=== PATIENT | male | born 1965 | race African-American/Black ===

== ENCOUNTER 2018-12-04 18:28 | Inpatient (IN) | payer OTHER ==
[~2018-12-04] VITALS: Ht 188 cm; Wt 85.7 kg
[2018-12-04 18:40] VITALS: BP 110/57
--- NOTE | 2018-12-04 18:40 | NUR ---
ED Nurse Note: Patient wheeled into Ed c/o left leg edema that he noticed progressing for the past 2 days, unable to bear weight, patient presents with a slowed speech with jaundice in appearance. patient is alert and oriented x4 however. complains of 8/10 pain at this time. IV placed on patients left forearm 18 gauge, labs sent down except urine. placed in a pressing machine tender, will wait for further orders
[2018-12-04 19:06] LABS: BASOPHILS % (AUTO) 0.7 % (0.0-2.0); EOSINOPHILS % (AUTO) 0.4 % (0.0-3.0); HEMATOCRIT 28.8 % (42.0-52.0); HEMOGLOBIN 9.1 G/DL (14.2-18.0); LYMPHOCYTES % (AUTO) 16.5 % (20.0-45.0); MEAN CORPUSCULAR VOLUME 109 FL (80-99); NEUTROPHILS % (AUTO) 75.5 % (45.0-75.0); PLATELET COUNT 424 K/UL (150-450); RED BLOOD COUNT 2.64 M/UL (4.70-6.10); RED CELL DISTRIBUTION WIDTH 16.6 % (11.6-14.8); WHITE BLOOD COUNT 10.1 K/UL (4.8-10.8)
--- NOTE | 2018-12-04 19:11 | NUR ---
HAND-OFF: Report given to PADDY Quezada.
[2018-12-04 19:15] LABS: AMMONIA 31 umol/L (11-32); ANION GAP 10 mmol/L (5-15); BLOOD UREA NITROGEN 9 mg/dL (7-18); CALCIUM 8.8 MG/DL (8.5-10.1); CARBON DIOXIDE 26 MMOL/L (21-32); CHLORIDE 109 MMOL/L (98-107); CREATININE 0.7 MG/DL (0.55-1.30); POTASSIUM 2.9 MMOL/L (3.5-5.1); SODIUM 145 MMOL/L (136-145)
[2018-12-04 19:27] LABS: ALANINE AMINOTRANSFERASE 91 U/L (12-78); ALBUMIN 2.1 G/DL (3.4-5.0); ALBUMIN/GLOBULIN RATIO 0.3 (1.0-2.7); ALKALINE PHOSPHATASE 1136 U/L (46-116); ASPARTATE AMINO TRANSFERASE 157 U/L (15-37); BILIRUBIN,TOTAL 8.6 MG/DL (0.2-1.0)
[2018-12-04] MEDS ORDERED: Morphine Sulfate 4mg/ml Inj (IV USE ONLY) IVP ONE (19:30)
[2018-12-04 19:31] LABS: BILIRUBIN,DIRECT 7.8 MG/DL (0.0-0.3)
[2018-12-04 19:48] LABS: APPEARANCE,URINE SLIGHTLY CLOUDY; BILIRUBIN, URINE 3+ (NEGATIVE); COLOR,URINE BROWN; GLUCOSE, URINE (UA) NEGATIVE (NEGATIVE); KETONES,URINE NEGATIVE (NEGATIVE); LEUKOCYTE ESTERASE ,URINE 1+ (NEGATIVE); NITRITE,URINE NEGATIVE (NEGATIVE); PH,URINE 6 (4.5-8.0); PROTEIN,URINE 2+ (NEGATIVE); UROBILINOGEN,URINE 12 MG/DL (0.0-1.0)
--- NOTE | 2018-12-04 20:20 | Diagnostic Imaging Report ---
EXAM: XR Chest, 1 View CLINICAL HISTORY: AMS TECHNIQUE: Frontal view of the chest. COMPARISON: None FINDINGS: Hardware: None. Lungs pleura: Low lung volumes with probable bibasilar atelectasis. No pleural effusion or pneumothorax. Heart mediastinum: Mild enlargement of the cardiac silhouette. Soft tissues: Unremarkable. Bones: No acute fracture. Degenerative changes of the acromioclavicular joints. Upper abdomen: Normal. IMPRESSION: Low lung volumes with probable bibasilar atelectasis. Pneumonia is not excluded.
--- NOTE | 2018-12-04 21:10 | NUR ---
ED Nurse Note: report given to PADDY Mcgee from [place], pt transferred to [place] floor with all belongings, family at bedside, pt vss, resp even and unlabored on RA, iv intact and patent, receiving rn notified med recon done except one med, unable to obtain exact name of the medication but pt repots he takes it for liver enzyme. endorsed to receiving rn.
[2018-12-04] MEDS ORDERED: PERCOCET 10-321 EAC1 ORAL (21:11)
[2018-12-04] MEDS ORDERED: HYDROCHLOROTH12.5 M2 ORAL (21:11)
[2018-12-04] MEDS ORDERED: TRIUMEQ 600-501 EACH PO (21:11)
--- NOTE | 2018-12-04 21:47 | NUR ---
NURSE NOTES: 9:30pm pt on the floor with best friend at bedside, pt has a personal walker at the bedside, sending his earrings home with the best friend, pt bilateral lower extremities edematous, the left extremity more, able to make needs known, call light within reach, no c/o pain at the moment and no signs of distress, med recon done, pt states that the morphine medication does not work and has taken dilaudid before and it helps with his pain, will contact Dr. Juan about admitting orders.
--- NOTE | 2018-12-04 21:50 | Emergency Room Report ---
History of Present Illness General Chief Complaint: Edema Source: Patient, Family Member Present Illness HPI 52-year-old male presents ED for evaluation. Brought in by brother for swelling to both legs. States symptoms started about 3 days ago. History of cirrhosis. States that he has not had access to his medications for a few days. Pain is throbbing, 7 out of 10, nonradiating. Is jaundice on exam. Denies any abdominal pain. Denies any nausea or vomiting. Denies fevers or chills. No other aggravating relieving factors. Denies any other associated symptoms Allergies: Coded Allergies: No Known Allergies (Unverified , 12/04/18) Patient History Past Medical History: other - cirrhosis Past Surgical History: none Pertinent Family History: none Social History: Denies: smoking, alcohol use, drug use Immunizations: UTD Reviewed Nursing Documentation: PMH: Agreed; PSxH: Agreed Nursing Documentation-PMH Past Medical History: No History, Except For Review of Systems All Other Systems: negative except mentioned in HPI Physical Exam Vital Signs Date Time Temp Pulse Resp B/P (MAP) Pulse Ox O2 Delivery O2 Flow Rate FiO2 12/04/18 18:30 98.2 78 13 100 Room Air 12/04/18 18:40 110/57 Sp02 EP Interpretation: reviewed, normal General Appearance: no apparent distress, alert, GCS 15, non-toxic Head: normocephalic, atraumatic Eyes: bilateral eye PERRL, bilateral eye EOMI, bilateral eye other - icteric sclera ENT: hearing grossly normal, normal pharynx, no angioedema, normal voice Neck: full range of motion, supple/symm/no masses Respiratory: chest non-tender, lungs clear, normal breath sounds, speaking full sentences Cardiovascular #1: regular rate, rhythm, no edema Cardiovascular #2: 2+ carotid (R), 2+ carotid (L), 2+ radial (R), 2+ radial (L) , 2+ dorsalis pedis (R), 2+ dorsalis pedis (L) Gastrointestinal: normal bowel sounds, non tender, soft, non-distended, no guarding, no rebound Rectal: deferred Genitourinary: normal inspection, no CVA tenderness Musculoskeletal: back normal, gait/station normal, normal range of motion, swelling - 1+ pitting edema b/l LEs Neurologic: alert, oriented x3, responsive, motor strength/tone normal, sensory intact, speech normal Psychiatric: judgement/insight normal, memory normal, mood/affect normal, no suicidal/homicidal ideation Reflexes: 3+ bicep (R), 3+ bicep (L), 3+ tricep (R), 3+ tricep (L), 3+ knee (R) , 3+ knee (L) Skin: other - see nursig notes Lymphatic: no adenopathy Medical Decision Making Diagnostic Impression: Primary Impression: Peripheral edema Additional Impressions: Liver failure Qualified Codes: K72.00 - Acute and subacute hepatic failure without coma Hypokalemia ER Course 52-year-old male presents ED for evaluation of leg swelling, jaundice. History of cirrhosis Differentialhepatic encephalopathy, CHF, renal failure patient placed on stretcher. After initial history and physical I ordered labs , pain meds, chest x-ray Labsno leukocytosis, hb/hct stable, K 2.9, LFTs markedly elevated, UA negative, BNP ok CXR - atelectasis patient admitted to Dr Juan's service for further care and support diagnosis Peripheral edema, liver failure, hypokalemia admitted to floor in serious condition Labs Test 12/04/18 18:45 White Blood Count 10.1 K/UL (4.8-10.8) Red Blood Count 2.64 M/UL (4.70-6.10) Hemoglobin 9.1 G/DL (14.2-18.0) Hematocrit 28.8 % (42.0-52.0) Mean Corpuscular Volume 109 FL (80-99) Mean Corpuscular Hemoglobin 34.5 PG (27.0-31.0) Mean Corpuscular Hemoglobin Concent 31.7 G/DL (32.0-36.0) Red Cell Distribution Width 16.6 % (11.6-14.8) Platelet Count 424 K/UL (150-450) Mean Platelet Volume 5.4 FL (6.5-10.1) Neutrophils (%) (Auto) 75.5 % (45.0-75.0) Lymphocytes (%) (Auto) 16.5 % (20.0-45.0) Monocytes (%) (Auto) 7.0 % (1.0-10.0) Eosinophils (%) (Auto) 0.4 % (0.0-3.0) Basophils (%) (Auto) 0.7 % (0.0-2.0) Urine Color Brown Urine Appearance Slightly cloudy Urine pH 6 (4.5-8.0) Urine Specific [place] 1.020 (1.005-1.035) Urine Protein 2+ (NEGATIVE) Urine Glucose (UA) Negative (NEGATIVE) Urine Ketones Negative (NEGATIVE) Urine Blood 1+ (NEGATIVE) Urine Nitrite Negative (NEGATIVE) Urine Bilirubin 3+ (NEGATIVE) Urine Ictotest Positive (NEGATIVE) Urine Urobilinogen 12 MG/DL (0.0-1.0) Urine Leukocyte Esterase 1+ (NEGATIVE) Urine RBC 2-4 /HPF (0 - 0) Urine WBC 0-2 /HPF (0 - 0) Urine Squamous Epithelial Cells Few /LPF (NONE/OCC) Urine Bacteria Occasional /HPF (NONE) Sodium Level 145 MMOL/L (136-145) Potassium Level 2.9 MMOL/L (3.5-5.1) Chloride Level 109 MMOL/L (98-107) Carbon Dioxide Level 26 MMOL/L (21-32) Anion Gap 10 mmol/L (5-15) Blood Urea Nitrogen 9 mg/dL (7-18) Creatinine 0.7 MG/DL (0.55-1.30) Estimat Glomerular Filtration Rate > 60 mL/min (>60) Glucose Level 95 MG/DL (74-106) Calcium Level 8.8 MG/DL (8.5-10.1) Total Bilirubin 8.6 MG/DL (0.2-1.0) Direct Bilirubin 7.8 MG/DL (0.0-0.3) Aspartate Amino Transf (AST/SGOT) 157 U/L (15-37) Alanine Aminotransferase (ALT/SGPT) 91 U/L (12-78) Alkaline Phosphatase 1136 U/L (46-116) Ammonia 31 umol/L (11-32) Troponin I 0.000 ng/mL (0.000-0.056) Pro-B-Type Natriuretic Peptide 86 pg/mL (0-125) Total Protein 8.1 G/DL (6.4-8.2) Albumin 2.1 G/DL (3.4-5.0) Globulin 6.0 g/dL Albumin/Globulin Ratio 0.3 (1.0-2.7) Lipase 68 U/L (73-393) Chest X-Ray Diagnostic Results Chest X-Ray Diagnostic Results : Chest X-Ray Ordered: Yes # of Views/Limited/Complete: 1 View Indication: Other - weakness EP Interpretation: Yes Interpretation: no pneumothorax, no acute cardiopulmonary disease, other - atelectasis Impression: Other - atelectasis Electronically Signed by: Electronically signed by Nikita Villavicencio MD Last Vital Signs Date Time Temp Pulse Resp B/P (MAP) Pulse Ox O2 Delivery O2 Flow Rate FiO2 12/04/18 21:10 98.8 72 14 107/75 100 Room Air Status: improved Disposition: ADMITTED INPATIENT Condition: Serious Referrals: NON PHYSICIAN (PCP) Nikita Villavicencio MD Dec 04, 2018 21:50
[2018-12-04] MEDS: Zolpidem 5mg tab ORAL PRN (23:43)
[2018-12-05] VITALS: BP 113/76
[2018-12-05] MEDS: HYDROmorphone 1mg/ml Carpuject SUBQ PRN ×2 (02:14→09:05)
[2018-12-05 04:00] VITALS: BP 121/79
[2018-12-05 07:03] LABS: BASOPHILS % (AUTO) 0.6 % (0.0-2.0); EOSINOPHILS % (AUTO) 0.1 % (0.0-3.0); HEMATOCRIT 27.7 % (42.0-52.0); HEMOGLOBIN 9.3 G/DL (14.2-18.0); LYMPHOCYTES % (AUTO) 18.7 % (20.0-45.0); MEAN CORPUSCULAR VOLUME 105 FL (80-99); MONOCYTES % (AUTO) 7.8 % (1.0-10.0); NEUTROPHILS % (AUTO) 72.8 % (45.0-75.0); PLATELET COUNT 397 K/UL (150-450); RED BLOOD COUNT 2.63 M/UL (4.70-6.10); RED CELL DISTRIBUTION WIDTH 15.6 % (11.6-14.8); WHITE BLOOD COUNT 8.2 K/UL (4.8-10.8)
--- NOTE | 2018-12-05 07:15 | NUR ---
NURSE NOTES: HANDOFF RECEIVED FROM PADDY HERNANDEZ. PATIENT OBSERVED SLEEPING IN BED, NO OBVIOUS SIGNS OF DISTRESS. IV SITE IS CLEAN, DRY AND INTACT, NO FLUIDS RUNNING, PM SHIFT STATED PATIENT WANTED THE IV FLUIDS OFF, WILL ATTEMPT TO RECONNECT WHEN PATIENT WAKES UP OR WILL NOTIFY DR. LONGO IN THE LOW AND LOCKED POSITION WITH CALL LIGHT AT BEDSIDE. WILL CONTINUE TO MONITOR PATIENT.
[2018-12-05 07:18] LABS: ALANINE AMINOTRANSFERASE 90 U/L (12-78); ALBUMIN 1.9 G/DL (3.4-5.0); ALBUMIN/GLOBULIN RATIO 0.3 (1.0-2.7); ALKALINE PHOSPHATASE 1108 U/L (46-116); ANION GAP 8 mmol/L (5-15); ASPARTATE AMINO TRANSFERASE 162 U/L (15-37); BILIRUBIN,TOTAL 8.6 MG/DL (0.2-1.0); BLOOD UREA NITROGEN 8 mg/dL (7-18); CALCIUM 8.6 MG/DL (8.5-10.1); CARBON DIOXIDE 28 MMOL/L (21-32); CHLORIDE 111 MMOL/L (98-107); CHOLESTEROL 101 MG/DL (< 200); CREATININE 0.8 MG/DL (0.55-1.30); HDL CHOLESTEROL 8 MG/DL (40-60); POTASSIUM 3.3 MMOL/L (3.5-5.1); SODIUM 147 MMOL/L (136-145); TRIGLYCERIDES 111 MG/DL (30-150)
[2018-12-05 07:33] LABS: BILIRUBIN,DIRECT 7.7 MG/DL (0.0-0.3)
--- NOTE | 2018-12-05 07:45 | NUR ---
HAND-OFF: Report given to PADDY Paez.
--- NOTE | 2018-12-05 07:59 | NUR ---
NURSE NOTES: PATIENT RECEIVED FROM PADDY HERNANDEZ. PATIENT ALERT AND ORIENTED AND ABLE TO MAKE NEEDS KNOWN. PATIENT OBSERVED SHOUTING THAT HE WANTS TO GO HOME, EXPLAINED THAT THERE IS NO ORDER FROM THE DOCTOR FOR DISCHARGE. PATIENT STATED HE CAN LEAVE AMA, ADVISED PATIENT TO WAIT UNTIL CLEARED BY DOCTOR, PATIENT THEN STATES THAT HE CANNOT GET HOME SO CAN'T SIGN AMA ANYWAY. IV SITE IS CLEAN DRY AND INTACT, SALINE LOCKED. BED IN LOW AND LOCKED POSITION WITH CALL LIGHT WITHIN REACH, PATIENT IS LEGALLY BLINSS Addendum: 12/05/18 at 08 by Philippe Melton RN BLIND, INSTRUCTED TO USE THE CALL LIGHT IF HE NEEDS TO GET UP FOR ANY REASON. WILL CONTINUE TO MONITOR PATIENT. Addendum: 12/05/18 at 08 by Philippe Melton RN CHARTED ON WRONG PATIENT PLEASE DISREGARD THIS NOTE. Addendum: 12/05/18 at 0830 by Philippe Melton RN PLEASE IGNORE THIS NOTE, ENTERED INTO THE WRONG CHART
[2018-12-05 08:00] VITALS: BP 125/86
--- NOTE | 2018-12-05 08:23 | NUR ---
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 DOCTORED GAVE ORDER FOR FLOMAX AND FOR PT EVALUATION AND ASSESSMENT.
[2018-12-05] MEDS: Heparin 5000 units/ml inj SUBQ SCH ×2 (09:06→20:24)
--- NOTE | 2018-12-05 10:18 | NUR ---
CHARGE NURSE NOTE: K-3.3. notified.
[2018-12-05 12:00] VITALS: BP 108/62
--- NOTE | 2018-12-05 12:15 | History & Physical ---
History and Physical History & Physicial seen and examined. Full Dictation completed on 1207 PM Nupur Juan MD Dec 05, 2018 12:15
--- NOTE | 2018-12-05 12:16 | General Progress Note ---
Assessment/Plan Assessment/Plan: Full Dictation in progress A/P: 1- Anasarca 2- Cirrhosis 3- Low grade fever Plan; Start Abx GI, Nephro, ID and Hemonch are consulted Subjective Allergies: Coded Allergies: No Known Allergies (Unverified , 12/04/18) Objective Last 24 Hour Vital Signs Date Time Temp Pulse Resp B/P (MAP) Pulse Ox O2 Delivery O2 Flow Rate FiO2 12/05/18 09:00 Room Air Room Air 12/05/18 08:00 97.9 100 16 125/86 (99) 94 12/05/18 04:00 98.7 77 18 121/79 (93) 99 12/05/18 00:00 98.8 79 22 113/76 (88) 98 12/04/18 22:47 Room Air 12/04/18 21:10 98.8 72 14 107/75 100 Room Air 12/04/18 20:14 98.2 12/04/18 18:40 78 13 Room Air 12/04/18 18:40 98.2 76 13 110/57 100 Room Air 12/04/18 18:30 98.2 78 13 100 Room Air Intake and Output 12/04/18 12/05/18 19:00 07:00 Output Total 300 ml Balance -300 ml Output Urine Total 300 ml # Voids 1 Laboratory Tests 12/04/18 18:45: White Blood Count 10.1, Red Blood Count 2.64L, Hemoglobin 9.1L, Hematocrit 28.8L , Mean Corpuscular Volume 109H, Mean Corpuscular Hemoglobin 34.5H, Mean Corpuscular Hemoglobin Concent 31.7L, Red Cell Distribution Width 16.6H, Platelet Count 424, Mean Platelet Volume 5.4L, Neutrophils (%) (Auto) 75.5H, Lymphocytes (%) (Auto) 16.5L, Monocytes (%) (Auto) 7.0, Eosinophils (%) (Auto) 0.4, Basophils (%) (Auto) 0.7, Urine Color Brown, Urine Appearance Slightly cloudy, Urine pH 6, Urine Specific [place] 1.020, Urine Protein 2+H, Urine Glucose (UA) Negative, Urine Ketones Negative, Urine Blood 1+H, Urine Nitrite Negative, Urine Bilirubin 3+H, Urine Ictotest Positive, Urine Urobilinogen 12H, Urine Leukocyte Esterase 1+H, Urine RBC 2-4H, Urine WBC 0-2, Urine Squamous Epithelial Cells Few, Urine Bacteria Occasional, Sodium Level 145, Potassium Level 2.9L, Chloride Level 109H, Carbon Dioxide Level 26, Anion Gap 10, Blood Urea Nitrogen 9, Creatinine 0.7, Estimat Glomerular Filtration Rate > 60, Glucose Level 95, Calcium Level 8.8, Total Bilirubin 8.6H, Direct Bilirubin 7.8H , Aspartate Amino Transf (AST/SGOT) 157H, Alanine Aminotransferase (ALT/SGPT) 91H, Alkaline Phosphatase 1136H, Ammonia 31, Troponin I 0.000, Pro-B-Type Natriuretic Peptide 86, Total Protein 8.1, Albumin 2.1L, Globulin 6.0, Albumin/ Globulin Ratio 0.3L, Lipase 68L 12/05/18 06:15: White Blood Count 8.2, Red Blood Count 2.63L, Hemoglobin 9.3L, Hematocrit 27.7L , Mean Corpuscular Volume 105H, Mean Corpuscular Hemoglobin 35.3H, Mean Corpuscular Hemoglobin Concent 33.5, Red Cell Distribution Width 15.6H, Platelet Count 397, Mean Platelet Volume 5.7L, Neutrophils (%) (Auto) 72.8, Lymphocytes (%) (Auto) 18.7L, Monocytes (%) (Auto) 7.8, Eosinophils (%) (Auto) 0.1, Basophils (%) (Auto) 0.6, Sodium Level 147H, Potassium Level 3.3L, Chloride Level 111H, Carbon Dioxide Level 28, Anion Gap 8, Blood Urea Nitrogen 8 , Creatinine 0.8, Estimat Glomerular Filtration Rate > 60, Glucose Level 76, Calcium Level 8.6, Total Bilirubin 8.6H, Direct Bilirubin 7.7H, Aspartate Amino Transf (AST/SGOT) 162H, Alanine Aminotransferase (ALT/SGPT) 90H, Alkaline Phosphatase 1108H, Total Protein 7.5, Albumin 1.9L, Globulin 5.6, Albumin/ Globulin Ratio 0.3L, Hemoglobin A1c 3.9L, Triglycerides Level 111, Cholesterol Level 101, LDL Cholesterol 62, HDL Cholesterol 8L, Cholesterol/HDL Ratio 12.6H, Thyroid Stimulating Hormone (TSH) 0.626 Height (Feet): 6 Height (Inches): 2.00 Weight (Pounds): 189 Nupur Juan MD Dec 05, 2018 12:16
--- NOTE | 2018-12-05 12:30 | NUR ---
NURSE NOTES: PATIENT STATED DILAUDID SUBQ IS NOT EFFECTIVE FOR MANAGING PAIN. CONTACTED DR TO LET HIM KNOW. NO NEW ORDERS AT THIS TIME.
[2018-12-05 12:48] LABS: % IRON SATURATION 37 % (15-50); IRON 80 ug/dL (50-175); TOTAL IRON BINDING CAPACITY 214 ug/dL (250-450)
[2018-12-05] MEDS ORDERED: Piperacillin/Tazobactam 3.375 GM in NS 110 ML IVPB SCH (14:00)
--- NOTE | 2018-12-05 15:11 | Infectious Diseases Prog Note ---
Assessment/Plan Problems: (1) UTI (urinary tract infection) Assessment & Plan: will send urine culture and start keflex empirically (2) Cellulitis of leg Assessment & Plan: will start keflex empirically , recommend venous doppler of the legs to rule out DVT , keep legs elevated all the time (3) Liver failure Assessment & Plan: etiology ? will screen for hepatitis , follow up with hepatology (4) Peripheral edema Assessment & Plan: suspect due to liver cirrhosis and third spacing, renal is following (5) HIV (human immunodeficiency virus infection) Assessment & Plan: continue triumeq , follow up with hiv provider at [place] Subjective Allergies: Coded Allergies: No Known Allergies (Unverified , 12/04/18) Objective Vital Signs Last 24 Hour Vital Signs Date Time Temp Pulse Resp B/P (MAP) Pulse Ox O2 Delivery O2 Flow Rate FiO2 12/05/18 12:00 97.9 100 24 108/62 (77) 99 12/05/18 09:00 Room Air Room Air 12/05/18 08:00 97.9 100 16 125/86 (99) 94 12/05/18 04:00 98.7 77 18 121/79 (93) 99 12/05/18 00:00 98.8 79 22 113/76 (88) 98 12/04/18 22:47 Room Air 12/04/18 21:10 98.8 72 14 107/75 100 Room Air 12/04/18 20:14 98.2 12/04/18 18:40 78 13 Room Air 12/04/18 18:40 98.2 76 13 110/57 100 Room Air 12/04/18 18:30 98.2 78 13 100 Room Air Height (Feet): 6 Height (Inches): 2.00 Weight (Pounds): 189 Laboratory Tests Test 12/04/18 18:45 12/05/18 06:15 White Blood Count 10.1 K/UL (4.8-10.8) 8.2 K/UL (4.8-10.8) Red Blood Count 2.64 M/UL (4.70-6.10) L 2.63 M/UL (4.70-6.10) L Hemoglobin 9.1 G/DL (14.2-18.0) L 9.3 G/DL (14.2-18.0) L Hematocrit 28.8 % (42.0-52.0) L 27.7 % (42.0-52.0) L Mean Corpuscular Volume 109 FL (80-99) H 105 FL (80-99) H Mean Corpuscular Hemoglobin 34.5 PG (27.0-31.0) H 35.3 PG (27.0-31.0) H Mean Corpuscular Hemoglobin Concent 31.7 G/DL (32.0-36.0) L 33.5 G/DL (32.0-36.0) Red Cell Distribution Width 16.6 % (11.6-14.8) H 15.6 % (11.6-14.8) H Platelet Count 424 K/UL (150-450) 397 K/UL (150-450) Mean Platelet Volume 5.4 FL (6.5-10.1) L 5.7 FL (6.5-10.1) L Neutrophils (%) (Auto) 75.5 % (45.0-75.0) H 72.8 % (45.0-75.0) Lymphocytes (%) (Auto) 16.5 % (20.0-45.0) L 18.7 % (20.0-45.0) L Monocytes (%) (Auto) 7.0 % (1.0-10.0) 7.8 % (1.0-10.0) Eosinophils (%) (Auto) 0.4 % (0.0-3.0) 0.1 % (0.0-3.0) Basophils (%) (Auto) 0.7 % (0.0-2.0) 0.6 % (0.0-2.0) Urine Color Brown Urine Appearance Slightly cloudy Urine pH 6 (4.5-8.0) Urine Specific [place] 1.020 (1.005-1.035) Urine Protein 2+ (NEGATIVE) H Urine Glucose (UA) Negative (NEGATIVE) Urine Ketones Negative (NEGATIVE) Urine Blood 1+ (NEGATIVE) H Urine Nitrite Negative (NEGATIVE) Urine Bilirubin 3+ (NEGATIVE) H Urine Ictotest Positive (NEGATIVE) Urine Urobilinogen 12 MG/DL (0.0-1.0) H Urine Leukocyte Esterase 1+ (NEGATIVE) H Urine RBC 2-4 /HPF (0 - 0) H Urine WBC 0-2 /HPF (0 - 0) Urine Squamous Epithelial Cells Few /LPF (NONE/OCC) Urine Bacteria Occasional /HPF (NONE) Sodium Level 145 MMOL/L (136-145) 147 MMOL/L (136-145) H Potassium Level 2.9 MMOL/L (3.5-5.1) L 3.3 MMOL/L (3.5-5.1) L Chloride Level 109 MMOL/L (98-107) H 111 MMOL/L (98-107) H Carbon Dioxide Level 26 MMOL/L (21-32) 28 MMOL/L (21-32) Anion Gap 10 mmol/L (5-15) 8 mmol/L (5-15) Blood Urea Nitrogen 9 mg/dL (7-18) 8 mg/dL (7-18) Creatinine 0.7 MG/DL (0.55-1.30) 0.8 MG/DL (0.55-1.30) Estimat Glomerular Filtration Rate > 60 mL/min (>60) > 60 mL/min (>60) Glucose Level 95 MG/DL (74-106) 76 MG/DL (74-106) Calcium Level 8.8 MG/DL (8.5-10.1) 8.6 MG/DL (8.5-10.1) Total Bilirubin 8.6 MG/DL (0.2-1.0) H 8.6 MG/DL (0.2-1.0) H Direct Bilirubin 7.8 MG/DL (0.0-0.3) H 7.7 MG/DL (0.0-0.3) H Aspartate Amino Transf (AST/SGOT) 157 U/L (15-37) H 162 U/L (15-37) H Alanine Aminotransferase (ALT/SGPT) 91 U/L (12-78) H 90 U/L (12-78) H Alkaline Phosphatase 1136 U/L (46-116) H 1108 U/L (46-116) H Ammonia 31 umol/L (11-32) Troponin I 0.000 ng/mL (0.000-0.056) Pro-B-Type Natriuretic Peptide 86 pg/mL (0-125) Total Protein 8.1 G/DL (6.4-8.2) 7.5 G/DL (6.4-8.2) Albumin 2.1 G/DL (3.4-5.0) L 1.9 G/DL (3.4-5.0) L Globulin 6.0 g/dL 5.6 g/dL Albumin/Globulin Ratio 0.3 (1.0-2.7) L 0.3 (1.0-2.7) L Lipase 68 U/L (73-393) L Hemoglobin A1c 3.9 % (4.3-6.0) L Iron Level 80 ug/dL (50-175) Total Iron Binding Capacity 214 ug/dL (250-450) L Percent Iron Saturation 37 % (15-50) Unsaturated Iron Binding 134 ug/dL (112-346) Triglycerides Level 111 MG/DL (30-150) Cholesterol Level 101 MG/DL (< 200) LDL Cholesterol 62 mg/dL (<100) HDL Cholesterol 8 MG/DL (40-60) L Cholesterol/HDL Ratio 12.6 (3.3-4.4) H Thyroid Stimulating Hormone (TSH) 0.626 uiU/mL (0.358-3.740) Current Medications Medications (Trade) Dose Ordered Sig/Lala Route PRN Reason Start Time Stop Time Status Last Admin Dose Admin Heparin Sodium (Porcine) (Heparin 5000 units/ml) 5,000 units EVERY 12 HOURS SUBQ 12/05/18 09:00 01/04/19 08:59 12/05/18 09:06 Hydrochlorothiazide (Hydrodiuril) 12.5 mg DAILY ORAL 12/05/18 09:00 01/04/19 08:59 12/05/18 09:04 Hydromorphone HCl (Dilaudid) 1 mg Q6HR PRN SUBQ severe pain 12/04/18 22:15 12/11/18 22:14 12/05/18 09:05 Non-Formulary Medication (Non-Formulary Med) 1 ea DAILY ORAL 12/05/18 09:00 01/04/19 08:59 UNV Oxycodone/ Acetaminophen (Percocet 10) 1 tab Q4HR PRN ORAL For Pain 12/04/18 22:15 12/11/18 22:14 12/05/18 12:23 Pantoprazole (Protonix) 40 mg DAILY@0630 ORAL 12/05/18 06:30 01/04/19 06:29 12/05/18 06:21 Piperacillin Sod/ Tazobactam Sod 3.375 gm/Sodium Chloride 110 ml @ 27.5 mls/hr EVERY 8 HOURS IVPB 12/05/18 14:00 12/10/18 13:59 12/05/18 14:48 Potassium Chloride (K-Dur) 40 meq ONCE ORAL 12/05/18 12:00 01/04/19 11:59 12/05/18 12:22 Tamsulosin HCl (Flomax) 0.4 mg BEDTIME ORAL 12/05/18 21:00 01/04/19 20:59 Zolpidem Tartrate (Ambien) 5 mg HSPRN PRN ORAL Insomnia 12/04/18 22:15 12/11/18 22:14 12/04/18 23:43 Cedrick Vu M.D. Dec 05, 2018 15:11
[2018-12-05] MEDS ORDERED: HYDROmorphone 1mg/ml Carpuject SUBQ PRN (15:15)
[2018-12-05 16:00] VITALS: BP 125/86
--- NOTE | 2018-12-05 16:08 | General Progress Note ---
Assessment/Plan Assessment/Plan: Assessment - PSC - s/p MELISSA gastric bypass - HIV (+) - Leg edema Recommendations - Uroso - Xifaxan - Lasix - Aldactone - f/u at [facility] Thank you Bailey Cano MD Subjective Allergies: Coded Allergies: No Known Allergies (Unverified , 12/04/18) Objective Last 24 Hour Vital Signs Date Time Temp Pulse Resp B/P (MAP) Pulse Ox O2 Delivery O2 Flow Rate FiO2 12/05/18 12:00 97.9 100 24 108/62 (77) 99 12/05/18 09:00 Room Air Room Air 12/05/18 08:00 97.9 100 16 125/86 (99) 94 12/05/18 04:00 98.7 77 18 121/79 (93) 99 12/05/18 00:00 98.8 79 22 113/76 (88) 98 12/04/18 22:47 Room Air 12/04/18 21:10 98.8 72 14 107/75 100 Room Air 12/04/18 20:14 98.2 12/04/18 18:40 78 13 Room Air 12/04/18 18:40 98.2 76 13 110/57 100 Room Air 12/04/18 18:30 98.2 78 13 100 Room Air Intake and Output 12/04/18 12/05/18 18:59 06:59 Output Total 300 ml Balance -300 ml Output Urine Total 300 ml # Voids 1 Laboratory Tests 12/04/18 18:45: White Blood Count 10.1, Red Blood Count 2.64L, Hemoglobin 9.1L, Hematocrit 28.8L , Mean Corpuscular Volume 109H, Mean Corpuscular Hemoglobin 34.5H, Mean Corpuscular Hemoglobin Concent 31.7L, Red Cell Distribution Width 16.6H, Platelet Count 424, Mean Platelet Volume 5.4L, Neutrophils (%) (Auto) 75.5H, Lymphocytes (%) (Auto) 16.5L, Monocytes (%) (Auto) 7.0, Eosinophils (%) (Auto) 0.4, Basophils (%) (Auto) 0.7, Urine Color Brown, Urine Appearance Slightly cloudy, Urine pH 6, Urine Specific [place] 1.020, Urine Protein 2+H, Urine Glucose (UA) Negative, Urine Ketones Negative, Urine Blood 1+H, Urine Nitrite Negative, Urine Bilirubin 3+H, Urine Ictotest Positive, Urine Urobilinogen 12H, Urine Leukocyte Esterase 1+H, Urine RBC 2-4H, Urine WBC 0-2, Urine Squamous Epithelial Cells Few, Urine Bacteria Occasional, Sodium Level 145, Potassium Level 2.9L, Chloride Level 109H, Carbon Dioxide Level 26, Anion Gap 10, Blood Urea Nitrogen 9, Creatinine 0.7, Estimat Glomerular Filtration Rate > 60, Glucose Level 95, Calcium Level 8.8, Total Bilirubin 8.6H, Direct Bilirubin 7.8H , Aspartate Amino Transf (AST/SGOT) 157H, Alanine Aminotransferase (ALT/SGPT) 91H, Alkaline Phosphatase 1136H, Ammonia 31, Troponin I 0.000, Pro-B-Type Natriuretic Peptide 86, Total Protein 8.1, Albumin 2.1L, Globulin 6.0, Albumin/ Globulin Ratio 0.3L, Lipase 68L 12/05/18 06:15: White Blood Count 8.2, Red Blood Count 2.63L, Hemoglobin 9.3L, Hematocrit 27.7L , Mean Corpuscular Volume 105H, Mean Corpuscular Hemoglobin 35.3H, Mean Corpuscular Hemoglobin Concent 33.5, Red Cell Distribution Width 15.6H, Platelet Count 397, Mean Platelet Volume 5.7L, Neutrophils (%) (Auto) 72.8, Lymphocytes (%) (Auto) 18.7L, Monocytes (%) (Auto) 7.8, Eosinophils (%) (Auto) 0.1, Basophils (%) (Auto) 0.6, Sodium Level 147H, Potassium Level 3.3L, Chloride Level 111H, Carbon Dioxide Level 28, Anion Gap 8, Blood Urea Nitrogen 8 , Creatinine 0.8, Estimat Glomerular Filtration Rate > 60, Glucose Level 76, Calcium Level 8.6, Total Bilirubin 8.6H, Direct Bilirubin 7.7H, Aspartate Amino Transf (AST/SGOT) 162H, Alanine Aminotransferase (ALT/SGPT) 90H, Alkaline Phosphatase 1108H, Total Protein 7.5, Albumin 1.9L, Globulin 5.6, Albumin/ Globulin Ratio 0.3L, Hemoglobin A1c 3.9L, Iron Level 80, Total Iron Binding Capacity 214L, Percent Iron Saturation 37, Unsaturated Iron Binding 134, Triglycerides Level 111, Cholesterol Level 101, LDL Cholesterol 62, HDL Cholesterol 8L, Cholesterol/HDL Ratio 12.6H, Thyroid Stimulating Hormone (TSH) 0.626 Height (Feet): 6 Height (Inches): 2.00 Weight (Pounds): 189 Bailey Cano MD Dec 05, 2018 16:08
[2018-12-05] MEDS ORDERED: Ursodiol 300mg cap ORAL SCH ×2 (16:15→18:00)
--- NOTE | 2018-12-05 16:17 | NUR ---
NURSE NOTES: PHARMACY CALLED FOR NON-FORMULARY HIV MEDICATION. SPOKE TO PATIENT WHO CONFIRMED FRIEND WOULD BE BRINGING THIS MEDICATION TO THE PATIENT.
--- NOTE | 2018-12-05 16:40 | NUR ---
NURSE NOTES: FAMILY BROUGHT IN HIV MEDICATION THAT WAS NON-FORMULARY FOR OUR PHARMACY. ATTEMPTED TO GIVE PHARMACY THE MEDICATION BUT THE MEDICATION IS NOT IN THE ORIGINAL PRESCRIPTION BOTTLE. PHARMACY SAID THEY CANNOT TAKE THE MEDICINE WITHOUT THE MEDICATION INFORMATION E.G DRUG, DOSE, EXPIRATION ETC. GAVE THE FAMILY THE MEDICATION BACK AND ASKED THEM TO BRING THE ORIGINAL CONTAINER INTO THE HOSPITAL SO THAT WE CAN GIVE THE MEDICATIONS TO THE PHARMACY.
--- NOTE | 2018-12-05 17:30 | Consultation ---
DATE OF CONSULTATION: 12/05/2018 INFECTIOUS DISEASE CONSULTATION CONSULTING PHYSICIAN: Cedrick Vu M.D. REQUESTING PHYSICIAN: Nupur Juan M.D. REASON FOR CONSULTATION: HIV care , UTI, AND possible cellulitis of the lower extremity. Recommendation for antibiotics treatment. HISTORY OF PRESENT ILLNESS: The patient is a 52-year-old male with past medical history of HIV , chronic liver cirrhosis, unclear etiology, was brought in to [facility] emergency room by his brother for worsening swelling of both legs started about three days ago. The patient has history of liver cirrhosis and anasarca and he has not had access to his medications for a few days. His leg pain was getting worse, 7/10, nonradiating and he seems to be jaundiced. No abdominal pain, nausea, or vomiting. No fever or chills. No skin injury. No numbness, but generalized weakness. The patient had temperature of 98.2 with O2 saturation of 100% on room air. Urinalysis showed possible infection. The patient was started on Zosyn by the admitting physician and an Infectious Disease consultation was requested for antibiotics treatment and further care. As of note, the patient is a poor historian. History was partially obtained from the brother and the family at the bedside. REVIEW OF SYSTEMS: A 14-point of systems reviewed were all negative apart from the one I mentioned above in my H and P. PAST MEDICAL HISTORY: Significant for hiv, chronic liver cirrhosis, anasarca, and ascites. PAST SURGICAL HISTORY: Negative. FAMILY HISTORY: Noncontributory. SOCIAL HISTORY: The patient is single, lives with brother. Denied using any drugs, tobacco, or alcohol. ALLERGIES: No known drug allergies. MEDICATIONS: The patient currently on Zosyn. HE IS ALSO ON TRIUMEQ , For the rest of his medications, please refer to [facility]. LABORATORY AND DIAGNOSTIC DATA: Laboratories showed white count of 8.2, hemoglobin of 9.3, platelet count of 397. BUN of 8, creatinine of 0.8. AST of 162, ALT of 90. Albumin of 1.9. Urinalysis showed +1 leukocyte esterase, red blood cells 2 to 4 and wbc 0 to 2. Imaging, chest x-ray showed low lung volumes with probable bibasilar atelectasis. PHYSICAL EXAMINATION: VITAL SIGNS: Temperature 97.9, pulse 100, respirations 24, blood pressure 108/62, and saturation 99% on room air. GENERAL: A middle-aged male, jaundiced, lying in bed, lethargic, but responsive, not in any acute distress. Family at the bedside. HEENT: Normocephalic and atraumatic. Pupils are reactive to light equally. Jaundiced sclera. Oral mucosa, no thrush or exudate. NECK: Supple. No lymphadenopathy. CARDIOVASCULAR: Regular rate and rhythm. No murmur or gallop. LUNGS: Clear bilaterally. Diminished breathing sounds at the bases with crackles. Normal breathing efforts. ABDOMEN: Soft. Distended with ascites. I could not appreciate hepatomegaly. No rebound. No skin lesion. GENITOURINARY: He had a condom catheter in place. No edema or scrotum swelling. EXTREMITIES: He had +3 edema in both lower extremity, worse on the left leg, could not feel distal pulse in both feet. SKIN: Warm to touch. Mildly tender to palpation, mainly on the left leg. ASSESSMENT AND RECOMMENDATION: 1. UTI. We will send urine culture and start Keflex empiric coverage for now. Stop Zosyn to avoid volume overload. 2. Cellulitis of the legs. We will start Keflex empirically. Recommend venous Doppler of the legs to rule out DVT. Keep leg elevated all the time while in bed. 3. Liver failure, etiology unclear. We will screen him for hepatitis. 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 4. Peripheral edema suspect due to liver cirrhosis and third spacing. Renal is following. May benefits from diuresis. 5. HIV . continue triumeq, check viral load Thank you for the consult. ID will continue to follow. Please feel free to call with any question. Cedrick Vu M.D. DR: ELLIE JOB#: [id number] CC: LEORA
--- NOTE | 2018-12-05 17:34 | NUR ---
CHARGE NURSE NOTE: Stat Venous Duplex BLE negative. notified.
[2018-12-05] MEDS: Ursodiol 300mg cap ORAL SCH (17:36)
[2018-12-05] MEDS: Cephalexin 500mg cap ORAL SCH ×2 (17:37→20:21)
[2018-12-05] MEDS: Spironolactone 50mg tab ORAL SCH (17:38)
--- NOTE | 2018-12-05 18:48 | Cardiology Progress Note ---
Assessment/Plan Assessment/Plan The patient is seen and examined, full consult note will be dictated shortly. Objective Last 24 Hour Vital Signs Date Time Temp Pulse Resp B/P (MAP) Pulse Ox O2 Delivery O2 Flow Rate FiO2 12/05/18 16:00 97.9 100 16 125/86 (99) 94 12/05/18 12:00 97.9 100 24 108/62 (77) 99 12/05/18 09:00 Room Air Room Air 12/05/18 08:00 97.9 100 16 125/86 (99) 94 12/05/18 04:00 98.7 77 18 121/79 (93) 99 12/05/18 00:00 98.8 79 22 113/76 (88) 98 12/04/18 22:47 Room Air 12/04/18 21:10 98.8 72 14 107/75 100 Room Air 12/04/18 20:14 98.2 Intake and Output 12/04/18 12/05/18 18:59 06:59 Output Total 300 ml Balance -300 ml Output Urine Total 300 ml # Voids 1 Laboratory Tests Test 12/05/18 06:15 White Blood Count 8.2 K/UL (4.8-10.8) Red Blood Count 2.63 M/UL (4.70-6.10) L Hemoglobin 9.3 G/DL (14.2-18.0) L Hematocrit 27.7 % (42.0-52.0) L Mean Corpuscular Volume 105 FL (80-99) H Mean Corpuscular Hemoglobin 35.3 PG (27.0-31.0) H Mean Corpuscular Hemoglobin Concent 33.5 G/DL (32.0-36.0) Red Cell Distribution Width 15.6 % (11.6-14.8) H Platelet Count 397 K/UL (150-450) Mean Platelet Volume 5.7 FL (6.5-10.1) L Neutrophils (%) (Auto) 72.8 % (45.0-75.0) Lymphocytes (%) (Auto) 18.7 % (20.0-45.0) L Monocytes (%) (Auto) 7.8 % (1.0-10.0) Eosinophils (%) (Auto) 0.1 % (0.0-3.0) Basophils (%) (Auto) 0.6 % (0.0-2.0) Sodium Level 147 MMOL/L (136-145) H Potassium Level 3.3 MMOL/L (3.5-5.1) L Chloride Level 111 MMOL/L (98-107) H Carbon Dioxide Level 28 MMOL/L (21-32) Anion Gap 8 mmol/L (5-15) Blood Urea Nitrogen 8 mg/dL (7-18) Creatinine 0.8 MG/DL (0.55-1.30) Estimat Glomerular Filtration Rate > 60 mL/min (>60) Glucose Level 76 MG/DL (74-106) Hemoglobin A1c 3.9 % (4.3-6.0) L Calcium Level 8.6 MG/DL (8.5-10.1) Iron Level 80 ug/dL (50-175) Total Iron Binding Capacity 214 ug/dL (250-450) L Percent Iron Saturation 37 % (15-50) Unsaturated Iron Binding 134 ug/dL (112-346) Total Bilirubin 8.6 MG/DL (0.2-1.0) H Direct Bilirubin 7.7 MG/DL (0.0-0.3) H Aspartate Amino Transf (AST/SGOT) 162 U/L (15-37) H Alanine Aminotransferase (ALT/SGPT) 90 U/L (12-78) H Alkaline Phosphatase 1108 U/L (46-116) H Total Protein 7.5 G/DL (6.4-8.2) Albumin 1.9 G/DL (3.4-5.0) L Globulin 5.6 g/dL Albumin/Globulin Ratio 0.3 (1.0-2.7) L Triglycerides Level 111 MG/DL (30-150) Cholesterol Level 101 MG/DL (< 200) LDL Cholesterol 62 mg/dL (<100) HDL Cholesterol 8 MG/DL (40-60) L Cholesterol/HDL Ratio 12.6 (3.3-4.4) H Thyroid Stimulating Hormone (TSH) 0.626 uiU/mL (0.358-3.740) Lowell Arreguin MD Dec 05, 2018 18:48
--- NOTE | 2018-12-05 18:51 | Diagnostic Imaging Report ---
EXAM: US Duplex Bilateral Lower Extremities Veins CLINICAL HISTORY: SWELL TECHNIQUE: Real-time duplex ultrasound scan of the bilateral lower extremity veins integrating B-mode two-dimensional vascular structure, Doppler spectral analysis, color flow Doppler imaging and compression. COMPARISON: None FINDINGS: Right deep veins: Unremarkable. No DVT in the right common femoral, femoral, proximal deep femoral or popliteal veins. The veins demonstrate normal color flow, are normally compressible, with normal phasic flow and or augmentation response. Right superficial veins: Unremarkable. No thrombus in the visualized right great saphenous vein. Left deep veins: Unremarkable. No DVT in the left common femoral, femoral, proximal deep femoral or popliteal veins. The veins demonstrate normal color flow, are normally compressible, with normal phasic flow and or augmentation response. Left superficial veins: Unremarkable. No thrombus in the visualized left great saphenous vein. Soft tissues: Soft tissue edema bilaterally. No popliteal cyst. IMPRESSION: No deep venous thrombosis identified in either lower extremity.
--- NOTE | 2018-12-05 19:08 | Diagnostic Imaging Report ---
EXAM: US Abdomen Complete CLINICAL HISTORY: ABN LABS TECHNIQUE: Real-time ultrasound of the abdomen with image documentation. COMPARISON: None FINDINGS: Liver: Measures 19.4 cm, enlarged. Normal echotexture and contour. No focal lesion. Portal vein: Patent with normal direction of flow. Gallbladder: Prior cholecystectomy. Biliary tree: Borderline enlarged which may be due to postcholecystectomy ductal ectasia. Common bile duct measures 6.0 mm. Pancreas: Visualized portions are unremarkable. Spleen: Borderline in size, measuring 12.7 cm. No focal lesion. Right kidney: Measures 15.2 cm in length. No hydronephrosis or stone. No mass. Left kidney: Measures 12.1 cm in length. No hydronephrosis or stone. No mass. Peritoneal space: Normal. No free fluid. Aorta: Visualized portions are unremarkable. IVC: Visualized portions are unremarkable. IMPRESSION: 1. Enlarged liver and right kidney. Borderline size of the spleen. 2. Prior cholecystectomy. 3. No acute abnormality.
--- NOTE | 2018-12-05 19:31 | NUR ---
HAND-OFF: Report given to PADDY HERNANDEZ.
--- NOTE | 2018-12-05 19:46 | NUR ---
NURSE NOTES: Pt received in bed awake, requesting to have Diluadid given IV but I explained that the order is SubQ, pt stating he received Percocet IV but I explained that the medication is PO, able to make needs known, call light within reach, will continue to monitor.
[2018-12-05 20:00] VITALS: BP 105/69
[2018-12-05] MEDS: Tamsulosin 0.4mg cap ORAL SCH (20:20)
[2018-12-05] MEDS: Zolpidem 5mg tab ORAL PRN (21:13)
[2018-12-06] VITALS: BP 98/65
--- NOTE | 2018-12-06 01:45 | Consultation ---
DATE OF CONSULTATION: 12/05/2018 GASTROENTEROLOGY CONSULTATION CONSULTING PHYSICIAN: Bailey Cano M.D. REFERRING PHYSICIAN: Nupur Juan M.D. CHIEF COMPLAINT: I was asked to see this patient by Dr. Nupur Juan for evaluation of liver disease. HISTORY OF PRESENT ILLNESS: The patient is a 52-year-old man, who comes in here because of leg pain. He has chronic liver disease and review of his records of [facility] revealed that he has longstanding history of primary sclerosing cholangitis and he has been placed on ursodiol and Xifaxan as well as atorvastatin for this condition. The patient has had a suspicion of a component of possible autoimmune liver disease, but this has not been proven. He has not been on water pills as an outpatient, but he does note that his legs have been recently swollen. The patient had been given steroid in the past, but unfortunately he developed an ulcer, so steroid was discontinued. It should be noted that he had a Semaj-en-Y gastric bypass surgery in 2004. PAST MEDICAL HISTORY: History of primary sclerosing cholangitis, status post Semaj-en-Y gastric bypass surgery in 2004, history of anastomotic ulcers after oral steroid use, history of anemia, chronic low back pain and neck pain, cholelithiasis, history of first-degree AV block, HIV positive, hyperlipidemia, peptic ulcer disease, pyelonephritis, and depression. FAMILY HISTORY: Negative for liver disease. SOCIAL HISTORY: The patient does not smoke or drink alcohol. MEDICATIONS: As an outpatient include atorvastatin 10 mg p.o. daily; Megace 400 mg p.o. b.i.d.; vitamin D 50,000 units p.o. twice a week; tamsulosin 0.4 mg p.o. daily; ursodiol 500 mg two in the morning and one at night; Triumeq, which is for his HIV disease; Percocet as needed for pain; diazepam as needed for anxiety; and Xifaxan 550 mg p.o. twice a day. REVIEW OF SYSTEMS: Otherwise negative. PHYSICAL EXAMINATION: GENERAL: A well-developed, ill-appearing 52-year-old man, seen in his room with family at bedside. HEENT: Normocephalic and atraumatic. His sclerae were icteric. Oropharynx was clear. Dentition was fair. NECK: Supple. CHEST: Clear to auscultation. CARDIOVASCULAR: Revealed regular rate. ABDOMEN: Soft and without masses. EXTREMITIES: Revealed 1+ to 2+ bilateral lower extremity edema. LABORATORY DATA: Noted. ASSESSMENT: This patient presents with history of primary sclerosing cholangitis, which explains the degree of jaundice and does explain normal platelet count. I will order an INR level on him if it drops back. I suspect that he actually has only obstructive process and no true liver failure. He is going to be treated with his usual medications including ursodiol, which will help in reducing and Xifaxan, which should help with true liver failure as well as a degree of hepatic encephalopathy. I will start him on a dose of Lasix and Aldactone to manage his fluid balance as he would likely develop signs of edema as the disease progresses. The patient understands that, also he will have to be followed back at [facility] where he will be monitored closely for possible future liver transplant candidacy. In addition, he can undergo periodically ERCP examinations to clear his ducts. The above was all discussed with the patient's family and the patient himself and all questions were answered. RECOMMENDATIONS: Per above discussion and per orders written in the chart. Thank you for asking me to participate in the care of this patient. Bailey Cano M.D. DR: Nina JOB#: [id number] CC:
[2018-12-06 04:00] VITALS: BP 101/66
--- NOTE | 2018-12-06 04:47 | NUR ---
NURSE NOTES: Pt has a backpack at the bedside that was brought yesterday on the day shift, with medication, I will give the medication to pharmacy and I added the other items to the belongings list.
--- NOTE | 2018-12-06 07:25 | NUR ---
HAND-OFF: Report given to PADDY Ornelas. Endorsed pt medication receipt is in the chart
[2018-12-06 07:50] LABS: BASOPHILS % (AUTO) 0.7 % (0.0-2.0); EOSINOPHILS % (AUTO) 0.3 % (0.0-3.0); HEMATOCRIT 24.3 % (42.0-52.0); HEMOGLOBIN 8.2 G/DL (14.2-18.0); LYMPHOCYTES % (AUTO) 25.5 % (20.0-45.0); MEAN CORPUSCULAR VOLUME 105 FL (80-99); MONOCYTES % (AUTO) 7.4 % (1.0-10.0); NEUTROPHILS % (AUTO) 66.2 % (45.0-75.0); PLATELET COUNT 332 K/UL (150-450); RED BLOOD COUNT 2.31 M/UL (4.70-6.10); RED CELL DISTRIBUTION WIDTH 15.3 % (11.6-14.8); WHITE BLOOD COUNT 7.8 K/UL (4.8-10.8)
[2018-12-06 07:53] LABS: INR 1.1 (0.9-1.1)
--- NOTE | 2018-12-06 08:08 | NUR ---
NURSE NOTES: pt resting in bed. Compained of bLE pain. mild Edema BLE. condom cath in place, draining dark yellow urine. tolerating diet. call light within reach. bed alarm on . fall precaution maintained. will continue to monitor. .
[2018-12-06 08:24] LABS: ALANINE AMINOTRANSFERASE 91 U/L (12-78); ALBUMIN 1.7 G/DL (3.4-5.0); ALBUMIN/GLOBULIN RATIO 0.3 (1.0-2.7); ALKALINE PHOSPHATASE 1040 U/L (46-116); ANION GAP 6 mmol/L (5-15); ASPARTATE AMINO TRANSFERASE 167 U/L (15-37); BILIRUBIN,DIRECT 8.3 MG/DL (0.0-0.3); BILIRUBIN,TOTAL 9.3 MG/DL (0.2-1.0); BLOOD UREA NITROGEN 8 mg/dL (7-18); CALCIUM 8.5 MG/DL (8.5-10.1); CARBON DIOXIDE 30 MMOL/L (21-32); CHLORIDE 107 MMOL/L (98-107); CREATININE 0.6 MG/DL (0.55-1.30); FERRITIN 334 NG/ML (8-388); POTASSIUM 3.7 MMOL/L (3.5-5.1); SODIUM 143 MMOL/L (136-145)
[2018-12-06 08:31] LABS: PHOSPHORUS 2.7 MG/DL (2.5-4.9)
[2018-12-06 09:00] VITALS: BP 114/76
[2018-12-06] MEDS: Spironolactone 50mg tab ORAL SCH (09:16)
[2018-12-06] MEDS: Heparin 5000 units/ml inj SUBQ SCH ×2 (09:16→20:47)
[2018-12-06] MEDS: Cephalexin 500mg cap ORAL SCH ×4 (09:17→20:46)
[2018-12-06] MEDS: Ursodiol 300mg cap ORAL SCH ×2 (09:24→17:37)
--- NOTE | 2018-12-06 10:01 | General Progress Note ---
Assessment/Plan Assessment/Plan: Full Dictation in progress A/P: 1- Anasarca 2- P B. Cirrhosis 3- Low grade fever, on empiricall abx Plan; Notes from GI reviewed Subjective Allergies: Coded Allergies: No Known Allergies (Unverified , 12/04/18) Objective Last 24 Hour Vital Signs Date Time Temp Pulse Resp B/P (MAP) Pulse Ox O2 Delivery O2 Flow Rate FiO2 12/06/18 09:00 98.1 72 18 114/76 (89) 100 12/06/18 04:00 99.1 75 18 101/66 (78) 100 12/06/18 00:00 98.4 71 18 98/65 (76) 100 12/05/18 21:00 Room Air Room Air 12/05/18 20:00 98.2 88 20 105/69 (81) 100 12/05/18 16:00 97.9 100 16 125/86 (99) 94 12/05/18 12:00 97.9 100 24 108/62 (77) 99 Intake and Output 12/05/18 12/06/18 19:00 07:00 Intake Total 800 ml Output Total 800 ml 1200 ml Balance 0 ml -1200 ml Intake Oral 800 ml Output Urine Total 800 ml 1200 ml # Bowel Movements 1 Laboratory Tests 12/06/18 06:49: White Blood Count 7.8, Red Blood Count 2.31L, Hemoglobin 8.2L, Hematocrit 24.3L , Mean Corpuscular Volume 105H, Mean Corpuscular Hemoglobin 35.4H, Mean Corpuscular Hemoglobin Concent 33.7, Red Cell Distribution Width 15.3H, Platelet Count 332, Mean Platelet Volume 5.9L, Neutrophils (%) (Auto) 66.2, Lymphocytes (%) (Auto) 25.5, Monocytes (%) (Auto) 7.4, Eosinophils (%) (Auto) 0.3, Basophils (%) (Auto) 0.7, Prothrombin Time 12.0H, Prothromb Time International Ratio 1.1, Sodium Level 143, Potassium Level 3.7, Chloride Level 107, Carbon Dioxide Level 30, Anion Gap 6, Blood Urea Nitrogen 8, Creatinine 0.6 , Estimat Glomerular Filtration Rate > 60, Glucose Level 77, Uric Acid 2.2L, Calcium Level 8.5, Phosphorus Level 2.7, Magnesium Level 1.8, Ferritin 334, Total Bilirubin 9.3H, Direct Bilirubin 8.3H, Gamma Glutamyl Transpeptidase 710H , Aspartate Amino Transf (AST/SGOT) 167H, Alanine Aminotransferase (ALT/SGPT) 91H, Alkaline Phosphatase 1040H, Ammonia 27, C-Reactive Protein, Quantitative 13.7H, Pro-B-Type Natriuretic Peptide 139H, Total Protein 7.3, Albumin 1.7L, Globulin 5.6, Albumin/Globulin Ratio 0.3L, Vitamin B12 Level 971, Folate 9.5 Height (Feet): 6 Height (Inches): 2.00 Weight (Pounds): 189 Nupur Juan MD Dec 06, 2018 10:01
[2018-12-06 11:48] VITALS: BP 118/90
--- NOTE | 2018-12-06 12:07 | NUR ---
PT note Attempted to see patient for eval/tx but patient refused. States that he wants to "walk out of here." RN and Nursing Nurse Tech were made aware of patient's comments.
--- NOTE | 2018-12-06 13:03 | Consultation ---
History of Present Illness General Date patient seen: Dec 06, 2018 Chief Complaint: Present Illness Allergies: Coded Allergies: No Known Allergies (Unverified , 12/04/18) Medication History Scheduled Abacavir/Dolutegravir/Lamivudi (Triumeq 600-50-300 mg Tablet), 1 EACH PO DAILY, (Reported) Hydrochlorothiazide* (Hydrochlorothiazide*), Unknown Dose ORAL DAILY, (Reported) Scheduled PRN Oxycodone HCl/Acetaminophen (Percocet 10-325 mg Tablet), 1 TAB ORAL Q6H PRN for For Pain, (Reported) Patient History Healthcare decision maker Resuscitation status Full Code Advanced Directive on File Physical Exam Last 24 Hour Vital Signs Date Time Temp Pulse Resp B/P (MAP) Pulse Ox O2 Delivery O2 Flow Rate FiO2 12/06/18 11:48 98.1 72 18 118/90 (99) 98 12/06/18 09:49 98.1 12/06/18 09:00 Room Air Room Air 12/06/18 09:00 98.1 72 18 114/76 (89) 100 12/06/18 04:00 99.1 75 18 101/66 (78) 100 12/06/18 00:00 98.4 71 18 98/65 (76) 100 12/05/18 21:00 Room Air Room Air 12/05/18 20:00 98.2 88 20 105/69 (81) 100 12/05/18 16:00 97.9 100 16 125/86 (99) 94 Intake and Output 12/05/18 12/06/18 19:00 07:00 Intake Total 800 ml Output Total 800 ml 1200 ml Balance 0 ml -1200 ml Intake Oral 800 ml Output Urine Total 800 ml 1200 ml # Bowel Movements 1 Laboratory Tests Test 12/06/18 06:49 White Blood Count 7.8 K/UL (4.8-10.8) Red Blood Count 2.31 M/UL (4.70-6.10) L Hemoglobin 8.2 G/DL (14.2-18.0) L Hematocrit 24.3 % (42.0-52.0) L Mean Corpuscular Volume 105 FL (80-99) H Mean Corpuscular Hemoglobin 35.4 PG (27.0-31.0) H Mean Corpuscular Hemoglobin Concent 33.7 G/DL (32.0-36.0) Red Cell Distribution Width 15.3 % (11.6-14.8) H Platelet Count 332 K/UL (150-450) Mean Platelet Volume 5.9 FL (6.5-10.1) L Neutrophils (%) (Auto) 66.2 % (45.0-75.0) Lymphocytes (%) (Auto) 25.5 % (20.0-45.0) Monocytes (%) (Auto) 7.4 % (1.0-10.0) Eosinophils (%) (Auto) 0.3 % (0.0-3.0) Basophils (%) (Auto) 0.7 % (0.0-2.0) Prothrombin Time 12.0 SEC (9.30-11.50) H Prothromb Time International Ratio 1.1 (0.9-1.1) Sodium Level 143 MMOL/L (136-145) Potassium Level 3.7 MMOL/L (3.5-5.1) Chloride Level 107 MMOL/L (98-107) Carbon Dioxide Level 30 MMOL/L (21-32) Anion Gap 6 mmol/L (5-15) Blood Urea Nitrogen 8 mg/dL (7-18) Creatinine 0.6 MG/DL (0.55-1.30) Estimat Glomerular Filtration Rate > 60 mL/min (>60) Glucose Level 77 MG/DL (74-106) Uric Acid 2.2 MG/DL (2.6-7.2) L Calcium Level 8.5 MG/DL (8.5-10.1) Phosphorus Level 2.7 MG/DL (2.5-4.9) Magnesium Level 1.8 MG/DL (1.8-2.4) Ferritin 334 NG/ML (8-388) Total Bilirubin 9.3 MG/DL (0.2-1.0) H Direct Bilirubin 8.3 MG/DL (0.0-0.3) H Gamma Glutamyl Transpeptidase 710 U/L (5-85) H Aspartate Amino Transf (AST/SGOT) 167 U/L (15-37) H Alanine Aminotransferase (ALT/SGPT) 91 U/L (12-78) H Alkaline Phosphatase 1040 U/L (46-116) H Ammonia 27 umol/L (11-32) C-Reactive Protein, Quantitative 13.7 mg/dL (0.00-0.90) H Pro-B-Type Natriuretic Peptide 139 pg/mL (0-125) H Total Protein 7.3 G/DL (6.4-8.2) Albumin 1.7 G/DL (3.4-5.0) L Globulin 5.6 g/dL Albumin/Globulin Ratio 0.3 (1.0-2.7) L Vitamin B12 Level 971 PG/ML (193-986) Folate 9.5 NG/ML (8.6-58.9) Microbiology Date/Time Source Procedure Growth Status 12/05/18 15:30 External Cath Urine Culture - Preliminary NO GROWTH Resulted Height (Feet): 6 Height (Inches): 2.00 Weight (Pounds): 189 Medications Current Medications Medications (Trade) Dose Ordered Sig/Lala Route PRN Reason Start Time Stop Time Status Last Admin Dose Admin Cephalexin (Keflex) 500 mg FOUR TIMES A DAY ORAL 12/05/18 18:00 12/12/18 17:59 12/06/18 09:17 Furosemide (Lasix) 20 mg DAILY ORAL 12/05/18 16:15 01/04/19 16:14 12/06/18 09:18 Heparin Sodium (Porcine) (Heparin 5000 units/ml) 5,000 units EVERY 12 HOURS SUBQ 12/05/18 09:00 01/04/19 08:59 12/06/18 09:16 Hydrochlorothiazide (Hydrodiuril) 12.5 mg DAILY ORAL 12/05/18 09:00 01/04/19 08:59 12/06/18 09:17 Hydromorphone HCl (Dilaudid) 1 mg Q4H PRN SUBQ severe pain 12/05/18 15:15 12/12/18 15:14 12/05/18 18:33 Non-Formulary Medication (Non-Formulary Med) 1 ea DAILY ORAL 12/05/18 09:00 01/04/19 08:59 UNV Oxycodone/ Acetaminophen (Percocet 10) 2 tab Q4H PRN ORAL For moderate Pain 12/06/18 10:15 12/13/18 09:44 Pantoprazole (Protonix) 40 mg DAILY@0630 ORAL 12/05/18 06:30 01/04/19 06:29 12/06/18 05:43 Potassium Chloride (K-Dur) 40 meq ONCE ORAL 12/05/18 12:00 01/04/19 11:59 12/05/18 12:22 Rifaximin (Xifaxan) 550 mg EVERY 12 HOURS ORAL 12/05/18 16:08 12/12/18 16:07 12/06/18 09:17 Spironolactone (Aldactone) 50 mg DAILY ORAL 12/05/18 16:15 01/04/19 16:14 12/06/18 09:16 Tamsulosin HCl (Flomax) 0.4 mg BEDTIME ORAL 12/05/18 21:00 01/04/19 20:59 12/05/18 20:20 Ursodiol (Actigall) 600 mg DAILY@1800 ORAL 12/05/18 18:00 01/04/19 17:59 12/05/18 17:36 Ursodiol (Actigall) 900 mg DAILY ORAL 12/06/18 09:00 01/05/19 08:59 12/06/18 09:24 Zolpidem Tartrate (Ambien) 5 mg HSPRN PRN ORAL Insomnia 12/04/18 22:15 12/11/18 22:14 12/05/18 21:13 Assessment/Plan Assessment/Plan: (1) Liver Cirrhosis (2) Abdominal pain (3) HIV (4) Peripheral Neuropathy Seen dictated Ben Hernandez Dec 06, 2018 13:03
[2018-12-06 16:00] VITALS: BP 105/63
--- NOTE | 2018-12-06 16:20 | Consultation ---
History of Present Illness General Chief Complaint: Edema Present Illness Allergies: Coded Allergies: No Known Allergies (Unverified , 12/04/18) Medication History Scheduled Abacavir/Dolutegravir/Lamivudi (Triumeq 600-50-300 mg Tablet), 1 EACH PO DAILY, (Reported) Hydrochlorothiazide* (Hydrochlorothiazide*), Unknown Dose ORAL DAILY, (Reported) Scheduled PRN Oxycodone HCl/Acetaminophen (Percocet 10-325 mg Tablet), 1 TAB ORAL Q6H PRN for For Pain, (Reported) Patient History Healthcare decision maker Resuscitation status Full Code Advanced Directive on File Physical Exam Last 24 Hour Vital Signs Date Time Temp Pulse Resp B/P (MAP) Pulse Ox O2 Delivery O2 Flow Rate FiO2 12/06/18 14:13 98.1 12/06/18 11:48 98.1 72 18 118/90 (99) 98 12/06/18 09:49 98.1 12/06/18 09:00 Room Air Room Air 12/06/18 09:00 98.1 72 18 114/76 (89) 100 12/06/18 04:00 99.1 75 18 101/66 (78) 100 12/06/18 00:00 98.4 71 18 98/65 (76) 100 12/05/18 21:00 Room Air Room Air 12/05/18 20:00 98.2 88 20 105/69 (81) 100 Intake and Output 12/05/18 12/06/18 19:00 07:00 Intake Total 800 ml Output Total 800 ml 1200 ml Balance 0 ml -1200 ml Intake Oral 800 ml Output Urine Total 800 ml 1200 ml # Bowel Movements 1 Laboratory Tests Test 12/06/18 06:49 White Blood Count 7.8 K/UL (4.8-10.8) Red Blood Count 2.31 M/UL (4.70-6.10) L Hemoglobin 8.2 G/DL (14.2-18.0) L Hematocrit 24.3 % (42.0-52.0) L Mean Corpuscular Volume 105 FL (80-99) H Mean Corpuscular Hemoglobin 35.4 PG (27.0-31.0) H Mean Corpuscular Hemoglobin Concent 33.7 G/DL (32.0-36.0) Red Cell Distribution Width 15.3 % (11.6-14.8) H Platelet Count 332 K/UL (150-450) Mean Platelet Volume 5.9 FL (6.5-10.1) L Neutrophils (%) (Auto) 66.2 % (45.0-75.0) Lymphocytes (%) (Auto) 25.5 % (20.0-45.0) Monocytes (%) (Auto) 7.4 % (1.0-10.0) Eosinophils (%) (Auto) 0.3 % (0.0-3.0) Basophils (%) (Auto) 0.7 % (0.0-2.0) Prothrombin Time 12.0 SEC (9.30-11.50) H Prothromb Time International Ratio 1.1 (0.9-1.1) Sodium Level 143 MMOL/L (136-145) Potassium Level 3.7 MMOL/L (3.5-5.1) Chloride Level 107 MMOL/L (98-107) Carbon Dioxide Level 30 MMOL/L (21-32) Anion Gap 6 mmol/L (5-15) Blood Urea Nitrogen 8 mg/dL (7-18) Creatinine 0.6 MG/DL (0.55-1.30) Estimat Glomerular Filtration Rate > 60 mL/min (>60) Glucose Level 77 MG/DL (74-106) Uric Acid 2.2 MG/DL (2.6-7.2) L Calcium Level 8.5 MG/DL (8.5-10.1) Phosphorus Level 2.7 MG/DL (2.5-4.9) Magnesium Level 1.8 MG/DL (1.8-2.4) Ferritin 334 NG/ML (8-388) Total Bilirubin 9.3 MG/DL (0.2-1.0) H Direct Bilirubin 8.3 MG/DL (0.0-0.3) H Gamma Glutamyl Transpeptidase 710 U/L (5-85) H Aspartate Amino Transf (AST/SGOT) 167 U/L (15-37) H Alanine Aminotransferase (ALT/SGPT) 91 U/L (12-78) H Alkaline Phosphatase 1040 U/L (46-116) H Ammonia 27 umol/L (11-32) C-Reactive Protein, Quantitative 13.7 mg/dL (0.00-0.90) H Pro-B-Type Natriuretic Peptide 139 pg/mL (0-125) H Total Protein 7.3 G/DL (6.4-8.2) Albumin 1.7 G/DL (3.4-5.0) L Globulin 5.6 g/dL Albumin/Globulin Ratio 0.3 (1.0-2.7) L Vitamin B12 Level 971 PG/ML (193-986) Folate 9.5 NG/ML (8.6-58.9) Height (Feet): 6 Height (Inches): 2.00 Weight (Pounds): 189 Medications Current Medications Medications (Trade) Dose Ordered Sig/Lala Route PRN Reason Start Time Stop Time Status Last Admin Dose Admin Cephalexin (Keflex) 500 mg FOUR TIMES A DAY ORAL 12/05/18 18:00 12/12/18 17:59 12/06/18 13:16 Furosemide (Lasix) 20 mg DAILY ORAL 12/05/18 16:15 01/04/19 16:14 12/06/18 09:18 Heparin Sodium (Porcine) (Heparin 5000 units/ml) 5,000 units EVERY 12 HOURS SUBQ 12/05/18 09:00 01/04/19 08:59 12/06/18 09:16 Hydrochlorothiazide (Hydrodiuril) 12.5 mg DAILY ORAL 12/05/18 09:00 01/04/19 08:59 12/06/18 09:17 Hydromorphone HCl (Dilaudid) 1 mg Q4H PRN SUBQ severe pain 12/05/18 15:15 12/12/18 15:14 12/05/18 18:33 Non-Formulary Medication (Non-Formulary Med) 1 ea DAILY ORAL 12/05/18 09:00 01/04/19 08:59 UNV Oxycodone/ Acetaminophen (Percocet 10) 2 tab Q4H PRN ORAL For moderate Pain 12/06/18 10:15 12/13/18 09:44 12/06/18 13:15 Pantoprazole (Protonix) 40 mg DAILY@0630 ORAL 12/05/18 06:30 01/04/19 06:29 12/06/18 05:43 Rifaximin (Xifaxan) 550 mg EVERY 12 HOURS ORAL 12/05/18 16:08 12/12/18 16:07 12/06/18 09:17 Spironolactone (Aldactone) 50 mg DAILY ORAL 12/05/18 16:15 01/04/19 16:14 12/06/18 09:16 Tamsulosin HCl (Flomax) 0.4 mg BEDTIME ORAL 12/05/18 21:00 01/04/19 20:59 12/05/18 20:20 Ursodiol (Actigall) 600 mg DAILY@1800 ORAL 12/05/18 18:00 01/04/19 17:59 12/05/18 17:36 Ursodiol (Actigall) 900 mg DAILY ORAL 12/06/18 09:00 01/05/19 08:59 12/06/18 09:24 Zolpidem Tartrate (Ambien) 5 mg HSPRN PRN ORAL Insomnia 12/04/18 22:15 12/11/18 22:14 12/05/18 21:13 Assessment/Plan Assessment/Plan: Hematology Consultation Note REVelasquez MD: Deni Juan DOS: 12/06/18 RFC: Anemia evaluation ID 52-year-old male presents ED for evaluation. Brought in by brother for swelling to both legs. States symptoms started about 3 days ago. Has a hstory of cirrhosis. States that he has not had access to his medications for a few days. Pain is throbbing, 7 out of 10, nonradiating. Is jaundice on exam. Denies any abdominal pain. Denies any nausea or vomiting. Denies fevers or chills. No other aggravating relieving factors. Denies any other associated symptoms. Allergies: No Known Allergies (Unverified , 12/04/18) Patient History Past Medical History: other - cirrhosis Past Surgical History: none Pertinent Family History: none Social History: Denies: smoking, alcohol use, drug use Immunizations: UTD Reviewed Nursing Documentation: PMH: Agreed; PSxH: Agreed Nursing Documentation-PMH Past Medical History: No History, Except For Review of Systems All Other Systems: negative except mentioned in HPI Physical Exam General Appearance: A+O x3, NAD HEENT: normocephalic, atraumatic Neck: non-tender, normal alignment Respiratory/Chest: chest wall non-tender, lungs clear Cardiovascular/Chest: rrr, no mgr Abd: normal bowel sounds, non tender Ext: 1-2+ edema Labs: reviewed Imaging: noted Assessment and Recs: # Anemia of chronic disease (or of iron deficiency) due to underlying chronic medical issues, multifactorial --> Anemia workup has been ordered, rule out gi bleed --> No evidence of hemolysis is noted, peripheral smear has been reviewed. --> Hgb goal >7. Transfuse prn. --> Epogen or iron at this time is not particularly indicated --> Medications have been reviewed --> low threshold for gi evaluation in case has occult + # Coagulation defect, multifactorial usually related to poor PO intake, in addition to primary biliary cirrhosis --> administer Vitamin K if patient is bleeding or FFP if the INR is >10 --> hold off on ffp unless active procedure/bleeding, first begin with vit K 10 --> mixing study as needed # Peripheral edema with Liver failure --> with a history of pb cirrhosis --> diuresis as needed # Hypokalemia --> replete with K as needed # Primary bilary cirrhosis --> as per gi # Atelectasis The time of service does not reflect the actual time that the patient was actually seen Greatly appreciate consultation. Gustavo Ghosh MD Dec 06, 2018 16:20
--- NOTE | 2018-12-06 16:30 | Consultation ---
DATE OF CONSULTATION: 12/06/2018 PAIN MANAGEMENT CONSULTATION CONSULTING PHYSICIAN: Svetlana Burroughs M.D. REFERRING PHYSICIAN: Nupur Juan M.D. PHYSICIAN IMAGING NURSE: James Mai CHIEF COMPLAINT: Abdominal pain. HISTORY OF PRESENT ILLNESS: This is a 52-year-old male, who is being seen on the Med/Surg floor of [facility] for initial pain management consultation. The patient was admitted under the care of Dr. Juan due to liver failure, anasarca, hypokalemia, history of HIV, liver cirrhosis. He reports that he has been having neck issues, right foot issues, cervical surgery in the past, gastric bypass in the past as well and is being seeing retail account executive Dr. Nahun Araujo who is prescribing the patient as an outpatient Percocet 10/325 240 tablets monthly. At this time, was on Dilaudid 1 mg subcutaneous every 6 hours and then was changed to every 4 hours by me and Dr. Burroughs yesterday which he received one dose of with minimal pain relief and was started on Percocet 10/325 one tablet every 4 hours as needed per Dr. Juan and then was recently increased to Percocet 10/325 two tablets. At this time, the patient is in the bed and complaining of severe pain however he seems comfortable and showing no signs of pain or distress at this time. I discussed with the patient in detail about his condition of liver disease and cirrhosis and high doses of acetaminophen causing increased damage to the liver continued and the patient does not seem to understand and does not want to except this at this time. Discussed with him about different modalities of opioid medication such as Dilaudid tablets or oxycodone without acetaminophen however patient is requesting the Percocet to be continued with acetaminophen at 2 tablets every 4 hours. Due to this, I discussed with Dr. Burroughs and due to patient not excepting all recommendations at this time, we will sign off of the patient's care and this was informed to the nurse and will be informed to the magnetometer operator as well, Dr. Juan. PAST MEDICAL HISTORY: Liver cirrhosis, HIV, anasarca, ascites. PAST SURGICAL HISTORY: Gastric bypass, cervical surgery. SOCIAL HISTORY: Denies smoking tobacco, drinking alcohol, or IV drug abuse. ALLERGIES: No known drug allergies. MEDICATIONS: Percocet, hydrochlorothiazide, Triumeq. REVIEW OF SYSTEMS: Denies rash, fever, chills, sweating, dizziness, drowsiness, blurred vision, change in his weight. No shortness of breath, chest pain, palpitations, or cough. No nausea, vomiting, diarrhea, or blood in the stool or urine. He is complaining of abdominal pain with swelling in the lower extremities. PHYSICAL EXAMINATION: GENERAL: Alert, awake, and oriented. VITAL SIGNS: Blood pressure 118/90, heart rate 72, oxygen saturation 98%, respiratory rate 18, temperature 98.1 degrees Fahrenheit. HEENT: Sclerae icteric. PERRLA. NECK: Range of motion is reduced to the patient's condition with tenderness to paracervical muscles. LUNGS: Decreased breath sounds bilaterally. HEART: S1 and S2 regular. ABDOMEN: Tenderness to palpation. BACK: Range of motion is decreased in flexion and extension. EXTREMITIES: Upper and lower extremity range of motion is decreased due to the patient's condition. No cyanosis. No clubbing. Sensory is reduced. Reflexes are not obtainable. No adenopathy ASSESSMENT AND PLAN: This is a 52-year-old male with liver cirrhosis, abdominal pain, peripheral neuropathy, HIV. At this time due to the patient not accepting all recommendations and discussed with the patient in detail about the acetaminophen at high dosages and the fact that it causes on liver, we are not accepting to change medications. We will sign off the patient's care at this time. This was informed to the nurse and will be informed to the magnetometer operator. The patient was discussed with Dr. Burroughs and Dr. Burroughs concurred. Thank you very much for the courtesy of this consultation. Svetlana Burroughs M.D. ELIZABETH Mai DR: [place] JOB#: [id number] CC: LEORA
--- NOTE | 2018-12-06 16:38 | NUR ---
NURSE NOTES: notify MD regarding Pt home med (Triumeg) , MD will call [facility].
--- NOTE | 2018-12-06 18:41 | General Progress Note ---
Assessment/Plan Assessment/Plan: Assessment - PSC - s/p MELISSA gastric bypass - HIV (+) - Leg edema Recommendations - Uroso - Xifaxan - Lasix - Aldactone - f/u at [facility] liver clinic Subjective Allergies: Coded Allergies: No Known Allergies (Unverified , 12/04/18) Subjective No new symptoms no abd pain Objective Last 24 Hour Vital Signs Date Time Temp Pulse Resp B/P (MAP) Pulse Ox O2 Delivery O2 Flow Rate FiO2 12/06/18 16:00 98.3 78 19 105/63 (77) 98 12/06/18 14:13 98.1 12/06/18 11:48 98.1 72 18 118/90 (99) 98 12/06/18 09:49 98.1 12/06/18 09:00 Room Air Room Air 12/06/18 09:00 98.1 72 18 114/76 (89) 100 12/06/18 04:00 99.1 75 18 101/66 (78) 100 12/06/18 00:00 98.4 71 18 98/65 (76) 100 12/05/18 21:00 Room Air Room Air 12/05/18 20:00 98.2 88 20 105/69 (81) 100 Intake and Output 12/05/18 12/06/18 19:00 07:00 Intake Total 800 ml Output Total 800 ml 1200 ml Balance 0 ml -1200 ml Intake Oral 800 ml Output Urine Total 800 ml 1200 ml # Bowel Movements 1 Laboratory Tests 12/06/18 06:49: White Blood Count 7.8, Red Blood Count 2.31L, Hemoglobin 8.2L, Hematocrit 24.3L , Mean Corpuscular Volume 105H, Mean Corpuscular Hemoglobin 35.4H, Mean Corpuscular Hemoglobin Concent 33.7, Red Cell Distribution Width 15.3H, Platelet Count 332, Mean Platelet Volume 5.9L, Neutrophils (%) (Auto) 66.2, Lymphocytes (%) (Auto) 25.5, Monocytes (%) (Auto) 7.4, Eosinophils (%) (Auto) 0.3, Basophils (%) (Auto) 0.7, Prothrombin Time 12.0H, Prothromb Time International Ratio 1.1, Sodium Level 143, Potassium Level 3.7, Chloride Level 107, Carbon Dioxide Level 30, Anion Gap 6, Blood Urea Nitrogen 8, Creatinine 0.6 , Estimat Glomerular Filtration Rate > 60, Glucose Level 77, Uric Acid 2.2L, Calcium Level 8.5, Phosphorus Level 2.7, Magnesium Level 1.8, Ferritin 334, Total Bilirubin 9.3H, Direct Bilirubin 8.3H, Gamma Glutamyl Transpeptidase 710H , Aspartate Amino Transf (AST/SGOT) 167H, Alanine Aminotransferase (ALT/SGPT) 91H, Alkaline Phosphatase 1040H, Ammonia 27, C-Reactive Protein, Quantitative 13.7H, Pro-B-Type Natriuretic Peptide 139H, Total Protein 7.3, Albumin 1.7L, Globulin 5.6, Albumin/Globulin Ratio 0.3L, Vitamin B12 Level 971, Folate 9.5 Height (Feet): 6 Height (Inches): 2.00 Weight (Pounds): 189 Objective WD AA man NCAT supple CTA RRR abd soft NT (+) edema Bailey Cano MD Dec 06, 2018 18:41
--- NOTE | 2018-12-06 19:26 | NUR ---
HAND-OFF: Report given to Jaja THOMASON.
--- NOTE | 2018-12-06 19:30 | Consultation ---
DATE OF CONSULTATION: 12/06/2018 CARDIOLOGY CONSULTATION CONSULTING PHYSICIAN: Lowell Arreguin M.D. REFERRING PHYSICIAN: Nupur Juan M.D. REASON FOR CONSULTATION: Management of hypotension. HISTORY OF PRESENT ILLNESS: The patient is a very unfortunate 52-year-old gentleman, who presents to the emergency department, brought in by for his brother for evaluation of swelling of both lower extremities. Lower extremity edema I think going on for the past 3 days. The patient has history of liver cirrhosis. At the time of arrival to the hospital, he did not have any chest pain or shortness of breath. His vital signs revealed blood pressure 110/57 mmHg and heart rate of 78. Initial chest x-ray in the emergency department was significant for increased interstitial markings suggestive of mild pulmonary edema and there was associated cardiomegaly. Laboratory finding revealed electrolyte abnormalities including hypokalemia with potassium level of 2.9 and normal troponin I level of 0 and normal pro brain natriuretic peptide is 86. In the ED, the liver enzymes are elevated at AST at 157 and ALT of 91 with elevated alkaline phosphatase of 1136. The patient was admitted to medical surgical unit for further evaluation and management of bilateral lower extremity edema. Cardiology consultation was made to assess and rule out cardiac causes of lower extremity edema as well as management of hypotension. PAST MEDICAL HISTORY: Liver cirrhosis, history of portal hypertension PAST SURGICAL HISTORY: None. FAMILY HISTORY: No premature coronary artery disease in first-degree relatives. SOCIAL HISTORY: Denies tobacco, alcohol, or illicit drug use. REVIEW OF SYSTEMS: A 12-system review done essentially negative except what was mentioned in the history of present illness. MEDICATIONS: List of medication includes Triumeq 600/50/300 mg one tablet daily, hydrochlorothiazide 12.5 mg p.o. daily, Percocet 10/325 one tablet every 6 hours p.r.n. pain. SOCIAL HISTORY: Denies any tobacco, alcohol, or illicit drug use. PHYSICAL EXAMINATION: VITAL SIGNS: Blood pressure was 110/57, respirations of 13, pulse of 78, O2 saturation 100%. Upon arrival to the floor, the patient's blood pressure was 98/65, heart rate of 71. GENERAL: The patient is a very pleasant, 52-year-old gentleman, in no apparent respiratory distress. Alert and oriented x4. HEENT: Atraumatic and normocephalic. Icteric sclerae is apparent. Pupils are equal, round, and reactive to light and accommodation. Extraocular muscles intact. JVP less than 5 cm. No carotid bruit. Carotid upstrokes 2+ bilaterally. CARDIOVASCULAR: Normal S1, S2. Regular rate and rhythm. No murmurs, gallops, or rubs. PMI is at fourth intercostal space in the midclavicular line. LUNGS: Diminished breath sounds in both bases. ABDOMEN: Soft, . No hepatosplenomegaly. Positive bowel sounds. EXTREMITIES: There is 1+ pitting edema both lower extremities. LABORATORY FINDINGS: WBC 10.1, hemoglobin 9.1, hematocrit of 28.8, and platelet count is 424. Sodium was 145, potassium is 2.9, chloride 109, bicarbonate 26, BUN 9, creatinine 0.7, glucose 95, and calcium is 88, total bilirubin is 8.6, direct bilirubin is 7.8. Troponin I was 0.00. AST 157, ALT 91, and alkaline phosphatase at 1136. Albumin is 2.1. INR is 1.1. ASSESSMENT AND PLAN: 1. Bilateral lower extremity edema given history of liver cirrhosis and serum albumin of 2.1 this is most likely due to low oncotic pressure. I doubt that the patient has cardiomyopathy however we would like to obtain 2D echocardiography to address hemodynamics. The patient will benefit from albumin administration although this is a transient solution and a GI consultation for long-term therapy for liver cirrhosis. 2. Jaundice. 3. Hepatitis, GI consultation. 4. Anemia. 5. History of portal hypertension. 6. Hypotension. At this time given the fact the patient is on combination of Lasix and Aldactone, I will discontinue hydrochlorothiazide. We will continue monitoring the patient's hemodynamics throughout this stay. I would like to thank, Dr. Juan, for the courtesy of this consultation. Lowell Arreguin M.D. DR: George JOB#: [id number] CC:
[2018-12-06 20:00] VITALS: BP 116/75
[2018-12-06] MEDS: Tamsulosin 0.4mg cap ORAL SCH (20:46)
--- NOTE | 2018-12-06 22:09 | Infectious Diseases Prog Note ---
Assessment/Plan Problems: (1) UTI (urinary tract infection) Assessment & Plan: with negative urine culture , on keflex empirically (2) Cellulitis of leg Assessment & Plan: on keflex empirically , recommend venous doppler of the legs to rule out DVT , keep legs elevated all the time (3) Liver failure Assessment & Plan: etiology ? await screening for hepatitis , follow up with hepatology clinic at [facility] (4) Peripheral edema Assessment & Plan: suspect due to liver cirrhosis and third spacing, renal is following (5) HIV (human immunodeficiency virus infection) Assessment & Plan: continue triumeq , follow up with hiv provider at [facility] Subjective Constitutional: Reports: fatigue, anorexia HEENT: Reports: no symptoms Respiratory: Reports: dry cough Breasts: Reports: no symptoms Cardiovascular: Reports: no symptoms Gastrointestinal/Abdominal: Reports: constipation, bloating Genitourinary: Reports: no symptoms Neurologic: Reports: weakness, confusion Psychiatric: Reports: depression Skin: Reports: other - JAUNDICE Musculoskeletal: Reports: pain, swelling Allergies: Coded Allergies: No Known Allergies (Unverified , 12/04/18) Objective Vital Signs Last 24 Hour Vital Signs Date Time Temp Pulse Resp B/P (MAP) Pulse Ox O2 Delivery O2 Flow Rate FiO2 12/06/18 21:00 Room Air Room Air 12/06/18 20:00 99.1 68 20 116/75 (89) 99 12/06/18 16:00 98.3 78 19 105/63 (77) 98 12/06/18 14:13 98.1 12/06/18 11:48 98.1 72 18 118/90 (99) 98 12/06/18 09:49 98.1 12/06/18 09:00 Room Air Room Air 12/06/18 09:00 98.1 72 18 114/76 (89) 100 12/06/18 04:00 99.1 75 18 101/66 (78) 100 12/06/18 00:00 98.4 71 18 98/65 (76) 100 Height (Feet): 6 Height (Inches): 2.00 Weight (Pounds): 189 General Appearance: WD/WN, no acute distress HEENT: normocephalic, atraumatic, anicteric, mucous membranes moist Respiratory/Chest: chest wall non-tender, no respiratory distress, no accessory muscle use, decreased breath sounds Cardiovascular: normal peripheral pulses, normal rate, regular rhythm, no gallop/murmur, no JVD Abdomen: normal bowel sounds, soft, non tender, no organomegaly, non distended , no mass, no scars Extremities: no cyanosis, no clubbing, other - EDEMA L.R Skin: no rash, no lesions, other - JAUNDICED Neurologic/Psychiatric: roasterman II-XII grossly normal, alert, responsive Lymphatic: no neck adenopathy, no groin adenopathy Musculoskeletal: normal muscle bulk Microbiology Date/Time Source Procedure Growth Status 12/05/18 15:30 External Cath Urine Culture - Preliminary NO GROWTH Resulted Laboratory Tests Test 12/06/18 06:49 White Blood Count 7.8 K/UL (4.8-10.8) Red Blood Count 2.31 M/UL (4.70-6.10) L Hemoglobin 8.2 G/DL (14.2-18.0) L Hematocrit 24.3 % (42.0-52.0) L Mean Corpuscular Volume 105 FL (80-99) H Mean Corpuscular Hemoglobin 35.4 PG (27.0-31.0) H Mean Corpuscular Hemoglobin Concent 33.7 G/DL (32.0-36.0) Red Cell Distribution Width 15.3 % (11.6-14.8) H Platelet Count 332 K/UL (150-450) Mean Platelet Volume 5.9 FL (6.5-10.1) L Neutrophils (%) (Auto) 66.2 % (45.0-75.0) Lymphocytes (%) (Auto) 25.5 % (20.0-45.0) Monocytes (%) (Auto) 7.4 % (1.0-10.0) Eosinophils (%) (Auto) 0.3 % (0.0-3.0) Basophils (%) (Auto) 0.7 % (0.0-2.0) Prothrombin Time 12.0 SEC (9.30-11.50) H Prothromb Time International Ratio 1.1 (0.9-1.1) Sodium Level 143 MMOL/L (136-145) Potassium Level 3.7 MMOL/L (3.5-5.1) Chloride Level 107 MMOL/L (98-107) Carbon Dioxide Level 30 MMOL/L (21-32) Anion Gap 6 mmol/L (5-15) Blood Urea Nitrogen 8 mg/dL (7-18) Creatinine 0.6 MG/DL (0.55-1.30) Estimat Glomerular Filtration Rate > 60 mL/min (>60) Glucose Level 77 MG/DL (74-106) Uric Acid 2.2 MG/DL (2.6-7.2) L Calcium Level 8.5 MG/DL (8.5-10.1) Phosphorus Level 2.7 MG/DL (2.5-4.9) Magnesium Level 1.8 MG/DL (1.8-2.4) Ferritin 334 NG/ML (8-388) Total Bilirubin 9.3 MG/DL (0.2-1.0) H Direct Bilirubin 8.3 MG/DL (0.0-0.3) H Gamma Glutamyl Transpeptidase 710 U/L (5-85) H Aspartate Amino Transf (AST/SGOT) 167 U/L (15-37) H Alanine Aminotransferase (ALT/SGPT) 91 U/L (12-78) H Alkaline Phosphatase 1040 U/L (46-116) H Ammonia 27 umol/L (11-32) C-Reactive Protein, Quantitative 13.7 mg/dL (0.00-0.90) H Pro-B-Type Natriuretic Peptide 139 pg/mL (0-125) H Total Protein 7.3 G/DL (6.4-8.2) Albumin 1.7 G/DL (3.4-5.0) L Globulin 5.6 g/dL Albumin/Globulin Ratio 0.3 (1.0-2.7) L Vitamin B12 Level 971 PG/ML (193-986) Folate 9.5 NG/ML (8.6-58.9) Current Medications Medications (Trade) Dose Ordered Sig/Lala Route PRN Reason Start Time Stop Time Status Last Admin Dose Admin Cephalexin (Keflex) 500 mg FOUR TIMES A DAY ORAL 12/05/18 18:00 12/12/18 17:59 12/06/18 20:46 Furosemide (Lasix) 20 mg DAILY ORAL 12/05/18 16:15 01/04/19 16:14 12/06/18 09:18 Heparin Sodium (Porcine) (Heparin 5000 units/ml) 5,000 units EVERY 12 HOURS SUBQ 12/05/18 09:00 01/04/19 08:59 12/06/18 20:47 Hydrochlorothiazide (Hydrodiuril) 12.5 mg DAILY ORAL 12/05/18 09:00 01/04/19 08:59 12/06/18 09:17 Hydromorphone HCl (Dilaudid) 1 mg Q4H PRN SUBQ severe pain 12/05/18 15:15 12/12/18 15:14 12/05/18 18:33 Non-Formulary Medication (Non-Formulary Med) 1 ea DAILY ORAL 12/05/18 09:00 01/04/19 08:59 UNV Oxycodone/ Acetaminophen (Percocet ) 1 tab Q4H PRN ORAL For moderate Pain 12/06/18 16:42 12/13/18 16:41 12/06/18 21:00 Pantoprazole (Protonix) 40 mg DAILY@0630 ORAL 12/05/18 06:30 01/04/19 06:29 12/06/18 05:43 Rifaximin (Xifaxan) 550 mg EVERY 12 HOURS ORAL 12/05/18 16:08 12/12/18 16:07 12/06/18 20:45 Spironolactone (Aldactone) 50 mg DAILY ORAL 12/05/18 16:15 01/04/19 16:14 12/06/18 09:16 Tamsulosin HCl (Flomax) 0.4 mg BEDTIME ORAL 12/05/18 21:00 01/04/19 20:59 12/06/18 20:46 Ursodiol (Actigall) 600 mg DAILY@1800 ORAL 12/05/18 18:00 01/04/19 17:59 12/06/18 17:37 Ursodiol (Actigall) 900 mg DAILY ORAL 12/06/18 09:00 01/05/19 08:59 12/06/18 09:24 Zolpidem Tartrate (Ambien) 5 mg HSPRN PRN ORAL Insomnia 12/04/18 22:15 12/11/18 22:14 12/05/18 21:13 Cedrick Vu M.D. Dec 06, 2018 22:09
[2018-12-07] VITALS: BP 104/63
[2018-12-07] MEDS: Zolpidem 5mg tab ORAL PRN (03:38)
[2018-12-07 04:00] VITALS: BP 103/68
[2018-12-07 07:13] LABS: BASOPHILS % (AUTO) 0.8 % (0.0-2.0); EOSINOPHILS % (AUTO) 0.8 % (0.0-3.0); HEMOGLOBIN 8.4 G/DL (14.2-18.0); LYMPHOCYTES % (AUTO) 23.4 % (20.0-45.0); MEAN CORPUSCULAR VOLUME 107 FL (80-99); MONOCYTES % (AUTO) 6.6 % (1.0-10.0); NEUTROPHILS % (AUTO) 68.5 % (45.0-75.0); PLATELET COUNT 329 K/UL (150-450); RED BLOOD COUNT 2.44 M/UL (4.70-6.10); RED CELL DISTRIBUTION WIDTH 15.2 % (11.6-14.8)
--- NOTE | 2018-12-07 07:41 | NUR ---
HAND-OFF: Report given to PADDY López.
--- NOTE | 2018-12-07 07:45 | NUR ---
NURSE NOTES: Received report from PADDY Mcgee. The patient is resting on the bed without acute distress or shortness of breath. The patient's bed in the lowest position, call light in reach, and fall and aspiration precaution reinforced. IV site intact and patent. The patient is in room air without acute distress or shortness of breath. Will continue plan of care.
[2018-12-07 07:51] LABS: ALANINE AMINOTRANSFERASE 86 U/L (12-78); ALBUMIN 1.7 G/DL (3.4-5.0); ALBUMIN/GLOBULIN RATIO 0.3 (1.0-2.7); ALKALINE PHOSPHATASE 970 U/L (46-116); ANION GAP 3 mmol/L (5-15); ASPARTATE AMINO TRANSFERASE 144 U/L (15-37); BILIRUBIN,TOTAL 8.2 MG/DL (0.2-1.0); BLOOD UREA NITROGEN 11 mg/dL (7-18); CALCIUM 8.6 MG/DL (8.5-10.1); CARBON DIOXIDE 31 MMOL/L (21-32); CHLORIDE 107 MMOL/L (98-107); CREATININE 0.7 MG/DL (0.55-1.30); POTASSIUM 3.5 MMOL/L (3.5-5.1); SODIUM 141 MMOL/L (136-145)
[2018-12-07 07:56] LABS: BILIRUBIN,DIRECT 7.6 MG/DL (0.0-0.3)
[2018-12-07 08:00] VITALS: BP 108/78
[2018-12-07] MEDS: Ursodiol 300mg cap ORAL SCH ×2 (08:36→17:35)
[2018-12-07] MEDS: Spironolactone 50mg tab ORAL SCH (08:36)
[2018-12-07] MEDS: Cephalexin 500mg cap ORAL SCH ×4 (08:37→21:00)
[2018-12-07] MEDS: Heparin 5000 units/ml inj SUBQ SCH ×2 (08:38→21:01)
--- NOTE | 2018-12-07 09:30 | NUR ---
NURSE NOTES: As Dr. Arreguin ordered, the patient is doing 2D ECHO. Will continue plan of care and will follow up the result.
--- NOTE | 2018-12-07 09:40 | NUR ---
NURSE NOTES: Notified Dr. Cano regarding abnormal blood test results including Hemoglobin, Total Bilirubin, Direct Bilirubin, AST, and ALT. No new order yet. Will continue plan of care.
--- NOTE | 2018-12-07 10:00 | NUR ---
NURSE NOTES: The pharmacy called in regarding meningococcal vaccine due to active medical history of HIV. Per patient, he would like to take a break from being poked and would like to make final decision later whether he would like to be vaccinated with Meningococcal or not. Will endorsed to the home health manager nurse. Will continue plan of care.
--- NOTE | 2018-12-07 10:15 | NUR ---
NURSE NOTES: As the patient still has abdominal pain, Percoset administered as ordered. Will continue to monitor the patient.
--- NOTE | 2018-12-07 10:30 | NUR ---
NURSE NOTES: Notified Dr. Juan regarding continuation of HIV medication that was on hold since he brought the medication without name in the bottle. Will wait for the response. Will continue plan of care.
--- NOTE | 2018-12-07 11:09 | NUR ---
P.T Note: P.T evaluation completed. Based on P.T assessment, patient is currently baseline modified independent in all areas of ADL/functional mobility and gait/locomotion. Pt's present functional status does not require skilled P.T services at this time. Nursing to notify P.T for any change of functional status warranting skilled P.T services.
[2018-12-07 12:00] VITALS: BP 112/73
--- NOTE | 2018-12-07 12:30 | NUR ---
NURSE NOTES: Dr. Juan at the bedside assessed the patient. Per Dr. Juan, the patient is okay to be discharged if GI clears the patient. Per ALBER Walker, the patient cannot be cleared by GI standpoint. Will continue plan of care until GI clears. Will continue plan of care.
--- NOTE | 2018-12-07 12:30 | History and Physical Report ---
DATE OF ADMISSION: 12/04/2018 SOURCE OF INFORMATION: The patient and EMR. HISTORY OF PRESENT ILLNESS: The patient is a 52-year-old male with liver failure, who presented with worsening of the swelling on the legs for the last couple of weeks. At the time of evaluation, the patient denies any shortness of breath or any chest pain. The patient reported that he is living with his friends, but denies any nausea, vomitus, or diarrhea. REVIEW OF SYSTEMS: All 12 elements of review of systems reviewed. Pertinent positive and negative as above. ALLERGIES: NKDA. SOCIAL HISTORY: The patient denies history of illicit drug abuse, smoking, or alcohol abuse. CURRENT HOSPITAL MEDICATIONS: Including, but not limited to, , Percocet, Dilaudid, and hydrochlorothiazide. PAST MEDICAL HISTORY: Including chronic pain, HIV, and hypertension. PHYSICAL EXAMINATION: VITAL SIGNS: Blood pressure 110/80, temperature 98.2, pulse oximetry 98% 01:46. HEAD AND NECK: Atraumatic and normocephalic. CHEST: Clear to auscultation. HEART: S1, S2. Regular rate and rhythm. ABDOMEN: Positive for fullness ( 01:57____ cannot be excluded. MUSCULOSKELETAL: Positive for 2+ pitting edema in the lower extremities. NEUROLOGIC: The patient is awake, alert, and oriented x3. LABORATORY DATA: Dated December 04 shows hemoglobin 9.1, MCV 100, platelet of 400. Potassium 3.9. AST 157. Troponin x1 negative. Lipase of 68. UA is positive for 2+ protein. ASSESSMENT AND PLAN: 1. Anasarca. 2. Cirrhosis. 3. Chronic pain. 4. HIV. 5. Hypertension. 6. Anemia. 7. Proteinuria. 8. GI and DVT prophylaxis. PLAN OF CARE: I will continue with conservative management. Check the anemia panel. Nephrology, GI consulted as well as the it technical support specialist. We will do abdominal ultrasound. We will supplement the potassium. Nupur Juan M.D. DR: GARRETT JOB#: [id number] CC:
--- NOTE | 2018-12-07 13:31 | GI Progress Note ---
Assessment/Plan Problems: (1) Liver failure ICD Codes: K72.90 - Hepatic failure, unspecified without coma SNOMED: 88795005 Qualifiers: Qualified Codes: K72.00 - Acute and subacute hepatic failure without coma (2) Hepatomegaly ICD Codes: R16.0 - Hepatomegaly, not elsewhere classified SNOMED: 11311164 Status: unchanged Status Narrative Discussed with Dr. Lopez. Assessment/Plan Assessment - PSC - s/p MELISSA gastric bypass - HIV (+) - Leg edema Recommendations - Uroso - Xifaxan - Lasix - Aldactone - f/u at [facility] liver clinic - pain mgmt - fu hep panel The patient was seen and examined at bedside and all new and available data was reviewed in the patients chart. I agree with the above findings, impression and plan. (Patient seen earlier today. Signature stamp does not reflect patient encounter time.). - Amauri Lopez MD Subjective Subjective Patient still has complaint of abdominal pain Objective Last 24 Hour Vital Signs Date Time Temp Pulse Resp B/P (MAP) Pulse Ox O2 Delivery O2 Flow Rate FiO2 12/07/18 08:00 98.9 70 18 108/78 (88) 96 12/07/18 04:00 97.8 59 18 103/68 (80) 98 12/07/18 00:00 97.9 67 20 104/63 (77) 99 12/06/18 21:00 Room Air Room Air 12/06/18 20:00 99.1 68 20 116/75 (89) 99 12/06/18 16:00 98.3 78 19 105/63 (77) 98 12/06/18 14:13 98.1 Intake and Output 12/06/18 12/07/18 19:00 07:00 Intake Total 480 ml 1200 ml Output Total 2800 ml 550 ml Balance -2320 ml 650 ml Intake Oral 480 ml 1200 ml Output Urine Total 2800 ml 550 ml Laboratory Tests Test 12/07/18 06:00 White Blood Count 7.0 K/UL (4.8-10.8) Red Blood Count 2.44 M/UL (4.70-6.10) L Hemoglobin 8.4 G/DL (14.2-18.0) L Hematocrit 26.0 % (42.0-52.0) L Mean Corpuscular Volume 107 FL (80-99) H Mean Corpuscular Hemoglobin 34.4 PG (27.0-31.0) H Mean Corpuscular Hemoglobin Concent 32.2 G/DL (32.0-36.0) Red Cell Distribution Width 15.2 % (11.6-14.8) H Platelet Count 329 K/UL (150-450) Mean Platelet Volume 5.8 FL (6.5-10.1) L Neutrophils (%) (Auto) 68.5 % (45.0-75.0) Lymphocytes (%) (Auto) 23.4 % (20.0-45.0) Monocytes (%) (Auto) 6.6 % (1.0-10.0) Eosinophils (%) (Auto) 0.8 % (0.0-3.0) Basophils (%) (Auto) 0.8 % (0.0-2.0) Sodium Level 141 MMOL/L (136-145) Potassium Level 3.5 MMOL/L (3.5-5.1) Chloride Level 107 MMOL/L (98-107) Carbon Dioxide Level 31 MMOL/L (21-32) Anion Gap 3 mmol/L (5-15) L Blood Urea Nitrogen 11 mg/dL (7-18) Creatinine 0.7 MG/DL (0.55-1.30) Estimat Glomerular Filtration Rate > 60 mL/min (>60) Glucose Level 89 MG/DL (74-106) Calcium Level 8.6 MG/DL (8.5-10.1) Total Bilirubin 8.2 MG/DL (0.2-1.0) H Direct Bilirubin 7.6 MG/DL (0.0-0.3) H Aspartate Amino Transf (AST/SGOT) 144 U/L (15-37) H Alanine Aminotransferase (ALT/SGPT) 86 U/L (12-78) H Alkaline Phosphatase 970 U/L (46-116) H Total Protein 7.4 G/DL (6.4-8.2) Albumin 1.7 G/DL (3.4-5.0) L Globulin 5.7 g/dL Albumin/Globulin Ratio 0.3 (1.0-2.7) L Height (Feet): 6 Height (Inches): 2.00 Weight (Pounds): 189 General Appearance: WD/WN, no apparent distress, alert Cardiovascular: normal rate Respiratory/Chest: normal breath sounds, no respiratory distress Abdominal Exam: normal bowel sounds, non tender, soft Extremities: normal range of motion, non-tender Lisha Olmstead NP Dec 07, 2018 13:31
--- NOTE | 2018-12-07 14:36 | Hematology/Onc Progress Note ---
Assessment/Plan Assessment/Plan Assessment and Recs: # Anemia of chronic disease due to underlying chronic medical issues, multifactorial --> Anemia workup has been reviewed, ferritin >300 percent sat 37% --> No evidence of hemolysis is noted, peripheral smear has been reviewed. --> Hgb goal >7. Transfuse prn. --> Epogen or iron at this time is not particularly indicated --> Medications have been reviewed --> low threshold for gi evaluation in case has occult + --> hgb 9-->8.2-->8.4 # Coagulation defect, multifactorial usually related to poor PO intake, in addition to primary biliary cirrhosis --> administer Vitamin K if patient is bleeding or FFP if the INR is >10 --> hold off on ffp unless active procedure/bleeding, first begin with vit K 10 --> pt 12 # Peripheral edema with Liver failure --> with a history of pb cirrhosis --> diuresis as needed # Hypokalemia --> replete with K as needed # Primary bilary cirrhosis --> as per gi, on ursodiol # Atelectasis The time of service does not reflect the actual time that the patient was actually seen Greatly appreciate consultation. Subjective HEENT: Denies: no symptoms, eye pain, blurred vision, tearing, double vision, ear pain, ear discharge, nose pain, nose congestion, throat pain, throat swelling, mouth pain, mouth swelling, other Cardiovascular: Denies: no symptoms, chest pain, edema, irregular heart rate, lightheadedness, palpitations, syncope, other Respiratory: Denies: no symptoms, cough, shortness of breath, SOB with excertion, SOB at rest, sputum, wheezing, other Gastrointestinal/Abdominal: Denies: no symptoms, abdomen distended, abdominal pain, black stools, tarry stools, blood in stool, constipated, diarrhea, difficulty swallowing, nausea, poor appetite, poor fluid intake, rectal bleeding , vomiting, other Genitourinary: Denies: no symptoms, burning, discharge, frequency, flank pain, hematuria, incontinence, pain, urgency, other Neurologic/Psychiatric: Denies: no symptoms, anxiety, depressed, emotional problems, headache, numbness, paresthesia, pre-existing deficit, seizure, tingling, tremors, weakness, other Endocrine: Denies: no symptoms, excessive sweating, flushing, intolerance to cold, intolerance to heat, increased hunger, increased thirst, increased urine, unexplained weight gain, unexplained weight loss, other Allergies: Coded Allergies: No Known Allergies (Unverified , 12/04/18) Subjective 12/07: labs reviewed, no bleeding, pending clearance by gi, no bleeding Objective Objective Current Medications Medications (Trade) Dose Ordered Sig/Lala Route PRN Reason Start Time Stop Time Status Last Admin Dose Admin Cephalexin (Keflex) 500 mg FOUR TIMES A DAY ORAL 12/05/18 18:00 12/12/18 17:59 12/07/18 12:42 Furosemide (Lasix) 20 mg DAILY ORAL 12/05/18 16:15 01/04/19 16:14 12/07/18 08:37 Heparin Sodium (Porcine) (Heparin 5000 units/ml) 5,000 units EVERY 12 HOURS SUBQ 12/05/18 09:00 01/04/19 08:59 12/07/18 08:38 Hydrochlorothiazide (Hydrodiuril) 12.5 mg DAILY ORAL 12/05/18 09:00 01/04/19 08:59 12/06/18 09:17 Hydromorphone HCl (Dilaudid) 1 mg Q4H PRN SUBQ severe pain 12/05/18 15:15 12/12/18 15:14 12/05/18 18:33 Non-Formulary Medication (Non-Formulary Med) 1 ea DAILY ORAL 12/05/18 09:00 01/04/19 08:59 UNV Oxycodone/ Acetaminophen (Percocet 10/325) 1 tab Q4H PRN ORAL For moderate Pain 12/06/18 16:42 12/13/18 16:41 12/07/18 10:14 Pantoprazole (Protonix) 40 mg DAILY@0630 ORAL 12/05/18 06:30 01/04/19 06:29 12/07/18 06:00 Rifaximin (Xifaxan) 550 mg EVERY 12 HOURS ORAL 12/05/18 16:08 12/12/18 16:07 12/07/18 08:37 Spironolactone (Aldactone) 50 mg DAILY ORAL 12/05/18 16:15 01/04/19 16:14 12/07/18 08:36 Tamsulosin HCl (Flomax) 0.4 mg BEDTIME ORAL 12/05/18 21:00 01/04/19 20:59 12/06/18 20:46 Ursodiol (Actigall) 600 mg DAILY@1800 ORAL 12/05/18 18:00 01/04/19 17:59 12/06/18 17:37 Ursodiol (Actigall) 900 mg DAILY ORAL 12/06/18 09:00 01/05/19 08:59 12/07/18 08:36 Zolpidem Tartrate (Ambien) 5 mg HSPRN PRN ORAL Insomnia 12/04/18 22:15 12/11/18 22:14 12/07/18 03:38 Last 24 Hour Vital Signs Date Time Temp Pulse Resp B/P (MAP) Pulse Ox O2 Delivery O2 Flow Rate FiO2 12/07/18 08:00 98.9 70 18 108/78 (88) 96 12/07/18 04:00 97.8 59 18 103/68 (80) 98 12/07/18 00:00 97.9 67 20 104/63 (77) 99 12/06/18 21:00 Room Air Room Air 12/06/18 20:00 99.1 68 20 116/75 (89) 99 12/06/18 16:00 98.3 78 19 105/63 (77) 98 12/06/18 14:13 98.1 12/06/18 11:48 98.1 72 18 118/90 (99) 98 12/06/18 09:49 98.1 12/06/18 09:00 Room Air Room Air 12/06/18 09:00 98.1 72 18 114/76 (89) 100 12/06/18 04:00 99.1 75 18 101/66 (78) 100 12/06/18 00:00 98.4 71 18 98/65 (76) 100 12/05/18 21:00 Room Air Room Air 12/05/18 20:00 98.2 88 20 105/69 (81) 100 12/05/18 16:00 97.9 100 16 125/86 (99) 94 Intake and Output 12/06/18 12/07/18 19:00 07:00 Intake Total 480 ml 1200 ml Output Total 2800 ml 550 ml Balance -2320 ml 650 ml Intake Oral 480 ml 1200 ml Output Urine Total 2800 ml 550 ml Labs Test 12/04/18 18:45 12/05/18 06:15 12/06/18 06:49 12/07/18 06:00 White Blood Count 10.1 K/UL (4.8-10.8) 8.2 K/UL (4.8-10.8) 7.8 K/UL (4.8-10.8) 7.0 K/UL (4.8-10.8) Red Blood Count 2.64 M/UL (4.70-6.10) 2.63 M/UL (4.70-6.10) 2.31 M/UL (4.70-6.10) 2.44 M/UL (4.70-6.10) Hemoglobin 9.1 G/DL (14.2-18.0) 9.3 G/DL (14.2-18.0) 8.2 G/DL (14.2-18.0) 8.4 G/DL (14.2-18.0) Hematocrit 28.8 % (42.0-52.0) 27.7 % (42.0-52.0) 24.3 % (42.0-52.0) 26.0 % (42.0-52.0) Mean Corpuscular Volume 109 FL (80-99) 105 FL (80-99) 105 FL (80-99) 107 FL ( 80-99) Mean Corpuscular Hemoglobin 34.5 PG (27.0-31.0) 35.3 PG (27.0-31.0) 35.4 PG (27.0-31.0) 34.4 PG (27.0-31.0) Mean Corpuscular Hemoglobin Concent 31.7 G/DL (32.0-36.0) 33.5 G/DL (32.0-36.0) 33.7 G/DL (32.0-36.0) 32.2 G/DL (32.0-36.0) Red Cell Distribution Width 16.6 % (11.6-14.8) 15.6 % (11.6-14.8) 15.3 % (11.6-14.8) 15.2 % (11.6-14.8) Platelet Count 424 K/UL (150-450) 397 K/UL (150-450) 332 K/UL (150-450) 329 K/UL (150-450) Mean Platelet Volume 5.4 FL (6.5-10.1) 5.7 FL (6.5-10.1) 5.9 FL (6.5-10.1) 5.8 FL (6.5-10.1) Neutrophils (%) (Auto) 75.5 % (45.0-75.0) 72.8 % (45.0-75.0) 66.2 % (45.0-75.0) 68.5 % (45.0-75.0) Lymphocytes (%) (Auto) 16.5 % (20.0-45.0) 18.7 % (20.0-45.0) 25.5 % (20.0-45.0) 23.4 % (20.0-45.0) Monocytes (%) (Auto) 7.0 % (1.0-10.0) 7.8 % (1.0-10.0) 7.4 % (1.0-10.0) 6.6 % (1.0-10.0) Eosinophils (%) (Auto) 0.4 % (0.0-3.0) 0.1 % (0.0-3.0) 0.3 % (0.0-3.0) 0.8 % (0.0-3.0) Basophils (%) (Auto) 0.7 % (0.0-2.0) 0.6 % (0.0-2.0) 0.7 % (0.0-2.0) 0.8 % (0.0-2.0) Urine Color Brown Urine Appearance Slightly cloudy Urine pH 6 (4.5-8.0) Urine Specific [place] 1.020 (1.005-1.035) Urine Protein 2+ (NEGATIVE) Urine Glucose (UA) Negative (NEGATIVE) Urine Ketones Negative (NEGATIVE) Urine Blood 1+ (NEGATIVE) Urine Nitrite Negative (NEGATIVE) Urine Bilirubin 3+ (NEGATIVE) Urine Ictotest Positive (NEGATIVE) Urine Urobilinogen 12 MG/DL (0.0-1.0) Urine Leukocyte Esterase 1+ (NEGATIVE) Urine RBC 2-4 /HPF (0 - 0) Urine WBC 0-2 /HPF (0 - 0) Urine Squamous Epithelial Cells Few /LPF (NONE/OCC) Urine Bacteria Occasional /HPF (NONE) Sodium Level 145 MMOL/L (136-145) 147 MMOL/L (136-145) 143 MMOL/L (136-145) 141 MMOL/L (136-145) Potassium Level 2.9 MMOL/L (3.5-5.1) 3.3 MMOL/L (3.5-5.1) 3.7 MMOL/L (3.5-5.1) 3.5 MMOL/L (3.5-5.1) Chloride Level 109 MMOL/L (98-107) 111 MMOL/L (98-107) 107 MMOL/L (98-107) 107 MMOL/L (98-107) Carbon Dioxide Level 26 MMOL/L (21-32) 28 MMOL/L (21-32) 30 MMOL/L (21-32) 31 MMOL/L (21-32) Anion Gap 10 mmol/L (5-15) 8 mmol/L (5-15) 6 mmol/L (5-15) 3 mmol/L (5-15) Blood Urea Nitrogen 9 mg/dL (7-18) 8 mg/dL (7-18) 8 mg/dL (7-18) 11 mg/dL (7-18) Creatinine 0.7 MG/DL (0.55-1.30) 0.8 MG/DL (0.55-1.30) 0.6 MG/DL (0.55-1.30) 0.7 MG/DL (0.55-1.30) Estimat Glomerular Filtration Rate > 60 mL/min (>60) > 60 mL/min (>60) > 60 mL/min (>60) > 60 mL/min (>60) Glucose Level 95 MG/DL (74-106) 76 MG/DL (74-106) 77 MG/DL (74-106) 89 MG/DL (74-106) Calcium Level 8.8 MG/DL (8.5-10.1) 8.6 MG/DL (8.5-10.1) 8.5 MG/DL (8.5-10.1) 8.6 MG/DL (8.5-10.1) Total Bilirubin 8.6 MG/DL (0.2-1.0) 8.6 MG/DL (0.2-1.0) 9.3 MG/DL (0.2-1.0) 8.2 MG/DL (0.2-1.0) Direct Bilirubin 7.8 MG/DL (0.0-0.3) 7.7 MG/DL (0.0-0.3) 8.3 MG/DL (0.0-0.3) 7.6 MG/DL (0.0-0.3) Aspartate Amino Transf (AST/SGOT) 157 U/L (15-37) 162 U/L (15-37) 167 U/L (15-37) 144 U/L (15-37) Alanine Aminotransferase (ALT/SGPT) 91 U/L (12-78) 90 U/L (12-78) 91 U/L (12-78) 86 U/L (12-78) Alkaline Phosphatase 1136 U/L (46-116) 1108 U/L (46-116) 1040 U/L (46-116) 970 U/L (46-116) Ammonia 31 umol/L (11-32) 27 umol/L (11-32) Troponin I 0.000 ng/mL (0.000-0.056) Pro-B-Type Natriuretic Peptide 86 pg/mL (0-125) 139 pg/mL (0-125) Total Protein 8.1 G/DL (6.4-8.2) 7.5 G/DL (6.4-8.2) 7.3 G/DL (6.4-8.2) 7.4 G/DL (6.4-8.2) Albumin 2.1 G/DL (3.4-5.0) 1.9 G/DL (3.4-5.0) 1.7 G/DL (3.4-5.0) 1.7 G/DL (3.4-5.0) Globulin 6.0 g/dL 5.6 g/dL 5.6 g/dL 5.7 g/dL Albumin/Globulin Ratio 0.3 (1.0-2.7) 0.3 (1.0-2.7) 0.3 (1.0-2.7) 0.3 (1.0-2.7 ) Lipase 68 U/L (73-393) Hemoglobin A1c 3.9 % (4.3-6.0) Iron Level 80 ug/dL (50-175) Total Iron Binding Capacity 214 ug/dL (250-450) Percent Iron Saturation 37 % (15-50) Unsaturated Iron Binding 134 ug/dL (112-346) Triglycerides Level 111 MG/DL (30-150) Cholesterol Level 101 MG/DL (< 200) LDL Cholesterol 62 mg/dL (<100) HDL Cholesterol 8 MG/DL (40-60) Cholesterol/HDL Ratio 12.6 (3.3-4.4) Thyroid Stimulating Hormone (TSH) 0.626 uiU/mL (0.358-3.740) Prothrombin Time 12.0 SEC (9.30-11.50) Prothromb Time International Ratio 1.1 (0.9-1.1) Uric Acid 2.2 MG/DL (2.6-7.2) Phosphorus Level 2.7 MG/DL (2.5-4.9) Magnesium Level 1.8 MG/DL (1.8-2.4) Ferritin 334 NG/ML (8-388) Gamma Glutamyl Transpeptidase 710 U/L (5-85) C-Reactive Protein, Quantitative 13.7 mg/dL (0.00-0.90) Vitamin B12 Level 971 PG/ML (193-986) Folate 9.5 NG/ML (8.6-58.9) Height (Feet): 6 Height (Inches): 2.00 Weight (Pounds): 189 Objective PE General Appearance: A+O x3, NAD HEENT: normocephalic, atraumatic Neck: non-tender, normal alignment Respiratory/Chest: chest wall non-tender, lungs clear Cardiovascular/Chest: rrr, no mgr Abd: normal bowel sounds, non tender Ext: 1-2+ edema Gustavo Ghosh MD Dec 07, 2018 14:36
--- NOTE | 2018-12-07 14:55 | NUR ---
*-* INSURANCE *-* ALL AVAILABLE CLINICALS HAVE BEEN FAXED TO: [facility] [employer]# KESHIA #[phone] FAX#[phone] REVIEWS/CLINICALS
--- NOTE | 2018-12-07 15:27 | NUR ---
NURSE NOTES: Contacted ALBER Walker again regarding clearing the patient as the outpatient case manager, Natalya, called in. No answer from ALBER Walker yet. Will continue plan of care until getting clearance from ALBER Walker. Per Dr. Juan, the patient can be discharge to home with self care if the patient is cleared by GI.
--- NOTE | 2018-12-07 15:31 | General Progress Note ---
Assessment/Plan Status: unchanged Assessment/Plan: S: I am in pain O: Brother at the bed side. Deneis any severe pain PHYSICAL EXAMINATION:HEAD AND NECK: Atraumatic and normocephalic. CHEST: Clear to auscultation.HEART: S1, S2. Regular rate and rhythm. ABDOMEN: Positive for fullness, ascitis cannot be excluded.MUSCULOSKELETAL: Positive for 1+ pitting edema in the lower extremities. NEUROLOGIC: The patient is awake, alert, and oriented x3. LABORATORY DATA: reviewed in the chart ASSESSMENT AND PLAN: 1. Anasarca. 2. Primary Billiary Cirrhosis. 3. Chronic pain. 4. HIV. 5. Hypertension. 6. Anemia. 7. Proteinuria. 8. GI and DVT prophylaxis. Plan; Notes from GI reviewed Currently following with [facility], Medically stable for out patient followup reported that is short of medication, I provided temporary med supply prescription Subjective Allergies: Coded Allergies: No Known Allergies (Unverified , 12/04/18) Objective Last 24 Hour Vital Signs Date Time Temp Pulse Resp B/P (MAP) Pulse Ox O2 Delivery O2 Flow Rate FiO2 12/07/18 12:00 98.9 81 18 112/73 (86) 99 12/07/18 09:00 Room Air Room Air 12/07/18 08:00 98.9 70 18 108/78 (88) 96 12/07/18 04:00 97.8 59 18 103/68 (80) 98 12/07/18 00:00 97.9 67 20 104/63 (77) 99 12/06/18 21:00 Room Air Room Air 12/06/18 20:00 99.1 68 20 116/75 (89) 99 12/06/18 16:00 98.3 78 19 105/63 (77) 98 Intake and Output 12/06/18 12/07/18 19:00 07:00 Intake Total 480 ml 1200 ml Output Total 2800 ml 550 ml Balance -2320 ml 650 ml Intake Oral 480 ml 1200 ml Output Urine Total 2800 ml 550 ml Laboratory Tests 12/07/18 06:00: White Blood Count 7.0, Red Blood Count 2.44L, Hemoglobin 8.4L, Hematocrit 26.0L , Mean Corpuscular Volume 107H, Mean Corpuscular Hemoglobin 34.4H, Mean Corpuscular Hemoglobin Concent 32.2, Red Cell Distribution Width 15.2H, Platelet Count 329, Mean Platelet Volume 5.8L, Neutrophils (%) (Auto) 68.5, Lymphocytes (%) (Auto) 23.4, Monocytes (%) (Auto) 6.6, Eosinophils (%) (Auto) 0.8, Basophils (%) (Auto) 0.8, Sodium Level 141, Potassium Level 3.5, Chloride Level 107, Carbon Dioxide Level 31, Anion Gap 3L, Blood Urea Nitrogen 11, Creatinine 0.7, Estimat Glomerular Filtration Rate > 60, Glucose Level 89, Calcium Level 8.6, Total Bilirubin 8.2H, Direct Bilirubin 7.6H, Aspartate Amino Transf (AST/SGOT) 144H, Alanine Aminotransferase (ALT/SGPT) 86H, Alkaline Phosphatase 970H, Total Protein 7.4, Albumin 1.7L, Globulin 5.7, Albumin/ Globulin Ratio 0.3L Height (Feet): 6 Height (Inches): 2.00 Weight (Pounds): 189 Nupur Juan MD Dec 07, 2018 15:31
[2018-12-07] MEDS ORDERED: FUROSEMIDE20 M1 ORAL (15:32)
[2018-12-07] MEDS ORDERED: CEPHALEXIN500 MG ORAL (15:32)
[2018-12-07] MEDS ORDERED: XIFAXAN550 MG ORAL (15:33)
[2018-12-07] MEDS ORDERED: SPIRONOLACTONE100 MG ORAL (15:33)
[2018-12-07] MEDS ORDERED: HYDROCHLOROTH12.5 M2 ORAL (15:33)
[2018-12-07] MEDS ORDERED: FLOMAX0.4 MG ORAL (15:36)
[2018-12-07] MEDS ORDERED: URSODIOL300 MG ORAL (15:36)
[2018-12-07] MEDS ORDERED: PERCOCET 10-321 EACH ORAL ×2 (15:37→15:38)
[2018-12-07 16:00] VITALS: BP 120/70
--- NOTE | 2018-12-07 16:00 | NUR ---
NURSE NOTES: ALBER Walker cleared the patient from GI stand point and okay to be discharged. Dr. Juan ordered the patient to be discharged back to home with self care. Dr. Juan provided prescription to the primary nurse so that the discharge medication can be provided. Informed the patient and the next of kin regarding discharge order. However, the patient verbalized that he cannot go home since he needs at least one family member to be at home for caring but no one is available. Notified to charge nurse. Natalya, the watch case polisher, and the charge nurse came in and explained the situation to the patient. Per patient, he will arrange the family member to pick him up and care the patient back to home that will be arranged later today around 2200. Will continue plan of care until the arrangement makes.
--- NOTE | 2018-12-07 19:20 | NUR ---
HAND-OFF: Report given to PADDY Painter. The patient is resting on the bed without acute distress or shortness of breath. The patient is stable in terms of physical symptoms and vital signs. The patient's bed in the lowest position, call light in reach, and fall and aspiration precaution reinforced. The patient is working on arranging the transportation and family member at home. Dr. Juan, the medical case manager, and the charge nurse was notified regarding the case. The patient signed for the patient's belongings inventory, copy of the prescription saying that the patient received prescription, and the discharge instruction. Endorsed plan of care to PADDY Painter.
[2018-12-07 20:00] VITALS: BP 115/76
--- NOTE | 2018-12-07 20:05 | NUR ---
NURSE NOTES: Received patient awake,alert,resting in bed,awaiting brother for discharge home.
[2018-12-07] MEDS: Tamsulosin 0.4mg cap ORAL SCH (21:00)
--- NOTE | 2018-12-07 22:13 | NUR ---
NURSE NOTES: Patient discharged home,fetched by his brother with essentially normal vital signs.
--- NOTE | 2018-12-07 22:32 | Cardiology Progress Note ---
Assessment/Plan Assessment/Plan 1. Bilateral lower extremity edema likely due to hypoalbuminemia due to liver cirrhosis, consider intravascular volume expansion with albumin administration, 2D echo shows normal LV systolic function with LVEF at 60-65%. 2. Hepatitis with jaundice. 3. Anemia. 4. History of portal hypertension. 5. Hypotension, asymptomatic, will monitor BP closely, ? cardiopulmonry shunting , ? effect of combination lasix and Aldactone. Subjective Subjective Denies chest pain or SOB. No cardiac events are reported. Objective Last 24 Hour Vital Signs Date Time Temp Pulse Resp B/P (MAP) Pulse Ox O2 Delivery O2 Flow Rate FiO2 12/07/18 21:30 100.0 12/07/18 20:13 Room Air Room Air 12/07/18 20:00 100.0 76 20 115/76 (89) 100 12/07/18 16:00 98.8 72 18 120/70 (87) 99 12/07/18 12:00 98.9 81 18 112/73 (86) 99 12/07/18 09:00 Room Air Room Air 12/07/18 08:00 98.9 70 18 108/78 (88) 96 12/07/18 04:00 97.8 59 18 103/68 (80) 98 12/07/18 00:00 97.9 67 20 104/63 (77) 99 Intake and Output 12/06/18 12/07/18 18:59 06:59 Intake Total 480 ml 1200 ml Output Total 2800 ml 550 ml Balance -2320 ml 650 ml Intake Oral 480 ml 1200 ml Output Urine Total 2800 ml 550 ml 2D Echo: LVEF 60-656%, Normal LV diastolic function, RVSP 19 mmHg Laboratory Tests Test 12/07/18 06:00 White Blood Count 7.0 K/UL (4.8-10.8) Red Blood Count 2.44 M/UL (4.70-6.10) L Hemoglobin 8.4 G/DL (14.2-18.0) L Hematocrit 26.0 % (42.0-52.0) L Mean Corpuscular Volume 107 FL (80-99) H Mean Corpuscular Hemoglobin 34.4 PG (27.0-31.0) H Mean Corpuscular Hemoglobin Concent 32.2 G/DL (32.0-36.0) Red Cell Distribution Width 15.2 % (11.6-14.8) H Platelet Count 329 K/UL (150-450) Mean Platelet Volume 5.8 FL (6.5-10.1) L Neutrophils (%) (Auto) 68.5 % (45.0-75.0) Lymphocytes (%) (Auto) 23.4 % (20.0-45.0) Monocytes (%) (Auto) 6.6 % (1.0-10.0) Eosinophils (%) (Auto) 0.8 % (0.0-3.0) Basophils (%) (Auto) 0.8 % (0.0-2.0) Sodium Level 141 MMOL/L (136-145) Potassium Level 3.5 MMOL/L (3.5-5.1) Chloride Level 107 MMOL/L (98-107) Carbon Dioxide Level 31 MMOL/L (21-32) Anion Gap 3 mmol/L (5-15) L Blood Urea Nitrogen 11 mg/dL (7-18) Creatinine 0.7 MG/DL (0.55-1.30) Estimat Glomerular Filtration Rate > 60 mL/min (>60) Glucose Level 89 MG/DL (74-106) Calcium Level 8.6 MG/DL (8.5-10.1) Total Bilirubin 8.2 MG/DL (0.2-1.0) H Direct Bilirubin 7.6 MG/DL (0.0-0.3) H Aspartate Amino Transf (AST/SGOT) 144 U/L (15-37) H Alanine Aminotransferase (ALT/SGPT) 86 U/L (12-78) H Alkaline Phosphatase 970 U/L (46-116) H Total Protein 7.4 G/DL (6.4-8.2) Albumin 1.7 G/DL (3.4-5.0) L Globulin 5.7 g/dL Albumin/Globulin Ratio 0.3 (1.0-2.7) L Microbiology Date/Time Source Procedure Growth Status 12/05/18 15:30 External Cath Urine Culture - Preliminary Mixed Gram Positive Organism Resulted Objective HEENT: Atraumatic and normocephalic. Icteric sclerae is apparent. Pupils are equal, round, and reactive to light and accommodation. Extraocular muscles intact. JVP less than 5 cm. No carotid bruit. Carotid upstrokes 2+ bilaterally. CARDIOVASCULAR: Normal S1, S2. Regular rate and rhythm. No murmurs, gallops, or rubs. PMI is at fourth intercostal space in the midclavicular line. LUNGS: Diminished breath sounds in both bases. ABDOMEN: Soft, non-distended. No hepatosplenomegaly. Positive bowel sounds. EXTREMITIES: There is 1+ pitting edema both lower extremities. Lowell Arreguin MD Dec 07, 2018 22:32
--- NOTE | 2018-12-08 11:02 | Discharge Summary ---
Discharge Summary Discharge Summary _ DATE OF ADMISSION: 12/04/2018 DATE OF DISCHARGE: 12/07/2018 DISCHARGED BY: Dr. Juan REASON FOR ADMISSION: 52 years old male with past medical history of primary sclerosing cholangitis, HIV status, was brought to emergency room for evaluation by his brother due to bilateral legs edema. Symptoms started 3 days ago. According to patient , he did not had access to his medication for few days. Patient reported throbbing nonradiating pain in his legs 7 out of 10 on a scale 1-10. Patient was jaundiced on examination. No nausea, no vomiting. No abdominal pain. No fever or chills. Upon evaluation vital signs were stable. Laboratory work-up revealed no leukocytosis, hemoglobin 9.1, hematocrit 28.8, platelet count 424. Urinalysis revealed +2 protein , +3 bilirubin, +1 leukocyte esterase, occasional bacteria, no pyuria. Chemistry demonstrated hypokalemia with potassium 2.9. BUN 9, creatinine 0.7 . Glucose 95. Total bilirubin 8.6, direct bilirubin 7.8. AST 157, ALT 91. Ammonia level 31. Troponin negative., pro BNP 86. Albumin 2.1. Chest x-ray demonstrated probable bibasilar atelectasis. Patient was admitted for further management. CONSULTANTS: health insurance sales agent Dr. Arreguin ID specialist Dr. Vu GI specialist Dr Cano anesthesia director/oncologist Dr. Ghosh pain Specialist Dr. Burroughs HOSPITAL COURSE: Patient admitted. Potassium was replaced. Patient started on diuretic Lasix and Aldactone with close monitoring of volumes and renal parameters. Electrolytes further corrected as needed. DVT and GI prophylaxis provided. GI specialist closely followed. Abdominal ultrasound revealed enlarged liver and right kidney , borderline size of the spleen. Evidence of prior cholecystectomy. No acute abnormality. LFT were closely monitored. AST , ALT and bilirubin remained elevated . Ammonia level was stable. Lipid panel was stable. TSH and folate within normal limits. Patient has a history of RAY gastric bypass and primary sclerosing cholangitis. Per GI specialist , primary sclerosing cholangitis explained the degree of jaundice and normal platelet count. GI specialist recommended continue ursodiol and Xifaxan . Patient to follow up at [facility] liver clinic for close monitoring and possible future liver transplant candidacy. In addition , GI specialist recommended periodic ERCP examination to clear his ducts. Linter Tender followed. Per cardiology , bilateral lower extremity edema was likely due to hypoalbuminemia due to liver cirrhosis. Patient received albumin , however per health insurance sales agent it is only a transient measure ; and patient will need to be under the care of GI specialist for long- term treatment. Echocardiogram revealed preserved ejection fraction 60 to 65%. Patient initially was hypotensive, but remained asymptomatic. Blood pressure was closely monitored. Blood pressure stabilized, and prior to discharge 115/76. Clerk Guide followed. Hemoglobin and hematocrit were closely monitored. Anemia work-up was consistent with anemia of chronic disease. No evidence of hemolysis. Epogen or iron were not particularly indicated. Prior to discharge hemoglobin 8.4, hematocrit 26. Infectious disease specialist followed. Patient initially started on antibiotic for possible UTI. Urine culture was negative. Patient also exhibited cellulitis of the leg. Legs were elevated at all time. Venous duplex bilateral lower extremity revealed no evidence of acute DVT. Triumeg continued . Patient follows up with HIV provider at [facility] . Pain specialist consult was attempted . Patient was not accepted pain specialist recommendation. Discussion was held with the patient about effect of high dose of acetaminophen on his liver . Patient will be followed-up with a primary care provider for further pain management. Patient clinically stabilized and was ready for discharge home . Bilateral lower extremity edema decreased. Patient to follow-up with primary care provider and [facility] liver clinic for further management. FINAL DIAGNOSIS Primarily sclerosing cholangitis Liver failure Bilateral lower extremity edema, likely due to hypoalbuminemia due to liver cirrhosis Anasarca Status post MELISSA gastric bypass Cellulitis bilateral lower extremity Hypotension, asymptomatic - improved Chronic pain Anemia of chronic disease DISCHARGE MEDICATIONS: See Medication Reconciliation list. DISCHARGE INSTRUCTIONS: Patient was discharged home . Follow up with primary care provider in one week. Follow-up with liver clinic at [facility]. I have been assigned to dictate discharge summary for this account. I was not involved in the patient's management. Karishma López NP Dec 08, 2018 11:02
--- NOTE | 2018-12-08 11:37 | NUR ---
*-* INSURANCE *-* DISCHARGE SUMMARY HAS BEEN FAXED TO: JULIANNE SULLIVAN CM OR TRACKING# KESHIA #[phone] FAX#[phone] REVIEWS/CLINICALS
--- NOTE | 2018-12-09 13:45 | CDS Physician Query ---
Clarification is required for compliance, coding accuracy, and to reflect severity of illness for this patient Dear Dr. Nupur Juan M.D. Date: 12/09/2018 Vice President Consulting Services/CDS Name: Serge Kendall The patient is a 52-year-old male with liver failure, who presented with worsening of the swelling on the legs for the last couple of weeks. At the time of evaluation, the patient denies any shortness of breath or any chest pain. The patient reported that he is living with his friends, but denies any nausea, vomitus, or diarrhea. ASSESSMENT AND PLAN: 1. Anasarca. 2. Cirrhosis. 3. Chronic pain. 4. HIV. 5. Hypertension. 6. Anemia. 7. Proteinuria. 8. GI and DVT prophylaxis. Labs: Alb: 2.1--->1.7 Please select the most appropriate option: [] Protein/Calorie Malnutrition [] Mild [] Moderate [] Severe [] Hypoalbuminemia [] Cachexia [] Underweight [] Intestinal malabsorption [] Other [] Unable to determine [] Not Applicable Present on Admission: [] Yes [] No [] Clinically Undetermined Physician signature Date Please also document in your Progress Notes and/or Discharge Summary and indicate if the condition was present on admission. MTDD
== END 2018-12-07 22:10 | disposition home or self-care (01) | DRG 445 ==
LOC: EMR 18:50 → 4E 20:30 → EDBEDREQ 20:48
DX: K83.01 Primary sclerosing cholangitis (principal); N39.0 Urinary tract infection, site not specified; L03.116 Cellulitis of left lower limb; L03.115 Cellulitis of right lower limb; B20 Human immunodeficiency virus [HIV] disease; D68.4 Acquired coagulation factor deficiency; K74.60 Unspecified cirrhosis of liver; K74.3 Primary biliary cirrhosis; E87.6 Hypokalemia; K75.9 Inflammatory liver disease, unspecified; D63.8 Anemia in other chronic diseases classified elsewhere; R60.1 Generalized edema; I95.9 Hypotension, unspecified; G89.29 Other chronic pain; E88.09 Other disorders of plasma-protein metabolism, not elsewhere classified; Z98.84 Bariatric surgery status; G62.9 Polyneuropathy, unspecified
CPT/HCPCS: 36415; 71045; 76700; 80053; 80061; 81003; 82140; 82248; 82607; 82728; 82746; 82977; 83036; 83540; 83550; 83690; 83735; 83880; 84100; 84443; 84484; 84550; 85025; 85610; 86140; 87086; 93306; 93970; 96374; 99285; J8499

== ENCOUNTER 2019-03-21 22:51 | Inpatient (IN) | payer OTHER ==
[~2019-03-21] VITALS: Ht 175.3 cm; Wt 59.0 kg
[~2019-03-21 22:51] MED LIST: CEPHALEXIN500 MG ORAL; FLOMAX0.4 MG ORAL; FUROSEMIDE20 M1 ORAL; HYDROCHLOROTH12.5 M2 ORAL; PERCOCET 10-321 EAC1 ORAL; PERCOCET 10-321 EACH ORAL; SPIRONOLACTONE100 MG ORAL; TRIUMEQ 600-501 EACH PO; URSODIOL300 MG ORAL; XIFAXAN550 MG ORAL
--- NOTE | 2019-03-21 23:04 | NUR ---
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
[2019-03-21 23:27] LABS: HEMATOCRIT 29.6 % (42.0-52.0); HEMOGLOBIN 10.3 G/DL (14.2-18.0); MEAN CORPUSCULAR VOLUME 104 FL (80-99); PLATELET COUNT 232 K/UL (150-450); RED BLOOD COUNT 2.84 M/UL (4.70-6.10); RED CELL DISTRIBUTION WIDTH 14.7 % (11.6-14.8)
[2019-03-21 23:28] VITALS: BP 100/60
--- NOTE | 2019-03-21 23:29 | NUR ---
ED Nurse Note: pt presents to ED via EMS arrival LAFD 68. per ems, pt's friend called because he was concerned about a pressure ulcer. pt is on hospice care and his nurse arrived after ambulance did. pt has a h/o liver cirrhosis. When asked where his ulcer is, pt states it is inside his stomach. two skin tears noted on bilat lower extremities. pt is AO x3 Addendum: 03/22/19 at 0327 by AYDIN Jaundice of skin and sclera noted. sacral ulcer has mild yellow discharge, ERMD at bedside evaluating
[2019-03-21 23:35] LABS: INR 2.1 (0.9-1.1)
--- NOTE | 2019-03-21 23:35 | NUR ---
ED Nurse Note: pt has bilat lower extremity edema noted
[2019-03-21 23:43] LABS: ANION GAP 10 mmol/L (5-15); BLOOD UREA NITROGEN 95 mg/dL (7-18); CALCIUM 8.4 MG/DL (8.5-10.1); CARBON DIOXIDE 25 MMOL/L (21-32); CHLORIDE 103 MMOL/L (98-107); CREATININE 3.5 MG/DL (0.55-1.30); POTASSIUM 5.4 MMOL/L (3.5-5.1); SODIUM 138 MMOL/L (136-145)
[2019-03-21 23:56] LABS: ALANINE AMINOTRANSFERASE 84 U/L (12-78); ALBUMIN 1.5 G/DL (3.4-5.0); ALBUMIN/GLOBULIN RATIO 0.2 (1.0-2.7); ALKALINE PHOSPHATASE 738 U/L (46-116); ASPARTATE AMINO TRANSFERASE 159 U/L (15-37); BILIRUBIN,TOTAL 13.3 MG/DL (0.2-1.0); CKMB 2.7 NG/ML (0.0-3.6); CREATINE KINASE 182 U/L (26-308); PHOSPHORUS 6.7 MG/DL (2.5-4.9)
[2019-03-22] VITALS (7 sets, daily range): BP systolic 86–130; BP diastolic 50–93
[2019-03-22] MEDS ORDERED: Piperacillin/Tazobactam 3.375 GM in NS 110 ML IVPB ONE ×2
[2019-03-22] MEDS ORDERED: Vancomycin 1.5 GM in NS 275 ML IVPB ONE (00:15)
[2019-03-22 00:30] LABS: BILIRUBIN,DIRECT 11.7 MG/DL (0.0-0.3)
--- NOTE | 2019-03-22 01:00 | NUR ---
ED Nurse Note: pt unable to provide urine sample at this time and denies straight cath. ERMD aware
--- NOTE | 2019-03-22 01:10 | Emergency Room Report ---
History of Present Illness General Chief Complaint: Skin Rash/Abscess Source: Patient Present Illness HPI 53-year-old male on hospice presents to the hospital with decubitus ulcer with pus drainage, fever/chills x1 day, no aggravating relieving factors severity is severe, constant, patient's roommate called 911, despite the fact that he is on hospice care, patient stated wanted come here but he does not have DPOA his brother Deya Galarza has DURABLE POWER OF MANAGEMENT INSTRUCTOR. Patient over the past 2448 hrs. has become progressively altered per brother Allergies: Coded Allergies: No Known Allergies (Unverified , 12/04/18) Patient History Past Medical History: see triage record Reviewed Nursing Documentation: PMH: Agreed; PSxH: Agreed Nursing Documentation-PMH Hx Cardiac Problems: Yes Hx Gastrointestinal Problems: Yes Hx Neurological Problems: No Review of Systems All Other Systems: negative except mentioned in HPI Physical Exam Vital Signs Date Time Temp Pulse Resp B/P (MAP) Pulse Ox O2 Delivery O2 Flow Rate FiO2 03/21/19 22:44 62 18 100/60 (73) 100 Room Air Sp02 EP Interpretation: reviewed, normal General Appearance: alert, mild distress, cachetic, Chronically Ill Head: normocephalic, atraumatic Eyes: bilateral eye PERRL, bilateral eye EOMI ENT: uvula midline, dry mucus membranes Neck: supple, thyroid normal, supple/symm/no masses Respiratory: lungs clear, no respiratory distress, no retraction, no accessory muscle use Cardiovascular #1: normal peripheral pulses, regular rate, rhythm, no edema, no gallop, no murmur Gastrointestinal: non tender, soft, no guarding, no rebound Musculoskeletal: normal inspection Neurologic: alert, oriented x3 Psychiatric: mood/affect normal Skin: warm/dry, other - Large decubitus ulcer with pus drainage on the sacrum Procedures Critical Care Time Critical Care Time Given the critical condition in which the patient arrived, the patient was immediately assessed by myself and the nurse, and cardiac monitoring initiated due to the potential for rapid decompensation of the patient's clinical condition. During the course of the patient's stay, I spent a considerable amount of time at the bedside performing serial re-evaluations of the patient's hemodynamic and clinical status because of the recognized potential threat to life or limb in this condition. I then had a chance to review not only all of the available current laboratory and radiographic studies obtained today, but I also reviewed old records available to me at the time. Additionally, any ancillary information available including desk manager records were reviewed. Sequential vital signs were obtained. Critical Care time of 34 minutes was performed exclusive of billable procedures. Medical Decision Making Diagnostic Impression: Primary Impression: Sepsis Qualified Codes: A41.9 - Sepsis, unspecified organism Additional Impressions: Infected decubitus ulcer Qualified Codes: L89.90 - Pressure ulcer of unspecified site, unspecified stage; L08.9 - Local infection of the skin and subcutaneous tissue, unspecified STEVE (acute kidney injury) ER Course Spoke with Brother jane Huerta patient admitted for treatment of infection wants patient DNR DNI 53-year-old male presents with differential diagnosis of sepsis versus altered mental status, versus encephalopathy Will treat patient with Zosyn and Vanco, will start fluid resuscitation, patient found to have an infected decubitus ulcer Patient admitted to Dr. Juan Laboratory Tests Test 03/21/19 23:00 White Blood Count 9.0 K/UL (4.8-10.8) Red Blood Count 2.84 M/UL (4.70-6.10) L Hemoglobin 10.3 G/DL (14.2-18.0) L Hematocrit 29.6 % (42.0-52.0) L Mean Corpuscular Volume 104 FL (80-99) H Mean Corpuscular Hemoglobin 36.4 PG (27.0-31.0) H Mean Corpuscular Hemoglobin Concent 35.0 G/DL (32.0-36.0) Red Cell Distribution Width 14.7 % (11.6-14.8) Platelet Count 232 K/UL (150-450) Mean Platelet Volume 6.5 FL (6.5-10.1) Neutrophils (%) (Auto) % (45.0-75.0) Lymphocytes (%) (Auto) % (20.0-45.0) Monocytes (%) (Auto) % (1.0-10.0) Eosinophils (%) (Auto) % (0.0-3.0) Basophils (%) (Auto) % (0.0-2.0) Prothrombin Time 21.2 SEC (9.30-11.50) H Prothrombin Time INR 2.1 (0.9-1.1) H Activated Partial Thromboplast Time 50 SEC (23-33) H Sodium Level 138 MMOL/L (136-145) Potassium Level 5.4 MMOL/L (3.5-5.1) H Chloride Level 103 MMOL/L (98-107) Carbon Dioxide Level 25 MMOL/L (21-32) Anion Gap 10 mmol/L (5-15) Blood Urea Nitrogen 95 mg/dL (7-18) H Creatinine 3.5 MG/DL (0.55-1.30) H Estimate Glomerular Filtration Rate 22.2 mL/min (>60) Glucose Level 97 MG/DL (74-106) Lactic Acid Level 1.80 mmol/L (0.4-2.0) Calcium Level 8.4 MG/DL (8.5-10.1) L Phosphorus Level 6.7 MG/DL (2.5-4.9) H Magnesium Level 2.6 MG/DL (1.8-2.4) H Total Bilirubin 13.3 MG/DL (0.2-1.0) H Direct Bilirubin 11.7 MG/DL (0.0-0.3) H Aspartate Amino Transferase (AST) 159 U/L (15-37) H Alanine Aminotransferase (ALT) 84 U/L (12-78) H Alkaline Phosphatase 738 U/L (46-116) H Total Creatine Kinase 182 U/L (26-308) Creatine Kinase MB 2.7 NG/ML (0.0-3.6) Creatine Kinase MB Relative Index 1.4 Pro-B-Type Natriuretic Peptide 868 pg/mL (0-125) H Total Protein 9.4 G/DL (6.4-8.2) H Albumin 1.5 G/DL (3.4-5.0) L Globulin 7.9 g/dL Albumin/Globulin Ratio 0.2 (1.0-2.7) L Lipase 88 U/L (73-393) EKG Diagnostic Results EKG Time: 23:11 EP Interpretation: NSR, rate 78, QTc 460, no acute ST elevations, normal axis Rhythm Strip Diag. Results Rhythm Strip Time: 01:09 EP Interpretation: yes Rate: 71 Rhythm: NSR, no PVC's, no ectopy Chest X-Ray Diagnostic Results Chest X-Ray Diagnostic Results : Chest X-Ray Ordered: Yes # of Views/Limited/Complete: 1 View Indication: Chest Pain EP Interpretation: Yes Interpretation: no consolidation, no effusion, no pneumothorax, no acute cardiopulmonary disease Impression: No acute disease Electronically Signed by: Ryan King MD Last Vital Signs Date Time Temp Pulse Resp B/P (MAP) Pulse Ox O2 Delivery O2 Flow Rate FiO2 03/21/19 23:28 82 18 100/60 100 Room Air Disposition: ADMITTED INPATIENT Condition: Serious Referrals: NON PHYSICIAN (PCP) Ryan King MD Mar 22, 2019 01:10
[2019-03-22] MEDS ORDERED: LORazepam Inj 2mg/ml 1ml IV ONE (03:15)
--- NOTE | 2019-03-22 03:19 | NUR ---
ED Nurse Note: pt is removing his leads and SpO2 monitor, stating that "we are out to get him" ERMD notified
--- NOTE | 2019-03-22 03:25 | NUR ---
ED Nurse Note: report given to Tu
--- NOTE | 2019-03-22 04:00 | NUR ---
NURSE NOTES: PATIENT WAS SAFELY TRANSFER TO UNIT BY MIRELLA. REPORT GIVEN BY PADDY BARNETT. PATIENT IS AWAKE, AAOX1, AROUSED BY SHAKING HIS ARM AND REPEATEDLY CALLING HIS NAME, UNABLE TO FOLLOW SIMPLE COMMANDS, DISORIENTED TO TIME AND PLACE. PATIENT IS GUARDING HIS ABDOMEN AND FACIAL GRIMACING NOTED. ABDOMEN IS DISTENDED AND RIGID. CATHETER NOTED ON RIGHT ABDOMEN. EDEMA NOTED ON BILATERAL LOWER EXTREMITIES PITTING +2. MULTIPLE WOUNDS AND SKIN TEARS NOTED. SACRAL FULL THICKNESS, LEFT HEEL UNSTAGEABLE, RIGHT HEEL DTI, SKIN TEAR IN BILATERAL CALFS, LEFT HIP, LEFT CHEST AND DISCOLORATION OF PENIAL SHAFT. PICTURES TAKEN AND UPLOADED. PERFORMED WOUND CARE AND DRESSING CHANGES. IV ON LEFT FA INTACT AND PATENT. CONTACTED DR. MYERS. AWAITING FOR ADMISSION ORDERS. BED IS LOCKED AND LOW, BED ALARMS ACTIVE, SIDE RAILS UPX2 AND CALL LIGHT IS WITHIN REACH. WILL CONTINUE TO MONITOR.
[2019-03-22] MEDS ORDERED: D5NS 1,000 ML IV SCH (07:15)
[2019-03-22] MEDS ORDERED: Piperacillin/Tazobactam 3.375 GM in NS 110 ML IVPB SCH (08:00)
--- NOTE | 2019-03-22 08:06 | NUR ---
HAND-OFF: Report given to PADDY SANCHEZ.
--- NOTE | 2019-03-22 08:15 | NUR ---
NURSE NOTES: Patient opens eye when name called,respirations unlabored.IV fluids infusing as ordered.Bed alarm is on,call light within reach.Patient is NPO.
[2019-03-22 08:50] LABS: ANION GAP 12 mmol/L (5-15); BLOOD UREA NITROGEN 94 mg/dL (7-18); CALCIUM 8.2 MG/DL (8.5-10.1); CARBON DIOXIDE 21 MMOL/L (21-32); CHLORIDE 106 MMOL/L (98-107); CREATININE 3.1 MG/DL (0.55-1.30); POTASSIUM 4.9 MMOL/L (3.5-5.1); SODIUM 139 MMOL/L (136-145)
[2019-03-22 08:56] LABS: HEMATOCRIT 33.2 % (42.0-52.0); HEMOGLOBIN 11.4 G/DL (14.2-18.0); MEAN CORPUSCULAR VOLUME 103 FL (80-99); PLATELET COUNT 213 K/UL (150-450); RED BLOOD COUNT 3.21 M/UL (4.70-6.10); RED CELL DISTRIBUTION WIDTH 15.3 % (11.6-14.8); WHITE BLOOD COUNT 7.1 K/UL (4.8-10.8)
[2019-03-22] MEDS: Tamsulosin 0.4mg cap ORAL SCH (09:00)
[2019-03-22] MEDS ORDERED: Spironolactone 50mg tab ORAL SCH (09:00)
[2019-03-22] MEDS: Ursodiol 300mg cap ORAL SCH (09:00)
[2019-03-22] MEDS ORDERED: hydroCHLOROthiazide 12.5mg TAB ORAL SCH (09:00)
[2019-03-22] MEDS ORDERED: Cephalexin 500mg cap ORAL SCH (09:00)
--- NOTE | 2019-03-22 09:51 | Pulmonology Progress Note ---
Assessment/Plan Assessment/Plan Pulmonary Consultation HPI Patient is a 53-year old man on hospice prior to admission, past medical history of Cirrhosis, Decubitus Ulcers, admitted with infected decubitus ulcer, purulent drainage, fever/chills noted, altered mental status Allergies: No Known Allergies Past Medical History: Cirrhosis, Cardiac Disease All Other Systems: negative except mentioned in HPI Physical Exam Vital Signs Noted Date Time Temp Pulse Resp B/P (MAP) Pulse Ox O2 Delivery O2 Flow Rate FiO2 03/21/19 23:28 82 18 100/60 100 Room Air General Appearance: alert, mild distress, cachetic, Chronically Ill appearing Head: normocephalic, atraumatic Eyes: bilateral eye PERRL, bilateral eye EOMI ENT: uvula midline, dry mucus membranes Neck: supple, thyroid normal, supple/symm/no masses Respiratory: lungs clear, no respiratory distress, no retraction, no accessory muscle use Cardiovascular: normal peripheral pulses, regular rate, rhythm, HS1, HS2 noted , no edema, no gallop, no murmur Gastrointestinal: non tender, soft, no guarding, no rebound Musculoskeletal: normal inspection Neurologic: alert, oriented, no focal signs Skin: warm/dry, other - Large decubitus ulcer with pus drainage on the sacrum Impression: Infected Decubitus Ulcer Sepsis Cirrhosis Coagulopathy Acute on chronic kidney injury Plan Oxygen PRN Antibiotics IVF PRN Wound care Monitor labs Transfuse PRN PPX 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 Medications DNR DNI Laboratory Tests Test 03/21/19 23:00 White Blood Count 9.0 K/UL (4.8-10.8) Red Blood Count 2.84 M/UL (4.70-6.10) L Hemoglobin 10.3 G/DL (14.2-18.0) L Hematocrit 29.6 % (42.0-52.0) L Mean Corpuscular Volume 104 FL (80-99) H Mean Corpuscular Hemoglobin 36.4 PG (27.0-31.0) H Mean Corpuscular Hemoglobin Concent 35.0 G/DL (32.0-36.0) Red Cell Distribution Width 14.7 % (11.6-14.8) Platelet Count 232 K/UL (150-450) Mean Platelet Volume 6.5 FL (6.5-10.1) Neutrophils (%) (Auto) % (45.0-75.0) Lymphocytes (%) (Auto) % (20.0-45.0) Monocytes (%) (Auto) % (1.0-10.0) Eosinophils (%) (Auto) % (0.0-3.0) Basophils (%) (Auto) % (0.0-2.0) Prothrombin Time 21.2 SEC (9.30-11.50) H Prothrombin Time INR 2.1 (0.9-1.1) H Activated Partial Thromboplast Time 50 SEC (23-33) H Sodium Level 138 MMOL/L (136-145) Potassium Level 5.4 MMOL/L (3.5-5.1) H Chloride Level 103 MMOL/L (98-107) Carbon Dioxide Level 25 MMOL/L (21-32) Anion Gap 10 mmol/L (5-15) Blood Urea Nitrogen 95 mg/dL (7-18) H Creatinine 3.5 MG/DL (0.55-1.30) H Estimate Glomerular Filtration Rate 22.2 mL/min (>60) Glucose Level 97 MG/DL (74-106) Lactic Acid Level 1.80 mmol/L (0.4-2.0) Calcium Level 8.4 MG/DL (8.5-10.1) L Phosphorus Level 6.7 MG/DL (2.5-4.9) H Magnesium Level 2.6 MG/DL (1.8-2.4) H Total Bilirubin 13.3 MG/DL (0.2-1.0) H Direct Bilirubin 11.7 MG/DL (0.0-0.3) H Aspartate Amino Transferase (AST) 159 U/L (15-37) H Alanine Aminotransferase (ALT) 84 U/L (12-78) H Alkaline Phosphatase 738 U/L (46-116) H Total Creatine Kinase 182 U/L (26-308) Creatine Kinase MB 2.7 NG/ML (0.0-3.6) Creatine Kinase MB Relative Index 1.4 Pro-B-Type Natriuretic Peptide 868 pg/mL (0-125) H Total Protein 9.4 G/DL (6.4-8.2) H Albumin 1.5 G/DL (3.4-5.0) L Globulin 7.9 g/dL Albumin/Globulin Ratio 0.2 (1.0-2.7) L Lipase 88 U/L (73-393) EKG: NSR, rate 78, QTc 460, no acute ST elevations, normal axis Chest X-Ray: no consolidation, no effusion, no pneumothorax, no acute cardiopulmonary disease Subjective ROS Limited/Unobtainable: No Allergies: Coded Allergies: No Known Allergies (Unverified , 12/04/18) Objective Last 24 Hour Vital Signs Date Time Temp Pulse Resp B/P (MAP) Pulse Ox O2 Delivery O2 Flow Rate FiO2 03/22/19 04:38 Room Air 03/22/19 04:00 96.4 100 24 130/93 (105) 98 03/22/19 03:30 77 18 118/50 100 Room Air 03/22/19 03:00 77 18 118/50 100 Room Air 03/21/19 23:28 82 18 100/60 100 Room Air 03/21/19 22:44 62 18 100/60 (73) 100 Room Air Intake and Output 03/21/19 03/22/19 19:00 07:00 Intake Total 0 ml Balance 0 ml Intake Oral 0 ml Laboratory Tests 03/21/19 23:00: White Blood Count 9.0, Red Blood Count 2.84L, Hemoglobin 10.3L, Hematocrit 29.6L , Mean Corpuscular Volume 104H, Mean Corpuscular Hemoglobin 36.4H, Mean Corpuscular Hemoglobin Concent 35.0, Red Cell Distribution Width 14.7, Platelet Count 232, Mean Platelet Volume 6.5, Neutrophils (%) (Auto) , Lymphocytes (%) ( Auto) , Monocytes (%) (Auto) , Eosinophils (%) (Auto) , Basophils (%) (Auto) , Prothrombin Time 21.2H, Prothromb Time International Ratio 2.1H, Activated Partial Thromboplast Time 50H, Sodium Level 138, Potassium Level 5.4H, Chloride Level 103, Carbon Dioxide Level 25, Anion Gap 10, Blood Urea Nitrogen 95H, Creatinine 3.5H, Estimat Glomerular Filtration Rate 22.2, Glucose Level 97, Lactic Acid Level 1.80, Calcium Level 8.4L, Phosphorus Level 6.7H, Magnesium Level 2.6H, Total Bilirubin 13.3H, Direct Bilirubin 11.7H, Aspartate Amino Transf (AST/SGOT) 159H, Alanine Aminotransferase (ALT/SGPT) 84H, Alkaline Phosphatase 738H, Total Creatine Kinase 182, Creatine Kinase MB 2.7, Creatine Kinase MB Relative Index 1.4, Pro-B-Type Natriuretic Peptide 868H, Total Protein 9.4H, Albumin 1.5L, Globulin 7.9, Albumin/Globulin Ratio 0.2L, Lipase 88 03/22/19 08:15: White Blood Count 7.1, Red Blood Count 3.21L, Hemoglobin 11.4L, Hematocrit 33.2L , Mean Corpuscular Volume 103H, Mean Corpuscular Hemoglobin 35.4H, Mean Corpuscular Hemoglobin Concent 34.2, Red Cell Distribution Width 15.3H, Platelet Count 213, Mean Platelet Volume 6.6, Neutrophils (%) (Auto) , Lymphocytes (%) (Auto) , Monocytes (%) (Auto) , Eosinophils (%) (Auto) , Basophils (%) (Auto) , Sodium Level 139, Potassium Level 4.9, Chloride Level 106 , Carbon Dioxide Level 21, Anion Gap 12, Blood Urea Nitrogen 94H, Creatinine 3.1H, Estimat Glomerular Filtration Rate 25.5, Glucose Level 57L, Calcium Level 8.2L, Neutrophils % (Manual) [Pending], Lymphocytes % (Manual) [Pending], Platelet Estimate [Pending], Platelet Morphology [Pending] Current Medications Medications (Trade) Dose Ordered Sig/Lala Route PRN Reason Start Time Stop Time Status Last Admin Dose Admin Cephalexin (Keflex) 500 mg QID ORAL 03/22/19 09:00 03/29/19 08:59 UNV Dextrose/Sodium Chloride 1,000 ml @ 75 mls/hr [id number] IV 03/22/19 07:15 04/21/19 07:14 Furosemide (Lasix) 20 mg DAILY ORAL 03/22/19 09:00 04/21/19 08:59 Hydrochlorothiazide (Hydrodiuril) 12.5 mg DAILY ORAL 03/22/19 09:00 04/21/19 08:59 Oxycodone/ Acetaminophen (Percocet 10/325) 1 tab QID PRN ORAL For Pain 03/22/19 07:15 03/29/19 07:14 Piperacillin Sod/ Tazobactam Sod 3.375 gm/Sodium Chloride 110 ml @ 27.5 mls/hr Q8H IVPB 03/22/19 08:00 03/29/19 07:59 Rifaximin (Xifaxan) 550 mg Q12H ORAL 03/22/19 09:00 03/29/19 08:59 Spironolactone (Aldactone) 50 mg DAILY ORAL 03/22/19 09:00 04/21/19 08:59 Tamsulosin HCl (Flomax) 0.4 mg DAILY ORAL 03/22/19 09:00 04/21/19 08:59 Ursodiol (Actigall) 300 mg DAILY ORAL 03/22/19 09:00 04/21/19 08:59 Vancomycin HCl (Vanco rx to dose) 1 ea DAILY PRN MISC Per rx protocol 03/22/19 07:15 04/21/19 07:14 Jose Alfredo Childress MD Mar 22, 2019 09:51
--- NOTE | 2019-03-22 11:11 | Consultation ---
Consult Note Consult Note Asked to eval for renal failure 53-year-old male on hospice presents to the hospital with decubitus ulcer with pus drainage, fever/chills x1 day, no aggravating relieving factors severity is severe, constant, patient's roommate called 911, despite the fact that he is on hospice care, patient stated wanted come here but he does not have DPOA his brother Deya Galarza has DURABLE POWER OF ALTERNATIVE MEDICINE PRACTITIONER. Patient over the past 2448 hrs. has become progressively altered per brother No Known Allergies (Unverified , 12/04/18) Hx Cardiac Problems: Yes Hx Gastrointestinal Problems: Yes Hx Neurological Problems: No examined Poor mentation DNR meds renewed . Assessment/Plan Renal failure- Acute mainly Prerenal Sepsis Jaundice Infected decubitus ulcer DC Lasix DC HCTZ DC Aldactone slow hydrate Vit K SQ DNR José Miguel Nava MD Mar 22, 2019 11:11
[2019-03-22 11:42] LABS: ALANINE AMINOTRANSFERASE 77 U/L (12-78); ALKALINE PHOSPHATASE 757 U/L (46-116); ASPARTATE AMINO TRANSFERASE 156 U/L (15-37); BILIRUBIN,DIRECT 9.7 MG/DL (0.0-0.3); BILIRUBIN,TOTAL 11.7 MG/DL (0.2-1.0); CREATINE KINASE 129 U/L (26-308); GAMMA GLUTAMYL TRANSPEPTIDASE 7 U/L (5-85); PHOSPHORUS 6.3 MG/DL (2.5-4.9)
[2019-03-22] MEDS ORDERED: Phytonadione 10 mg/mL 1ml amp SUBQ SCH (11:45)
[2019-03-22 12:02] LABS: ALBUMIN 1.3 G/DL (3.4-5.0)
--- NOTE | 2019-03-22 12:30 | Consultation ---
History of Present Illness General Date patient seen: Mar 22, 2019 Chief Complaint: Skin Rash/Abscess Present Illness HPI This is a very unfortunate 53-year-old male with multiple medical comorbidities on hospice who presented to [facility] with decubitus ulcer with pus drainage, fever/chills x1 day, no aggravating relieving factors severity is severe, constant, patient's roommate called 911, despite the fact that he is on hospice care. Patient admitted further care and management. Surgery called to evaluate and assist with care. Patient seen, patient evaluated, chart reviewed. Patient is currently unresponsive and only barely spontaneously opens his eyes. Noted to be very jaundiced. Ill-appearing. Patient with known history of liver cirrhosis. Allergies: Coded Allergies: No Known Allergies (Unverified , 12/04/18) Medication History Scheduled Abacavir/Dolutegravir/Lamivudi (Triumeq 600-50-300 mg Tablet), 1 EACH PO DAILY, (Reported) Cephalexin* (Keflex*), 500 MG ORAL QID, (Reported) Furosemide* (Lasix*), 20 MG ORAL DAILY, (Reported) Hydrochlorothiazide* (Hydrochlorothiazide*), 12.5 MG ORAL DAILY, (Reported) Rifaximin* (Xifaxan*), 550 MG ORAL TWICE A DAY, (Reported) Spironolactone* (Spironolactone*), 50 MG ORAL DAILY, (Reported) Tamsulosin HCl (Flomax), 0.4 MG ORAL DAILY, (Reported) Ursodiol (Ursodiol*), 300 MG ORAL DAILY, (Reported) Scheduled PRN Oxycodone Hcl/Acetaminophen 10-325 Mg Tablet (Percocet 10-325 Mg Tablet*), 1 TAB ORAL QID PRN for For Pain, (Reported) Patient History Limited by: medical condition History Provided By: Medical Record, PMD Healthcare decision maker ANA LUISA ARMENTA Resuscitation status Do Not Resuscitate Advanced Directive on File No Past Medical/Surgical History Past Medical/Surgical History: (1) UTI (urinary tract infection) (2) Cellulitis of leg (3) HIV (human immunodeficiency virus infection) (4) Anasarca (5) Hepatomegaly (6) Infected decubitus ulcer (7) Sepsis (8) STEVE (acute kidney injury) Review of Systems ROS Narrative Cannot obtain given patient's current medical condition Physical Exam General Appearance: mild distress Lines, tubes and drains: peripheral HEENT: other - Icterus Neck: non-tender Respiratory/Chest: no respiratory distress, no accessory muscle use, decreased breath sounds Cardiovascular/Chest: normal rate Abdomen: normal bowel sounds, non tender, soft Extremities: normal inspection, normal capillary refill Skin Exam: warm/dry Neurologic: unresponsiveness Last 24 Hour Vital Signs Date Time Temp Pulse Resp B/P (MAP) Pulse Ox O2 Delivery O2 Flow Rate FiO2 03/22/19 04:38 Room Air 03/22/19 04:00 96.4 100 24 130/93 (105) 98 03/22/19 03:30 77 18 118/50 100 Room Air 03/22/19 03:00 77 18 118/50 100 Room Air 03/21/19 23:28 82 18 100/60 100 Room Air 03/21/19 22:44 62 18 100/60 (73) 100 Room Air Intake and Output 03/21/19 03/22/19 19:00 07:00 Intake Total 0 ml Balance 0 ml Intake Oral 0 ml Laboratory Tests Test 03/21/19 23:00 03/22/19 08:15 White Blood Count 9.0 K/UL (4.8-10.8) 7.1 K/UL (4.8-10.8) Red Blood Count 2.84 M/UL (4.70-6.10) L 3.21 M/UL (4.70-6.10) L Hemoglobin 10.3 G/DL (14.2-18.0) L 11.4 G/DL (14.2-18.0) L Hematocrit 29.6 % (42.0-52.0) L 33.2 % (42.0-52.0) L Mean Corpuscular Volume 104 FL (80-99) H 103 FL (80-99) H Mean Corpuscular Hemoglobin 36.4 PG (27.0-31.0) H 35.4 PG (27.0-31.0) H Mean Corpuscular Hemoglobin Concent 35.0 G/DL (32.0-36.0) 34.2 G/DL (32.0-36.0) Red Cell Distribution Width 14.7 % (11.6-14.8) 15.3 % (11.6-14.8) H Platelet Count 232 K/UL (150-450) 213 K/UL (150-450) Mean Platelet Volume 6.5 FL (6.5-10.1) 6.6 FL (6.5-10.1) Neutrophils (%) (Auto) % (45.0-75.0) % (45.0-75.0) Lymphocytes (%) (Auto) % (20.0-45.0) % (20.0-45.0) Monocytes (%) (Auto) % (1.0-10.0) % (1.0-10.0) Eosinophils (%) (Auto) % (0.0-3.0) % (0.0-3.0) Basophils (%) (Auto) % (0.0-2.0) % (0.0-2.0) Prothrombin Time 21.2 SEC (9.30-11.50) H Prothromb Time International Ratio 2.1 (0.9-1.1) H Activated Partial Thromboplast Time 50 SEC (23-33) H Sodium Level 138 MMOL/L (136-145) 139 MMOL/L (136-145) Potassium Level 5.4 MMOL/L (3.5-5.1) H 4.9 MMOL/L (3.5-5.1) Chloride Level 103 MMOL/L (98-107) 106 MMOL/L (98-107) Carbon Dioxide Level 25 MMOL/L (21-32) 21 MMOL/L (21-32) Anion Gap 10 mmol/L (5-15) 12 mmol/L (5-15) Blood Urea Nitrogen 95 mg/dL (7-18) H 94 mg/dL (7-18) H Creatinine 3.5 MG/DL (0.55-1.30) H 3.1 MG/DL (0.55-1.30) H Estimat Glomerular Filtration Rate 22.2 mL/min (>60) 25.5 mL/min (>60) Glucose Level 97 MG/DL (74-106) 57 MG/DL (74-106) L Lactic Acid Level 1.80 mmol/L (0.4-2.0) Calcium Level 8.4 MG/DL (8.5-10.1) L 8.2 MG/DL (8.5-10.1) L Phosphorus Level 6.7 MG/DL (2.5-4.9) H 6.3 MG/DL (2.5-4.9) H Magnesium Level 2.6 MG/DL (1.8-2.4) H 2.4 MG/DL (1.8-2.4) Total Bilirubin 13.3 MG/DL (0.2-1.0) H 11.7 MG/DL (0.2-1.0) H Direct Bilirubin 11.7 MG/DL (0.0-0.3) H 9.7 MG/DL (0.0-0.3) H Aspartate Amino Transf (AST/SGOT) 159 U/L (15-37) H 156 U/L (15-37) H Alanine Aminotransferase (ALT/SGPT) 84 U/L (12-78) H 77 U/L (12-78) Alkaline Phosphatase 738 U/L (46-116) H 757 U/L (46-116) H Total Creatine Kinase 182 U/L (26-308) 129 U/L (26-308) Creatine Kinase MB 2.7 NG/ML (0.0-3.6) Creatine Kinase MB Relative Index 1.4 Pro-B-Type Natriuretic Peptide 868 pg/mL (0-125) H Total Protein 9.4 G/DL (6.4-8.2) H 8.8 G/DL (6.4-8.2) H Albumin 1.5 G/DL (3.4-5.0) L 1.3 G/DL (3.4-5.0) L Globulin 7.9 g/dL Albumin/Globulin Ratio 0.2 (1.0-2.7) L Lipase 88 U/L (73-393) Differential Total Cells Counted 100 Neutrophils % (Manual) 80 % (45-75) H Lymphocytes % (Manual) 4 % (20-45) L Monocytes % (Manual) 3 % (1-10) Eosinophils % (Manual) 0 % (0-3) Basophils % (Manual) 0 % (0-2) Band Neutrophils 13 % (0-8) H Platelet Estimate Adequate Platelet Morphology Normal Anisocytosis 1+ Macrocytosis 1+ Uric Acid Pending Gamma Glutamyl Transpeptidase 7 U/L (5-85) Vitamin B12 Level Pending Thyroid Stimulating Hormone (TSH) 0.242 uiU/mL (0.358-3.740) Height (Feet): 5 Height (Inches): 9.00 Weight (Pounds): 130 Medications Current Medications Medications (Trade) Dose Ordered Sig/Lala Route PRN Reason Start Time Stop Time Status Last Admin Dose Admin Cephalexin (Keflex) 500 mg QID ORAL 03/22/19 09:00 03/29/19 08:59 UNV Dextrose/Sodium Chloride 1,000 ml @ 50 mls/hr Q20H IV 03/23/19 07:15 04/21/19 07:14 Oxycodone/ Acetaminophen (Percocet 10) 1 tab QID PRN ORAL For Pain 03/22/19 07:15 03/29/19 07:14 Phytonadione (Vitamin K) 10 mg ONCE SUBQ 03/22/19 11:45 03/22/19 13:00 Piperacillin Sod/ Tazobactam Sod 3.375 gm/Sodium Chloride 110 ml @ 27.5 mls/hr Q8H IVPB 03/22/19 08:00 03/29/19 07:59 03/22/19 10:52 Rifaximin (Xifaxan) 550 mg Q12H ORAL 03/22/19 09:00 03/29/19 08:59 Tamsulosin HCl (Flomax) 0.4 mg DAILY ORAL 03/22/19 09:00 04/21/19 08:59 Ursodiol (Actigall) 300 mg DAILY ORAL 03/22/19 09:00 04/21/19 08:59 Vancomycin HCl (Vanco rx to dose) 1 ea DAILY PRN MISC Per rx protocol 03/22/19 07:15 04/21/19 07:14 Assessment/Plan Problem List: (1) Infected decubitus ulcer Assessment & Plan: Pt presented on admission with multiple pressure injuries. Full thickness stage 4 Sacral pressure injury. Base of wound beefy red with scattered slough. (L)5cm x (W)4.5cm.Bone is palpable at base of wound . Borders are black and fluctuant.Periwound is erythematous. Small amt haemopurulent exudate noted. In addition pt noted to have a second small wound L buttocks , but within close proximity to sacrum. Base of wound has 100% slough (L)0.5cm x ( W)0.6cm. Reabsorbing DTPI L trochanter (L)9cmx (W)2cm.Wound is elongated. Base of wound is purple with black striations and is indurated.Periwound is erythematous without elevation in skin temp. Second DTPI noted to L hip . Base of wound is maroon with red borders.(L)1.6cm x (W)2cm. Partially opened DTPI medial L tibia. Proximally,base of wound is pink with small amt slough with small amt brown exudate. Distally base of of wound is necrotic but soft. (L)12.6cm x (W)3cm. Partially opened DTPI medial R tibia. Base of wound with small amt slough, surrounding base of wound beefy red with loose black skin flap. Small amt serous exudate noted. No odor noted.(L)7cm x (W)2cm. DTPI noted top lateral R malleolus. Base of wound is maroon and indurated with marginal erythema(L)1.5cm x (W)2.5cm. L heel is necrotic but dry.Periwound is firm without further evidence of skin breakdown(L)6cm x (W)7.5cm. Unstageable pressure injury R heel. Base of wound necrotic and fluctuant in center with surrounding dry necrotic borders(L)5cm x (W)8.5cm. Tx.Plan: Apply Betadine to both heels and R lateral malleolus. Cover with Optifoam drsg. Change every 3 days and prn. Cleanse Sacral and L buttocks wounds with Saline. Apply TheraHoney to each wound. Apply Moisture Barrier Paste periwound. Cover with Optifoam drsg. Change every 3 days and prn. Apply Cavilon Skin Barrier to L trochanter/L hip. Cover with Optifoam drsgs. Changee very 7 days and prn. Reposition at least every 2hours or as tolerated. Off-load heels with pillow. APM/BO Mattress overlay. Patient presented with an infected sacral decubitus ulcer purulent drainage noted. Significant tissue loss. Will continue with local wound care at this time. Will need to discuss goals of care and care plan prior to any invasive surgical treatment Thank you for let me participate in patient's care ICD Codes: L89.90 - Pressure ulcer of unspecified site, unspecified stage; L08.9 - Local infection of the skin and subcutaneous tissue, unspecified SNOMED: [id number], [id number] Qualifiers: Qualified Codes: L89.90 - Pressure ulcer of unspecified site, unspecified stage; L08.9 - Local infection of the skin and subcutaneous tissue, unspecified (2) Abnormal LFTs Assessment & Plan: Patient with known history of liver cirrhosis. Currently on hospice care. LFT significantly elevated Coagulopathy Abnormal labs We will need to address goals of care with patient's DURABLE POWER OF INSTRUMENT/CONTROL TECHNICIAN and medical teams Repeat labs IV fluids Need to consider alternative nutritional intake if part of care plan We will follow with recommendations No acute surgical intervention planned Thank you for let me participate in patient's care ICD Codes: R94.5 - Abnormal results of liver function studies SNOMED: [id number] Jamey Mazariegos Mar 22, 2019 12:30
--- NOTE | 2019-03-22 13:13 | History & Physical ---
History and Physical History & Physicial HISTORY OF PRESENT ILLNESS: The patient is a 53-year-old male with end stge liver failure, who presented with worsening of the swelling on the legs and abdominal pain for the last couple of weeks. At the time of evaluation, the patient is lethargic. . Patient had been on hospice care at home. had been transferred by family secondary to pain REVIEW OF SYSTEMS: limited eval, All 12 elements of review of systems reviewed. Pertinent positive and negative as above. ALLERGIES: NKDA. SOCIAL HISTORY: The patient denies history of illicit drug abuse, smoking, or alcohol abuse. CURRENT HOSPITAL MEDICATIONS: Including, but not limited to, hydrochlorothiazide. PAST MEDICAL HISTORY: Including chronic pain, HIV, and hypertension. PBS, PHYSICAL EXAMINATION:HEAD AND NECK: BP: 110/75 RR: 12-15 T: 98.7, Atraumatic and normocephalic. CHEST: Clear to auscultation.HEART: S1, S2. Regular rate and rhythm. ABDOMEN: Positive for fullness, ascitis cannot be excluded.MUSCULOSKELETAL: Positive for 1+ pitting edema in the lower extremities. NEUROLOGIC: The patient is LEthargic LABORATORY DATA: reviewed in the chart ASSESSMENT AND PLAN: 1. Acute Metabolic encephalopathy 2. Sepsis: likely peritonisits 3. Anasarca. 2. Primary Billiary Cirrhosis. 3. Chronic pain. 4. HIV. 5. Hypertension. 6. Anemia. 7. Proteinuria. 8. GI and DVT prophylaxis. 9. DNR Plan; Continue with empiricall abx treatment Wound mgt ID, Nephro, Critical care and Surgery services are consulted Nupur Juan MD Mar 22, 2019 13:13
--- NOTE | 2019-03-22 13:34 | Infectious Diseases Prog Note ---
Assessment/Plan Problems: (1) Pressure ulcer of sacrum Assessment & Plan: with minimal sloughing and draining of bloody fluids, dosen' t look infected, continue off loading and local wound care as per hospital protocol (2) STEVE (acute kidney injury) Assessment & Plan: suspect dehydration, continue hydration, renal is following (3) Cellulitis of leg Assessment & Plan: will start cefazolin iv empirically (4) HIV (human immunodeficiency virus infection) Assessment & Plan: unclear whether he is taking any meds now since he is on hospice care (5) UTI (urinary tract infection) Assessment & Plan: on ZOSYN to cover for sepsis too (6) Encephalopathy acute Assessment & Plan: suspect metabolic due to uremia and hepatic related , renal is following Subjective Allergies: Coded Allergies: No Known Allergies (Unverified , 12/04/18) Objective Vital Signs Last 24 Hour Vital Signs Date Time Temp Pulse Resp B/P (MAP) Pulse Ox O2 Delivery O2 Flow Rate FiO2 03/22/19 12:00 97.9 95 20 98/52 (67) 98 03/22/19 09:00 Room Air 03/22/19 08:00 97.6 107 20 90/59 (69) 95 03/22/19 04:38 Room Air 03/22/19 04:00 96.4 100 24 130/93 (105) 98 03/22/19 03:30 77 18 118/50 100 Room Air 03/22/19 03:00 77 18 118/50 100 Room Air 03/21/19 23:28 82 18 100/60 100 Room Air 03/21/19 22:44 62 18 100/60 (73) 100 Room Air Height (Feet): 5 Height (Inches): 9.00 Weight (Pounds): 130 Laboratory Tests Test 03/21/19 23:00 03/22/19 08:15 White Blood Count 9.0 K/UL (4.8-10.8) 7.1 K/UL (4.8-10.8) Red Blood Count 2.84 M/UL (4.70-6.10) L 3.21 M/UL (4.70-6.10) L Hemoglobin 10.3 G/DL (14.2-18.0) L 11.4 G/DL (14.2-18.0) L Hematocrit 29.6 % (42.0-52.0) L 33.2 % (42.0-52.0) L Mean Corpuscular Volume 104 FL (80-99) H 103 FL (80-99) H Mean Corpuscular Hemoglobin 36.4 PG (27.0-31.0) H 35.4 PG (27.0-31.0) H Mean Corpuscular Hemoglobin Concent 35.0 G/DL (32.0-36.0) 34.2 G/DL (32.0-36.0) Red Cell Distribution Width 14.7 % (11.6-14.8) 15.3 % (11.6-14.8) H Platelet Count 232 K/UL (150-450) 213 K/UL (150-450) Mean Platelet Volume 6.5 FL (6.5-10.1) 6.6 FL (6.5-10.1) Neutrophils (%) (Auto) % (45.0-75.0) % (45.0-75.0) Lymphocytes (%) (Auto) % (20.0-45.0) % (20.0-45.0) Monocytes (%) (Auto) % (1.0-10.0) % (1.0-10.0) Eosinophils (%) (Auto) % (0.0-3.0) % (0.0-3.0) Basophils (%) (Auto) % (0.0-2.0) % (0.0-2.0) Prothrombin Time 21.2 SEC (9.30-11.50) H Prothromb Time International Ratio 2.1 (0.9-1.1) H Activated Partial Thromboplast Time 50 SEC (23-33) H Sodium Level 138 MMOL/L (136-145) 139 MMOL/L (136-145) Potassium Level 5.4 MMOL/L (3.5-5.1) H 4.9 MMOL/L (3.5-5.1) Chloride Level 103 MMOL/L (98-107) 106 MMOL/L (98-107) Carbon Dioxide Level 25 MMOL/L (21-32) 21 MMOL/L (21-32) Anion Gap 10 mmol/L (5-15) 12 mmol/L (5-15) Blood Urea Nitrogen 95 mg/dL (7-18) H 94 mg/dL (7-18) H Creatinine 3.5 MG/DL (0.55-1.30) H 3.1 MG/DL (0.55-1.30) H Estimat Glomerular Filtration Rate 22.2 mL/min (>60) 25.5 mL/min (>60) Glucose Level 97 MG/DL (74-106) 57 MG/DL (74-106) L Lactic Acid Level 1.80 mmol/L (0.4-2.0) Calcium Level 8.4 MG/DL (8.5-10.1) L 8.2 MG/DL (8.5-10.1) L Phosphorus Level 6.7 MG/DL (2.5-4.9) H 6.3 MG/DL (2.5-4.9) H Magnesium Level 2.6 MG/DL (1.8-2.4) H 2.4 MG/DL (1.8-2.4) Total Bilirubin 13.3 MG/DL (0.2-1.0) H 11.7 MG/DL (0.2-1.0) H Direct Bilirubin 11.7 MG/DL (0.0-0.3) H 9.7 MG/DL (0.0-0.3) H Aspartate Amino Transf (AST/SGOT) 159 U/L (15-37) H 156 U/L (15-37) H Alanine Aminotransferase (ALT/SGPT) 84 U/L (12-78) H 77 U/L (12-78) Alkaline Phosphatase 738 U/L (46-116) H 757 U/L (46-116) H Total Creatine Kinase 182 U/L (26-308) 129 U/L (26-308) Creatine Kinase MB 2.7 NG/ML (0.0-3.6) Creatine Kinase MB Relative Index 1.4 Pro-B-Type Natriuretic Peptide 868 pg/mL (0-125) H Total Protein 9.4 G/DL (6.4-8.2) H 8.8 G/DL (6.4-8.2) H Albumin 1.5 G/DL (3.4-5.0) L 1.3 G/DL (3.4-5.0) L Globulin 7.9 g/dL Albumin/Globulin Ratio 0.2 (1.0-2.7) L Lipase 88 U/L (73-393) Differential Total Cells Counted 100 Neutrophils % (Manual) 80 % (45-75) H Lymphocytes % (Manual) 4 % (20-45) L Monocytes % (Manual) 3 % (1-10) Eosinophils % (Manual) 0 % (0-3) Basophils % (Manual) 0 % (0-2) Band Neutrophils 13 % (0-8) H Platelet Estimate Adequate Platelet Morphology Normal Anisocytosis 1+ Macrocytosis 1+ Uric Acid 10.0 MG/DL (2.6-7.2) H Gamma Glutamyl Transpeptidase 7 U/L (5-85) Vitamin B12 Level > 2000 PG/ML (193-986) H Thyroid Stimulating Hormone (TSH) 0.242 uiU/mL (0.358-3.740) Current Medications Medications (Trade) Dose Ordered Sig/Lala Route PRN Reason Start Time Stop Time Status Last Admin Dose Admin Cephalexin (Keflex) 500 mg QID ORAL 03/22/19 09:00 03/29/19 08:59 UNV Dextrose/Sodium Chloride 1,000 ml @ 50 mls/hr Q20H IV 03/23/19 07:15 04/21/19 07:14 Oxycodone/ Acetaminophen (Percocet 10/325) 1 tab QID PRN ORAL For Pain 03/22/19 07:15 03/29/19 07:14 Piperacillin Sod/ Tazobactam Sod 3.375 gm/Sodium Chloride 110 ml @ 27.5 mls/hr Q8H IVPB 03/22/19 08:00 03/29/19 07:59 03/22/19 10:52 Rifaximin (Xifaxan) 550 mg Q12H ORAL 03/22/19 09:00 03/29/19 08:59 Tamsulosin HCl (Flomax) 0.4 mg DAILY ORAL 03/22/19 09:00 04/21/19 08:59 Ursodiol (Actigall) 300 mg DAILY ORAL 03/22/19 09:00 04/21/19 08:59 Vancomycin HCl (Vanco rx to dose) 1 ea DAILY PRN MISC Per rx protocol 03/22/19 07:15 04/21/19 07:14 Cedrick Vu M.D. Mar 22, 2019 13:34
--- NOTE | 2019-03-22 13:57 | Diagnostic Imaging Report ---
Indication: Dyspnea Comparison: 12/04/2018 A single view chest radiograph was obtained. Findings: There is a platelike atelectasis at the left lung base. Cardiomegaly is stable. Mild pulmonary vascular congestion may be present. Bones are osteopenic. IMPRESSION: Mild pulmonary vascular congestion suspected. Mild left basal atelectasis
[2019-03-22 15:01] LABS: APPEARANCE,URINE SLIGHTLY CLOUDY; BILIRUBIN, URINE 2+ (NEGATIVE); COLOR,URINE BROWN; GLUCOSE, URINE (UA) NEGATIVE (NEGATIVE); KETONES,URINE 1+ (NEGATIVE); LEUKOCYTE ESTERASE ,URINE 3+ (NEGATIVE); NITRITE,URINE POSITIVE (NEGATIVE); PH,URINE 5 (4.5-8.0); PROTEIN,URINE 3+ (NEGATIVE); UROBILINOGEN,URINE 4 MG/DL (0.0-1.0)
--- NOTE | 2019-03-22 16:19 | NUR ---
CASE MANAGEMENT:INITIAL REVIEW 53 YR OLD MALE BIBA FROM HOME CC;SKIN RASH, ABSCESS SI;SEPSIS, INFECTED DECUBITUS ULCER, STEVE. 96.4 107 24 90/59 95% ON RA K+ 5.4 BUN 95 CREAT 3.5 CA 8.4 PHOS 6.7 MAG 2.6 T-BILI 13.3 AST 159 ALT 84 ALK KATELYNN 738 BNP 868 CXR - Mild pulmonary vascular congestion suspected. Mild left basal atelectasis IS;IVF NACL BOLUS X1 ZOSYN IV X1 VANOCMYCIN IV X1 ADMITTED TO MED SURG MED SURG STATUS DCP;FROM HOME
--- NOTE | 2019-03-22 16:33 | NUR ---
NURSE NOTES:WOUND CARE NOTES:Pt presented on admission with multiple pressure injuries. Full thickness Sacral pressure injury. Base of wound beefy red with scattered slough. (L)5cm x (W)4.5cm.Bone is palpable at base of wound . Borders are black and fluctuant.Periwound is erythematous. Small amt haemopurulent exudate noted. In addition pt noted to have a second small wound L buttocks ,but within close proximity to sacrum. Base of wound has 100% slough (L)0.5cm x (W)0.6cm. Reabsorbing DTPI L trochanter (L)9cmx (W)2cm.Wound is elongated. Base of wound is purple with black striations and is indurated.Periwound is erythematous without elevation in skin temp. Second DTPI noted to L hip . Base of wound is maroon with red borders.(L)1.6cm x (W)2cm. Partially opened DTPI medial L tibia. Proximally,base of wound is pink with small amt slough with small amt brown exudate. Distally base of of wound is necrotic but soft. (L)12.6cm x (W)3cm. Partially opened DTPI medial R tibia. Base of wound with small amt slough,surrounding base of wound beefy red with loose black skin flap. Small amt serous exudate noted. No odor noted.(L)7cm x (W)2cm. DTPI noted top lateral R malleolus. Base of wound is maroon and indurated with marginal erythema(L)1.5cm x (W)2.5cm. L heel is necrotic but dry.Periwound is firm without further evidence of skin breakdown(L)6cm x (W)7.5cm. Unstageable pressure injury R heel. Base of wound necrotic and fluctuant in center with surrounding dry necrotic borders(L)5cm x (W)8.5cm. Tx.Plan: Apply Betadine to both heels and R lateral malleolus. Cover with Optifoam drsg. Change every 3 days and prn. Cleanse Sacral and L buttocks wounds with Saline. Apply TheraHoney to each wound. Apply Moisture Barrier Paste periwound. Cover with Optifoam drsg. Change every 3 days and prn. Apply Cavilon Skin Barrier to L trochanter/L hip. Cover with Optifoam drsgs. Changee very 7 days and prn. Reposition at least every 2hours or as tolerated. Off-load heels with pillow. APM/BO Mattress overlay.
[2019-03-22] MEDS: ceFAZolin 500mg in D5W 55ml IV SCH (17:26)
--- NOTE | 2019-03-22 17:45 | Consultation ---
DATE OF CONSULTATION: 03/22/2019 INFECTIOUS DISEASES CONSULTATION CONSULTING PHYSICIAN: Cedrick Vu M.D. REQUESTING PHYSICIAN: Nupur Juan M.D. REASON FOR CONSULTATION: Sacral pressure wound with cellulitis and possible infection in HIV patient Recommendation for antimicrobial treatment and HIV care. HISTORY OF PRESENT ILLNESS: The patient is a 53-year-old male with past medical history of HIV, GERD, congestive heart failure, chronic renal failure who was on hospice care was sent to [facility] emergency room for draining coming out of his decubitus ulcer wound with questionable fever. The patient's roommate called paramedics even though the patient was on hospice care. The patient became altered over the last 24 to 48 hours what prompted his roommate to call paramedics. In the ED, his pulse was 62, blood pressure of 100/60, and pulse oximetry 100% on room air. He looked chronically ill and cachectic and altered. Chest x-ray showed pulmonary congestion only. Labs showed renal failure with normal white count. The patient was started on vancomycin and Zosyn empirically and Infectious Diseases consultation was requested for antibiotics treatment and further management. As of note, the patient had sacral pressure wound with mild sloughing, no sign of infection, mild bloody draining coming out of it. The patient himself altered, cannot provide me with any history. Most details were obtained from nursing staff and medical record. REVIEW OF SYSTEMS: Unable to obtain. The patient is a poor historian, cannot provide any history. PAST MEDICAL HISTORY: Significant for congestive heart failure, chronic renal failure, HIV, GERD. PAST SURGICAL HISTORY: Not on record. FAMILY HISTORY: Noncontributory. SOCIAL HISTORY: The patient was in hospice care recently with no recent drugs, tobacco, or alcohol abuse. He is unemployed. ALLERGIES: No known drug allergies. MEDICATIONS: He is on vancomycin and Zosyn. For the rest of his medications, please refer to MAR. LABORATORY DATA: Labs showed white count of 9000, hemoglobin of 10.3, platelet count of 232. BUN of 95, creatinine of 3.5. AST of 159, ALT of 84. Imaging, chest x-ray showed mild pulmonary vascular congestion suspected, mild left basal atelectases. PHYSICAL EXAMINATION: VITAL SIGNS: Temperature 97.9, pulse 95, respirations 20, blood pressure 98/52. GENERAL: A middle-aged male, cachectic, altered, lying in bed, barely responsive, not in acute distress. HEENT: Normocephalic and atraumatic. Pupils are reactive to light equally. Dry oral mucosa. No exudate or thrush. NECK: Supple. No lymphadenopathy. CARDIOVASCULAR: Regular rate and rhythm. No murmur or gallop. LUNGS: Diminished breathing sounds at the bases with crackles. ABDOMEN: Soft, nontender, nondistended. Normal bowel sounds. No hepatosplenomegaly or ascites. EXTREMITIES: Trace edema. Deep tissue injuries on both heels. No clubbing. SKIN: Sacral pressure wound at least stage III with with mild sloughing, draining bloody fluid. No foul smell. ASSESSMENT AND RECOMMENDATION: 1. Pressure ulcer of the sacrum, with surrounding cellulitis and mild sloughing with bloody draining. Continue local wound care and offloading. further care as per wound care team . 2. Cellulitis of the sacrum start cefazolin, empiric treatment. Keep wound clean and dry . Offloading of the heels. 3. Acute kidney failure on top of chronic. Avoid nephrotoxic. Monitor renal function. Gentle hydration. 4. HIV. I doubt the patient on any medicine since he is on hospice care. can't take oral due to altered mental status . 5. Chronic liver cirrhosis, advanced. The patient on hospice care. Followup with GI. Thank you for the consult. ID will continue to follow. Cedrick Vu M.D. DR: Sami JOB#: [id number] CC: LEORA
--- NOTE | 2019-03-22 18:06 | NUR ---
NURSE NOTES: Patient sleeping through the day,more awake at this time ,but confused,reorient patient.Bed alarm is on,call light within reach.
[2019-03-22] MEDS ORDERED: Albuterol/Ipratropium 3ml neb HHN PRN (18:30)
--- NOTE | 2019-03-22 19:20 | NUR ---
HAND-OFF: Report given to Eda THOMASON.
--- NOTE | 2019-03-22 19:50 | NUR ---
NURSE NOTES: Received patient in bed, asleep, no acute distress noted, IV site is clean dry and intact, patient is NPO, has a condom cath on, draining well. Call light is within reach, bed is lowered, locked, alarm is on. Will continue to monitor for comfort and safety.
[2019-03-22] MEDS ORDERED: ceFAZolin 1gm/50ml Premix 50 ML IV SCH (22:00)
[2019-03-22] MEDS ORDERED: Albumin Human 5% 250ml IV ONE (22:30)
[2019-03-23] VITALS (7 sets, daily range): BP systolic 100–113; BP diastolic 62–81
[2019-03-23] MEDS: ceFAZolin 500mg in D5W 55ml IV SCH (05:01)
[2019-03-23] MEDS: D5NS 1,000 ML IV SCH (05:05)
--- NOTE | 2019-03-23 07:24 | NUR ---
HAND-OFF: Report given to Tracy THOMASON.
--- NOTE | 2019-03-23 08:14 | NUR ---
NURSE NOTES: Patient alert to name,patient aware that he is in the hospital, aware of the year ,reorient to date ,day and time.IV fluids infusing as ordered.patient has own soft wrist restraints,will provide ROM,skin care.Bed alarm is on,call light within reach.
[2019-03-23 09:14] LABS: HEMATOCRIT 31.1 % (42.0-52.0); HEMOGLOBIN 10.8 G/DL (14.2-18.0); MEAN CORPUSCULAR VOLUME 104 FL (80-99); PLATELET COUNT 211 K/UL (150-450); RED BLOOD COUNT 2.99 M/UL (4.70-6.10); RED CELL DISTRIBUTION WIDTH 14.4 % (11.6-14.8); WHITE BLOOD COUNT 15.7 K/UL (4.8-10.8)
[2019-03-23 09:23] LABS: AMMONIA 19 umol/L (11-32)
[2019-03-23 09:49] LABS: ALANINE AMINOTRANSFERASE 78 U/L (12-78); ALBUMIN 1.2 G/DL (3.4-5.0); ALBUMIN/GLOBULIN RATIO 0.2 (1.0-2.7); ALKALINE PHOSPHATASE 846 U/L (46-116); ANION GAP 10 mmol/L (5-15); ASPARTATE AMINO TRANSFERASE 167 U/L (15-37); BILIRUBIN,TOTAL 12.7 MG/DL (0.2-1.0); BLOOD UREA NITROGEN 90 mg/dL (7-18); CALCIUM 8.4 MG/DL (8.5-10.1); CARBON DIOXIDE 24 MMOL/L (21-32); CHLORIDE 111 MMOL/L (98-107); CREATININE 2.7 MG/DL (0.55-1.30); FERRITIN 825 NG/ML (8-388); PHOSPHORUS 5.8 MG/DL (2.5-4.9); POTASSIUM 4.9 MMOL/L (3.5-5.1); SODIUM 145 MMOL/L (136-145)
[2019-03-23 09:54] LABS: BILIRUBIN,DIRECT 8.7 MG/DL (0.0-0.3)
[2019-03-23] MEDS: Ursodiol 300mg cap ORAL SCH (10:31)
[2019-03-23] MEDS: Tamsulosin 0.4mg cap ORAL SCH (10:32)
[2019-03-23 10:35] LABS: % IRON SATURATION 21 % (15-50); IRON 56 ug/dL (50-175); TOTAL IRON BINDING CAPACITY 263 ug/dL (250-450)
--- NOTE | 2019-03-23 11:04 | General Progress Note ---
Assessment/Plan Assessment/Plan: S: deliriuos O: limited eval. seems comfortable HYSICAL EXAMINATION:HEAD AND NECK: HEART: S1, S2. Regular rate and rhythm. ABDOMEN: Positive for fullness, ascitis cannot be excluded.MUSCULOSKELETAL: Positive for 1+ pitting edema in the lower extremities. NEUROLOGIC: The patient is LEthargic LABORATORY and Medication DATA: reviewed in the chart ASSESSMENT AND PLAN: 1. Acute Metabolic encephalopathy 2. Sepsis: ddx peritonisits, UTI 3. Anasarca. 2. Primary Billiary Cirrhosis. 3. Chronic pain. 4. HIV. 5. Hypertension. 6. Anemia. 7. Proteinuria. 8. GI and DVT prophylaxis. 9. DNR Plan; Continue with empiricall abx treatment Abx per ID positive U/C Notes from ID, Nephro, Critical care and Surgery services are reviewed Subjective Allergies: Coded Allergies: No Known Allergies (Unverified , 12/04/18) Objective Last 24 Hour Vital Signs Date Time Temp Pulse Resp B/P (MAP) Pulse Ox O2 Delivery O2 Flow Rate FiO2 03/23/19 08:28 61 16 98 Room Air 21 03/23/19 05:32 97.0 73 16 106/76 (86) 96 03/23/19 04:00 97.0 73 16 109/76 (87) 96 03/23/19 00:00 98.2 89 18 100/62 (75) 98 03/22/19 21:29 Room Air 03/22/19 20:00 97.4 87 18 96/67 (77) 03/22/19 18:02 91 112/65 (81) 03/22/19 16:00 97.7 97 20 86/62 (70) 97 03/22/19 12:00 97.9 95 20 98/52 (67) 98 Intake and Output 03/22/19 03/23/19 19:00 07:00 Intake Total 75 ml Output Total 900 ml Balance -825 ml IV Total 75 ml Output Urine Total 900 ml Laboratory Tests 03/22/19 14:10: Urine Color Brown, Urine Appearance Slightly cloudy, Urine pH 5, Urine Specific [place] 1.010, Urine Protein 3+H, Urine Glucose (UA) Negative, Urine Ketones 1+H , Urine Blood 5+H, Urine Nitrite PositiveH, Urine Bilirubin 2+H, Urine Ictotest Positive, Urine Urobilinogen 4H, Urine Leukocyte Esterase 3+H, Urine RBC 40-60H , Urine WBC 10-15H, Urine Squamous Epithelial Cells Occasional, Urine Bacteria ModerateH 03/23/19 08:20: White Blood Count 15.7#H, Red Blood Count 2.99L, Hemoglobin 10.8L, Hematocrit 31.1L, Mean Corpuscular Volume 104H, Mean Corpuscular Hemoglobin 36.1H, Mean Corpuscular Hemoglobin Concent 34.6, Red Cell Distribution Width 14.4, Platelet Count 211, Mean Platelet Volume 6.3L, Neutrophils (%) (Auto) , Lymphocytes (%) ( Auto) , Monocytes (%) (Auto) , Eosinophils (%) (Auto) , Basophils (%) (Auto) , Neutrophils % (Manual) [Pending], Lymphocytes % (Manual) [Pending], Platelet Estimate [Pending], Platelet Morphology [Pending], Sodium Level 145, Potassium Level 4.9, Chloride Level 111H, Carbon Dioxide Level 24, Anion Gap 10, Blood Urea Nitrogen 90H, Creatinine 2.7H, Estimat Glomerular Filtration Rate 29.9, Glucose Level 122H, Uric Acid 8.7H, Calcium Level 8.4L, Phosphorus Level 5.8H, Magnesium Level 2.5H, Iron Level 56, Total Iron Binding Capacity 263, Percent Iron Saturation 21, Unsaturated Iron Binding 207, Ferritin 825H, Total Bilirubin 12.7H, Direct Bilirubin 8.7H, Aspartate Amino Transf (AST/SGOT) 167H, Alanine Aminotransferase (ALT/SGPT) 78, Alkaline Phosphatase 846H, Ammonia 19, C -Reactive Protein, Quantitative 38.2H, Pro-B-Type Natriuretic Peptide 1682H, Total Protein 8.3H, Albumin 1.2L, Globulin 7.1, Albumin/Globulin Ratio 0.2L, Folate 8.3L, Cortisol AM Sample [Pending] Height (Feet): 5 Height (Inches): 9.00 Weight (Pounds): 130 Nupur Juan MD Mar 23, 2019 11:04
--- NOTE | 2019-03-23 13:20 | NUR ---
RD ASSESSMENT & RECOMMENDATIONS SEE CARE ACTIVITY FOR COMPLETE ASSESSMENT DAILY ESTIMATED NEEDS: Needs based on Liver, wasting, wound, 69kg 30-40 kcals/kg 8998-1273 total kcals 1.25-2 g protein/kg 86-138 g total protein 25-35 mL/kg 2479-8545 total fluid mLs NUTRITION DIAGNOSIS: Increased kcal and pro needs r/t wound healing as evidenced by infected sacral wound, moderate to severe wasting,h/o liver cirrhosis. CURRENT DIET: NPO PO DIET RECOMMENDATIONS: Liberalized regular diet. Texture per MULTIGRAPH OPERATOR ENTERAL NUTRITION RECOMMENDATIONS: * CONSULT RD IF NON ORAL FEEDS ARE PART OF POC * ADDITIONAL RECOMMENDATIONS: 1) MULTIGRAPH OPERATOR eval for oral diet 2) Add NEPRO TID w/ meals 3) Wound care: w/ diet order add ANI BID + MVI x1 qd + Vit C 500mg BID 4) RE-calibrate bed scale w/ added P200 mattress. 5) Rec non oral feeds if part of POC as needed
--- NOTE | 2019-03-23 13:59 | Infectious Diseases Prog Note ---
Assessment/Plan Problems: (1) UTI (urinary tract infection) Assessment & Plan: now on meropenem to cover for sepsis too due to gram negative rods (2) Sepsis Assessment & Plan: with gram negative rods, source? UTI VS sacral pressure wound , will upgrade his antibiotics to meropenem pending identification and sensitivity (3) Pressure ulcer of sacrum Assessment & Plan: with minimal sloughing and draining of bloody fluids, dosen' t look infected, continue off loading and local wound care as per hospital protocol (4) STEVE (acute kidney injury) Assessment & Plan: suspect dehydration, continue hydration, renal is following (5) HIV (human immunodeficiency virus infection) Assessment & Plan: unclear whether he is taking any meds now since he is on hospice care (6) Cellulitis of sacral region Assessment & Plan: on meropenem , continue local wound care and off loading as per hospital protocol, wound care team is following Subjective Constitutional: Reports: fatigue, anorexia HEENT: Reports: no symptoms Respiratory: Reports: no symptoms Breasts: Reports: no symptoms Cardiovascular: Reports: no symptoms Gastrointestinal/Abdominal: Reports: no symptoms Genitourinary: Reports: dysuria Neurologic: Reports: weakness, confusion Psychiatric: Reports: anxiety Skin: Reports: ulcer Endocrine: Reports: no symptoms Hematologic: Reports: no symptoms Musculoskeletal: Reports: no symptoms Allergies: Coded Allergies: No Known Allergies (Unverified , 12/04/18) Subjective He was more awake and alert, asking for soda to drink , denied any fever or chills, no cough or SOB, no diarrhea Objective Vital Signs Last 24 Hour Vital Signs Date Time Temp Pulse Resp B/P (MAP) Pulse Ox O2 Delivery O2 Flow Rate FiO2 03/23/19 12:00 98.0 71 20 108/77 (87) 95 03/23/19 09:00 Room Air 03/23/19 08:28 61 16 98 Room Air 21 03/23/19 08:00 97.0 70 20 110/77 (88) 97 03/23/19 05:32 97.0 73 16 106/76 (86) 96 03/23/19 04:00 97.0 73 16 109/76 (87) 96 03/23/19 00:00 98.2 89 18 100/62 (75) 98 03/22/19 21:29 Room Air 03/22/19 20:00 97.4 87 18 96/67 (77) 03/22/19 18:02 91 112/65 (81) 03/22/19 16:00 97.7 97 20 86/62 (70) 97 Height (Feet): 5 Height (Inches): 9.00 Weight (Pounds): 130 General Appearance: no acute distress, cachetic HEENT: normocephalic, atraumatic, anicteric, supple, no JVD, other - dry oral membranes Respiratory/Chest: chest wall non-tender, lungs clear, normal breath sounds, no respiratory distress, no accessory muscle use Cardiovascular: normal peripheral pulses, normal rate, regular rhythm, no gallop/murmur, no JVD Abdomen: normal bowel sounds, soft, non tender, no organomegaly, non distended , no mass, no scars Genitourinary: normal external genitalia Extremities: no cyanosis, no clubbing Skin: no rash, no lesions, ulcers Neurologic/Psychiatric: alert, responsive Lymphatic: no neck adenopathy, no groin adenopathy Microbiology Date/Time Source Procedure Growth Status 03/21/19 23:00 Blood Blood Culture - Preliminary Resulted 03/21/19 23:00 Blood Blood Culture - Preliminary Resulted 03/22/19 14:10 Urine,Clean Catch Urine Culture - Preliminary Gram Negative Bacillus 1 Resulted Laboratory Tests Test 03/22/19 14:10 03/23/19 08:20 Urine Color Brown Urine Appearance Slightly cloudy Urine pH 5 (4.5-8.0) Urine Specific [place] 1.010 (1.005-1.035) Urine Protein 3+ (NEGATIVE) H Urine Glucose (UA) Negative (NEGATIVE) Urine Ketones 1+ (NEGATIVE) H Urine Blood 5+ (NEGATIVE) H Urine Nitrite Positive (NEGATIVE) H Urine Bilirubin 2+ (NEGATIVE) H Urine Ictotest Positive (NEGATIVE) Urine Urobilinogen 4 MG/DL (0.0-1.0) H Urine Leukocyte Esterase 3+ (NEGATIVE) H Urine RBC 40-60 /HPF (0 - 0) H Urine WBC 10-15 /HPF (0 - 0) H Urine Squamous Epithelial Cells Occasional /LPF Urine Bacteria Moderate /HPF (NONE) H White Blood Count 15.7 K/UL (4.8-10.8) #H Red Blood Count 2.99 M/UL (4.70-6.10) L Hemoglobin 10.8 G/DL (14.2-18.0) L Hematocrit 31.1 % (42.0-52.0) L Mean Corpuscular Volume 104 FL (80-99) H Mean Corpuscular Hemoglobin 36.1 PG (27.0-31.0) H Mean Corpuscular Hemoglobin Concent 34.6 G/DL (32.0-36.0) Red Cell Distribution Width 14.4 % (11.6-14.8) Platelet Count 211 K/UL (150-450) Mean Platelet Volume 6.3 FL (6.5-10.1) L Neutrophils (%) (Auto) % (45.0-75.0) Lymphocytes (%) (Auto) % (20.0-45.0) Monocytes (%) (Auto) % (1.0-10.0) Eosinophils (%) (Auto) % (0.0-3.0) Basophils (%) (Auto) % (0.0-2.0) Neutrophils % (Manual) Pending Lymphocytes % (Manual) Pending Platelet Estimate Pending Platelet Morphology Pending Sodium Level 145 MMOL/L (136-145) Potassium Level 4.9 MMOL/L (3.5-5.1) Chloride Level 111 MMOL/L (98-107) H Carbon Dioxide Level 24 MMOL/L (21-32) Anion Gap 10 mmol/L (5-15) Blood Urea Nitrogen 90 mg/dL (7-18) H Creatinine 2.7 MG/DL (0.55-1.30) H Estimat Glomerular Filtration Rate 29.9 mL/min (>60) Glucose Level 122 MG/DL (74-106) H Uric Acid 8.7 MG/DL (2.6-7.2) H Calcium Level 8.4 MG/DL (8.5-10.1) L Phosphorus Level 5.8 MG/DL (2.5-4.9) H Magnesium Level 2.5 MG/DL (1.8-2.4) H Iron Level 56 ug/dL (50-175) Total Iron Binding Capacity 263 ug/dL (250-450) Percent Iron Saturation 21 % (15-50) Unsaturated Iron Binding 207 ug/dL (112-346) Ferritin 825 NG/ML (8-388) H Total Bilirubin 12.7 MG/DL (0.2-1.0) H Direct Bilirubin 8.7 MG/DL (0.0-0.3) H Aspartate Amino Transf (AST/SGOT) 167 U/L (15-37) H Alanine Aminotransferase (ALT/SGPT) 78 U/L (12-78) Alkaline Phosphatase 846 U/L (46-116) H Ammonia 19 umol/L (11-32) C-Reactive Protein, Quantitative 38.2 mg/dL (0.00-0.90) H Pro-B-Type Natriuretic Peptide 1682 pg/mL (0-125) H Total Protein 8.3 G/DL (6.4-8.2) H Albumin 1.2 G/DL (3.4-5.0) L Globulin 7.1 g/dL Albumin/Globulin Ratio 0.2 (1.0-2.7) L Folate 8.3 NG/ML (8.6-58.9) L Cortisol AM Sample Pending Current Medications Medications (Trade) Dose Ordered Sig/Lala Route PRN Reason Start Time Stop Time Status Last Admin Dose Admin Albuterol/ Ipratropium (Albuterol/ Ipratropium) 3 ml Q6H PRN HHN Shortness of Breath 03/22/19 18:30 03/27/19 18:29 Dextrose/Sodium Chloride 1,000 ml @ 50 mls/hr Q20H IV 03/23/19 07:15 04/21/19 07:14 03/23/19 05:05 Meropenem 1 gm/ Sodium Chloride 55 ml @ 110 mls/hr Q12H IVPB 03/23/19 14:00 03/28/19 13:59 Oxycodone/ Acetaminophen (Percocet 10/325) 1 tab QID PRN ORAL For Pain 03/22/19 07:15 03/29/19 07:14 Rifaximin (Xifaxan) 550 mg Q12H ORAL 03/22/19 09:00 03/29/19 08:59 03/23/19 10:32 Tamsulosin HCl (Flomax) 0.4 mg DAILY ORAL 03/22/19 09:00 04/21/19 08:59 03/23/19 10:32 Ursodiol (Actigall) 300 mg DAILY ORAL 03/22/19 09:00 04/21/19 08:59 03/23/19 10:31 Cedrick Vu M.D. Mar 23, 2019 13:59
--- NOTE | 2019-03-23 14:11 | Diagnostic Imaging Report ---
Indication: Abdominal pain. History of cirrhosis Technique: Grayscale and duplex Doppler imaging of the abdomen performed. Comparison: None Findings: The liver is enlarged measuring about 19 cm. The spleen is enlarged measuring about 13 to 14 cm. Doppler interrogation of the main portal vein shows patency with hepatopedal, monophasic flow. There is no biliary ductal dilatation identified. Gallbladder is absent. CBD is 4 mm. There is a cystic lesion measuring 3.6 cm near the inferior pole of the spleen. Part of the pancreas is obscured by bowel gas. There is trace ascites. Both kidneys appear unremarkable. There is no hydronephrosis. IMPRESSION: Hepatosplenomegaly. Trace ascites. Splenic cyst. Status post cholecystectomy
[2019-03-23] MEDS: Meropenem 1 GM in NS 55 ML IVPB SCH (14:16)
--- NOTE | 2019-03-23 14:57 | Nephrology Progress Note ---
Assessment/Plan Problem List: (1) STEVE (acute kidney injury) (2) Anasarca (3) Pressure ulcer of sacrum (4) Jaundice Assessment Renal failure- Acute mainly Prerenal Sepsis Jaundice Infected decubitus ulcer Plan DC Lasix DC HCTZ DC Aldactone slow hydrate Vit K SQ DNR Subjective ROS Limited/Unobtainable: No Constitutional: Reports: malaise, weakness Objective Objective Last 24 Hour Vital Signs Date Time Temp Pulse Resp B/P (MAP) Pulse Ox O2 Delivery O2 Flow Rate FiO2 03/23/19 12:00 98.0 71 20 108/77 (87) 95 03/23/19 09:00 Room Air 03/23/19 08:28 61 16 98 Room Air 21 03/23/19 08:00 97.0 70 20 110/77 (88) 97 03/23/19 05:32 97.0 73 16 106/76 (86) 96 03/23/19 04:00 97.0 73 16 109/76 (87) 96 03/23/19 00:00 98.2 89 18 100/62 (75) 98 03/22/19 21:29 Room Air 03/22/19 20:00 97.4 87 18 96/67 (77) 03/22/19 18:02 91 112/65 (81) 03/22/19 16:00 97.7 97 20 86/62 (70) 97 Intake and Output 03/22/19 03/23/19 19:00 07:00 Intake Total 75 ml Output Total 900 ml Balance -825 ml IV Total 75 ml Output Urine Total 900 ml Laboratory Tests 03/23/19 08:20: White Blood Count 15.7#H, Red Blood Count 2.99L, Hemoglobin 10.8L, Hematocrit 31.1L, Mean Corpuscular Volume 104H, Mean Corpuscular Hemoglobin 36.1H, Mean Corpuscular Hemoglobin Concent 34.6, Red Cell Distribution Width 14.4, Platelet Count 211, Mean Platelet Volume 6.3L, Neutrophils (%) (Auto) , Lymphocytes (%) ( Auto) , Monocytes (%) (Auto) , Eosinophils (%) (Auto) , Basophils (%) (Auto) , Differential Total Cells Counted 100, Neutrophils % (Manual) 93H, Lymphocytes % (Manual) 5L, Monocytes % (Manual) 2, Eosinophils % (Manual) 0, Basophils % ( Manual) 0, Band Neutrophils 0, Platelet Estimate Adequate, Platelet Morphology Normal, Hypochromasia 1+, Anisocytosis 1+, Macrocytosis 1+, Sodium Level 145, Potassium Level 4.9, Chloride Level 111H, Carbon Dioxide Level 24, Anion Gap 10 , Blood Urea Nitrogen 90H, Creatinine 2.7H, Estimat Glomerular Filtration Rate 29.9, Glucose Level 122H, Uric Acid 8.7H, Calcium Level 8.4L, Phosphorus Level 5.8H, Magnesium Level 2.5H, Iron Level 56, Total Iron Binding Capacity 263, Percent Iron Saturation 21, Unsaturated Iron Binding 207, Ferritin 825H, Total Bilirubin 12.7H, Direct Bilirubin 8.7H, Aspartate Amino Transf (AST/SGOT) 167H, Alanine Aminotransferase (ALT/SGPT) 78, Alkaline Phosphatase 846H, Ammonia 19, C -Reactive Protein, Quantitative 38.2H, Pro-B-Type Natriuretic Peptide 1682H, Total Protein 8.3H, Albumin 1.2L, Globulin 7.1, Albumin/Globulin Ratio 0.2L, Folate 8.3L, Cortisol AM Sample [Pending] Height (Feet): 5 Height (Inches): 9.00 Weight (Pounds): 130 General Appearance: lethargic EENT: other - jaundiced Cardiovascular: normal rate Respiratory/Chest: decreased breath sounds Abdomen: distended José Miguel Nava MD Mar 23, 2019 14:57
--- NOTE | 2019-03-23 16:33 | NUR ---
CASE MANAGEMENT: REVIEW 03/23/2019 SI:SEPSIS . INFECTED DECUBITUS ULCER . STEVE . URINE CX (+) 98.0 71 20 108/77 95% ON RA WBC 15.7 H/H 10.8/31.1 CL-111 BUN 90 CREAT 2.7 BG 122 URIC ACID 8.7 CA+ 8.4 PHOS 5.8 MG 2.5 FERR 825 T.NITIN/D.NITIN 12.7/8.7 AST 167 ALK-PHOS 846 BNP 1682 IS:IV ALBUMIN HUMAN X1 IV MEROPENEM BID IV D5@50ML/HR FLOMAX PO QD ACTIGALL PO QD RIFAXIMIN PO BID FOLATE PO QD \: 4E MED SURG UNIT PLAN: US ABD FAMILY REQUEST SNF PLACEMENT WITH HOSPICE CARE NEURO CHECK ST EVAL BEDSIDE
[2019-03-23] MEDS: Docusate 100mg cap ORAL SCH (17:50)
--- NOTE | 2019-03-23 18:00 | NUR ---
NURSE NOTES: Patient eyes closed but arousable to name.patient was able to voice some of his needs today.. Patient a little more alert compared to yesterday.Bed alarm is on,fuad light within reach.
--- NOTE | 2019-03-23 19:23 | NUR ---
HAND-OFF: Report given to Lonnieu RN.
--- NOTE | 2019-03-23 19:25 | NUR ---
NURSE NOTES: Received report from PADDY Molina. Patient asleep. Breathing unlabored on room air without distress. No s/s of pain ntoed at this time. On bilateral soft wrist restraint for patient safety to prevent from pulling out medical devices. Bilateral pulses present on the wrist and skin intact. IV note don left forearm intact and patent. Bed placed at the lowest with alarm, brake, and siderails up for safety. Call light placed within reach. Will continue to monitor.
[2019-03-24] VITALS: BP 125/79
[2019-03-24] MEDS: Meropenem 1 GM in NS 55 ML IVPB SCH ×2 (01:50→13:49)
--- NOTE | 2019-03-24 02:29 | NUR ---
NURSE NOTES: Provided proper incontinence care. Placed new condom cath for incontinence to prevent further skin breakdown. Provide new dressing change as ordered due to sacral and trochanter dressings being soiled. Bilateral heel dressing placed as ordered. patient tolerated well. will continue to monitor.
[2019-03-24] MEDS: D5NS 1,000 ML IV SCH (02:49)
[2019-03-24 04:00] VITALS: BP 118/84
--- NOTE | 2019-03-24 07:40 | NUR ---
HAND-OFF: Report given to PADDY Abdullahi. Plan of care endorsed.
[2019-03-24 08:00] VITALS: BP 113/77
[2019-03-24] MEDS: Tamsulosin 0.4mg cap ORAL SCH (08:49)
[2019-03-24] MEDS: Docusate 100mg cap ORAL SCH ×3 (08:49→17:27)
[2019-03-24] MEDS: Ursodiol 300mg cap ORAL SCH (08:49)
[2019-03-24 09:06] LABS: HEMATOCRIT 26.3 % (42.0-52.0); HEMOGLOBIN 9.2 G/DL (14.2-18.0); MEAN CORPUSCULAR VOLUME 105 FL (80-99); PLATELET COUNT 186 K/UL (150-450); RED BLOOD COUNT 2.51 M/UL (4.70-6.10); RED CELL DISTRIBUTION WIDTH 14.7 % (11.6-14.8); WHITE BLOOD COUNT 14.4 K/UL (4.8-10.8)
[2019-03-24 09:09] LABS: INR 1.3 (0.9-1.1)
[2019-03-24 09:34] LABS: ALANINE AMINOTRANSFERASE 82 U/L (12-78); ALBUMIN 1.4 G/DL (3.4-5.0); ALBUMIN/GLOBULIN RATIO 0.2 (1.0-2.7); ALKALINE PHOSPHATASE 841 U/L (46-116); ANION GAP 9 mmol/L (5-15); ASPARTATE AMINO TRANSFERASE 210 U/L (15-37); BILIRUBIN,TOTAL 13.3 MG/DL (0.2-1.0); BLOOD UREA NITROGEN 84 mg/dL (7-18); CALCIUM 8.8 MG/DL (8.5-10.1); CARBON DIOXIDE 25 MMOL/L (21-32); CHLORIDE 119 MMOL/L (98-107); CHOLESTEROL < 50 MG/DL (< 200); CREATININE 2.1 MG/DL (0.55-1.30); GAMMA GLUTAMYL TRANSPEPTIDASE 247 U/L (5-85); HDL CHOLESTEROL 6 MG/DL (40-60); PHOSPHORUS 4.8 MG/DL (2.5-4.9); POTASSIUM 3.5 MMOL/L (3.5-5.1); SODIUM 152 MMOL/L (136-145); TRIGLYCERIDES 80 MG/DL (30-150)
--- NOTE | 2019-03-24 09:48 | NUR ---
NURSE NOTES: pt in bed with no sob nor in any form of distress noted. kept NPO. HOB elevated for aspiration precaution. iv intact and patent. (B)wrist soft restraint remains intact with good circulation. Bed in lowest position. will continue to monitor
[2019-03-24 10:21] LABS: BILIRUBIN,DIRECT 11.3 MG/DL (0.0-0.3)
--- NOTE | 2019-03-24 10:44 | NUR ---
NOTES: REFERRED FOR [facility] EVALUATION BY DR MYERS, SEE FULL REPORT. DYSPHAGIA RISK FACTORS FOR THIS 53 Y.O.M.: ACUTE ISSUES: SEPSIS (PERITONITIS), DECUBITIS ULCER, MET ENCEPHALOPATHY, FTT, POSSIBLE PNA (HAS LOW LUNG VOLUME WITH PROB BIBASILAR ATELECTASIS, MILD PULMONARY VASCULAR CONGESTION. H/O GI D/O, HIV, END STAGE LIVER DZ CIRRHOSIS, LUPUS, HTN. FROM HOME ON HOSPICE CARE, PER POLST NO TUBE METALLURGIST PROCESS TUBE FEEDINGS. NOW NPO EXCEPT ICE CHIPS AND MEDS. LAST ADMIT 11/2018 WAS ON LOW NA REG TEXTURE/THIN LIQUID DIET. PER RD OK TO LIBERALIZE DIET AND SEND NEPRO TID. ALERT WITH STIMULATION IF NOT STIMULATED WILL FALL ASLEEP. ABLE TO EXPRESS SOME NEEDS IN WEAK SOFT VOICE ON ROOM AIR. INITIAL IMPRESSIONS: S/S OF AT LEAST A MILD ORAL PREP AND OROPHARYNGEAL DYSPHAGIA WITH INCREASED TRANSIT TIMES COMPOUNDED BY FATIGUE AND WEAKNESS AND NEED FOR STIMULATION FOR CONSISTENT ALERTNESS LIPS GROSSLY FUNCTIONAL AND TONGUE MOVES SLOWLY, DIFFICULT TO TEST STRENGTH AND COUGH. VOICE IS SOFT REDUCED IN VOLUME (APPEARS WEAKN). GIVEN TSP/SIP OF CUP NECTAR THICK LIQUIDS, SWALLOWS WITH FAIR HYOLARYNGEAL EXCURSION AFTER 2-3 SECONDS, NO ORAL RESIDUE NOR OVERT ASPIRATION. GIVEN TSP PUREED, SWALLOWS WITH FAIR HYOLARYNGEAL EXCURSION AFTER 4-5 SECONDS, NO ORAL RESIDUE NOR OVERT ASPIRATION. WILL HOLD ON THIN LIQUIDS AND MASTICATED SOLIDS FOR NOW DUE TO REDUCED ALERTNESS IF NOT STIMULATED. MAY HAVE SILENT ASPIRATION RISK BUT NO CURRENT LUNG INFILTRATES LIKELY POOR AND VERY SLOW INTAKE DUE TO ALERTNESS, FATIGUE, AND WEAKNESS PROBLEMS. RECOMMENDATIONS: GIVEN THAT THE PATIENT WAS ON HOSPICE AND DOES NOT WANT ANY TUBE FEEDINGS AND DESIRES COMFORT CARE MEASURES, CONSIDER INITIATING PO INTAKE OF MOIST PUREED DIET AND NECTAR THICK LIQUIDS FOR NOW WITH POSTED ASPIRATION AND REFLUX PRECAUTIONS WITH ONE TO ONE FEEDING. DIETITIAN REPORT, OK TO LIBERALIZE DIET TYPE AND SEND NEPRO TID. CRUSH CRUSHABLE MEDS AND MAKE A NECTAR THICK LIQUID CONSISTENCY. CONSIDER MOD BARIUM SWALLOW STUDY IF NEEDED TO FURTHER ASSESS SWALLOW, DETERMINE SILENT ASPIRATION RISK/ETIOLOGY, AND ATTEMPT TRIAL TX TECHNIQUES. SKILLED SHORT TERM DYSPHAGIA MANAGEMENT AND TX AND COG-COM EVAL/TX FOR COMMUNICATION TIPS ONLY. EDUCATED/TRAINED STAFF (PADDY BURGESS) IN POSTED ASPIRATION AND REFLUX PRECAUTIONS Addendum: 03/24/19 at 1057 by MADELYN JETT PER RD LIBERALIZE DIET TO REGULAR TYPE AND SEND SYEDA RODRIGUEZ PER RNJENIFER, VARUN IN SWALLOWING CRUSHED MEDS AND APPLESAUCE BUT NO ORAL RESIDUE NOR OVERT ASPIRATION.
--- NOTE | 2019-03-24 11:11 | Nephrology Progress Note ---
Assessment/Plan Problem List: (1) STEVE (acute kidney injury) (2) Anasarca (3) Pressure ulcer of sacrum (4) Jaundice Assessment Renal failure- Acute mainly Prerenal Sepsis Jaundice Infected decubitus ulcer Plan slow IV 1/2 NS DC Lasix DC HCTZ DC Aldactone slow hydrate Vit K SQ DNR Subjective ROS Limited/Unobtainable: No Constitutional: Reports: malaise, weakness Objective Objective Last 24 Hour Vital Signs Date Time Temp Pulse Resp B/P (MAP) Pulse Ox O2 Delivery O2 Flow Rate FiO2 03/24/19 09:44 Room Air 03/24/19 08:00 98.4 92 18 113/77 (89) 99 03/24/19 04:00 97.0 53 20 118/84 (95) 99 03/24/19 00:00 97.4 70 20 125/79 (94) 99 03/23/19 21:00 Room Air 03/23/19 21:00 65 18 95 Room Air 21 03/23/19 20:00 97.7 67 18 113/81 (92) 100 03/23/19 16:00 98.2 70 18 108/75 (86) 98 03/23/19 12:00 98.0 71 20 108/77 (87) 95 Intake and Output 03/23/19 03/24/19 19:00 07:00 Intake Total 552 ml 355 ml Output Total 300 ml 100 ml Balance 252 ml 255 ml IV Total 552 ml 355 ml Output Urine Total 300 ml 100 ml Current Medications Medications (Trade) Dose Ordered Sig/Lala Route PRN Reason Start Time Stop Time Status Last Admin Dose Admin Albuterol/ Ipratropium (Albuterol/ Ipratropium) 3 ml Q6H PRN HHN Shortness of Breath 03/22/19 18:30 03/27/19 18:29 Dextrose/Sodium Chloride 1,000 ml @ 50 mls/hr Q20H IV 03/23/19 07:15 04/21/19 07:14 03/24/19 02:49 Docusate Sodium (Colace) 100 mg THREE TIMES A DAY ORAL 03/23/19 18:00 04/22/19 17:59 03/24/19 08:49 Folic Acid (Folate) 2 mg DAILY ORAL 03/23/19 15:00 04/22/19 14:59 03/24/19 08:49 Meropenem 1 gm/ Sodium Chloride 55 ml @ 110 mls/hr Q12H IVPB 03/23/19 14:00 03/28/19 13:59 03/24/19 01:50 Oxycodone/ Acetaminophen (Percocet 10/325) 1 tab QID PRN ORAL For Pain 03/22/19 07:15 03/29/19 07:14 Rifaximin (Xifaxan) 550 mg Q12H ORAL 03/22/19 09:00 03/29/19 08:59 03/24/19 08:54 Tamsulosin HCl (Flomax) 0.4 mg DAILY ORAL 03/22/19 09:00 04/21/19 08:59 03/24/19 08:49 Ursodiol (Actigall) 300 mg DAILY ORAL 03/22/19 09:00 04/21/19 08:59 03/24/19 08:49 Laboratory Tests 03/24/19 08:25: White Blood Count 14.4H, Red Blood Count 2.51L, Hemoglobin 9.2L, Hematocrit 26.3L, Mean Corpuscular Volume 105H, Mean Corpuscular Hemoglobin 36.6H, Mean Corpuscular Hemoglobin Concent 34.9, Red Cell Distribution Width 14.7, Platelet Count 186, Mean Platelet Volume 6.0L, Neutrophils (%) (Auto) , Lymphocytes (%) ( Auto) , Monocytes (%) (Auto) , Eosinophils (%) (Auto) , Basophils (%) (Auto) , Differential Total Cells Counted 100, Neutrophils % (Manual) 94H, Lymphocytes % (Manual) 5L, Monocytes % (Manual) 1, Eosinophils % (Manual) 0, Basophils % ( Manual) 0, Band Neutrophils 0, Platelet Estimate Adequate, Platelet Morphology Normal, Prothrombin Time 13.7H, Prothromb Time International Ratio 1.3H, Sodium Level 152H, Potassium Level 3.5, Chloride Level 119H, Carbon Dioxide Level 25, Anion Gap 9, Blood Urea Nitrogen 84H, Creatinine 2.1H, Estimat Glomerular Filtration Rate 40.0, Glucose Level 322#H, Uric Acid 7.7H, Calcium Level 8.8, Phosphorus Level 4.8, Magnesium Level 2.4, Total Bilirubin 13.3H, Direct Bilirubin 11.3H, Gamma Glutamyl Transpeptidase 247H, Aspartate Amino Transf (AST /SGOT) 210H, Alanine Aminotransferase (ALT/SGPT) 82H, Alkaline Phosphatase 841H , C-Reactive Protein, Quantitative 15.7H, Pro-B-Type Natriuretic Peptide 1613H, Total Protein 7.5, Albumin 1.4L, Globulin 6.1, Albumin/Globulin Ratio 0.2L, Triglycerides Level 80, Cholesterol Level < 50, LDL Cholesterol 19, HDL Cholesterol 6L, Cholesterol/HDL Ratio 8.3H Height (Feet): 5 Height (Inches): 9.00 Weight (Pounds): 129 General Appearance: no apparent distress EENT: other - jaundiced Cardiovascular: tachycardia Respiratory/Chest: decreased breath sounds Abdomen: distended José Miguel Nava MD Mar 24, 2019 11:11
[2019-03-24 12:00] VITALS: BP 111/71
--- NOTE | 2019-03-24 14:10 | Infectious Diseases Prog Note ---
Assessment/Plan Problems: (1) UTI (urinary tract infection) Assessment & Plan: with E coli , already on meropenem to cover for sepsis too due to gram negative rods pending identification (2) Sepsis Assessment & Plan: with gram negative rods, source? UTI VS sacral pressure wound , continue meropenem pending identification and sensitivity , will repeat blood culture to confirm clearance (3) Pressure ulcer of sacrum Assessment & Plan: with minimal sloughing and draining of bloody fluids, dosen' t look infected, continue off loading and local wound care as per hospital protocol (4) STEVE (acute kidney injury) Assessment & Plan: suspect dehydration, continue hydration, renal is following (5) HIV (human immunodeficiency virus infection) Assessment & Plan: unclear whether he is taking any meds now since he is on hospice care (6) Encephalopathy acute Assessment & Plan: suspect metabolic ,, hepatic related (7) Cellulitis of sacral region Assessment & Plan: on meropenem , continue local wound care and off loading as per hospital protocol, wound care team is following Subjective ROS Limited/Unobtainable: Yes Allergies: Coded Allergies: No Known Allergies (Unverified , 12/04/18) Subjective He was altered, unresponsive, lying in bed, no fever or chills, no cough or SOB , no diarrhea Objective Vital Signs Last 24 Hour Vital Signs Date Time Temp Pulse Resp B/P (MAP) Pulse Ox O2 Delivery O2 Flow Rate FiO2 03/24/19 09:44 Room Air 03/24/19 08:00 98.4 92 18 113/77 (89) 99 03/24/19 04:00 97.0 53 20 118/84 (95) 99 03/24/19 00:00 97.4 70 20 125/79 (94) 99 03/23/19 21:00 Room Air 03/23/19 21:00 65 18 95 Room Air 21 03/23/19 20:00 97.7 67 18 113/81 (92) 100 03/23/19 16:00 98.2 70 18 108/75 (86) 98 Height (Feet): 5 Height (Inches): 9.00 Weight (Pounds): 129 General Appearance: no acute distress, cachetic HEENT: normocephalic, atraumatic, anicteric, mucous membranes moist, PERRL Respiratory/Chest: chest wall non-tender, lungs clear, normal breath sounds, no respiratory distress, no accessory muscle use Cardiovascular: normal peripheral pulses, normal rate, regular rhythm, no gallop/murmur, no JVD Abdomen: normal bowel sounds, soft, non tender, no mass, no scars, distended, hepatomegaly Genitourinary: normal external genitalia Extremities: no cyanosis, no clubbing Skin: no rash, no lesions, no ulcers Neurologic/Psychiatric: unresponsiveness Lymphatic: no neck adenopathy, no groin adenopathy Musculoskeletal: normal muscle bulk Microbiology Date/Time Source Procedure Growth Status 03/21/19 23:00 Blood Blood Culture - Preliminary Gram Negative Bacillus 1 Resulted 03/21/19 23:00 Blood Blood Culture - Preliminary Gram Negative Bacillus 1 Resulted 03/22/19 14:10 Urine,Clean Catch Urine Culture - Final Escherichia Coli Complete Laboratory Tests Test 03/24/19 08:25 03/24/19 11:50 White Blood Count 14.4 K/UL (4.8-10.8) H Red Blood Count 2.51 M/UL (4.70-6.10) L Hemoglobin 9.2 G/DL (14.2-18.0) L Hematocrit 26.3 % (42.0-52.0) L Mean Corpuscular Volume 105 FL (80-99) H Mean Corpuscular Hemoglobin 36.6 PG (27.0-31.0) H Mean Corpuscular Hemoglobin Concent 34.9 G/DL (32.0-36.0) Red Cell Distribution Width 14.7 % (11.6-14.8) Platelet Count 186 K/UL (150-450) Mean Platelet Volume 6.0 FL (6.5-10.1) L Neutrophils (%) (Auto) % (45.0-75.0) Lymphocytes (%) (Auto) % (20.0-45.0) Monocytes (%) (Auto) % (1.0-10.0) Eosinophils (%) (Auto) % (0.0-3.0) Basophils (%) (Auto) % (0.0-2.0) Differential Total Cells Counted 100 Neutrophils % (Manual) 94 % (45-75) H Lymphocytes % (Manual) 5 % (20-45) L Monocytes % (Manual) 1 % (1-10) Eosinophils % (Manual) 0 % (0-3) Basophils % (Manual) 0 % (0-2) Band Neutrophils 0 % (0-8) Platelet Estimate Adequate Platelet Morphology Normal Prothrombin Time 13.7 SEC (9.30-11.50) H Prothromb Time International Ratio 1.3 (0.9-1.1) H Sodium Level 152 MMOL/L (136-145) H Potassium Level 3.5 MMOL/L (3.5-5.1) Chloride Level 119 MMOL/L (98-107) H Carbon Dioxide Level 25 MMOL/L (21-32) Anion Gap 9 mmol/L (5-15) Blood Urea Nitrogen 84 mg/dL (7-18) H Creatinine 2.1 MG/DL (0.55-1.30) H Estimat Glomerular Filtration Rate 40.0 mL/min (>60) Glucose Level 322 MG/DL (74-106) #H Uric Acid 7.7 MG/DL (2.6-7.2) H Calcium Level 8.8 MG/DL (8.5-10.1) Phosphorus Level 4.8 MG/DL (2.5-4.9) Magnesium Level 2.4 MG/DL (1.8-2.4) Total Bilirubin 13.3 MG/DL (0.2-1.0) H Direct Bilirubin 11.3 MG/DL (0.0-0.3) H Gamma Glutamyl Transpeptidase 247 U/L (5-85) H Aspartate Amino Transf (AST/SGOT) 210 U/L (15-37) H Alanine Aminotransferase (ALT/SGPT) 82 U/L (12-78) H Alkaline Phosphatase 841 U/L (46-116) H C-Reactive Protein, Quantitative 15.7 mg/dL (0.00-0.90) H Pro-B-Type Natriuretic Peptide 1613 pg/mL (0-125) H Total Protein 7.5 G/DL (6.4-8.2) Albumin 1.4 G/DL (3.4-5.0) L Globulin 6.1 g/dL Albumin/Globulin Ratio 0.2 (1.0-2.7) L Triglycerides Level 80 MG/DL (30-150) Cholesterol Level < 50 MG/DL (< 200) LDL Cholesterol 19 mg/dL (<100) HDL Cholesterol 6 MG/DL (40-60) L Cholesterol/HDL Ratio 8.3 (3.3-4.4) H Urine Opiates Screen Positive (NEGATIVE) H Urine Barbiturates Screen Negative (NEGATIVE) Phencyclidine (PCP) Screen Negative (NEGATIVE) Urine Amphetamines Screen Negative (NEGATIVE) Urine Benzodiazepines Screen Positive (NEGATIVE) H Urine Cocaine Screen Negative (NEGATIVE) Urine Marijuana (THC) Screen Negative (NEGATIVE) Current Medications Medications (Trade) Dose Ordered Sig/Lala Route PRN Reason Start Time Stop Time Status Last Admin Dose Admin Albuterol/ Ipratropium (Albuterol/ Ipratropium) 3 ml Q6H PRN HHN Shortness of Breath 03/22/19 18:30 03/27/19 18:29 Docusate Sodium (Colace) 100 mg THREE TIMES A DAY ORAL 03/23/19 18:00 04/22/19 17:59 03/24/19 13:49 Folic Acid (Folate) 2 mg DAILY ORAL 03/23/19 15:00 04/22/19 14:59 03/24/19 08:49 Meropenem 1 gm/ Sodium Chloride 55 ml @ 110 mls/hr Q12H IVPB 03/23/19 14:00 03/28/19 13:59 03/24/19 13:49 Oxycodone/ Acetaminophen (Percocet 10/325) 1 tab QID PRN ORAL For Pain 03/22/19 07:15 03/29/19 07:14 Rifaximin (Xifaxan) 550 mg Q12H ORAL 03/22/19 09:00 03/29/19 08:59 03/24/19 08:54 Sodium Chloride 1,000 ml @ 50 mls/hr Q20H IV 03/24/19 11:15 04/23/19 11:14 03/24/19 11:45 Tamsulosin HCl (Flomax) 0.4 mg DAILY ORAL 03/22/19 09:00 04/21/19 08:59 03/24/19 08:49 Ursodiol (Actigall) 300 mg DAILY ORAL 03/22/19 09:00 04/21/19 08:59 03/24/19 08:49 Cedrick Vu M.D. Mar 24, 2019 14:10
--- NOTE | 2019-03-24 15:17 | General Progress Note ---
Assessment/Plan Assessment/Plan: S: deliriuos O: limited eval. seems comfortable HYSICAL EXAMINATION:HEAD AND NECK: HEART: S1, S2. Regular rate and rhythm. ABDOMEN: Positive for fullness, ascitis cannot be excluded.MUSCULOSKELETAL: Positive for 1+ pitting edema in the lower extremities. NEUROLOGIC: The patient is LEthargic LABORATORY and Medication DATA: reviewed in the chart ASSESSMENT AND PLAN: 1. Acute Metabolic encephalopathy 2. Gram negative Sepsis: likely UTI 3. Anasarca. 2. Primary Billiary Cirrhosis. 3. Chronic pain. 4. HIV. 5. Hypertension. 6. Anemia. 7. Proteinuria. 8. GI and DVT prophylaxis. 9. DNR Plan; Continue with empiricall abx treatment Abx per ID Notes from ID, Nephro, Critical care and Surgery services are reviewed [facility] Facility placement per family Subjective Allergies: Coded Allergies: No Known Allergies (Unverified , 12/04/18) Objective Last 24 Hour Vital Signs Date Time Temp Pulse Resp B/P (MAP) Pulse Ox O2 Delivery O2 Flow Rate FiO2 03/24/19 09:44 Room Air 03/24/19 08:00 98.4 92 18 113/77 (89) 99 03/24/19 04:00 97.0 53 20 118/84 (95) 99 03/24/19 00:00 97.4 70 20 125/79 (94) 99 03/23/19 21:00 Room Air 03/23/19 21:00 65 18 95 Room Air 21 03/23/19 20:00 97.7 67 18 113/81 (92) 100 03/23/19 16:00 98.2 70 18 108/75 (86) 98 Intake and Output 03/23/19 03/24/19 19:00 07:00 Intake Total 552 ml 355 ml Output Total 300 ml 100 ml Balance 252 ml 255 ml IV Total 552 ml 355 ml Output Urine Total 300 ml 100 ml Laboratory Tests 03/24/19 08:25: White Blood Count 14.4H, Red Blood Count 2.51L, Hemoglobin 9.2L, Hematocrit 26.3L, Mean Corpuscular Volume 105H, Mean Corpuscular Hemoglobin 36.6H, Mean Corpuscular Hemoglobin Concent 34.9, Red Cell Distribution Width 14.7, Platelet Count 186, Mean Platelet Volume 6.0L, Neutrophils (%) (Auto) , Lymphocytes (%) ( Auto) , Monocytes (%) (Auto) , Eosinophils (%) (Auto) , Basophils (%) (Auto) , Differential Total Cells Counted 100, Neutrophils % (Manual) 94H, Lymphocytes % (Manual) 5L, Monocytes % (Manual) 1, Eosinophils % (Manual) 0, Basophils % ( Manual) 0, Band Neutrophils 0, Platelet Estimate Adequate, Platelet Morphology Normal, Prothrombin Time 13.7H, Prothromb Time International Ratio 1.3H, Sodium Level 152H, Potassium Level 3.5, Chloride Level 119H, Carbon Dioxide Level 25, Anion Gap 9, Blood Urea Nitrogen 84H, Creatinine 2.1H, Estimat Glomerular Filtration Rate 40.0, Glucose Level 322#H, Uric Acid 7.7H, Calcium Level 8.8, Phosphorus Level 4.8, Magnesium Level 2.4, Total Bilirubin 13.3H, Direct Bilirubin 11.3H, Gamma Glutamyl Transpeptidase 247H, Aspartate Amino Transf (AST /SGOT) 210H, Alanine Aminotransferase (ALT/SGPT) 82H, Alkaline Phosphatase 841H , C-Reactive Protein, Quantitative 15.7H, Pro-B-Type Natriuretic Peptide 1613H, Total Protein 7.5, Albumin 1.4L, Globulin 6.1, Albumin/Globulin Ratio 0.2L, Triglycerides Level 80, Cholesterol Level < 50, LDL Cholesterol 19, HDL Cholesterol 6L, Cholesterol/HDL Ratio 8.3H 03/24/19 11:50: Urine Opiates Screen PositiveH, Urine Barbiturates Screen Negative, Phencyclidine (PCP) Screen Negative, Urine Amphetamines Screen Negative, Urine Benzodiazepines Screen PositiveH, Urine Cocaine Screen Negative, Urine Marijuana (THC) Screen Negative Height (Feet): 5 Height (Inches): 9.00 Weight (Pounds): 129 Nupur Juan MD Mar 24, 2019 15:17
--- NOTE | 2019-03-24 15:17 | Surgery Progress Note ---
Surgery Progress Note Subjective Additional Comments wbc trending down lft's worsening exam stable family at bedside Objective Last 24 Hour Vital Signs Date Time Temp Pulse Resp B/P (MAP) Pulse Ox O2 Delivery O2 Flow Rate FiO2 03/24/19 09:44 Room Air 03/24/19 08:00 98.4 92 18 113/77 (89) 99 03/24/19 04:00 97.0 53 20 118/84 (95) 99 03/24/19 00:00 97.4 70 20 125/79 (94) 99 03/23/19 21:00 Room Air 03/23/19 21:00 65 18 95 Room Air 21 03/23/19 20:00 97.7 67 18 113/81 (92) 100 03/23/19 16:00 98.2 70 18 108/75 (86) 98 I&O Intake and Output 03/23/19 03/24/19 19:00 07:00 Intake Total 552 ml 355 ml Output Total 300 ml 100 ml Balance 252 ml 255 ml IV Total 552 ml 355 ml Output Urine Total 300 ml 100 ml Dressing: other Wound: other Drains: other Cardiovascular: RSR Respiratory: decreased breath sounds Abdomen: soft, present bowel sounds, other, non-distended Extremities: no cyanosis, other Laboratory Tests Test 03/24/19 08:25 03/24/19 11:50 White Blood Count 14.4 K/UL (4.8-10.8) H Red Blood Count 2.51 M/UL (4.70-6.10) L Hemoglobin 9.2 G/DL (14.2-18.0) L Hematocrit 26.3 % (42.0-52.0) L Mean Corpuscular Volume 105 FL (80-99) H Mean Corpuscular Hemoglobin 36.6 PG (27.0-31.0) H Mean Corpuscular Hemoglobin Concent 34.9 G/DL (32.0-36.0) Red Cell Distribution Width 14.7 % (11.6-14.8) Platelet Count 186 K/UL (150-450) Mean Platelet Volume 6.0 FL (6.5-10.1) L Neutrophils (%) (Auto) % (45.0-75.0) Lymphocytes (%) (Auto) % (20.0-45.0) Monocytes (%) (Auto) % (1.0-10.0) Eosinophils (%) (Auto) % (0.0-3.0) Basophils (%) (Auto) % (0.0-2.0) Differential Total Cells Counted 100 Neutrophils % (Manual) 94 % (45-75) H Lymphocytes % (Manual) 5 % (20-45) L Monocytes % (Manual) 1 % (1-10) Eosinophils % (Manual) 0 % (0-3) Basophils % (Manual) 0 % (0-2) Band Neutrophils 0 % (0-8) Platelet Estimate Adequate Platelet Morphology Normal Prothrombin Time 13.7 SEC (9.30-11.50) H Prothromb Time International Ratio 1.3 (0.9-1.1) H Sodium Level 152 MMOL/L (136-145) H Potassium Level 3.5 MMOL/L (3.5-5.1) Chloride Level 119 MMOL/L (98-107) H Carbon Dioxide Level 25 MMOL/L (21-32) Anion Gap 9 mmol/L (5-15) Blood Urea Nitrogen 84 mg/dL (7-18) H Creatinine 2.1 MG/DL (0.55-1.30) H Estimat Glomerular Filtration Rate 40.0 mL/min (>60) Glucose Level 322 MG/DL (74-106) #H Uric Acid 7.7 MG/DL (2.6-7.2) H Calcium Level 8.8 MG/DL (8.5-10.1) Phosphorus Level 4.8 MG/DL (2.5-4.9) Magnesium Level 2.4 MG/DL (1.8-2.4) Total Bilirubin 13.3 MG/DL (0.2-1.0) H Direct Bilirubin 11.3 MG/DL (0.0-0.3) H Gamma Glutamyl Transpeptidase 247 U/L (5-85) H Aspartate Amino Transf (AST/SGOT) 210 U/L (15-37) H Alanine Aminotransferase (ALT/SGPT) 82 U/L (12-78) H Alkaline Phosphatase 841 U/L (46-116) H C-Reactive Protein, Quantitative 15.7 mg/dL (0.00-0.90) H Pro-B-Type Natriuretic Peptide 1613 pg/mL (0-125) H Total Protein 7.5 G/DL (6.4-8.2) Albumin 1.4 G/DL (3.4-5.0) L Globulin 6.1 g/dL Albumin/Globulin Ratio 0.2 (1.0-2.7) L Triglycerides Level 80 MG/DL (30-150) Cholesterol Level < 50 MG/DL (< 200) LDL Cholesterol 19 mg/dL (<100) HDL Cholesterol 6 MG/DL (40-60) L Cholesterol/HDL Ratio 8.3 (3.3-4.4) H Urine Opiates Screen Positive (NEGATIVE) H Urine Barbiturates Screen Negative (NEGATIVE) Phencyclidine (PCP) Screen Negative (NEGATIVE) Urine Amphetamines Screen Negative (NEGATIVE) Urine Benzodiazepines Screen Positive (NEGATIVE) H Urine Cocaine Screen Negative (NEGATIVE) Urine Marijuana (THC) Screen Negative (NEGATIVE) Plan Problems: (1) Infected decubitus ulcer Assessment & Plan: Pt presented on admission with multiple pressure injuries. Full thickness stage 4 Sacral pressure injury. Base of wound beefy red with scattered slough. (L)5cm x (W)4.5cm.Bone is palpable at base of wound . Borders are black and fluctuant.Periwound is erythematous. Small amt haemopurulent exudate noted. In addition pt noted to have a second small wound L buttocks , but within close proximity to sacrum. Base of wound has 100% slough (L)0.5cm x ( W)0.6cm. Reabsorbing DTPI L trochanter (L)9cmx (W)2cm.Wound is elongated. Base of wound is purple with black striations and is indurated.Periwound is erythematous without elevation in skin temp. Second DTPI noted to L hip . Base of wound is maroon with red borders.(L)1.6cm x (W)2cm. Partially opened DTPI medial L tibia. Proximally,base of wound is pink with small amt slough with small amt brown exudate. Distally base of of wound is necrotic but soft. (L)12.6cm x (W)3cm. Partially opened DTPI medial R tibia. Base of wound with small amt slough, surrounding base of wound beefy red with loose black skin flap. Small amt serous exudate noted. No odor noted.(L)7cm x (W)2cm. DTPI noted top lateral R malleolus. Base of wound is maroon and indurated with marginal erythema(L)1.5cm x (W)2.5cm. L heel is necrotic but dry.Periwound is firm without further evidence of skin breakdown(L)6cm x (W)7.5cm. Unstageable pressure injury R heel. Base of wound necrotic and fluctuant in center with surrounding dry necrotic borders(L)5cm x (W)8.5cm. Tx.Plan: Apply Betadine to both heels and R lateral malleolus. Cover with Optifoam drsg. Change every 3 days and prn. Cleanse Sacral and L buttocks wounds with Saline. Apply TheraHoney to each wound. Apply Moisture Barrier Paste periwound. Cover with Optifoam drsg. Change every 3 days and prn. Apply Cavilon Skin Barrier to L trochanter/L hip. Cover with Optifoam drsgs. Changee very 7 days and prn. Reposition at least every 2hours or as tolerated. Off-load heels with pillow. APM/BO Mattress overlay. Patient presented with an infected sacral decubitus ulcer purulent drainage noted. Significant tissue loss. Will continue with local wound care at this time. Will need to discuss goals of care and care plan prior to any invasive surgical treatment Thank you for let me participate in patient's care (2) Abnormal LFTs Assessment & Plan: Patient with known history of liver cirrhosis. Currently on hospice care. 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 The spleen is enlarged measuring about 13 to 14 cm. Doppler interrogation of the main portal vein shows patency with hepatopedal, monophasic flow. There is no biliary ductal dilatation identified. Gallbladder is absent. CBD is 4 mm. There is a cystic lesion measuring 3.6 cm near the inferior pole of the spleen. Part of the pancreas is obscured by bowel gas. There is trace ascites. Both kidneys appear unremarkable. There is no hydronephrosis. IMPRESSION: Hepatosplenomegaly. Trace ascites. Splenic cyst. Status post cholecystectomy Thank you for let me participate in patient's care Jamey Mazariegos Mar 24, 2019 15:17
[2019-03-24 16:00] VITALS: BP 111/71
--- NOTE | 2019-03-24 16:03 | NUR ---
CASE MANAGEMENT: REVIEW 03/24/2019 SI: ACUTE METABOLIC ENCEPHALOPATHY . SEPSIS . INFECTED DECUBITUS ULCER . STEVE . UTI HX: HIV (+) 98.4 105 18 111/71 99% ON RA WBC 14.4 H/H 9.2/26.3 NA+ 152 CL- 119 BUN 84 CREAT 2.1 BG 322 URIC ACID 7.7 T.NITIN/D.NITIN 13.3/11.3 ALK-PHOS 841 AST/ALT 210/82 BNP 1613 PT/INR 13.7/1.3 OPIATES (+) BENZODIAZEPINES (+) IS:IV MEROPENEM BID IVF NS@50ML/HR FLOMAX PO QD ACTIGALL PO QD RIFAXIMIN PO BID FOLATE PO QD \: 4E MED SURG UNIT PLAN: REPEAT BLOOD CX-PENDING BLOOD CX (+) URINE CX(+) ECOLI US ABD -HEPATOSPLENOMEGALY; SPLENIC CYST; S/P CHOLECYSTECTOMY ACTIVELY SEEKING SNF PLACEMENT NEURO CHECK
--- NOTE | 2019-03-24 16:14 | NUR ---
DISCHARGE PLANNING PATIENT HAS BEEN REFERRED FOR SNF CLINICALS SENT TO THE FOLLOWIN# ROSALINA CHAVARRIA T: [phone] F:[phone] 2# PAUL BATRES T:[phone] F:[phone] 3#BAYLEE KELLER T:[phone] F:[phone] WILL F/U Addendum: 03/25/19 at 1015 by MARKO HERNANDEZ LVN BAYLEE KELLER MAY HAVE A BED WILL F/U IN AN HOUR Addendum: 03/25/19 at 1454 by MARKO HERNANDEZ LVN FAXED CLINICALS TO [facility]: F:[phone] Addendum: 03/25/19 at 1509 by SARAH PASTRANAN FOLLOW UP CALL MADE TO BAYLEE KELLER @ [phone] SPOKE WITH STATES CLINICALS ARE CURRENTLY UNDER REVIEW AND WILL CALL BACK WITH AN ANSWER.
--- NOTE | 2019-03-24 19:08 | NUR ---
HAND-OFF: Report given to PADDY Burks.
--- NOTE | 2019-03-24 19:30 | NUR ---
NURSE NOTES: RECEIVED PATIENT FROM PADDY BURGESS. PT IS AWAKE, AAOX2, ON ROOM AIR, NO ACUTE DISTRESS NOTED. WOUND CARE INTACT AND DRY. IV IS INTACT AND PATENT. CONDOM CATH NOTED INTACT AND DRAINING WELL. BILATERAL SOFT WRIST RESTRAINTS IN PLACE. PULSES PRESENT. NO REDNESS. BED IS LOCKED AND LOW, BED ALARMS ACTIVE, SIDE RAILS UP X2 AND CALL LIGHT IS WITHIN REACH . WILL CONTINUE TO MONITOR.
[2019-03-24 20:00] VITALS: BP 123/82
--- NOTE | 2019-03-24 20:54 | Pulmonology Progress Note ---
Assessment/Plan Problems: (1) Sepsis (2) UTI (urinary tract infection) (3) Cellulitis of leg (4) STEVE (acute kidney injury) (5) Abnormal LFTs (6) HIV (human immunodeficiency virus infection) (7) Jaundice (8) Pressure ulcer of sacrum (9) Encephalopathy acute Assessment/Plan Abx per ID, F/U Cx's Monitor volumes, mIVF PO for pleasure, TILE DESIGNER eval noted Supportive care Dispo planning back to facility ? on hospice Subjective Allergies: Coded Allergies: No Known Allergies (Unverified , 12/04/18) Subjective AFVSS O2 needs stable no cough no distress TILE DESIGNER eval noted confused Objective Last 24 Hour Vital Signs Date Time Temp Pulse Resp B/P (MAP) Pulse Ox O2 Delivery O2 Flow Rate FiO2 03/24/19 20:04 62 18 96 Room Air 21 03/24/19 16:00 98.1 110 18 111/71 (84) 99 03/24/19 12:00 98.4 105 18 111/71 (84) 99 03/24/19 09:44 Room Air 03/24/19 08:00 98.4 92 18 113/77 (89) 99 03/24/19 04:00 97.0 53 20 118/84 (95) 99 03/24/19 00:00 97.4 70 20 125/79 (94) 99 03/23/19 21:00 Room Air 03/23/19 21:00 65 18 95 Room Air 21 Intake and Output 03/23/19 03/24/19 19:00 07:00 Intake Total 552 ml 355 ml Output Total 300 ml 100 ml Balance 252 ml 255 ml IV Total 552 ml 355 ml Output Urine Total 300 ml 100 ml General Appearance: cachetic - confused HEENT: normocephalic, atraumatic, anicteric, mucous membranes moist Respiratory/Chest: chest wall non-tender, lungs clear, normal breath sounds, no respiratory distress, no accessory muscle use Cardiovascular: normal peripheral pulses, normal rate, regular rhythm Abdomen: normal bowel sounds, soft, non tender, no organomegaly, non distended , no mass Extremities: no cyanosis, no clubbing, no edema Microbiology Date/Time Source Procedure Growth Status 03/21/19 23:00 Blood Blood Culture - Preliminary Gram Negative Bacillus 1 Resulted 03/21/19 23:00 Blood Blood Culture - Preliminary Gram Negative Bacillus 1 Resulted 03/22/19 14:10 Urine,Clean Catch Urine Culture - Final Escherichia Coli Complete Laboratory Tests 03/24/19 08:25: White Blood Count 14.4H, Red Blood Count 2.51L, Hemoglobin 9.2L, Hematocrit 26.3L, Mean Corpuscular Volume 105H, Mean Corpuscular Hemoglobin 36.6H, Mean Corpuscular Hemoglobin Concent 34.9, Red Cell Distribution Width 14.7, Platelet Count 186, Mean Platelet Volume 6.0L, Neutrophils (%) (Auto) , Lymphocytes (%) ( Auto) , Monocytes (%) (Auto) , Eosinophils (%) (Auto) , Basophils (%) (Auto) , Differential Total Cells Counted 100, Neutrophils % (Manual) 94H, Lymphocytes % (Manual) 5L, Monocytes % (Manual) 1, Eosinophils % (Manual) 0, Basophils % ( Manual) 0, Band Neutrophils 0, Platelet Estimate Adequate, Platelet Morphology Normal, Prothrombin Time 13.7H, Prothromb Time International Ratio 1.3H, Sodium Level 152H, Potassium Level 3.5, Chloride Level 119H, Carbon Dioxide Level 25, Anion Gap 9, Blood Urea Nitrogen 84H, Creatinine 2.1H, Estimat Glomerular Filtration Rate 40.0, Glucose Level 322#H, Uric Acid 7.7H, Calcium Level 8.8, Phosphorus Level 4.8, Magnesium Level 2.4, Total Bilirubin 13.3H, Direct Bilirubin 11.3H, Gamma Glutamyl Transpeptidase 247H, Aspartate Amino Transf (AST /SGOT) 210H, Alanine Aminotransferase (ALT/SGPT) 82H, Alkaline Phosphatase 841H , C-Reactive Protein, Quantitative 15.7H, Pro-B-Type Natriuretic Peptide 1613H, Total Protein 7.5, Albumin 1.4L, Globulin 6.1, Albumin/Globulin Ratio 0.2L, Triglycerides Level 80, Cholesterol Level < 50, LDL Cholesterol 19, HDL Cholesterol 6L, Cholesterol/HDL Ratio 8.3H 03/24/19 11:50: Urine Opiates Screen PositiveH, Urine Barbiturates Screen Negative, Phencyclidine (PCP) Screen Negative, Urine Amphetamines Screen Negative, Urine Benzodiazepines Screen PositiveH, Urine Cocaine Screen Negative, Urine Marijuana (THC) Screen Negative Current Medications Medications (Trade) Dose Ordered Sig/Lala Route PRN Reason Start Time Stop Time Status Last Admin Dose Admin Albuterol/ Ipratropium (Albuterol/ Ipratropium) 3 ml Q6H PRN HHN Shortness of Breath 03/22/19 18:30 03/27/19 18:29 Docusate Sodium (Colace) 100 mg THREE TIMES A DAY ORAL 03/23/19 18:00 04/22/19 17:59 03/24/19 13:49 Folic Acid (Folate) 2 mg DAILY ORAL 03/23/19 15:00 04/22/19 14:59 03/24/19 08:49 Meropenem 1 gm/ Sodium Chloride 55 ml @ 110 mls/hr Q12H IVPB 03/23/19 14:00 03/28/19 13:59 03/24/19 13:49 Oxycodone/ Acetaminophen (Percocet 10/325) 1 tab QID PRN ORAL For Pain 03/22/19 07:15 03/29/19 07:14 Rifaximin (Xifaxan) 550 mg Q12H ORAL 03/22/19 09:00 03/29/19 08:59 03/24/19 08:54 Sodium Chloride 1,000 ml @ 50 mls/hr Q20H IV 03/24/19 11:15 04/23/19 11:14 03/24/19 11:45 Tamsulosin HCl (Flomax) 0.4 mg DAILY ORAL 03/22/19 09:00 04/21/19 08:59 03/24/19 08:49 Ursodiol (Actigall) 300 mg DAILY ORAL 03/22/19 09:00 04/21/19 08:59 03/24/19 08:49 Jarrell Lemos MD Mar 24, 2019 20:54
[2019-03-25] VITALS: BP 139/81
[2019-03-25] MEDS: Meropenem 1 GM in NS 55 ML IVPB SCH ×2 (02:54→13:29)
[2019-03-25 04:00] VITALS: BP 118/79
--- NOTE | 2019-03-25 07:15 | NUR ---
NURSE NOTES: pt in bed with no sob nor in any form of distress noted. breathing regular and unlabored. (B)wrist restraint in place with good circulation. IVF running with no adverse reaction noted. will continue to monitor
--- NOTE | 2019-03-25 07:41 | NUR ---
HAND-OFF: Report given to PADDY BURGESS. ENDORSED PLAN OF CARE
[2019-03-25 08:00] VITALS: BP 116/83
[2019-03-25 08:36] LABS: HEMATOCRIT 27.4 % (42.0-52.0); HEMOGLOBIN 9.5 G/DL (14.2-18.0); MEAN CORPUSCULAR VOLUME 104 FL (80-99); PLATELET COUNT 184 K/UL (150-450); RED BLOOD COUNT 2.63 M/UL (4.70-6.10); RED CELL DISTRIBUTION WIDTH 14.8 % (11.6-14.8)
[2019-03-25] MEDS: Ursodiol 300mg cap ORAL SCH (08:50)
[2019-03-25] MEDS: Tamsulosin 0.4mg cap ORAL SCH (08:50)
[2019-03-25] MEDS: Docusate 100mg cap ORAL SCH ×3 (08:50→17:06)
[2019-03-25 09:07] LABS: ALANINE AMINOTRANSFERASE 123 U/L (12-78); ALBUMIN 1.4 G/DL (3.4-5.0); ALBUMIN/GLOBULIN RATIO 0.2 (1.0-2.7); ALKALINE PHOSPHATASE 1370 U/L (46-116); ANION GAP 9 mmol/L (5-15); ASPARTATE AMINO TRANSFERASE 336 U/L (15-37); BLOOD UREA NITROGEN 85 mg/dL (7-18); CALCIUM 8.6 MG/DL (8.5-10.1); CARBON DIOXIDE 24 MMOL/L (21-32); CHLORIDE 124 MMOL/L (98-107); PHOSPHORUS 3.7 MG/DL (2.5-4.9); POTASSIUM 3.5 MMOL/L (3.5-5.1); SODIUM 157 MMOL/L (136-145)
[2019-03-25 09:08] LABS: BILIRUBIN,DIRECT 13.9 MG/DL (0.0-0.3)
--- NOTE | 2019-03-25 10:08 | Nephrology Progress Note ---
Assessment/Plan Problem List: (1) STEVE (acute kidney injury) (2) Anasarca (3) Pressure ulcer of sacrum (4) Jaundice Assessment Renal failure- Acute mainly Prerenal Sepsis Jaundice Infected decubitus ulcer Plan slow IV D5W Adjust meds DC Lasix DC HCTZ DC Aldactone Vit K SQ DNR Subjective ROS Limited/Unobtainable: No Constitutional: Reports: malaise, weakness, other - poor PO Objective Objective Last 24 Hour Vital Signs Date Time Temp Pulse Resp B/P (MAP) Pulse Ox O2 Delivery O2 Flow Rate FiO2 03/25/19 09:53 Room Air 03/25/19 08:00 97.6 74 16 116/83 (94) 97 03/25/19 04:00 98.2 84 16 118/79 (92) 96 03/25/19 00:00 98.7 119 20 139/81 (100) 96 03/24/19 21:00 Room Air 03/24/19 20:04 62 18 96 Room Air 21 03/24/19 20:00 99.3 128 20 123/82 (96) 96 03/24/19 16:00 98.1 110 18 111/71 (84) 99 03/24/19 12:00 98.4 105 18 111/71 (84) 99 Intake and Output 03/24/19 03/25/19 19:00 07:00 Intake Total 405 ml 575 ml Output Total 1400 ml 1600 ml Balance -995 ml -1025 ml Intake Oral 100 ml IV Total 305 ml 575 ml Output Urine Total 1400 ml 1600 ml Laboratory Tests 03/24/19 11:50: Urine Opiates Screen PositiveH, Urine Barbiturates Screen Negative, Phencyclidine (PCP) Screen Negative, Urine Amphetamines Screen Negative, Urine Benzodiazepines Screen PositiveH, Urine Cocaine Screen Negative, Urine Marijuana (THC) Screen Negative 03/25/19 07:25: White Blood Count 16.0H, Red Blood Count 2.63L, Hemoglobin 9.5L, Hematocrit 27.4L, Mean Corpuscular Volume 104H, Mean Corpuscular Hemoglobin 36.2H, Mean Corpuscular Hemoglobin Concent 34.7, Red Cell Distribution Width 14.8, Platelet Count 184, Mean Platelet Volume 6.2L, Neutrophils (%) (Auto) , Lymphocytes (%) ( Auto) , Monocytes (%) (Auto) , Eosinophils (%) (Auto) , Basophils (%) (Auto) , Neutrophils % (Manual) [Pending], Lymphocytes % (Manual) [Pending], Platelet Estimate [Pending], Platelet Morphology [Pending], Sodium Level 157H, Potassium Level 3.5, Chloride Level 124H, Carbon Dioxide Level 24, Anion Gap 9, Blood Urea Nitrogen 85H, Creatinine 2.0H, Estimat Glomerular Filtration Rate 42.3, Glucose Level 126#H, Uric Acid 8.9H, Calcium Level 8.6, Phosphorus Level 3.7, Magnesium Level 2.5H, Total Bilirubin 17.0H, Direct Bilirubin 13.9H, Aspartate Amino Transf (AST/SGOT) 336H, Alanine Aminotransferase (ALT/SGPT) 123H, Alkaline Phosphatase 1370H, C-Reactive Protein, Quantitative 13.7H, Pro-B-Type Natriuretic Peptide 2912H, Total Protein 8.1, Albumin 1.4L, Globulin 6.7, Albumin/Globulin Ratio 0.2L Height (Feet): 5 Height (Inches): 9.00 Weight (Pounds): 129 General Appearance: no apparent distress, lethargic Cardiovascular: normal rate Respiratory/Chest: decreased breath sounds Abdomen: distended José Miguel Nava MD Mar 25, 2019 10:08
[2019-03-25 12:00] VITALS: BP 112/80
--- NOTE | 2019-03-25 13:43 | Pulmonology Progress Note ---
Assessment/Plan Problems: (1) Sepsis (2) UTI (urinary tract infection) (3) Cellulitis of leg (4) STEVE (acute kidney injury) (5) Abnormal LFTs (6) HIV (human immunodeficiency virus infection) (7) Jaundice (8) Pressure ulcer of sacrum (9) Encephalopathy acute Assessment/Plan Abx per ID, F/U Cx's Monitor volumes, mIVF PO for pleasure Supportive care Dispo planning back to facility ? on hospice Subjective Allergies: Coded Allergies: No Known Allergies (Unverified , 12/04/18) Subjective AFVSS O2 needs stable no cough no distress confused Objective Last 24 Hour Vital Signs Date Time Temp Pulse Resp B/P (MAP) Pulse Ox O2 Delivery O2 Flow Rate FiO2 03/25/19 12:00 97.8 78 16 112/80 (91) 100 03/25/19 09:53 Room Air 03/25/19 08:00 97.6 74 16 116/83 (94) 97 03/25/19 04:00 98.2 84 16 118/79 (92) 96 03/25/19 00:00 98.7 119 20 139/81 (100) 96 03/24/19 21:00 Room Air 03/24/19 20:04 62 18 96 Room Air 21 03/24/19 20:00 99.3 128 20 123/82 (96) 96 03/24/19 16:00 98.1 110 18 111/71 (84) 99 Intake and Output 03/24/19 03/25/19 19:00 07:00 Intake Total 405 ml 575 ml Output Total 1400 ml 1600 ml Balance -995 ml -1025 ml Intake Oral 100 ml IV Total 305 ml 575 ml Output Urine Total 1400 ml 1600 ml General Appearance: cachetic HEENT: normocephalic, atraumatic Respiratory/Chest: chest wall non-tender, lungs clear, normal breath sounds Cardiovascular: normal peripheral pulses, normal rate, regular rhythm Abdomen: normal bowel sounds, soft, non tender, no organomegaly, non distended , no mass Extremities: no cyanosis, no clubbing, no edema Microbiology Date/Time Source Procedure Growth Status 03/22/19 14:10 Urine,Clean Catch Urine Culture - Final Escherichia Coli Complete Laboratory Tests 03/25/19 07:25: White Blood Count 16.0H, Red Blood Count 2.63L, Hemoglobin 9.5L, Hematocrit 27.4L, Mean Corpuscular Volume 104H, Mean Corpuscular Hemoglobin 36.2H, Mean Corpuscular Hemoglobin Concent 34.7, Red Cell Distribution Width 14.8, Platelet Count 184, Mean Platelet Volume 6.2L, Neutrophils (%) (Auto) , Lymphocytes (%) ( Auto) , Monocytes (%) (Auto) , Eosinophils (%) (Auto) , Basophils (%) (Auto) , Differential Total Cells Counted 100, Neutrophils % (Manual) 90H, Lymphocytes % (Manual) 7L, Monocytes % (Manual) 3, Eosinophils % (Manual) 0, Basophils % ( Manual) 0, Band Neutrophils 0, Platelet Estimate Adequate, Platelet Morphology Normal, Sodium Level 157H, Potassium Level 3.5, Chloride Level 124H, Carbon Dioxide Level 24, Anion Gap 9, Blood Urea Nitrogen 85H, Creatinine 2.0H, Estimat Glomerular Filtration Rate 42.3, Glucose Level 126#H, Uric Acid 8.9H, Calcium Level 8.6, Phosphorus Level 3.7, Magnesium Level 2.5H, Total Bilirubin 17.0H, Direct Bilirubin 13.9H, Aspartate Amino Transf (AST/SGOT) 336H, Alanine Aminotransferase (ALT/SGPT) 123H, Alkaline Phosphatase 1370H, C-Reactive Protein , Quantitative 13.7H, Pro-B-Type Natriuretic Peptide 2912H, Total Protein 8.1, Albumin 1.4L, Globulin 6.7, Albumin/Globulin Ratio 0.2L Current Medications Medications (Trade) Dose Ordered Sig/Lala Route PRN Reason Start Time Stop Time Status Last Admin Dose Admin Albuterol/ Ipratropium (Albuterol/ Ipratropium) 3 ml Q6H PRN HHN Shortness of Breath 03/22/19 18:30 03/27/19 18:29 Dextrose 1,000 ml @ 75 mls/hr [id number] IV 03/25/19 10:00 04/24/19 09:59 03/25/19 11:51 Docusate Sodium (Colace) 100 mg THREE TIMES A DAY ORAL 03/23/19 18:00 04/22/19 17:59 03/25/19 08:50 Folic Acid (Folate) 2 mg DAILY ORAL 03/23/19 15:00 04/22/19 14:59 03/25/19 08:50 Meropenem 1 gm/ Sodium Chloride 55 ml @ 110 mls/hr Q12H IVPB 03/23/19 14:00 03/28/19 13:59 03/25/19 13:29 Oxycodone/ Acetaminophen (Percocet 10/325) 1 tab QID PRN ORAL For Pain 03/22/19 07:15 03/29/19 07:14 03/25/19 06:46 Rifaximin (Xifaxan) 550 mg Q12H ORAL 03/22/19 09:00 03/29/19 08:59 03/25/19 08:52 Tamsulosin HCl (Flomax) 0.4 mg DAILY ORAL 03/22/19 09:00 04/21/19 08:59 03/25/19 08:50 Jarrell Lemos MD Mar 25, 2019 13:43
--- NOTE | 2019-03-25 14:23 | Infectious Diseases Prog Note ---
Assessment/Plan Problems: (1) UTI (urinary tract infection) Assessment & Plan: with E coli , already on meropenem will switch to ceftriaxone to cover for sepsis too due to E coli for two weeks total. pending repeated blood culture (2) Sepsis Assessment & Plan: with E coli , source most likely is his UTI , will switch meropenem to ceftriaxone for two weeks pending repeated blood culture to confirm clearance (3) Pressure ulcer of sacrum Assessment & Plan: with minimal sloughing and draining of bloody fluids, dosen' t look infected, continue off loading and local wound care as per hospital protocol (4) STEVE (acute kidney injury) Assessment & Plan: advanced with uremia , suspect dehydration, needs aggressive hydration, renal is following (5) HIV (human immunodeficiency virus infection) Assessment & Plan: unclear whether he is taking any meds now since he is on hospice care (6) Encephalopathy acute Assessment & Plan: suspect metabolic due to uremia and hepatic related , renal is following (7) Cellulitis of sacral region Assessment & Plan: on meropenem , continue local wound care and off loading as per hospital protocol, wound care team is following Subjective ROS Limited/Unobtainable: Yes Allergies: Coded Allergies: No Known Allergies (Unverified , 12/04/18) Subjective He was altered, unresponsive, lying in bed, doesn't follow commands , no oral intake, urine dark and dense , no fever or chills, no cough or SOB, no diarrhea Objective Vital Signs Last 24 Hour Vital Signs Date Time Temp Pulse Resp B/P (MAP) Pulse Ox O2 Delivery O2 Flow Rate FiO2 03/25/19 12:00 97.8 78 16 112/80 (91) 100 03/25/19 09:53 Room Air 03/25/19 08:00 97.6 74 16 116/83 (94) 97 03/25/19 04:00 98.2 84 16 118/79 (92) 96 03/25/19 00:00 98.7 119 20 139/81 (100) 96 03/24/19 21:00 Room Air 03/24/19 20:04 62 18 96 Room Air 21 03/24/19 20:00 99.3 128 20 123/82 (96) 96 03/24/19 16:00 98.1 110 18 111/71 (84) 99 Height (Feet): 5 Height (Inches): 9.00 Weight (Pounds): 129 General Appearance: no acute distress, cachetic, other - altered HEENT: normocephalic, atraumatic, anicteric, mucous membranes moist, PERRL Respiratory/Chest: chest wall non-tender, lungs clear, normal breath sounds, no respiratory distress, no accessory muscle use Cardiovascular: normal peripheral pulses, normal rate, regular rhythm, no gallop/murmur, no JVD Abdomen: normal bowel sounds, soft, non tender, no organomegaly, non distended , no mass, no scars Genitourinary: normal external genitalia Extremities: no cyanosis, no clubbing Skin: no rash, no lesions, no ulcers Neurologic/Psychiatric: unresponsiveness Lymphatic: no neck adenopathy, no groin adenopathy Musculoskeletal: normal muscle bulk, no effusion Laboratory Tests Test 03/25/19 07:25 White Blood Count 16.0 K/UL (4.8-10.8) H Red Blood Count 2.63 M/UL (4.70-6.10) L Hemoglobin 9.5 G/DL (14.2-18.0) L Hematocrit 27.4 % (42.0-52.0) L Mean Corpuscular Volume 104 FL (80-99) H Mean Corpuscular Hemoglobin 36.2 PG (27.0-31.0) H Mean Corpuscular Hemoglobin Concent 34.7 G/DL (32.0-36.0) Red Cell Distribution Width 14.8 % (11.6-14.8) Platelet Count 184 K/UL (150-450) Mean Platelet Volume 6.2 FL (6.5-10.1) L Neutrophils (%) (Auto) % (45.0-75.0) Lymphocytes (%) (Auto) % (20.0-45.0) Monocytes (%) (Auto) % (1.0-10.0) Eosinophils (%) (Auto) % (0.0-3.0) Basophils (%) (Auto) % (0.0-2.0) Differential Total Cells Counted 100 Neutrophils % (Manual) 90 % (45-75) H Lymphocytes % (Manual) 7 % (20-45) L Monocytes % (Manual) 3 % (1-10) Eosinophils % (Manual) 0 % (0-3) Basophils % (Manual) 0 % (0-2) Band Neutrophils 0 % (0-8) Platelet Estimate Adequate Platelet Morphology Normal Sodium Level 157 MMOL/L (136-145) H Potassium Level 3.5 MMOL/L (3.5-5.1) Chloride Level 124 MMOL/L (98-107) H Carbon Dioxide Level 24 MMOL/L (21-32) Anion Gap 9 mmol/L (5-15) Blood Urea Nitrogen 85 mg/dL (7-18) H Creatinine 2.0 MG/DL (0.55-1.30) H Estimat Glomerular Filtration Rate 42.3 mL/min (>60) Glucose Level 126 MG/DL (74-106) #H Uric Acid 8.9 MG/DL (2.6-7.2) H Calcium Level 8.6 MG/DL (8.5-10.1) Phosphorus Level 3.7 MG/DL (2.5-4.9) Magnesium Level 2.5 MG/DL (1.8-2.4) H Total Bilirubin 17.0 MG/DL (0.2-1.0) H Direct Bilirubin 13.9 MG/DL (0.0-0.3) H Aspartate Amino Transf (AST/SGOT) 336 U/L (15-37) H Alanine Aminotransferase (ALT/SGPT) 123 U/L (12-78) H Alkaline Phosphatase 1370 U/L (46-116) H C-Reactive Protein, Quantitative 13.7 mg/dL (0.00-0.90) H Pro-B-Type Natriuretic Peptide 2912 pg/mL (0-125) H Total Protein 8.1 G/DL (6.4-8.2) Albumin 1.4 G/DL (3.4-5.0) L Globulin 6.7 g/dL Albumin/Globulin Ratio 0.2 (1.0-2.7) L Current Medications Medications (Trade) Dose Ordered Sig/Lala Route PRN Reason Start Time Stop Time Status Last Admin Dose Admin Albuterol/ Ipratropium (Albuterol/ Ipratropium) 3 ml Q6H PRN HHN Shortness of Breath 03/22/19 18:30 03/27/19 18:29 Dextrose 1,000 ml @ 75 mls/hr [id number] IV 03/25/19 10:00 04/24/19 09:59 03/25/19 11:51 Docusate Sodium (Colace) 100 mg THREE TIMES A DAY ORAL 03/23/19 18:00 04/22/19 17:59 03/25/19 08:50 Folic Acid (Folate) 2 mg DAILY ORAL 03/23/19 15:00 04/22/19 14:59 03/25/19 08:50 Meropenem 1 gm/ Sodium Chloride 55 ml @ 110 mls/hr Q12H IVPB 03/23/19 14:00 03/28/19 13:59 03/25/19 13:29 Oxycodone/ Acetaminophen (Percocet 10/325) 1 tab QID PRN ORAL For Pain 03/22/19 07:15 03/29/19 07:14 03/25/19 06:46 Rifaximin (Xifaxan) 550 mg Q12H ORAL 03/22/19 09:00 03/29/19 08:59 03/25/19 08:52 Tamsulosin HCl (Flomax) 0.4 mg DAILY ORAL 03/22/19 09:00 04/21/19 08:59 03/25/19 08:50 Cedrick Vu M.D. Mar 25, 2019 14:23
--- NOTE | 2019-03-25 15:10 | NUR ---
CASE MANAGEMENT:REVIEW SI;AC METABOLIC ENCEPHALOPATHY. GRAM NEGATIVE SEPSIS. ANEMIA. 98.7 119 20 139/81 63% ON RA WBC 16.0 H/H 9.5/27.4 NA 157 BUN 85 CREAT 2.0 AST/ALT 336/123 IS;ROCEPHIN IV Q24 HRS MEROPENEM IV Q12 HRS DUO NEB HHN Q 6 HRS PERCOCET PO QID PRN MED SURG STATUS DCP;SNF PLACEMENT
--- NOTE | 2019-03-25 15:49 | Surgery Progress Note ---
Surgery Progress Note Subjective Additional Comments worsening lf'ts coags noted ill appearing condition guarded end of life care planning Objective Last 24 Hour Vital Signs Date Time Temp Pulse Resp B/P (MAP) Pulse Ox O2 Delivery O2 Flow Rate FiO2 03/25/19 12:00 97.8 78 16 112/80 (91) 100 03/25/19 09:53 Room Air 03/25/19 08:00 97.6 74 16 116/83 (94) 97 03/25/19 04:00 98.2 84 16 118/79 (92) 96 03/25/19 00:00 98.7 119 20 139/81 (100) 96 03/24/19 21:00 Room Air 03/24/19 20:04 62 18 96 Room Air 21 03/24/19 20:00 99.3 128 20 123/82 (96) 96 03/24/19 16:00 98.1 110 18 111/71 (84) 99 I&O Intake and Output 03/24/19 03/25/19 19:00 07:00 Intake Total 405 ml 575 ml Output Total 1400 ml 1600 ml Balance -995 ml -1025 ml Intake Oral 100 ml IV Total 305 ml 575 ml Output Urine Total 1400 ml 1600 ml Dressing: other Wound: other Drains: other Cardiovascular: RSR Respiratory: decreased breath sounds Abdomen: soft, other, decreased bowel sounds Extremities: no cyanosis Laboratory Tests Test 03/25/19 07:25 White Blood Count 16.0 K/UL (4.8-10.8) H Red Blood Count 2.63 M/UL (4.70-6.10) L Hemoglobin 9.5 G/DL (14.2-18.0) L Hematocrit 27.4 % (42.0-52.0) L Mean Corpuscular Volume 104 FL (80-99) H Mean Corpuscular Hemoglobin 36.2 PG (27.0-31.0) H Mean Corpuscular Hemoglobin Concent 34.7 G/DL (32.0-36.0) Red Cell Distribution Width 14.8 % (11.6-14.8) Platelet Count 184 K/UL (150-450) Mean Platelet Volume 6.2 FL (6.5-10.1) L Neutrophils (%) (Auto) % (45.0-75.0) Lymphocytes (%) (Auto) % (20.0-45.0) Monocytes (%) (Auto) % (1.0-10.0) Eosinophils (%) (Auto) % (0.0-3.0) Basophils (%) (Auto) % (0.0-2.0) Differential Total Cells Counted 100 Neutrophils % (Manual) 90 % (45-75) H Lymphocytes % (Manual) 7 % (20-45) L Monocytes % (Manual) 3 % (1-10) Eosinophils % (Manual) 0 % (0-3) Basophils % (Manual) 0 % (0-2) Band Neutrophils 0 % (0-8) Platelet Estimate Adequate Platelet Morphology Normal Sodium Level 157 MMOL/L (136-145) H Potassium Level 3.5 MMOL/L (3.5-5.1) Chloride Level 124 MMOL/L (98-107) H Carbon Dioxide Level 24 MMOL/L (21-32) Anion Gap 9 mmol/L (5-15) Blood Urea Nitrogen 85 mg/dL (7-18) H Creatinine 2.0 MG/DL (0.55-1.30) H Estimat Glomerular Filtration Rate 42.3 mL/min (>60) Glucose Level 126 MG/DL (74-106) #H Uric Acid 8.9 MG/DL (2.6-7.2) H Calcium Level 8.6 MG/DL (8.5-10.1) Phosphorus Level 3.7 MG/DL (2.5-4.9) Magnesium Level 2.5 MG/DL (1.8-2.4) H Total Bilirubin 17.0 MG/DL (0.2-1.0) H Direct Bilirubin 13.9 MG/DL (0.0-0.3) H Aspartate Amino Transf (AST/SGOT) 336 U/L (15-37) H Alanine Aminotransferase (ALT/SGPT) 123 U/L (12-78) H Alkaline Phosphatase 1370 U/L (46-116) H C-Reactive Protein, Quantitative 13.7 mg/dL (0.00-0.90) H Pro-B-Type Natriuretic Peptide 2912 pg/mL (0-125) H Total Protein 8.1 G/DL (6.4-8.2) Albumin 1.4 G/DL (3.4-5.0) L Globulin 6.7 g/dL Albumin/Globulin Ratio 0.2 (1.0-2.7) L Plan Problems: (1) Infected decubitus ulcer Assessment & Plan: Pt presented on admission with multiple pressure injuries. Full thickness stage 4 Sacral pressure injury. Base of wound beefy red with scattered slough. (L)5cm x (W)4.5cm.Bone is palpable at base of wound . Borders are black and fluctuant.Periwound is erythematous. Small amt haemopurulent exudate noted. In addition pt noted to have a second small wound L buttocks , but within close proximity to sacrum. Base of wound has 100% slough (L)0.5cm x ( W)0.6cm. Reabsorbing DTPI L trochanter (L)9cmx (W)2cm.Wound is elongated. Base of wound is purple with black striations and is indurated.Periwound is erythematous without elevation in skin temp. Second DTPI noted to L hip . Base of wound is maroon with red borders.(L)1.6cm x (W)2cm. Partially opened DTPI medial L tibia. Proximally,base of wound is pink with small amt slough with small amt brown exudate. Distally base of of wound is necrotic but soft. (L)12.6cm x (W)3cm. Partially opened DTPI medial R tibia. Base of wound with small amt slough, surrounding base of wound beefy red with loose black skin flap. Small amt serous exudate noted. No odor noted.(L)7cm x (W)2cm. DTPI noted top lateral R malleolus. Base of wound is maroon and indurated with marginal erythema(L)1.5cm x (W)2.5cm. L heel is necrotic but dry.Periwound is firm without further evidence of skin breakdown(L)6cm x (W)7.5cm. Unstageable pressure injury R heel. Base of wound necrotic and fluctuant in center with surrounding dry necrotic borders(L)5cm x (W)8.5cm. Tx.Plan: Apply Betadine to both heels and R lateral malleolus. Cover with Optifoam drsg. Change every 3 days and prn. Cleanse Sacral and L buttocks wounds with Saline. Apply TheraHoney to each wound. Apply Moisture Barrier Paste periwound. Cover with Optifoam drsg. Change every 3 days and prn. Apply Cavilon Skin Barrier to L trochanter/L hip. Cover with Optifoam drsgs. Changee very 7 days and prn. Reposition at least every 2hours or as tolerated. Off-load heels with pillow. APM/BO Mattress overlay. Patient presented with an infected sacral decubitus ulcer purulent drainage noted. Significant tissue loss. Will continue with local wound care at this time. Will need to discuss goals of care and care plan prior to any invasive surgical treatment Thank you for let me participate in patient's care (2) Abnormal LFTs Assessment & Plan: Patient with known history of liver cirrhosis. Currently on hospice care. LFT significantly elevated Coagulopathy Abnormal labs We will need to address goals of care with patient's [employer] and medical teams Repeat labs IV fluids Need to consider alternative nutritional intake if part of care plan We will follow with recommendations No acute surgical intervention planned The liver is enlarged measuring about 19 cm. The spleen is enlarged measuring about 13 to 14 cm. Doppler interrogation of the main portal vein shows patency with hepatopedal, monophasic flow. There is no biliary ductal dilatation identified. Gallbladder is absent. CBD is 4 mm. There is a cystic lesion measuring 3.6 cm near the inferior pole of the spleen. Part of the pancreas is obscured by bowel gas. There is trace ascites. Both kidneys appear unremarkable. There is no hydronephrosis. IMPRESSION: Hepatosplenomegaly. Trace ascites. Splenic cyst. Status post cholecystectomy Thank you for let me participate in patient's care Jamey Mazariegos Mar 25, 2019 15:49
[2019-03-25 16:00] VITALS: BP 133/93
--- NOTE | 2019-03-25 16:42 | NUR ---
*-* INSURANCE *-* ALL CLINICALS AND REVIEWS HAVE BEEN FAXED TO: [facility] ref# [id number] # [phone] fax# [phone]
[2019-03-25] MEDS: cefTRIAXone 2 GM in D5W 55 ML IVPB SCH (17:05)
--- NOTE | 2019-03-25 19:13 | General Progress Note ---
Assessment/Plan Status: deteriorating Assessment/Plan: S: deliriuos O: limited eval. seems comfortable, Foote with pigmentosus colored urine collection HYSICAL EXAMINATION:HEAD AND NECK: HEART: S1, S2. Regular rate and rhythm. ABDOMEN: Positive for fullness, ascitis cannot be excluded.MUSCULOSKELETAL: Positive for 2+ pitting edema in the lower extremities. NEUROLOGIC: The patient is Lethargic LABORATORY and Medication DATA: reviewed in the chart ASSESSMENT AND PLAN: 1. Acute Metabolic encephalopathy 2. Gram negative Sepsis: likely UTI 3. Anasarca. 2. Primary Billiary Cirrhosis. 3. Chronic pain. 4. HIV. 5. Hypertension. 6. Anemia. 7. Proteinuria. 8. GI and DVT prophylaxis. 9. DNR Plan; Notes from ID, Nephro, Critical care and Surgery services are reviewed [facility] [place] to Facility placement per family Worsening hepatitis. I will consult GI Subjective Allergies: Coded Allergies: No Known Allergies (Unverified , 12/04/18) Objective Last 24 Hour Vital Signs Date Time Temp Pulse Resp B/P (MAP) Pulse Ox O2 Delivery O2 Flow Rate FiO2 03/25/19 16:00 98.0 64 18 133/93 (106) 99 03/25/19 12:00 97.8 78 16 112/80 (91) 100 03/25/19 09:53 Room Air 03/25/19 08:00 97.6 74 16 116/83 (94) 97 03/25/19 04:00 98.2 84 16 118/79 (92) 96 03/25/19 00:00 98.7 119 20 139/81 (100) 96 03/24/19 21:00 Room Air 03/24/19 20:04 62 18 96 Room Air 21 03/24/19 20:00 99.3 128 20 123/82 (96) 96 Intake and Output 03/24/19 03/25/19 19:00 07:00 Intake Total 405 ml 575 ml Output Total 1400 ml 1600 ml Balance -995 ml -1025 ml Intake Oral 100 ml IV Total 305 ml 575 ml Output Urine Total 1400 ml 1600 ml Laboratory Tests 03/25/19 07:25: White Blood Count 16.0H, Red Blood Count 2.63L, Hemoglobin 9.5L, Hematocrit 27.4L, Mean Corpuscular Volume 104H, Mean Corpuscular Hemoglobin 36.2H, Mean Corpuscular Hemoglobin Concent 34.7, Red Cell Distribution Width 14.8, Platelet Count 184, Mean Platelet Volume 6.2L, Neutrophils (%) (Auto) , Lymphocytes (%) ( Auto) , Monocytes (%) (Auto) , Eosinophils (%) (Auto) , Basophils (%) (Auto) , Differential Total Cells Counted 100, Neutrophils % (Manual) 90H, Lymphocytes % (Manual) 7L, Monocytes % (Manual) 3, Eosinophils % (Manual) 0, Basophils % ( Manual) 0, Band Neutrophils 0, Platelet Estimate Adequate, Platelet Morphology Normal, Sodium Level 157H, Potassium Level 3.5, Chloride Level 124H, Carbon Dioxide Level 24, Anion Gap 9, Blood Urea Nitrogen 85H, Creatinine 2.0H, Estimat Glomerular Filtration Rate 42.3, Glucose Level 126#H, Uric Acid 8.9H, Calcium Level 8.6, Phosphorus Level 3.7, Magnesium Level 2.5H, Total Bilirubin 17.0H, Direct Bilirubin 13.9H, Aspartate Amino Transf (AST/SGOT) 336H, Alanine Aminotransferase (ALT/SGPT) 123H, Alkaline Phosphatase 1370H, C-Reactive Protein , Quantitative 13.7H, Pro-B-Type Natriuretic Peptide 2912H, Total Protein 8.1, Albumin 1.4L, Globulin 6.7, Albumin/Globulin Ratio 0.2L Height (Feet): 5 Height (Inches): 9.00 Weight (Pounds): 129 Nupur Juan MD Mar 25, 2019 19:13
--- NOTE | 2019-03-25 19:31 | NUR ---
HAND-OFF: Report given to PADDY Wilson.
[2019-03-25 20:00] VITALS: BP 118/81
--- NOTE | 2019-03-25 20:00 | NUR ---
NURSE NOTES: Received patient in bed, asleep, no acute distress noted, IV site is clean dry and intact, condom catheter is in place, secured, draining well. Call light is within reach, bed is lowered, locked, alarm is on. Will continue to monitor for comfort and safety.
[2019-03-26] VITALS: BP 131/91
[2019-03-26 04:00] VITALS: BP 130/92
[2019-03-26 06:49] LABS: HEMATOCRIT 26.7 % (42.0-52.0); HEMOGLOBIN 9.1 G/DL (14.2-18.0); MEAN CORPUSCULAR VOLUME 105 FL (80-99); PLATELET COUNT 167 K/UL (150-450); RED BLOOD COUNT 2.54 M/UL (4.70-6.10); RED CELL DISTRIBUTION WIDTH 14.5 % (11.6-14.8); WHITE BLOOD COUNT 20.5 K/UL (4.8-10.8)
--- NOTE | 2019-03-26 06:52 | NUR ---
HAND-OFF: Report given to Philippe THOMASON.
--- NOTE | 2019-03-26 07:00 | NUR ---
NURSE NOTES: Handoff received from PADDY Wilson. Patient received sleeping in bed, no acute signs of distress noted. Patient has condom cath patent and draining very dark brown urine-RN said MD is aware. Patient is on bilateral wrist restraints, bed in the low and locked position with call light on the bed in reach. Patient is DNR and DNI and has a left FA20g running D5w at 75ml/hour. will HOB elevated to 30 as patient is aspiration risk, will continue to monitor.
[2019-03-26 07:32] LABS: ALANINE AMINOTRANSFERASE 136 U/L (12-78); ALBUMIN 1.5 G/DL (3.4-5.0); ALBUMIN/GLOBULIN RATIO 0.2 (1.0-2.7); ALKALINE PHOSPHATASE 1394 U/L (46-116); AMMONIA 36 umol/L (11-32); ANION GAP 12 mmol/L (5-15); ASPARTATE AMINO TRANSFERASE 341 U/L (15-37); BILIRUBIN,TOTAL 18.4 MG/DL (0.2-1.0); BLOOD UREA NITROGEN 82 mg/dL (7-18); CALCIUM 9.2 MG/DL (8.5-10.1); CARBON DIOXIDE 23 MMOL/L (21-32); CHLORIDE 124 MMOL/L (98-107); CREATININE 1.8 MG/DL (0.55-1.30); PHOSPHORUS 3.5 MG/DL (2.5-4.9); POTASSIUM 3.3 MMOL/L (3.5-5.1); SODIUM 159 MMOL/L (136-145)
[2019-03-26 07:34] LABS: BILIRUBIN,DIRECT 15.2 MG/DL (0.0-0.3)
--- NOTE | 2019-03-26 08:25 | NUR ---
NURSE NOTES: Dr Nava ordered bolus of 500ml D5w and 40 MEQ's KCL.
[2019-03-26] MEDS: Tamsulosin 0.4mg cap ORAL SCH ×2 (08:34→09:00)
[2019-03-26] MEDS: Docusate 100mg cap ORAL SCH ×5 (08:34→18:00)
[2019-03-26 09:00] VITALS: BP 136/96
--- NOTE | 2019-03-26 09:04 | NUR ---
NURSE NOTES: Meds crushed and placed in apple sauce, attempted to administer to patient, Patient unable to swallow the applesauce, couched patient to swallow and patient stated "uh huh" but unable to follow command of swallowing. Used the spoon to remove the apple sauce from patients mouth to avoid aspirating medication. will notify MD.
--- NOTE | 2019-03-26 10:23 | NUR ---
NURSE NOTES: Contacted both Dr Nava and Dr Juan to notify them that patient cannot swallow the crushed meds in apple sauce, instead patient held meds in his mouth, expressed concern for aspiration. Dr Nava changed KCL order to IV. Dr Juan asked me to contact the DPOA the patient's brother to see if they maybe want a Gtube placed. Called patient family and asked if a g-tube for medication and nutrition would be something they were interested in considering. family stated that at this time they do not want to purse this option. Also notified Dr Juan that the patient is very weak and that I do not feel the restraints are required at this time. Dr Juan gave the okay to discontinue the restraints at this time.
--- NOTE | 2019-03-26 11:14 | Nephrology Progress Note ---
Assessment/Plan Problem List: (1) STEVE (acute kidney injury) (2) Anasarca (3) Pressure ulcer of sacrum (4) Jaundice Assessment Renal failure- Acute mainly Prerenal Sepsis Jaundice Infected decubitus ulcer Plan slow IV D5W Adjust meds add lactulose per order poor prognosis DC Lasix DC HCTZ DC Aldactone Vit K SQ DNR Subjective ROS Limited/Unobtainable: Yes Objective Objective Last 24 Hour Vital Signs Date Time Temp Pulse Resp B/P (MAP) Pulse Ox O2 Delivery O2 Flow Rate FiO2 03/26/19 09:00 97.3 92 32 136/96 (109) 100 03/26/19 08:35 Room Air 03/26/19 07:13 70 18 100 Room Air 21 03/26/19 04:00 97.5 73 20 130/92 (105) 98 03/26/19 00:00 97.3 77 20 131/91 (104) 98 03/25/19 21:18 Room Air 03/25/19 20:00 98.0 72 16 118/81 (93) 97 03/25/19 19:49 69 18 97 Room Air 21 03/25/19 16:00 98.0 64 18 133/93 (106) 99 03/25/19 12:00 97.8 78 16 112/80 (91) 100 Intake and Output 03/25/19 03/26/19 19:00 07:00 Intake Total 475 ml 450 ml Output Total 1200 ml Balance -725 ml 450 ml Intake Oral 100 ml IV Total 375 ml 450 ml Output Urine Total 1200 ml Current Medications Medications (Trade) Dose Ordered Sig/Lala Route PRN Reason Start Time Stop Time Status Last Admin Dose Admin Albuterol/ Ipratropium (Albuterol/ Ipratropium) 3 ml Q6H PRN HHN Shortness of Breath 03/22/19 18:30 03/27/19 18:29 Ceftriaxone Sodium 2 gm/ Dextrose 55 ml @ 110 mls/hr Q24H IVPB 03/25/19 16:00 04/01/19 15:59 03/25/19 17:05 Dextrose 1,000 ml @ 75 mls/hr [id number] IV 03/25/19 10:00 04/24/19 09:59 03/26/19 10:36 Docusate Sodium (Colace) 100 mg THREE TIMES A DAY ORAL 03/23/19 18:00 04/22/19 17:59 03/25/19 08:50 Folic Acid (Folate) 2 mg DAILY ORAL 03/23/19 15:00 04/22/19 14:59 03/25/19 08:50 Oxycodone/ Acetaminophen (Percocet 10/325) 1 tab QID PRN ORAL For Pain 03/22/19 07:15 03/29/19 07:14 03/25/19 06:46 Potassium Chloride 100 ml @ 100 mls/hr Q1H IVPB 03/26/19 10:15 03/26/19 14:14 03/26/19 10:37 Rifaximin (Xifaxan) 550 mg Q12H ORAL 03/22/19 09:00 03/29/19 08:59 03/25/19 20:57 Tamsulosin HCl (Flomax) 0.4 mg DAILY ORAL 03/22/19 09:00 04/21/19 08:59 03/25/19 08:50 Laboratory Tests 03/26/19 06:26: White Blood Count 20.5H, Red Blood Count 2.54L, Hemoglobin 9.1L, Hematocrit 26.7L, Mean Corpuscular Volume 105H, Mean Corpuscular Hemoglobin 35.7H, Mean Corpuscular Hemoglobin Concent 33.9, Red Cell Distribution Width 14.5, Platelet Count 167, Mean Platelet Volume 6.0L, Neutrophils (%) (Auto) , Lymphocytes (%) ( Auto) , Monocytes (%) (Auto) , Eosinophils (%) (Auto) , Basophils (%) (Auto) , Differential Total Cells Counted 100, Neutrophils % (Manual) 86H, Lymphocytes % (Manual) 10L, Monocytes % (Manual) 4, Eosinophils % (Manual) 0, Basophils % ( Manual) 0, Band Neutrophils 0, Platelet Estimate Adequate, Platelet Morphology Normal, Hypochromasia 1+, Anisocytosis 1+, Macrocytosis 1+, Sodium Level 159H, Potassium Level 3.3L, Chloride Level 124H, Carbon Dioxide Level 23, Anion Gap 12 , Blood Urea Nitrogen 82H, Creatinine 1.8H, Estimat Glomerular Filtration Rate 47.8, Glucose Level 125H, Uric Acid 8.0H, Calcium Level 9.2, Phosphorus Level 3.5, Magnesium Level 2.4, Total Bilirubin 18.4H, Direct Bilirubin 15.2H, Aspartate Amino Transf (AST/SGOT) 341H, Alanine Aminotransferase (ALT/SGPT) 136H , Alkaline Phosphatase 1394H, Ammonia 36H, C-Reactive Protein, Quantitative 11.4H, Pro-B-Type Natriuretic Peptide 1589H, Total Protein 8.3H, Albumin 1.5L, Globulin 6.8, Albumin/Globulin Ratio 0.2L Height (Feet): 5 Height (Inches): 9.00 Weight (Pounds): 129 General Appearance: no apparent distress, lethargic Cardiovascular: tachycardia Respiratory/Chest: decreased breath sounds Abdomen: distended Objective no other change José Miguel Nava MD Mar 26, 2019 11:14
[2019-03-26 12:00] VITALS: BP 122/91
--- NOTE | 2019-03-26 12:07 | NUR ---
RD ASSESSMENT & RECOMMENDATIONS SEE CARE ACTIVITY FOR COMPLETE ASSESSMENT DAILY ESTIMATED NEEDS: Needs based on Liver, wasting, wound, 69kg 30-40 kcals/kg 4483-8044 total kcals 1.25-2 g protein/kg 86-138 g total protein 25-35 mL/kg 3908-5811 total fluid mLs NUTRITION DIAGNOSIS: Increased kcal and pro needs r/t wound healing as evidenced by infected sacral wound, moderate to severe wasting, h/o liver cirrhosis. CURRENT DIET:Regular puree NTL + Nepro TID PO DIET RECOMMENDATIONS: Liberalized regular diet. Texture per [employer] ENTERAL NUTRITION RECOMMENDATIONS: * CONSULT RD IF NON ORAL FEEDS ARE PART OF POC * ADDITIONAL RECOMMENDATIONS: 1) [employer] eval for oral diet - now on puree w/ poor intake 2) Add NEPRO TID w/ meals 3) Wound care: w/ diet order add ANI BID + MVI x1 qd + Vit C 500mg BID 4) RE-calibrate bed scale w/ added P200 mattress. 5) Rec temporary non oral feeds (NGT feeds) if part of POC. Poor po intake
[2019-03-26] MEDS: Lactulose 20gm/30ml UDC ORAL SCH ×3 (12:14→18:00)
--- NOTE | 2019-03-26 12:14 | NUR ---
NURSE NOTES: Patient has visitor at bedside, visitor able to get patient to take small spoonfuls of Nepro. Administered Cephulac and colace whilst visitor was in the room as he was more apt and getting the patient to swallow.
--- NOTE | 2019-03-26 12:15 | Surgery Progress Note ---
Surgery Progress Note Subjective Additional Comments leukocytosis continues to decompensate lft's worse Objective Last 24 Hour Vital Signs Date Time Temp Pulse Resp B/P (MAP) Pulse Ox O2 Delivery O2 Flow Rate FiO2 03/26/19 09:00 97.3 92 32 136/96 (109) 100 03/26/19 08:35 Room Air 03/26/19 07:13 70 18 100 Room Air 21 03/26/19 04:00 97.5 73 20 130/92 (105) 98 03/26/19 00:00 97.3 77 20 131/91 (104) 98 03/25/19 21:18 Room Air 03/25/19 20:00 98.0 72 16 118/81 (93) 97 03/25/19 19:49 69 18 97 Room Air 21 03/25/19 16:00 98.0 64 18 133/93 (106) 99 I&O Intake and Output 03/25/19 03/26/19 19:00 07:00 Intake Total 475 ml 450 ml Output Total 1200 ml Balance -725 ml 450 ml Intake Oral 100 ml IV Total 375 ml 450 ml Output Urine Total 1200 ml Dressing: other Wound: other Drains: other Cardiovascular: RSR Respiratory: decreased breath sounds Abdomen: soft, present bowel sounds, other Extremities: no tenderness, no cyanosis, other Laboratory Tests Test 03/26/19 06:26 White Blood Count 20.5 K/UL (4.8-10.8) H Red Blood Count 2.54 M/UL (4.70-6.10) L Hemoglobin 9.1 G/DL (14.2-18.0) L Hematocrit 26.7 % (42.0-52.0) L Mean Corpuscular Volume 105 FL (80-99) H Mean Corpuscular Hemoglobin 35.7 PG (27.0-31.0) H Mean Corpuscular Hemoglobin Concent 33.9 G/DL (32.0-36.0) Red Cell Distribution Width 14.5 % (11.6-14.8) Platelet Count 167 K/UL (150-450) Mean Platelet Volume 6.0 FL (6.5-10.1) L Neutrophils (%) (Auto) % (45.0-75.0) Lymphocytes (%) (Auto) % (20.0-45.0) Monocytes (%) (Auto) % (1.0-10.0) Eosinophils (%) (Auto) % (0.0-3.0) Basophils (%) (Auto) % (0.0-2.0) Differential Total Cells Counted 100 Neutrophils % (Manual) 86 % (45-75) H Lymphocytes % (Manual) 10 % (20-45) L Monocytes % (Manual) 4 % (1-10) Eosinophils % (Manual) 0 % (0-3) Basophils % (Manual) 0 % (0-2) Band Neutrophils 0 % (0-8) Platelet Estimate Adequate Platelet Morphology Normal Hypochromasia 1+ Anisocytosis 1+ Macrocytosis 1+ Sodium Level 159 MMOL/L (136-145) H Potassium Level 3.3 MMOL/L (3.5-5.1) L Chloride Level 124 MMOL/L (98-107) H Carbon Dioxide Level 23 MMOL/L (21-32) Anion Gap 12 mmol/L (5-15) Blood Urea Nitrogen 82 mg/dL (7-18) H Creatinine 1.8 MG/DL (0.55-1.30) H Estimat Glomerular Filtration Rate 47.8 mL/min (>60) Glucose Level 125 MG/DL (74-106) H Uric Acid 8.0 MG/DL (2.6-7.2) H Calcium Level 9.2 MG/DL (8.5-10.1) Phosphorus Level 3.5 MG/DL (2.5-4.9) Magnesium Level 2.4 MG/DL (1.8-2.4) Total Bilirubin 18.4 MG/DL (0.2-1.0) H Direct Bilirubin 15.2 MG/DL (0.0-0.3) H Aspartate Amino Transf (AST/SGOT) 341 U/L (15-37) H Alanine Aminotransferase (ALT/SGPT) 136 U/L (12-78) H Alkaline Phosphatase 1394 U/L (46-116) H Ammonia 36 umol/L (11-32) H C-Reactive Protein, Quantitative 11.4 mg/dL (0.00-0.90) H Pro-B-Type Natriuretic Peptide 1589 pg/mL (0-125) H Total Protein 8.3 G/DL (6.4-8.2) H Albumin 1.5 G/DL (3.4-5.0) L Globulin 6.8 g/dL Albumin/Globulin Ratio 0.2 (1.0-2.7) L Plan Problems: (1) Infected decubitus ulcer Assessment & Plan: Pt presented on admission with multiple pressure injuries. Full thickness stage 4 Sacral pressure injury. Base of wound beefy red with scattered slough. (L)5cm x (W)4.5cm.Bone is palpable at base of wound . Borders are black and fluctuant.Periwound is erythematous. Small amt haemopurulent exudate noted. In addition pt noted to have a second small wound L buttocks , but within close proximity to sacrum. Base of wound has 100% slough (L)0.5cm x ( W)0.6cm. Reabsorbing DTPI L trochanter (L)9cmx (W)2cm.Wound is elongated. Base of wound is purple with black striations and is indurated.Periwound is erythematous without elevation in skin temp. Second DTPI noted to L hip . Base of wound is maroon with red borders.(L)1.6cm x (W)2cm. Partially opened DTPI medial L tibia. Proximally,base of wound is pink with small amt slough with small amt brown exudate. Distally base of of wound is necrotic but soft. (L)12.6cm x (W)3cm. Partially opened DTPI medial R tibia. Base of wound with small amt slough, surrounding base of wound beefy red with loose black skin flap. Small amt serous exudate noted. No odor noted.(L)7cm x (W)2cm. DTPI noted top lateral R malleolus. Base of wound is maroon and indurated with marginal erythema(L)1.5cm x (W)2.5cm. L heel is necrotic but dry.Periwound is firm without further evidence of skin breakdown(L)6cm x (W)7.5cm. Unstageable pressure injury R heel. Base of wound necrotic and fluctuant in center with surrounding dry necrotic borders(L)5cm x (W)8.5cm. Tx.Plan: Apply Betadine to both heels and R lateral malleolus. Cover with Optifoam drsg. Change every 3 days and prn. Cleanse Sacral and L buttocks wounds with Saline. Apply TheraHoney to each wound. Apply Moisture Barrier Paste periwound. Cover with Optifoam drsg. Change every 3 days and prn. Apply Cavilon Skin Barrier to L trochanter/L hip. Cover with Optifoam drsgs. Changee very 7 days and prn. Reposition at least every 2hours or as tolerated. Off-load heels with pillow. APM/BO Mattress overlay. Patient presented with an infected sacral decubitus ulcer purulent drainage noted. Significant tissue loss. Will continue with local wound care at this time. Will need to discuss goals of care and care plan prior to any invasive surgical treatment Thank you for let me participate in patient's care (2) Abnormal LFTs Assessment & Plan: Patient with known history of liver cirrhosis. Currently on hospice care. 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 The spleen is enlarged measuring about 13 to 14 cm. Doppler interrogation of the main portal vein shows patency with hepatopedal, monophasic flow. There is no biliary ductal dilatation identified. Gallbladder is absent. CBD is 4 mm. There is a cystic lesion measuring 3.6 cm near the inferior pole of the spleen. Part of the pancreas is obscured by bowel gas. There is trace ascites. Both kidneys appear unremarkable. There is no hydronephrosis. IMPRESSION: Hepatosplenomegaly. Trace ascites. Splenic cyst. Status post cholecystectomy Thank you for let me participate in patient's care Jamey Mazariegos Mar 26, 2019 12:15
--- NOTE | 2019-03-26 12:21 | NUR ---
CASE MANAGEMENT:REVIEW SI;AC METABOLIC ENCEPHALOPATHY. SEPSIS. 97.2 92 32 136/96 98% ON RA WBC 20.5 H/H 9.1/26.7 NA 159 K+ 3.3 BUN 82 CR 1.8 UR AC 8 T-BILI 18.4 AST 341 ALT 136 BNP 1589 IS;K-DUR PO ROCEPHIN IV Q24 HRS DUO NEB HHN Q6 HRS PRN IVF D5 @ 75 ML/HR MED SURG STATUS DCP;SNF PLACEMENT
[2019-03-26] MEDS: Hydromorphone 0.5mg/0.5ml inj IVP PRN ×2 (12:40→18:46)
--- NOTE | 2019-03-26 12:50 | General Progress Note ---
Assessment/Plan Problem List: (1) Jaundice ICD Codes: R17 - Unspecified jaundice SNOMED: 32559207 (2) Pressure ulcer of sacrum ICD Codes: L89.159 - Pressure ulcer of sacral region, unspecified stage SNOMED: 096022045 (3) Sepsis ICD Codes: A41.9 - Sepsis, unspecified organism SNOMED: 21976271, 9231561 Qualifiers: Qualified Codes: A41.9 - Sepsis, unspecified organism (4) Abnormal LFTs ICD Codes: R94.5 - Abnormal results of liver function studies SNOMED: 035954796 (5) HIV (human immunodeficiency virus infection) ICD Codes: B20 - Human immunodeficiency virus [HIV] disease SNOMED: 32717228 (6) Cellulitis of leg ICD Codes: L03.119 - Cellulitis of unspecified part of limb SNOMED: 519825356 (7) Hepatomegaly ICD Codes: R16.0 - Hepatomegaly, not elsewhere classified SNOMED: 15341770 Status: deteriorating Assessment/Plan: h/o gastric bypass anemia hypernatremia leukocytosis RI cirrhosis HIV replace folate actigal 300 BID LDH MRI of the liver Subjective ROS Limited/Unobtainable: No Allergies: Coded Allergies: No Known Allergies (Unverified , 12/04/18) Objective Last 24 Hour Vital Signs Date Time Temp Pulse Resp B/P (MAP) Pulse Ox O2 Delivery O2 Flow Rate FiO2 03/26/19 12:00 97.2 87 32 122/91 (101) 100 03/26/19 09:00 97.3 92 32 136/96 (109) 100 03/26/19 08:35 Room Air 03/26/19 07:13 70 18 100 Room Air 03/26/19 04:00 97.5 73 20 130/92 (105) 98 03/26/19 00:00 97.3 77 20 131/91 (104) 98 03/25/19 21:18 Room Air 03/25/19 20:00 98.0 72 16 118/81 (93) 97 03/25/19 19:49 69 18 97 Room Air 21 03/25/19 16:00 98.0 64 18 133/93 (106) 99 Intake and Output 03/25/19 03/26/19 19:00 07:00 Intake Total 475 ml 450 ml Output Total 1200 ml Balance -725 ml 450 ml Intake Oral 100 ml IV Total 375 ml 450 ml Output Urine Total 1200 ml Laboratory Tests 03/26/19 06:26: White Blood Count 20.5H, Red Blood Count 2.54L, Hemoglobin 9.1L, Hematocrit 26.7L, Mean Corpuscular Volume 105H, Mean Corpuscular Hemoglobin 35.7H, Mean Corpuscular Hemoglobin Concent 33.9, Red Cell Distribution Width 14.5, Platelet Count 167, Mean Platelet Volume 6.0L, Neutrophils (%) (Auto) , Lymphocytes (%) ( Auto) , Monocytes (%) (Auto) , Eosinophils (%) (Auto) , Basophils (%) (Auto) , Differential Total Cells Counted 100, Neutrophils % (Manual) 86H, Lymphocytes % (Manual) 10L, Monocytes % (Manual) 4, Eosinophils % (Manual) 0, Basophils % ( Manual) 0, Band Neutrophils 0, Platelet Estimate Adequate, Platelet Morphology Normal, Hypochromasia 1+, Anisocytosis 1+, Macrocytosis 1+, Sodium Level 159H, Potassium Level 3.3L, Chloride Level 124H, Carbon Dioxide Level 23, Anion Gap 12 , Blood Urea Nitrogen 82H, Creatinine 1.8H, Estimat Glomerular Filtration Rate 47.8, Glucose Level 125H, Uric Acid 8.0H, Calcium Level 9.2, Phosphorus Level 3.5, Magnesium Level 2.4, Total Bilirubin 18.4H, Direct Bilirubin 15.2H, Aspartate Amino Transf (AST/SGOT) 341H, Alanine Aminotransferase (ALT/SGPT) 136H , Alkaline Phosphatase 1394H, Ammonia 36H, C-Reactive Protein, Quantitative 11.4H, Pro-B-Type Natriuretic Peptide 1589H, Total Protein 8.3H, Albumin 1.5L, Globulin 6.8, Albumin/Globulin Ratio 0.2L Height (Feet): 5 Height (Inches): 9.00 Weight (Pounds): 129 General Appearance: lethargic EENT: normal ENT inspection Neck: supple Cardiovascular: normal rate Respiratory/Chest: decreased breath sounds Abdomen: normal bowel sounds, non tender, soft Extremities: non-tender Amauri Lopez MD Mar 26, 2019 12:50
--- NOTE | 2019-03-26 12:59 | NUR ---
NURSE NOTES: Patient verbalized to visitor that he was in pain. Assessed patient's pain but patient answering yes or no questions. Asked patient if his pain was above a 7 out of 10 patient stated yes. Patient unable to point to or verbalize where he is having pain. Administered pain medication per protocol.
--- NOTE | 2019-03-26 13:51 | Infectious Diseases Prog Note ---
Assessment/Plan Problems: (1) UTI (urinary tract infection) Assessment & Plan: with E coli pansensitive , on ceftriaxone to cover for sepsis too due to E coli for two weeks total. repeated blood culture on 03/24 is positive , source possible sacral osteomyelitis ? no aggressive measures , since he is on hospice care (2) Sepsis Assessment & Plan: due to E coli , with persistent leukocytosis , source most likely is his UTI and possibly sacral osteomyelitis since his repeated blood culture is still positive and he is immunocompromised with HIV . continue ceftriaxone for two weeks course of treatment . will repeat another set of blood culture today (3) Pressure ulcer of sacrum Assessment & Plan: with minimal sloughing and draining of bloody fluids, continue off loading and local wound care as per hospital protocol (4) STEVE (acute kidney injury) Assessment & Plan: advanced with uremia , suspect dehydration, needs aggressive hydration, renal is following (5) HIV (human immunodeficiency virus infection) Assessment & Plan: unclear whether he is taking any meds now since he is on hospice care (6) Encephalopathy acute Assessment & Plan: suspect metabolic due to uremia and hepatic related , renal is following (7) Cellulitis of sacral region Assessment & Plan: now on ceftriaxone , continue local wound care and off loading as per hospital protocol, wound care team is following Subjective ROS Limited/Unobtainable: Yes Allergies: Coded Allergies: No Known Allergies (Unverified , 12/04/18) Subjective He was altered, and lethargic, minimally responsive to verbal commands , lying in bed, doesn't follow commands well , no oral intake, urine dark and dense , no fever or chills, no cough or SOB, no diarrhea Objective Vital Signs Last 24 Hour Vital Signs Date Time Temp Pulse Resp B/P (MAP) Pulse Ox O2 Delivery O2 Flow Rate FiO2 03/26/19 12:00 97.2 87 32 122/91 (101) 100 03/26/19 09:00 97.3 92 32 136/96 (109) 100 03/26/19 08:35 Room Air 03/26/19 07:13 70 18 100 Room Air 21 03/26/19 04:00 97.5 73 20 130/92 (105) 98 03/26/19 00:00 97.3 77 20 131/91 (104) 98 03/25/19 21:18 Room Air 03/25/19 20:00 98.0 72 16 118/81 (93) 97 03/25/19 19:49 69 18 97 Room Air 21 03/25/19 16:00 98.0 64 18 133/93 (106) 99 Height (Feet): 5 Height (Inches): 9.00 Weight (Pounds): 129 General Appearance: no acute distress, cachetic, other - lethargic HEENT: normocephalic, atraumatic, anicteric, mucous membranes moist, PERRL Respiratory/Chest: chest wall non-tender, lungs clear, normal breath sounds, no respiratory distress, no accessory muscle use Cardiovascular: normal peripheral pulses, normal rate, regular rhythm, no gallop/murmur, no JVD Abdomen: soft, non tender, no organomegaly, non distended, no mass, no scars, hypoactive bowel sounds Extremities: no cyanosis, no clubbing Skin: no rash, no lesions, ulcers Neurologic/Psychiatric: unresponsiveness Lymphatic: no neck adenopathy, no groin adenopathy Microbiology Date/Time Source Procedure Growth Status 03/24/19 14:35 Blood Blood Culture - Preliminary NO GROWTH AFTER 24 HOURS Resulted 03/24/19 14:30 Blood Blood Culture - Preliminary Gram Negative Bacillus 1 Resulted Laboratory Tests Test 03/26/19 06:26 White Blood Count 20.5 K/UL (4.8-10.8) H Red Blood Count 2.54 M/UL (4.70-6.10) L Hemoglobin 9.1 G/DL (14.2-18.0) L Hematocrit 26.7 % (42.0-52.0) L Mean Corpuscular Volume 105 FL (80-99) H Mean Corpuscular Hemoglobin 35.7 PG (27.0-31.0) H Mean Corpuscular Hemoglobin Concent 33.9 G/DL (32.0-36.0) Red Cell Distribution Width 14.5 % (11.6-14.8) Platelet Count 167 K/UL (150-450) Mean Platelet Volume 6.0 FL (6.5-10.1) L Neutrophils (%) (Auto) % (45.0-75.0) Lymphocytes (%) (Auto) % (20.0-45.0) Monocytes (%) (Auto) % (1.0-10.0) Eosinophils (%) (Auto) % (0.0-3.0) Basophils (%) (Auto) % (0.0-2.0) Differential Total Cells Counted 100 Neutrophils % (Manual) 86 % (45-75) H Lymphocytes % (Manual) 10 % (20-45) L Monocytes % (Manual) 4 % (1-10) Eosinophils % (Manual) 0 % (0-3) Basophils % (Manual) 0 % (0-2) Band Neutrophils 0 % (0-8) Platelet Estimate Adequate Platelet Morphology Normal Hypochromasia 1+ Anisocytosis 1+ Macrocytosis 1+ Sodium Level 159 MMOL/L (136-145) H Potassium Level 3.3 MMOL/L (3.5-5.1) L Chloride Level 124 MMOL/L (98-107) H Carbon Dioxide Level 23 MMOL/L (21-32) Anion Gap 12 mmol/L (5-15) Blood Urea Nitrogen 82 mg/dL (7-18) H Creatinine 1.8 MG/DL (0.55-1.30) H Estimat Glomerular Filtration Rate 47.8 mL/min (>60) Glucose Level 125 MG/DL (74-106) H Uric Acid 8.0 MG/DL (2.6-7.2) H Calcium Level 9.2 MG/DL (8.5-10.1) Phosphorus Level 3.5 MG/DL (2.5-4.9) Magnesium Level 2.4 MG/DL (1.8-2.4) Total Bilirubin 18.4 MG/DL (0.2-1.0) H Direct Bilirubin 15.2 MG/DL (0.0-0.3) H Aspartate Amino Transf (AST/SGOT) 341 U/L (15-37) H Alanine Aminotransferase (ALT/SGPT) 136 U/L (12-78) H Alkaline Phosphatase 1394 U/L (46-116) H Ammonia 36 umol/L (11-32) H C-Reactive Protein, Quantitative 11.4 mg/dL (0.00-0.90) H Pro-B-Type Natriuretic Peptide 1589 pg/mL (0-125) H Total Protein 8.3 G/DL (6.4-8.2) H Albumin 1.5 G/DL (3.4-5.0) L Globulin 6.8 g/dL Albumin/Globulin Ratio 0.2 (1.0-2.7) L Current Medications Medications (Trade) Dose Ordered Sig/Lala Route PRN Reason Start Time Stop Time Status Last Admin Dose Admin Albuterol/ Ipratropium (Albuterol/ Ipratropium) 3 ml Q6H PRN HHN Shortness of Breath 03/22/19 18:30 03/27/19 18:29 Ceftriaxone Sodium 2 gm/ Dextrose 55 ml @ 110 mls/hr Q24H IVPB 03/25/19 16:00 04/01/19 15:59 03/25/19 17:05 Dextrose 1,000 ml @ 75 mls/hr [id number] IV 03/25/19 10:00 04/24/19 09:59 03/26/19 10:36 Docusate Sodium (Colace) 100 mg THREE TIMES A DAY ORAL 03/23/19 18:00 04/22/19 17:59 03/26/19 12:14 Folic Acid (Folate) 1 mg DAILY ORAL 03/27/19 09:00 04/26/19 08:59 Hydromorphone HCl (Dilaudid) 0.5 mg Q6H PRN IVP PAIN 4-10 03/26/19 11:15 04/02/19 11:14 03/26/19 12:40 Lactulose (Cephulac) 20 gm THREE TIMES A DAY ORAL 03/26/19 13:00 04/25/19 12:59 03/26/19 12:14 Pantoprazole (Protonix) 40 mg EVERY 12 HOURS IVP 03/26/19 21:00 04/25/19 20:59 Potassium Chloride 100 ml @ 100 mls/hr Q1H IVPB 03/26/19 10:15 03/26/19 14:14 03/26/19 12:11 Rifaximin (Xifaxan) 550 mg Q12H ORAL 03/22/19 09:00 03/29/19 08:59 03/25/19 20:57 Tamsulosin HCl (Flomax) 0.4 mg DAILY ORAL 03/22/19 09:00 04/21/19 08:59 03/25/19 08:50 Ursodiol (Actigall) 300 mg TWICE A DAY ORAL 03/26/19 18:00 04/25/19 17:59 Cedrick Vu M.D. Mar 26, 2019 13:51
--- NOTE | 2019-03-26 13:54 | NUR ---
*-* INSURANCE *-* ALL CLINICALS AND REVIEWS HAVE BEEN FAXED TO: [facility] ref# [id number] # [phone] fax# [phone]
[2019-03-26 16:00] VITALS: BP 97/59
[2019-03-26] MEDS ORDERED: Gadavist 7.5mMol/7.5ml vial IV PRN (16:04)
--- NOTE | 2019-03-26 17:32 | NUR ---
NURSE NOTES: Last dose of potassium 10MEQ fell of the chart. ordered one more bag of potassium chloride, as original order from [facility] was for a total of 40MEQ's.
[2019-03-26] MEDS: Ursodiol 300mg cap ORAL SCH ×2 (17:50→18:00)
[2019-03-26] MEDS: cefTRIAXone 2 GM in D5W 55 ML IVPB SCH (17:50)
--- NOTE | 2019-03-26 18:11 | NUR ---
NURSE NOTES: Non-administered PO medications as patient unable to swallow. patient is drowsy and is not swallowing apple sauce or Nepro, patient holding in his mouth, patient at risk for aspiration.
--- NOTE | 2019-03-26 18:29 | Pulmonology Progress Note ---
Assessment/Plan Problems: (1) Sepsis (2) UTI (urinary tract infection) (3) Cellulitis of leg (4) STEVE (acute kidney injury) (5) Abnormal LFTs (6) HIV (human immunodeficiency virus infection) (7) Jaundice (8) Pressure ulcer of sacrum (9) Encephalopathy acute Assessment/Plan Abx per ID, F/U Cx's Monitor volumes, mIVF, replete free water PO for pleasure when alert, TF"s not within GOC Supportive care Dispo planning back to facility ? on hospice, consider ethics eval Subjective Allergies: Coded Allergies: No Known Allergies (Unverified , 12/04/18) Subjective AFVSS on RA WCT inc LFT inc Cr better Na 159 obtunded No SOB no cough no distress Objective Last 24 Hour Vital Signs Date Time Temp Pulse Resp B/P (MAP) Pulse Ox O2 Delivery O2 Flow Rate FiO2 03/26/19 16:00 97.9 108 36 97/59 (72) 96 03/26/19 12:00 97.2 87 32 122/91 (101) 100 03/26/19 09:00 97.3 92 32 136/96 (109) 100 03/26/19 08:35 Room Air 03/26/19 07:13 70 18 100 Room Air 21 03/26/19 04:00 97.5 73 20 130/92 (105) 98 03/26/19 00:00 97.3 77 20 131/91 (104) 98 03/25/19 21:18 Room Air 03/25/19 20:00 98.0 72 16 118/81 (93) 97 03/25/19 19:49 69 18 97 Room Air 21 Intake and Output 03/25/19 03/26/19 19:00 07:00 Intake Total 475 ml 450 ml Output Total 1200 ml Balance -725 ml 450 ml Intake Oral 100 ml IV Total 375 ml 450 ml Output Urine Total 1200 ml General Appearance: other - obtunded HEENT: normocephalic, atraumatic Respiratory/Chest: lungs clear Cardiovascular: normal peripheral pulses, normal rate, regular rhythm Abdomen: normal bowel sounds, soft, non tender, no organomegaly, non distended , no mass Extremities: no cyanosis, no clubbing, no edema Microbiology Date/Time Source Procedure Growth Status 03/24/19 14:35 Blood Blood Culture - Preliminary NO GROWTH AFTER 24 HOURS Resulted 03/24/19 14:30 Blood Blood Culture - Preliminary Gram Negative Bacillus 1 Resulted Laboratory Tests 03/26/19 06:26: White Blood Count 20.5H, Red Blood Count 2.54L, Hemoglobin 9.1L, Hematocrit 26.7L, Mean Corpuscular Volume 105H, Mean Corpuscular Hemoglobin 35.7H, Mean Corpuscular Hemoglobin Concent 33.9, Red Cell Distribution Width 14.5, Platelet Count 167, Mean Platelet Volume 6.0L, Neutrophils (%) (Auto) , Lymphocytes (%) ( Auto) , Monocytes (%) (Auto) , Eosinophils (%) (Auto) , Basophils (%) (Auto) , Differential Total Cells Counted 100, Neutrophils % (Manual) 86H, Lymphocytes % (Manual) 10L, Monocytes % (Manual) 4, Eosinophils % (Manual) 0, Basophils % ( Manual) 0, Band Neutrophils 0, Platelet Estimate Adequate, Platelet Morphology Normal, Hypochromasia 1+, Anisocytosis 1+, Macrocytosis 1+, Sodium Level 159H, Potassium Level 3.3L, Chloride Level 124H, Carbon Dioxide Level 23, Anion Gap 12 , Blood Urea Nitrogen 82H, Creatinine 1.8H, Estimat Glomerular Filtration Rate 47.8, Glucose Level 125H, Uric Acid 8.0H, Calcium Level 9.2, Phosphorus Level 3.5, Magnesium Level 2.4, Total Bilirubin 18.4H, Direct Bilirubin 15.2H, Aspartate Amino Transf (AST/SGOT) 341H, Alanine Aminotransferase (ALT/SGPT) 136H , Alkaline Phosphatase 1394H, Ammonia 36H, C-Reactive Protein, Quantitative 11.4H, Pro-B-Type Natriuretic Peptide 1589H, Total Protein 8.3H, Albumin 1.5L, Globulin 6.8, Albumin/Globulin Ratio 0.2L Current Medications Medications (Trade) Dose Ordered Sig/Lala Route PRN Reason Start Time Stop Time Status Last Admin Dose Admin Albuterol/ Ipratropium (Albuterol/ Ipratropium) 3 ml Q6H PRN HHN Shortness of Breath 03/22/19 18:30 03/27/19 18:29 Ceftriaxone Sodium 2 gm/ Dextrose 55 ml @ 110 mls/hr Q24H IVPB 03/25/19 16:00 04/01/19 15:59 03/26/19 17:50 Dextrose 1,000 ml @ 75 mls/hr [id number] IV 03/25/19 10:00 04/24/19 09:59 03/26/19 10:36 Docusate Sodium (Colace) 100 mg THREE TIMES A DAY ORAL 03/23/19 18:00 04/22/19 17:59 03/26/19 12:14 Folic Acid (Folate) 1 mg DAILY ORAL 03/27/19 09:00 04/26/19 08:59 Gadobutrol (Gadavist) 7.5 mmol ONCE PRN IV radiology 03/26/19 16:04 03/27/19 23:59 Hydromorphone HCl (Dilaudid) 0.5 mg Q6H PRN IVP PAIN 4-10 03/26/19 11:15 04/02/19 11:14 03/26/19 12:40 Lactulose (Cephulac) 20 gm THREE TIMES A DAY ORAL 03/26/19 13:00 04/25/19 12:59 03/26/19 12:14 Pantoprazole (Protonix) 40 mg EVERY 12 HOURS IVP 03/26/19 21:00 04/25/19 20:59 Potassium Chloride 100 ml @ 100 mls/hr NOW ONCE IVPB 03/26/19 17:33 03/26/19 18:32 Rifaximin (Xifaxan) 550 mg Q12H ORAL 03/22/19 09:00 03/29/19 08:59 03/25/19 20:57 Tamsulosin HCl (Flomax) 0.4 mg DAILY ORAL 03/22/19 09:00 04/21/19 08:59 03/25/19 08:50 Ursodiol (Actigall) 300 mg TWICE A DAY ORAL 03/26/19 18:00 04/25/19 17:59 Jarrell Lemos MD Mar 26, 2019 18:29
--- NOTE | 2019-03-26 19:10 | NUR ---
NURSE NOTES: Pt received in bed asleep, head of bed elevated, carwtright catheter in place, IV fluids running, heater at bedside, pt on P200 mattress, will continue to monitor.
--- NOTE | 2019-03-26 19:18 | Diagnostic Imaging Report ---
EXAM: MR Abdomen Without and With Intravenous Contrast CLINICAL HISTORY: ABD PAIN TECHNIQUE: Multiplanar magnetic resonance images of the abdomen without and with intravenous contrast. COMPARISON: No relevant prior studies available. FINDINGS: Lung bases: Appears to be some atelectasis in the lung bases bilaterally. Liver: There is hepatomegaly. There appears to be some areas of fatty infiltration. There is no focal enhancing mass noted. Gallbladder and bile ducts: Gallbladder surgically absent. Surgical clips are noted in the gallbladder fossa small areas of magnetic susceptibility artifact. There is motion degradation of the MRCP is a portion of the study but no persistent filling defects demonstrated to suggest common duct stone Pancreas: Unremarkable. No ductal dilation. No mass. Spleen: Unremarkable. No splenomegaly. No evidence for a splenic cyst or mass Adrenals: Unremarkable. No mass. Kidneys and ureters: Unremarkable. No hydronephrosis. No solid mass. Stomach and bowel: Unremarkable as some colonic distention noted. Intraperitoneal space: Minimal ascites Soft tissues: Unremarkable. Vasculature: Unremarkable. No abdominal aortic aneurysm. Lymph nodes: Unremarkable. No enlarged lymph nodes. IMPRESSION: Minimal ascites. Surgical absence of the gallbladder. No significant intrahepatic or extrahepatic ductal dilatation. No focal hepatic mass pancreatic mass or splenic mass identified.
--- NOTE | 2019-03-26 19:28 | NUR ---
HAND-OFF: Report given to PADDY Mcgee.
--- NOTE | 2019-03-26 19:47 | NUR ---
NURSE NOTES: Pt brother called stating he does not want pt to have a gtube, will notify MD.
[2019-03-26 20:00] VITALS: BP 98/64
--- NOTE | 2019-03-26 20:15 | NUR ---
NURSE NOTES:] MD Juan made aware that pt brother does not want Gtube, no new orders.
[2019-03-26] MEDS: Pantoprazole Inj IVP SCH (20:42)
[2019-03-27] VITALS: BP 83/55
[2019-03-27 04:00] VITALS: BP 92/52
[2019-03-27 06:11] LABS: HEMATOCRIT 24.2 % (42.0-52.0); HEMOGLOBIN 8.3 G/DL (14.2-18.0); MEAN CORPUSCULAR VOLUME 107 FL (80-99); PLATELET COUNT 161 K/UL (150-450); RED BLOOD COUNT 2.27 M/UL (4.70-6.10); RED CELL DISTRIBUTION WIDTH 14.8 % (11.6-14.8)
--- NOTE | 2019-03-27 06:15 | NUR ---
NURSE NOTES: Pt wbcs 24.9
[2019-03-27 06:16] LABS: WHITE BLOOD COUNT 24.9 K/UL (4.8-10.8)
--- NOTE | 2019-03-27 06:26 | General Progress Note ---
Assessment/Plan Problem List: (1) Jaundice ICD Codes: R17 - Unspecified jaundice SNOMED: 15645278 (2) Pressure ulcer of sacrum ICD Codes: L89.159 - Pressure ulcer of sacral region, unspecified stage SNOMED: 819989151 (3) Sepsis ICD Codes: A41.9 - Sepsis, unspecified organism SNOMED: 10425887, 0884291 Qualifiers: Qualified Codes: A41.9 - Sepsis, unspecified organism (4) Abnormal LFTs ICD Codes: R94.5 - Abnormal results of liver function studies SNOMED: 621907127 (5) HIV (human immunodeficiency virus infection) ICD Codes: B20 - Human immunodeficiency virus [HIV] disease SNOMED: 25029958 (6) Cellulitis of leg ICD Codes: L03.119 - Cellulitis of unspecified part of limb SNOMED: 567554543 (7) Hepatomegaly ICD Codes: R16.0 - Hepatomegaly, not elsewhere classified SNOMED: 07393444 Status: deteriorating Assessment/Plan: h/o gastric bypass anemia hypernatremia leukocytosis RI cirrhosis HIV replace folate actigal 300 BID LDH MRI of the liver reviewed Subjective ROS Limited/Unobtainable: No Allergies: Coded Allergies: No Known Allergies (Unverified , 12/04/18) Objective Last 24 Hour Vital Signs Date Time Temp Pulse Resp B/P (MAP) Pulse Ox O2 Delivery O2 Flow Rate FiO2 03/27/19 04:00 98.7 98 36 92/52 (65) 98 03/27/19 00:00 98.0 113 39 83/55 (64) 99 03/26/19 21:00 Room Air 03/26/19 20:00 96.9 104 32 98/64 (75) 90 03/26/19 19:43 71 17 96 Room Air 21 03/26/19 16:00 97.9 108 36 97/59 (72) 96 03/26/19 12:00 97.2 87 32 122/91 (101) 100 03/26/19 09:00 97.3 92 32 136/96 (109) 100 03/26/19 08:35 Room Air 03/26/19 07:13 70 18 100 Room Air 21 Intake and Output 03/26/19 03/27/19 19:00 07:00 Intake Total 100 ml Output Total 1600 ml Balance -1500 ml Intake Oral 100 ml Output Urine Total 1600 ml # Bowel Movements 1 Laboratory Tests 03/26/19 06:26: White Blood Count 20.5H, Red Blood Count 2.54L, Hemoglobin 9.1L, Hematocrit 26.7L, Mean Corpuscular Volume 105H, Mean Corpuscular Hemoglobin 35.7H, Mean Corpuscular Hemoglobin Concent 33.9, Red Cell Distribution Width 14.5, Platelet Count 167, Mean Platelet Volume 6.0L, Neutrophils (%) (Auto) , Lymphocytes (%) ( Auto) , Monocytes (%) (Auto) , Eosinophils (%) (Auto) , Basophils (%) (Auto) , Differential Total Cells Counted 100, Neutrophils % (Manual) 86H, Lymphocytes % (Manual) 10L, Monocytes % (Manual) 4, Eosinophils % (Manual) 0, Basophils % ( Manual) 0, Band Neutrophils 0, Platelet Estimate Adequate, Platelet Morphology Normal, Hypochromasia 1+, Anisocytosis 1+, Macrocytosis 1+, Sodium Level 159H, Potassium Level 3.3L, Chloride Level 124H, Carbon Dioxide Level 23, Anion Gap 12 , Blood Urea Nitrogen 82H, Creatinine 1.8H, Estimat Glomerular Filtration Rate 47.8, Glucose Level 125H, Uric Acid 8.0H, Calcium Level 9.2, Phosphorus Level 3.5, Magnesium Level 2.4, Total Bilirubin 18.4H, Direct Bilirubin 15.2H, Aspartate Amino Transf (AST/SGOT) 341H, Alanine Aminotransferase (ALT/SGPT) 136H , Alkaline Phosphatase 1394H, Ammonia 36H, C-Reactive Protein, Quantitative 11.4H, Pro-B-Type Natriuretic Peptide 1589H, Total Protein 8.3H, Albumin 1.5L, Globulin 6.8, Albumin/Globulin Ratio 0.2L 03/27/19 05:50: White Blood Count 24.9*H, Red Blood Count 2.27L, Hemoglobin 8.3L, Hematocrit 24.2L, Mean Corpuscular Volume 107H, Mean Corpuscular Hemoglobin 36.5H, Mean Corpuscular Hemoglobin Concent 34.2, Red Cell Distribution Width 14.8, Platelet Count 161, Mean Platelet Volume 6.0L, Neutrophils (%) (Auto) , Lymphocytes (%) ( Auto) , Monocytes (%) (Auto) , Eosinophils (%) (Auto) , Basophils (%) (Auto) , Neutrophils % (Manual) [Pending], Lymphocytes % (Manual) [Pending], Platelet Estimate [Pending], Platelet Morphology [Pending], Sodium Level [Pending], Potassium Level [Pending], Chloride Level [Pending], Carbon Dioxide Level [ Pending], Blood Urea Nitrogen [Pending], Creatinine [Pending], Estimat Glomerular Filtration Rate [Pending], Glucose Level [Pending], Calcium Level [ Pending], Total Bilirubin [Pending], Aspartate Amino Transf (AST/SGOT) [Pending] , Alanine Aminotransferase (ALT/SGPT) [Pending], Alkaline Phosphatase [Pending] , Total Protein [Pending], Albumin [Pending], Globulin [Pending], Lactate Dehydrogenase [Pending] Height (Feet): 5 Height (Inches): 9.00 Weight (Pounds): 129 General Appearance: lethargic EENT: normal ENT inspection Neck: supple Cardiovascular: normal rate Respiratory/Chest: decreased breath sounds Abdomen: normal bowel sounds, non tender, soft Extremities: non-tender Amauri Lopez MD Mar 27, 2019 06:26
[2019-03-27 06:53] LABS: ALANINE AMINOTRANSFERASE 147 U/L (12-78); ALBUMIN 1.4 G/DL (3.4-5.0); ALBUMIN/GLOBULIN RATIO 0.2 (1.0-2.7); ALKALINE PHOSPHATASE 1729 U/L (46-116); ANION GAP 14 mmol/L (5-15); ASPARTATE AMINO TRANSFERASE 399 U/L (15-37); BILIRUBIN,TOTAL 18.9 MG/DL (0.2-1.0); BLOOD UREA NITROGEN 85 mg/dL (7-18); CALCIUM 8.8 MG/DL (8.5-10.1); CARBON DIOXIDE 20 MMOL/L (21-32); CHLORIDE 127 MMOL/L (98-107); CREATININE 2.1 MG/DL (0.55-1.30); POTASSIUM 3.4 MMOL/L (3.5-5.1)
[2019-03-27 06:56] LABS: SODIUM 161 MMOL/L (136-145)
--- NOTE | 2019-03-27 07:01 | NUR ---
NURSE NOTES: Pt Na 161 will notify
--- NOTE | 2019-03-27 07:10 | NUR ---
NURSE NOTES:Handoff received from PADDY Mcgee. Patient received awake and alert but drowsy, assessed patient for pain, patient stated yes but was not able to communicate where the pain was, I asked patient if it was above 7 and he stated yes but could not verbalize or point to where the pain is, will administer pain meds per protocol. patient is lying in bed on the p200 mattress with a blanket heater which is blowing warm air, patient has condom catheter draining dark urine, bed in the low and locked position with call light under patients hand. Iv site is running prescribed fluids, will continue to monitor patient.
--- NOTE | 2019-03-27 07:20 | NUR ---
HAND-OFF: Report given to PADDY Paez and PADDY Encarnacion. Left voicemail for Dr Nava regarding pt WBCs 24.9 and Na 161.
[2019-03-27 07:24] LABS: BILIRUBIN,DIRECT 15.5 MG/DL (0.0-0.3)
[2019-03-27 08:00] VITALS: BP 91/61
--- NOTE | 2019-03-27 08:38 | NUR ---
NURSE NOTES: Dr figueroa make rounds on patient and placed order for Foote catheter.
[2019-03-27] MEDS: Docusate 100mg cap ORAL SCH ×3 (09:00→17:06)
[2019-03-27] MEDS: Hydromorphone 0.5mg/0.5ml inj IVP PRN ×2 (09:17→16:14)
--- NOTE | 2019-03-27 09:44 | Surgery Progress Note ---
Surgery Progress Note Subjective Symptoms: worse Objective Last 24 Hour Vital Signs Date Time Temp Pulse Resp B/P (MAP) Pulse Ox O2 Delivery O2 Flow Rate FiO2 03/27/19 08:22 80 18 97 Room Air 21 03/27/19 08:00 99.0 96 18 91/61 (71) 98 03/27/19 04:00 98.7 98 36 92/52 (65) 98 03/27/19 00:00 98.0 113 39 83/55 (64) 99 03/26/19 21:00 Room Air 03/26/19 20:00 96.9 104 32 98/64 (75) 90 03/26/19 19:43 71 17 96 Room Air 21 03/26/19 16:00 97.9 108 36 97/59 (72) 96 03/26/19 12:00 97.2 87 32 122/91 (101) 100 I&O Intake and Output 03/26/19 03/27/19 19:00 07:00 Intake Total 100 ml Output Total 1600 ml 1800 ml Balance -1500 ml -1800 ml Intake Oral 100 ml Output Urine Total 1600 ml 1800 ml # Bowel Movements 1 Dressing: other Wound: other Drains: other Cardiovascular: RSR Respiratory: decreased breath sounds Abdomen: soft, present bowel sounds Extremities: no cyanosis Laboratory Tests Test 03/27/19 05:50 White Blood Count 24.9 K/UL (4.8-10.8) *H Red Blood Count 2.27 M/UL (4.70-6.10) L Hemoglobin 8.3 G/DL (14.2-18.0) L Hematocrit 24.2 % (42.0-52.0) L Mean Corpuscular Volume 107 FL (80-99) H Mean Corpuscular Hemoglobin 36.5 PG (27.0-31.0) H Mean Corpuscular Hemoglobin Concent 34.2 G/DL (32.0-36.0) Red Cell Distribution Width 14.8 % (11.6-14.8) Platelet Count 161 K/UL (150-450) Mean Platelet Volume 6.0 FL (6.5-10.1) L Neutrophils (%) (Auto) % (45.0-75.0) Lymphocytes (%) (Auto) % (20.0-45.0) Monocytes (%) (Auto) % (1.0-10.0) Eosinophils (%) (Auto) % (0.0-3.0) Basophils (%) (Auto) % (0.0-2.0) Differential Total Cells Counted 100 Neutrophils % (Manual) 85 % (45-75) H Lymphocytes % (Manual) 9 % (20-45) L Monocytes % (Manual) 6 % (1-10) Eosinophils % (Manual) 0 % (0-3) Basophils % (Manual) 0 % (0-2) Band Neutrophils 0 % (0-8) Platelet Estimate Adequate Platelet Morphology Normal Anisocytosis 1+ Macrocytosis 1+ Sodium Level 161 MMOL/L (136-145) *H Potassium Level 3.4 MMOL/L (3.5-5.1) L Chloride Level 127 MMOL/L (98-107) H Carbon Dioxide Level 20 MMOL/L (21-32) L Anion Gap 14 mmol/L (5-15) Blood Urea Nitrogen 85 mg/dL (7-18) H Creatinine 2.1 MG/DL (0.55-1.30) H Estimat Glomerular Filtration Rate 40.0 mL/min (>60) Glucose Level 96 MG/DL (74-106) Calcium Level 8.8 MG/DL (8.5-10.1) Total Bilirubin 18.9 MG/DL (0.2-1.0) H Direct Bilirubin 15.5 MG/DL (0.0-0.3) H Aspartate Amino Transf (AST/SGOT) 399 U/L (15-37) H Alanine Aminotransferase (ALT/SGPT) 147 U/L (12-78) H Alkaline Phosphatase 1729 U/L (46-116) H Lactate Dehydrogenase 325 U/L (81-234) H Total Protein 7.7 G/DL (6.4-8.2) Albumin 1.4 G/DL (3.4-5.0) L Globulin 6.3 g/dL Albumin/Globulin Ratio 0.2 (1.0-2.7) L Plan Problems: (1) Infected decubitus ulcer Assessment & Plan: Pt presented on admission with multiple pressure injuries. Full thickness stage 4 Sacral pressure injury. Base of wound beefy red with scattered slough. (L)5cm x (W)4.5cm.Bone is palpable at base of wound . Borders are black and fluctuant.Periwound is erythematous. Small amt haemopurulent exudate noted. In addition pt noted to have a second small wound L buttocks , but within close proximity to sacrum. Base of wound has 100% slough (L)0.5cm x ( W)0.6cm. Reabsorbing DTPI L trochanter (L)9cmx (W)2cm.Wound is elongated. Base of wound is purple with black striations and is indurated.Periwound is erythematous without elevation in skin temp. Second DTPI noted to L hip . Base of wound is maroon with red borders.(L)1.6cm x (W)2cm. Partially opened DTPI medial L tibia. Proximally,base of wound is pink with small amt slough with small amt brown exudate. Distally base of of wound is necrotic but soft. (L)12.6cm x (W)3cm. Partially opened DTPI medial R tibia. Base of wound with small amt slough, surrounding base of wound beefy red with loose black skin flap. Small amt serous exudate noted. No odor noted.(L)7cm x (W)2cm. DTPI noted top lateral R malleolus. Base of wound is maroon and indurated with marginal erythema(L)1.5cm x (W)2.5cm. L heel is necrotic but dry.Periwound is firm without further evidence of skin breakdown(L)6cm x (W)7.5cm. Unstageable pressure injury R heel. Base of wound necrotic and fluctuant in center with surrounding dry necrotic borders(L)5cm x (W)8.5cm. Tx.Plan: Apply Betadine to both heels and R lateral malleolus. Cover with Optifoam drsg. Change every 3 days and prn. Cleanse Sacral and L buttocks wounds with Saline. Apply TheraHoney to each wound. Apply Moisture Barrier Paste periwound. Cover with Optifoam drsg. Change every 3 days and prn. Apply Cavilon Skin Barrier to L trochanter/L hip. Cover with Optifoam drsgs. Changee very 7 days and prn. Reposition at least every 2hours or as tolerated. Off-load heels with pillow. APM/BO Mattress overlay. Patient presented with an infected sacral decubitus ulcer purulent drainage noted. Significant tissue loss. Will continue with local wound care at this time. Will need to discuss goals of care and care plan prior to any invasive surgical treatment Thank you for let me participate in patient's care (2) Abnormal LFTs Assessment & Plan: Patient with known history of liver cirrhosis. Currently on hospice care. LFT significantly elevated Coagulopathy Abnormal labs We will need to address goals of care with patient's [employer] and medical teams Repeat labs IV fluids Need to consider alternative nutritional intake if part of care plan We will follow with recommendations No acute surgical intervention planned The liver is enlarged measuring about 19 cm. The spleen is enlarged measuring about 13 to 14 cm. Doppler interrogation of the main portal vein shows patency with hepatopedal, monophasic flow. There is no biliary ductal dilatation identified. Gallbladder is absent. CBD is 4 mm. There is a cystic lesion measuring 3.6 cm near the inferior pole of the spleen. Part of the pancreas is obscured by bowel gas. There is trace ascites. Both kidneys appear unremarkable. There is no hydronephrosis. IMPRESSION: Hepatosplenomegaly. Trace ascites. Splenic cyst. Status post cholecystectomy Thank you for let me participate in patient's care Jamey Mazariegos Mar 27, 2019 09:44
[2019-03-27] MEDS: Ursodiol 300mg cap ORAL SCH ×3 (09:50→17:06)
[2019-03-27] MEDS: Lactulose 20gm/30ml UDC ORAL SCH ×4 (09:50→17:06)
[2019-03-27] MEDS: Tamsulosin 0.4mg cap ORAL SCH ×2 (09:50→09:51)
[2019-03-27] MEDS: Pantoprazole Inj IVP SCH ×2 (09:52→20:47)
--- NOTE | 2019-03-27 10:10 | NUR ---
NURSE NOTES: crushed Meds and placed in apple sauce. Patient could not swallow apple sauce, continued to hold meds/apple sauce in his mouth even after instructed to swallow, had to use a spoon to remove the medications. Un-administered meds and then non administered in the EMAR as change in patient condition. was notified of the same situation yesterday by me.
--- NOTE | 2019-03-27 10:52 | Nephrology Progress Note ---
Assessment/Plan Problem List: (1) STEVE (acute kidney injury) (2) Anasarca (3) Pressure ulcer of sacrum (4) Jaundice Assessment Renal failure- Acute mainly Prerenal Sepsis Jaundice Infected decubitus ulcer Plan slow IV D5W Adjust meds add lactulose per order poor prognosis DC Lasix DC HCTZ DC Aldactone Vit K SQ DNR Subjective ROS Limited/Unobtainable: Yes Constitutional: Reports: malaise, weakness Objective Objective Last 24 Hour Vital Signs Date Time Temp Pulse Resp B/P (MAP) Pulse Ox O2 Delivery O2 Flow Rate FiO2 03/27/19 09:00 Room Air 03/27/19 08:22 80 18 97 Room Air 21 03/27/19 08:00 99.0 96 18 91/61 (71) 98 03/27/19 04:00 98.7 98 36 92/52 (65) 98 03/27/19 00:00 98.0 113 39 83/55 (64) 99 03/26/19 21:00 Room Air 03/26/19 20:00 96.9 104 32 98/64 (75) 90 03/26/19 19:43 71 17 96 Room Air 21 03/26/19 16:00 97.9 108 36 97/59 (72) 96 03/26/19 12:00 97.2 87 32 122/91 (101) 100 Intake and Output 03/26/19 03/27/19 19:00 07:00 Intake Total 100 ml Output Total 1600 ml 1800 ml Balance -1500 ml -1800 ml Intake Oral 100 ml Output Urine Total 1600 ml 1800 ml # Bowel Movements 1 Laboratory Tests 03/27/19 05:50: White Blood Count 24.9*H, Red Blood Count 2.27L, Hemoglobin 8.3L, Hematocrit 24.2L, Mean Corpuscular Volume 107H, Mean Corpuscular Hemoglobin 36.5H, Mean Corpuscular Hemoglobin Concent 34.2, Red Cell Distribution Width 14.8, Platelet Count 161, Mean Platelet Volume 6.0L, Neutrophils (%) (Auto) , Lymphocytes (%) ( Auto) , Monocytes (%) (Auto) , Eosinophils (%) (Auto) , Basophils (%) (Auto) , Differential Total Cells Counted 100, Neutrophils % (Manual) 85H, Lymphocytes % (Manual) 9L, Monocytes % (Manual) 6, Eosinophils % (Manual) 0, Basophils % ( Manual) 0, Band Neutrophils 0, Platelet Estimate Adequate, Platelet Morphology Normal, Anisocytosis 1+, Macrocytosis 1+, Sodium Level 161*H, Potassium Level 3.4L, Chloride Level 127H, Carbon Dioxide Level 20L, Anion Gap 14, Blood Urea Nitrogen 85H, Creatinine 2.1H, Estimat Glomerular Filtration Rate 40.0, Glucose Level 96, Calcium Level 8.8, Total Bilirubin 18.9H, Direct Bilirubin 15.5H, Aspartate Amino Transf (AST/SGOT) 399H, Alanine Aminotransferase (ALT/SGPT) 147H , Alkaline Phosphatase 1729H, Lactate Dehydrogenase 325H, Total Protein 7.7, Albumin 1.4L, Globulin 6.3, Albumin/Globulin Ratio 0.2L Height (Feet): 5 Height (Inches): 9.00 Weight (Pounds): 129 General Appearance: no apparent distress, lethargic EENT: other - Jaundiced Cardiovascular: tachycardia Respiratory/Chest: decreased breath sounds Abdomen: distended Objective no other change José Miguel Nava MD Mar 27, 2019 10:52
--- NOTE | 2019-03-27 11:00 | NUR ---
NURSE NOTES: Dr Nava ordered Cartwright catheter for patient. Explained procedure to patient, who tolerated cartwright cath insertion well. Cath placed, secured to the leg via anchor and is draining well. Urine is very dark brown color, aware.
[2019-03-27 12:00] VITALS: BP 89/56
--- NOTE | 2019-03-27 15:31 | General Progress Note ---
Assessment/Plan Status: deteriorating Assessment/Plan: S: deliriuos O: limited eval. seems comfortable, Foote with pigmentosus colored urine collection HYSICAL EXAMINATION:HEAD AND NECK: HEART: S1, S2. Regular rate and rhythm. ABDOMEN: Positive for fullness, ascitis cannot be excluded.MUSCULOSKELETAL: Positive for 2+ pitting edema in the lower extremities. NEUROLOGIC: The patient is Lethargic LABORATORY and Medication DATA: reviewed in the chart ASSESSMENT AND PLAN: 1. Acute Metabolic encephalopathy 2. Gram negative Sepsis: likely UTI 3. Anasarca. 2. Primary Billiary Cirrhosis. 3. Chronic pain. 4. HIV. 5. Hypertension. 6. Acute Anemia. 7. Hematuria . 8. GI and DVT prophylaxis. 9. DNR Plan; Notes from ID, Nephro, Critical care and Surgery services are reviewed ST eval Ok to Facility placement per family Worsening hepatitis. Worsening Sodium, as anticipated. Family would like NO Alternative feeding routes I had a family meeting over phone with sister ( Nemesioa!) yesterday. Subjective Allergies: Coded Allergies: No Known Allergies (Unverified , 12/04/18) Objective Last 24 Hour Vital Signs Date Time Temp Pulse Resp B/P (MAP) Pulse Ox O2 Delivery O2 Flow Rate FiO2 03/27/19 12:00 99.0 54 20 89/56 (67) 98 03/27/19 09:00 Room Air 03/27/19 08:22 80 18 97 Room Air 21 03/27/19 08:00 99.0 96 18 91/61 (71) 98 03/27/19 04:00 98.7 98 36 92/52 (65) 98 03/27/19 00:00 98.0 113 39 83/55 (64) 99 03/26/19 21:00 Room Air 03/26/19 20:00 96.9 104 32 98/64 (75) 90 03/26/19 19:43 71 17 96 Room Air 21 03/26/19 16:00 97.9 108 36 97/59 (72) 96 Intake and Output 03/26/19 03/27/19 19:00 07:00 Intake Total 100 ml Output Total 1600 ml 1800 ml Balance -1500 ml -1800 ml Intake Oral 100 ml Output Urine Total 1600 ml 1800 ml # Bowel Movements 1 Laboratory Tests 03/27/19 05:50: White Blood Count 24.9*H, Red Blood Count 2.27L, Hemoglobin 8.3L, Hematocrit 24.2L, Mean Corpuscular Volume 107H, Mean Corpuscular Hemoglobin 36.5H, Mean Corpuscular Hemoglobin Concent 34.2, Red Cell Distribution Width 14.8, Platelet Count 161, Mean Platelet Volume 6.0L, Neutrophils (%) (Auto) , Lymphocytes (%) ( Auto) , Monocytes (%) (Auto) , Eosinophils (%) (Auto) , Basophils (%) (Auto) , Differential Total Cells Counted 100, Neutrophils % (Manual) 85H, Lymphocytes % (Manual) 9L, Monocytes % (Manual) 6, Eosinophils % (Manual) 0, Basophils % ( Manual) 0, Band Neutrophils 0, Platelet Estimate Adequate, Platelet Morphology Normal, Anisocytosis 1+, Macrocytosis 1+, Sodium Level 161*H, Potassium Level 3.4L, Chloride Level 127H, Carbon Dioxide Level 20L, Anion Gap 14, Blood Urea Nitrogen 85H, Creatinine 2.1H, Estimat Glomerular Filtration Rate 40.0, Glucose Level 96, Calcium Level 8.8, Total Bilirubin 18.9H, Direct Bilirubin 15.5H, Aspartate Amino Transf (AST/SGOT) 399H, Alanine Aminotransferase (ALT/SGPT) 147H , Alkaline Phosphatase 1729H, Lactate Dehydrogenase 325H, Total Protein 7.7, Albumin 1.4L, Globulin 6.3, Albumin/Globulin Ratio 0.2L Height (Feet): 5 Height (Inches): 9.00 Weight (Pounds): 129 Npuur Juan MD Mar 27, 2019 15:31
--- NOTE | 2019-03-27 15:51 | NUR ---
NURSE NOTES: Dr marte made rounds on patient. Informed again that patient still cannot tolerate PO crushed Meds and cannot tolerate liquid medications as high risk for aspiration. aware of situation.
[2019-03-27 16:00] VITALS: BP 95/59
[2019-03-27] MEDS: cefTRIAXone 2 GM in D5W 55 ML IVPB SCH (16:14)
--- NOTE | 2019-03-27 18:34 | Infectious Diseases Prog Note ---
Assessment/Plan Problems: (1) UTI (urinary tract infection) Assessment & Plan: with E coli pansensitive , on ceftriaxone to cover for sepsis too due to E coli for two weeks total. repeated blood culture on 03/24 is positive , source possible sacral osteomyelitis ? no aggressive measures , since he is on hospice care , D/W primary (2) Sepsis Assessment & Plan: due to E coli , with worsening leukocytosis , source most likely is his UTI and possibly sacral osteomyelitis since his repeated blood culture is still positive and he is immunocompromised with HIV NOT ON ANY MEDS SINCE ON HOSPICE CARE . continue ceftriaxone for two weeks course of treatment . repeatED another set of blood culture IS PENDING (3) Pressure ulcer of sacrum Assessment & Plan: with minimal sloughing and draining of bloody fluids, continue off loading and local wound care as per hospital protocol (4) STEVE (acute kidney injury) Assessment & Plan: advanced with uremia , suspect dehydration, needs aggressive hydration, renal is following (5) Cellulitis of leg Assessment & Plan: now on ceftriaxone empirically (6) HIV (human immunodeficiency virus infection) Assessment & Plan: unclear whether he is taking any meds now since he is on hospice care (7) Encephalopathy acute Assessment & Plan: suspect metabolic due to uremia and hepatic related , renal is following Subjective ROS Limited/Unobtainable: Yes Allergies: Coded Allergies: No Known Allergies (Unverified , 12/04/18) Subjective He was altered, and lethargic, not responsive to verbal commands , lying in bed , with no oral intake, urine dark and dense , no fever or chills, no cough or SOB, no diarrhea Objective Vital Signs Last 24 Hour Vital Signs Date Time Temp Pulse Resp B/P (MAP) Pulse Ox O2 Delivery O2 Flow Rate FiO2 03/27/19 16:00 98.3 59 22 95/59 (71) 99 03/27/19 12:00 99.0 54 20 89/56 (67) 98 03/27/19 09:00 Room Air 03/27/19 08:22 80 18 97 Room Air 21 03/27/19 08:00 99.0 96 18 91/61 (71) 98 03/27/19 04:00 98.7 98 36 92/52 (65) 98 03/27/19 00:00 98.0 113 39 83/55 (64) 99 03/26/19 21:00 Room Air 03/26/19 20:00 96.9 104 32 98/64 (75 90 03/26/19 19:43 71 17 96 Room Air 21 Height (Feet): 5 Height (Inches): 9.00 Weight (Pounds): 129 General Appearance: no acute distress, cachetic HEENT: normocephalic, atraumatic, anicteric, mucous membranes moist, PERRL Respiratory/Chest: chest wall non-tender, no respiratory distress, no accessory muscle use, decreased breath sounds Cardiovascular: normal peripheral pulses, normal rate, regular rhythm, no gallop/murmur, no JVD Abdomen: normal bowel sounds, soft, non tender, no organomegaly, no mass, no scars, hypoactive bowel sounds, distended, hepatomegaly Genitourinary: normal external genitalia Extremities: no cyanosis, no clubbing, other - edema Skin: no rash, no lesions, ulcers Neurologic/Psychiatric: unresponsiveness Lymphatic: no neck adenopathy, no groin adenopathy Musculoskeletal: normal muscle bulk Laboratory Tests Test 03/27/19 05:50 White Blood Count 24.9 K/UL (4.8-10.8) *H Red Blood Count 2.27 M/UL (4.70-6.10) L Hemoglobin 8.3 G/DL (14.2-18.0) L Hematocrit 24.2 % (42.0-52.0) L Mean Corpuscular Volume 107 FL (80-99) H Mean Corpuscular Hemoglobin 36.5 PG (27.0-31.0) H Mean Corpuscular Hemoglobin Concent 34.2 G/DL (32.0-36.0) Red Cell Distribution Width 14.8 % (11.6-14.8) Platelet Count 161 K/UL (150-450) Mean Platelet Volume 6.0 FL (6.5-10.1) L Neutrophils (%) (Auto) % (45.0-75.0) Lymphocytes (%) (Auto) % (20.0-45.0) Monocytes (%) (Auto) % (1.0-10.0) Eosinophils (%) (Auto) % (0.0-3.0) Basophils (%) (Auto) % (0.0-2.0) Differential Total Cells Counted 100 Neutrophils % (Manual) 85 % (45-75) H Lymphocytes % (Manual) 9 % (20-45) L Monocytes % (Manual) 6 % (1-10) Eosinophils % (Manual) 0 % (0-3) Basophils % (Manual) 0 % (0-2) Band Neutrophils 0 % (0-8) Platelet Estimate Adequate Platelet Morphology Normal Anisocytosis 1+ Macrocytosis 1+ Sodium Level 161 MMOL/L (136-145) *H Potassium Level 3.4 MMOL/L (3.5-5.1) L Chloride Level 127 MMOL/L (98-107) H Carbon Dioxide Level 20 MMOL/L (21-32) L Anion Gap 14 mmol/L (5-15) Blood Urea Nitrogen 85 mg/dL (7-18) H Creatinine 2.1 MG/DL (0.55-1.30) H Estimat Glomerular Filtration Rate 40.0 mL/min (>60) Glucose Level 96 MG/DL (74-106) Calcium Level 8.8 MG/DL (8.5-10.1) Total Bilirubin 18.9 MG/DL (0.2-1.0) H Direct Bilirubin 15.5 MG/DL (0.0-0.3) H Aspartate Amino Transf (AST/SGOT) 399 U/L (15-37) H Alanine Aminotransferase (ALT/SGPT) 147 U/L (12-78) H Alkaline Phosphatase 1729 U/L (46-116) H Lactate Dehydrogenase 325 U/L (81-234) H Total Protein 7.7 G/DL (6.4-8.2) Albumin 1.4 G/DL (3.4-5.0) L Globulin 6.3 g/dL Albumin/Globulin Ratio 0.2 (1.0-2.7) L Current Medications Medications (Trade) Dose Ordered Sig/Lala Route PRN Reason Start Time Stop Time Status Last Admin Dose Admin Ceftriaxone Sodium 2 gm/ Dextrose 55 ml @ 110 mls/hr Q24H IVPB 03/25/19 16:00 04/01/19 15:59 03/27/19 16:14 Dextrose 1,000 ml @ 75 mls/hr [id number] IV 03/25/19 10:00 04/24/19 09:59 03/27/19 16:13 Docusate Sodium (Colace) 100 mg THREE TIMES A DAY ORAL 03/23/19 18:00 04/22/19 17:59 03/26/19 12:14 Folic Acid (Folate) 1 mg DAILY ORAL 03/27/19 09:00 04/26/19 08:59 Gadobutrol (Gadavist) 7.5 mmol ONCE PRN IV radiology 03/26/19 16:04 03/27/19 23:59 Hydromorphone HCl (Dilaudid) 0.5 mg Q6H PRN IVP PAIN 4-10 03/26/19 11:15 04/02/19 11:14 03/27/19 16:14 Lactulose (Cephulac) 20 gm THREE TIMES A DAY ORAL 03/26/19 13:00 04/25/19 12:59 03/26/19 12:14 Pantoprazole (Protonix) 40 mg EVERY 12 HOURS IVP 03/26/19 21:00 04/25/19 20:59 03/27/19 09:52 Rifaximin (Xifaxan) 550 mg Q12H ORAL 03/22/19 09:00 03/29/19 08:59 03/25/19 20:57 Tamsulosin HCl (Flomax) 0.4 mg DAILY ORAL 03/22/19 09:00 04/21/19 08:59 03/25/19 08:50 Ursodiol (Actigall) 300 mg TWICE A DAY ORAL 03/26/19 18:00 04/25/19 17:59 Cedrick Vu M.D. Mar 27, 2019 18:34
--- NOTE | 2019-03-27 19:10 | NUR ---
NURSE NOTES: Received report from PADDY Paez. Pt awake but non-verbal responsive, on room air. Pt has Foote and secured to the leg. IV site intact and running IVF. Wound dressings intact. Aspiration and fall precaution maintained. Bed locked, lowest position, alarm on, side rails up, call light within reach. Will continue to monitor.
--- NOTE | 2019-03-27 19:43 | NUR ---
HAND-OFF: Report given to PADDY Nuñez.
[2019-03-27 20:00] VITALS: BP 103/66
--- NOTE | 2019-03-27 20:37 | Pulmonology Progress Note ---
Assessment/Plan Assessment/Plan Problems: (1) Sepsis (2) UTI (urinary tract infection) (3) Cellulitis of leg (4) STEVE (acute kidney injury) (5) Abnormal LFTs (6) HIV (human immunodeficiency virus infection) (7) Jaundice (8) Pressure ulcer of sacrum (9) Encephalopathy acute Assessment/Plan Abx per ID, F/U Cx's Monitor volumes, mIVF, replete free water PO for pleasure when alert, TF"s not within GOC Supportive care Dispo planning back to facility ? on hospice, consider ethics eval Subjective ROS Limited/Unobtainable: Yes Allergies: Coded Allergies: No Known Allergies (Unverified , 12/04/18) Subjective weak unableto communicate on ra no distres not toelrating po Objective Last 24 Hour Vital Signs Date Time Temp Pulse Resp B/P (MAP) Pulse Ox O2 Delivery O2 Flow Rate FiO2 03/27/19 20:24 61 18 97 Room Air 21 03/27/19 16:00 98.3 59 22 95/59 (71) 99 03/27/19 12:00 99.0 54 20 89/56 (67) 98 03/27/19 09:00 Room Air 03/27/19 08:22 80 18 97 Room Air 21 03/27/19 08:00 99.0 96 18 91/61 (71) 98 03/27/19 04:00 98.7 98 36 92/52 (65) 98 03/27/19 00:00 98.0 113 39 83/55 (64) 99 03/26/19 21:00 Room Air Intake and Output 03/26/19 03/27/19 19:00 07:00 Intake Total 100 ml Output Total 1600 ml 1800 ml Balance -1500 ml -1800 ml Intake Oral 100 ml Output Urine Total 1600 ml 1800 ml # Bowel Movements 1 General Appearance: cachetic Respiratory/Chest: rhonchi Cardiovascular: normal rate, regular rhythm Abdomen: no organomegaly, non distended Neurologic/Psychiatric: disoriented Laboratory Tests 03/27/19 05:50: White Blood Count 24.9*H, Red Blood Count 2.27L, Hemoglobin 8.3L, Hematocrit 24.2L, Mean Corpuscular Volume 107H, Mean Corpuscular Hemoglobin 36.5H, Mean Corpuscular Hemoglobin Concent 34.2, Red Cell Distribution Width 14.8, Platelet Count 161, Mean Platelet Volume 6.0L, Neutrophils (%) (Auto) , Lymphocytes (%) ( Auto) , Monocytes (%) (Auto) , Eosinophils (%) (Auto) , Basophils (%) (Auto) , Differential Total Cells Counted 100, Neutrophils % (Manual) 85H, Lymphocytes % (Manual) 9L, Monocytes % (Manual) 6, Eosinophils % (Manual) 0, Basophils % ( Manual) 0, Band Neutrophils 0, Platelet Estimate Adequate, Platelet Morphology Normal, Anisocytosis 1+, Macrocytosis 1+, Sodium Level 161*H, Potassium Level 3.4L, Chloride Level 127H, Carbon Dioxide Level 20L, Anion Gap 14, Blood Urea Nitrogen 85H, Creatinine 2.1H, Estimat Glomerular Filtration Rate 40.0, Glucose Level 96, Calcium Level 8.8, Total Bilirubin 18.9H, Direct Bilirubin 15.5H, Aspartate Amino Transf (AST/SGOT) 399H, Alanine Aminotransferase (ALT/SGPT) 147H , Alkaline Phosphatase 1729H, Lactate Dehydrogenase 325H, Total Protein 7.7, Albumin 1.4L, Globulin 6.3, Albumin/Globulin Ratio 0.2L Current Medications Medications (Trade) Dose Ordered Sig/Lala Route PRN Reason Start Time Stop Time Status Last Admin Dose Admin Ceftriaxone Sodium 2 gm/ Dextrose 55 ml @ 110 mls/hr Q24H IVPB 03/25/19 16:00 04/01/19 15:59 03/27/19 16:14 Dextrose 1,000 ml @ 75 mls/hr [id number] IV 03/25/19 10:00 04/24/19 09:59 03/27/19 16:13 Docusate Sodium (Colace) 100 mg THREE TIMES A DAY ORAL 03/23/19 18:00 04/22/19 17:59 03/26/19 12:14 Folic Acid (Folate) 1 mg DAILY ORAL 03/27/19 09:00 04/26/19 08:59 Gadobutrol (Gadavist) 7.5 mmol ONCE PRN IV radiology 03/26/19 16:04 03/27/19 23:59 Hydromorphone HCl (Dilaudid) 0.5 mg Q6H PRN IVP PAIN 4-10 03/26/19 11:15 04/02/19 11:14 03/27/19 16:14 Lactulose (Cephulac) 20 gm THREE TIMES A DAY ORAL 03/26/19 13:00 04/25/19 12:59 03/26/19 12:14 Pantoprazole (Protonix) 40 mg EVERY 12 HOURS IVP 03/26/19 21:00 04/25/19 20:59 03/27/19 09:52 Rifaximin (Xifaxan) 550 mg Q12H ORAL 03/22/19 09:00 03/29/19 08:59 03/25/19 20:57 Tamsulosin HCl (Flomax) 0.4 mg DAILY ORAL 03/22/19 09:00 04/21/19 08:59 03/25/19 08:50 Ursodiol (Actigall) 300 mg TWICE A DAY ORAL 03/26/19 18:00 04/25/19 17:59 Patsy Julian DO Mar 27, 2019 20:37
[2019-03-27] MEDS ORDERED: HYDROmorphone 1mg/ml Carpuject SUBQ PRN (20:56)
[2019-03-27] MEDS ORDERED: Hydromorphone 0.5mg/0.5ml inj IVP PRN (21:00)
--- NOTE | 2019-03-27 21:13 | NUR ---
NURSE NOTES: Made aware Dr. Juan that pt unable to swallow po meds and high aspiration risk. Received order Dilaudid 1mg subq q4hs for pain. OK to take off SCDs for leg wounds.
[2019-03-28] VITALS: BP 112/45
[2019-03-28 04:00] VITALS: BP 82/48
[2019-03-28] MEDS ORDERED: LORazepam Inj 2mg/ml 1ml IM ONE (06:15)
[2019-03-28] MEDS ORDERED: Morphine Sulfate 2mg/ml Inj(IV/IM USE ONLY) IVP PRN (06:15)
[2019-03-28] MEDS ORDERED: Haloperidol Decanoate (Long Acting) 50mg Inj IM ONE (06:15)
[2019-03-28] MEDS ORDERED: DiphenhydrAMINE 50mg/ml Inj IM ONE (06:15)
[2019-03-28 07:32] LABS: HEMATOCRIT 23.2 % (42.0-52.0); HEMOGLOBIN 7.8 G/DL (14.2-18.0); MEAN CORPUSCULAR VOLUME 108 FL (80-99); PLATELET COUNT 145 K/UL (150-450); RED BLOOD COUNT 2.16 M/UL (4.70-6.10); RED CELL DISTRIBUTION WIDTH 15.2 % (11.6-14.8); WHITE BLOOD COUNT 16.7 K/UL (4.8-10.8)
--- NOTE | 2019-03-28 07:34 | NUR ---
HAND-OFF: Report given to PADDY Ro.
[2019-03-28 07:39] LABS: PHOSPHORUS 3.9 MG/DL (2.5-4.9)
--- NOTE | 2019-03-28 07:40 | NUR ---
NURSE NOTES: received patient in bed, no sign of pain or dsicomfort, although patient has baseline tachypnea for few days. Receives IVF through LFA IV access, no sign of infiltration noted. Bed locked at the lowest position possible, call light within easy reach, siderails up x3. Will continue to monitor patient and follow up with the POC.
[2019-03-28 07:47] LABS: ALANINE AMINOTRANSFERASE 135 U/L (12-78); ALBUMIN 1.3 G/DL (3.4-5.0); ALBUMIN/GLOBULIN RATIO 0.2 (1.0-2.7); ALKALINE PHOSPHATASE 1568 U/L (46-116); ANION GAP 14 mmol/L (5-15); ASPARTATE AMINO TRANSFERASE 373 U/L (15-37); BILIRUBIN,TOTAL 19.9 MG/DL (0.2-1.0); BLOOD UREA NITROGEN 96 mg/dL (7-18); CALCIUM 8.6 MG/DL (8.5-10.1); CARBON DIOXIDE 20 MMOL/L (21-32); CHLORIDE 128 MMOL/L (98-107); CREATININE 2.5 MG/DL (0.55-1.30); POTASSIUM 3.7 MMOL/L (3.5-5.1)
[2019-03-28 07:49] LABS: SODIUM 162 MMOL/L (136-145)
[2019-03-28 08:00] VITALS: BP 80/54
[2019-03-28] MEDS ORDERED: Acetaminophen 650 MG SUPP RECTAL PRN (08:00)
--- NOTE | 2019-03-28 08:04 | General Progress Note ---
Assessment/Plan Problem List: (1) Jaundice ICD Codes: R17 - Unspecified jaundice SNOMED: 50009827 (2) Pressure ulcer of sacrum ICD Codes: L89.159 - Pressure ulcer of sacral region, unspecified stage SNOMED: 283305439 (3) Sepsis ICD Codes: A41.9 - Sepsis, unspecified organism SNOMED: 20715137, 9442873 Qualifiers: Qualified Codes: A41.9 - Sepsis, unspecified organism (4) Abnormal LFTs ICD Codes: R94.5 - Abnormal results of liver function studies SNOMED: 528700862 (5) HIV (human immunodeficiency virus infection) ICD Codes: B20 - Human immunodeficiency virus [HIV] disease SNOMED: 81412937 (6) Cellulitis of leg ICD Codes: L03.119 - Cellulitis of unspecified part of limb SNOMED: 327342247 (7) Hepatomegaly ICD Codes: R16.0 - Hepatomegaly, not elsewhere classified SNOMED: 96457863 Status: deteriorating Assessment/Plan: h/o gastric bypass anemia hypernatremia leukocytosis RI cirrhosis HIV replace folate actigal 300 BID LDH MRI of the liver reviewed hypotensive DNR poor prognosis Subjective ROS Limited/Unobtainable: No Allergies: Coded Allergies: No Known Allergies (Unverified , 12/04/18) Objective Last 24 Hour Vital Signs Date Time Temp Pulse Resp B/P (MAP) Pulse Ox O2 Delivery O2 Flow Rate FiO2 03/28/19 04:00 99.5 98 35 82/48 (59) 99 03/28/19 00:00 98.2 98 34 112/45 (67) 98 03/27/19 21:00 Room Air 03/27/19 20:24 61 18 97 Room Air 21 03/27/19 20:00 98.0 91 28 103/66 (78) 99 03/27/19 16:00 98.3 59 22 95/59 (71) 99 03/27/19 12:00 99.0 54 20 89/56 (67) 98 03/27/19 09:00 Room Air 03/27/19 08:22 80 18 97 Room Air 21 Intake and Output 03/27/19 03/28/19 19:00 07:00 Intake Total 75 ml 750 ml Output Total 1000 ml 1000 ml Balance -925 ml -250 ml IV Total 75 ml 750 ml Output Urine Total 1000 ml 1000 ml # Bowel Movements 1 1 Laboratory Tests 03/28/19 05:45: White Blood Count 16.7H, Red Blood Count 2.16L, Hemoglobin 7.8L, Hematocrit 23.2L, Mean Corpuscular Volume 108H, Mean Corpuscular Hemoglobin 36.0H, Mean Corpuscular Hemoglobin Concent 33.5, Red Cell Distribution Width 15.2H, Platelet Count 145L, Mean Platelet Volume 7.1, Neutrophils (%) (Auto) , Lymphocytes (%) (Auto) , Monocytes (%) (Auto) , Eosinophils (%) (Auto) , Basophils (%) (Auto) , Neutrophils % (Manual) [Pending], Lymphocytes % (Manual) [Pending], Platelet Estimate [Pending], Platelet Morphology [Pending], Sodium Level 162*H, Potassium Level 3.7, Chloride Level 128H, Carbon Dioxide Level 20L , Anion Gap 14, Blood Urea Nitrogen 96H, Creatinine 2.5H, Estimat Glomerular Filtration Rate 32.6, Glucose Level 92, Uric Acid 9.6H, Calcium Level 8.6, Phosphorus Level 3.9, Magnesium Level 2.2, Total Bilirubin 19.9H, Direct Bilirubin 16.0H, Aspartate Amino Transf (AST/SGOT) 373H, Alanine Aminotransferase (ALT/SGPT) 135H, Alkaline Phosphatase 1568H, Total Protein 7.3 , Albumin 1.3L, Globulin 6.0, Albumin/Globulin Ratio 0.2L Height (Feet): 5 Height (Inches): 9.00 Weight (Pounds): 129 General Appearance: lethargic EENT: normal ENT inspection Neck: supple Cardiovascular: tachycardia Respiratory/Chest: decreased breath sounds, accessory muscle use Abdomen: hypoactive bowel sounds Extremities: non-tender Amauri Lopez MD Mar 28, 2019 08:04
[2019-03-28] MEDS: Pantoprazole Inj IVP SCH ×2 (08:33→20:12)
[2019-03-28] MEDS: Tamsulosin 0.4mg cap ORAL SCH (08:34)
[2019-03-28] MEDS: Docusate 100mg cap ORAL SCH ×3 (08:34→17:03)
[2019-03-28] MEDS: Ursodiol 300mg cap ORAL SCH ×2 (08:34→17:02)
[2019-03-28] MEDS: Lactulose 20gm/30ml UDC ORAL SCH ×3 (08:34→17:03)
--- NOTE | 2019-03-28 08:48 | NUR ---
CHARGE NURSE NOTE: NA 162, temp.102.5F. BP 82/46. notified. Orders received.
[2019-03-28 12:00] VITALS: BP 75/48
--- NOTE | 2019-03-28 12:05 | Nephrology Progress Note ---
Assessment/Plan Problem List: (1) STEVE (acute kidney injury) (2) Anasarca (3) Pressure ulcer of sacrum (4) Jaundice Assessment Renal failure- Acute mainly Prerenal Sepsis Jaundice Infected decubitus ulcer Plan IV D5W Adjust meds add lactulose per order poor prognosis DC Lasix DC HCTZ DC Aldactone Vit K SQ DNR MRI Abd IMPRESSION: Minimal ascites. Surgical absence of the gallbladder. No significant intrahepatic or extrahepatic ductal dilatation. No focal hepatic mass pancreatic mass or splenic mass identified. Subjective ROS Limited/Unobtainable: Yes Objective Objective Last 24 Hour Vital Signs Date Time Temp Pulse Resp B/P (MAP) Pulse Ox O2 Delivery O2 Flow Rate FiO2 03/28/19 09:37 98.8 03/28/19 09:00 Room Air 03/28/19 08:45 102.9 03/28/19 08:00 102.9 105 38 80/54 (63) 98 03/28/19 04:00 99.5 98 35 82/48 (59) 99 03/28/19 00:00 98.2 98 34 112/45 (67) 98 03/27/19 21:00 Room Air 03/27/19 20:24 61 18 97 Room Air 21 03/27/19 20:00 98.0 91 28 103/66 (78) 99 03/27/19 16:00 98.3 59 22 95/59 (71) 99 Intake and Output 03/27/19 03/28/19 19:00 07:00 Intake Total 75 ml 750 ml Output Total 1000 ml 1000 ml Balance -925 ml -250 ml IV Total 75 ml 750 ml Output Urine Total 1000 ml 1000 ml # Bowel Movements 1 1 Laboratory Tests 03/28/19 05:45: White Blood Count 16.7H, Red Blood Count 2.16L, Hemoglobin 7.8L, Hematocrit 23.2L, Mean Corpuscular Volume 108H, Mean Corpuscular Hemoglobin 36.0H, Mean Corpuscular Hemoglobin Concent 33.5, Red Cell Distribution Width 15.2H, Platelet Count 145L, Mean Platelet Volume 7.1, Neutrophils (%) (Auto) , Lymphocytes (%) (Auto) , Monocytes (%) (Auto) , Eosinophils (%) (Auto) , Basophils (%) (Auto) , Differential Total Cells Counted 100, Neutrophils % ( Manual) 89H, Lymphocytes % (Manual) 8L, Monocytes % (Manual) 3, Eosinophils % ( Manual) 0, Basophils % (Manual) 0, Band Neutrophils 0, Platelet Estimate DecreasedL, Platelet Morphology Normal, Polychromasia 1+, Hypochromasia 1+, Macrocytosis 1+, Sodium Level 162*H, Potassium Level 3.7, Chloride Level 128H, Carbon Dioxide Level 20L, Anion Gap 14, Blood Urea Nitrogen 96H, Creatinine 2.5H , Estimat Glomerular Filtration Rate 32.6, Glucose Level 92, Uric Acid 9.6H, Calcium Level 8.6, Phosphorus Level 3.9, Magnesium Level 2.2, Total Bilirubin 19.9H, Direct Bilirubin 16.0H, Aspartate Amino Transf (AST/SGOT) 373H, Alanine Aminotransferase (ALT/SGPT) 135H, Alkaline Phosphatase 1568H, Total Protein 7.3 , Albumin 1.3L, Globulin 6.0, Albumin/Globulin Ratio 0.2L Height (Feet): 5 Height (Inches): 9.00 Weight (Pounds): 129 General Appearance: no apparent distress, lethargic, confused, other - non verbal EENT: other Cardiovascular: tachycardia Respiratory/Chest: decreased breath sounds Abdomen: distended Objective no other change José Miguel Nava MD Mar 28, 2019 12:05
--- NOTE | 2019-03-28 14:45 | Infectious Diseases Prog Note ---
Assessment/Plan Problems: (1) Fever Assessment & Plan: source ? will upgrade his antibiotics to meropenem and zyvox , repeat Blood culture x2 and get CXR . (2) UTI (urinary tract infection) Assessment & Plan: with E coli pansensitive , now on meropenem and zyvox to cover for sepsis too due to E coli for two weeks total. repeated blood culture on 03/24 is positive , source possible sacral osteomyelitis ? no aggressive measures , since he is on hospice care (3) Sepsis Assessment & Plan: due to E coli , with persistent leukocytosis , source most likely is his UTI and possibly sacral osteomyelitis since his repeated blood culture is still positive and he is immunocompromised with HIV . continue antibiotics for two weeks course of treatment . repeated blood culture on 03/26 is NTD (4) Pressure ulcer of sacrum Assessment & Plan: with minimal sloughing and draining of bloody fluids, continue off loading and local wound care as per hospital protocol (5) STEVE (acute kidney injury) Assessment & Plan: advanced with uremia , suspect dehydration, needs aggressive hydration, renal is following (6) HIV (human immunodeficiency virus infection) Assessment & Plan: unclear whether he is taking any meds now since he is on hospice care (7) Encephalopathy acute Assessment & Plan: suspect metabolic due to uremia and hepatic related , renal is following (8) Cellulitis of sacral region Assessment & Plan: now on wide spectrum antibiotics , continue local wound care and off loading as per hospital protocol, wound care team is following Subjective ROS Limited/Unobtainable: Yes Allergies: Coded Allergies: No Known Allergies (Unverified , 12/04/18) Subjective He was altered, and lethargic, not responsive to verbal commands , lying in bed , with no oral intake, urine dark and dense , spiking fever today of 101, no cough or SOB, no diarrhea . Objective Vital Signs Last 24 Hour Vital Signs Date Time Temp Pulse Resp B/P (MAP) Pulse Ox O2 Delivery O2 Flow Rate FiO2 03/28/19 12:00 100.4 98 32 75/48 (57) 96 03/28/19 09:37 98.8 03/28/19 09:00 Room Air 03/28/19 08:45 102.9 03/28/19 08:00 102.9 105 38 80/54 (63) 98 03/28/19 04:00 99.5 98 35 82/48 (59) 99 03/28/19 00:00 98.2 98 34 112/45 (67) 98 03/27/19 21:00 Room Air 03/27/19 20:24 61 18 97 Room Air 21 03/27/19 20:00 98.0 91 28 103/66 (78) 99 03/27/19 16:00 98.3 59 22 95/59 (71) 99 Height (Feet): 5 Height (Inches): 9.00 Weight (Pounds): 129 General Appearance: no acute distress, cachetic HEENT: normocephalic, atraumatic, anicteric, mucous membranes moist, PERRL Respiratory/Chest: chest wall non-tender, no respiratory distress, no accessory muscle use, decreased breath sounds Cardiovascular: normal peripheral pulses, normal rate, regular rhythm, no gallop/murmur, no JVD Abdomen: hypoactive bowel sounds, distended, hepatomegaly Extremities: no cyanosis, no clubbing Skin: no rash, no lesions, ulcers Neurologic/Psychiatric: alert, unresponsiveness Lymphatic: no neck adenopathy, no groin adenopathy Musculoskeletal: normal muscle bulk Microbiology Date/Time Source Procedure Growth Status 03/26/19 15:30 Blood Blood Culture - Preliminary NO GROWTH AFTER 24 HOURS Resulted 03/26/19 15:15 Blood Blood Culture - Preliminary NO GROWTH AFTER 24 HOURS Resulted Laboratory Tests Test 03/28/19 05:45 White Blood Count 16.7 K/UL (4.8-10.8) H Red Blood Count 2.16 M/UL (4.70-6.10) L Hemoglobin 7.8 G/DL (14.2-18.0) L Hematocrit 23.2 % (42.0-52.0) L Mean Corpuscular Volume 108 FL (80-99) H Mean Corpuscular Hemoglobin 36.0 PG (27.0-31.0) H Mean Corpuscular Hemoglobin Concent 33.5 G/DL (32.0-36.0) Red Cell Distribution Width 15.2 % (11.6-14.8) H Platelet Count 145 K/UL (150-450) L Mean Platelet Volume 7.1 FL (6.5-10.1) Neutrophils (%) (Auto) % (45.0-75.0) Lymphocytes (%) (Auto) % (20.0-45.0) Monocytes (%) (Auto) % (1.0-10.0) Eosinophils (%) (Auto) % (0.0-3.0) Basophils (%) (Auto) % (0.0-2.0) Differential Total Cells Counted 100 Neutrophils % (Manual) 89 % (45-75) H Lymphocytes % (Manual) 8 % (20-45) L Monocytes % (Manual) 3 % (1-10) Eosinophils % (Manual) 0 % (0-3) Basophils % (Manual) 0 % (0-2) Band Neutrophils 0 % (0-8) Platelet Estimate Decreased L Platelet Morphology Normal Polychromasia 1+ Hypochromasia 1+ Macrocytosis 1+ Sodium Level 162 MMOL/L (136-145) *H Potassium Level 3.7 MMOL/L (3.5-5.1) Chloride Level 128 MMOL/L (98-107) H Carbon Dioxide Level 20 MMOL/L (21-32) L Anion Gap 14 mmol/L (5-15) Blood Urea Nitrogen 96 mg/dL (7-18) H Creatinine 2.5 MG/DL (0.55-1.30) H Estimat Glomerular Filtration Rate 32.6 mL/min (>60) Glucose Level 92 MG/DL (74-106) Uric Acid 9.6 MG/DL (2.6-7.2) H Calcium Level 8.6 MG/DL (8.5-10.1) Phosphorus Level 3.9 MG/DL (2.5-4.9) Magnesium Level 2.2 MG/DL (1.8-2.4) Total Bilirubin 19.9 MG/DL (0.2-1.0) H Direct Bilirubin 16.0 MG/DL (0.0-0.3) H Aspartate Amino Transf (AST/SGOT) 373 U/L (15-37) H Alanine Aminotransferase (ALT/SGPT) 135 U/L (12-78) H Alkaline Phosphatase 1568 U/L (46-116) H Total Protein 7.3 G/DL (6.4-8.2) Albumin 1.3 G/DL (3.4-5.0) L Globulin 6.0 g/dL Albumin/Globulin Ratio 0.2 (1.0-2.7) L Current Medications Medications (Trade) Dose Ordered Sig/Lala Route PRN Reason Start Time Stop Time Status Last Admin Dose Admin Acetaminophen (Tylenol) 650 mg Q4H PRN RECTAL Mild Pain (Pain Scale 1-3) 03/28/19 08:00 04/27/19 07:59 03/28/19 08:15 Dextrose 1,000 ml @ 125 mls/hr Q8H IV 03/28/19 08:15 04/27/19 08:14 03/28/19 08:17 Docusate Sodium (Colace) 100 mg THREE TIMES A DAY ORAL 03/23/19 18:00 04/22/19 17:59 03/26/19 12:14 Folic Acid (Folate) 1 mg DAILY ORAL 03/27/19 09:00 04/26/19 08:59 Hydromorphone HCl (Dilaudid) 0.5 mg Q6H PRN IVP PAIN 4-6 03/27/19 21:00 04/02/19 11:14 Hydromorphone HCl (Dilaudid) 1 mg Q4H PRN SUBQ Pain 7-10 03/27/19 20:56 04/03/19 20:55 Lactulose (Cephulac) 20 gm THREE TIMES A DAY ORAL 03/26/19 13:00 04/25/19 12:59 03/26/19 12:14 Meropenem 1 gm/ Sodium Chloride 55 ml @ 110 mls/hr Q8HR IVPB 03/28/19 14:45 04/02/19 14:44 UNV Pantoprazole (Protonix) 40 mg EVERY 12 HOURS IVP 03/26/19 21:00 04/25/19 20:59 03/28/19 08:33 Rifaximin (Xifaxan) 550 mg Q12H ORAL 03/22/19 09:00 03/29/19 08:59 03/25/19 20:57 Tamsulosin HCl (Flomax) 0.4 mg DAILY ORAL 03/22/19 09:00 04/21/19 08:59 03/25/19 08:50 Ursodiol (Actigall) 300 mg TWICE A DAY ORAL 03/26/19 18:00 04/25/19 17:59 Cedrick Vu M.D. Mar 28, 2019 14:45
[2019-03-28 16:00] VITALS: BP 75/44
[2019-03-28] MEDS: Meropenem 1 GM in NS 55 ML IVPB SCH (16:03)
--- NOTE | 2019-03-28 16:46 | NUR ---
HAND-OFF: Report given to SARAH Landrum.
--- NOTE | 2019-03-28 16:50 | NUR ---
NURSE NOTES: RECEIVED PATIENT LETHARGIC IN BED. CALM AND COMFORTABLE. HOB ELEVATED FOR ASPIRATION PRECAUTION. UNABLE TO HAVE SWALLOW REFLEX. ON IVF AND SITE IS PATENT AND INTACT. ON P200 MATTRESS FOR WOUND. WOUND CARE DRSG DRY, CLEAN AND INTACT. NO ACUTE RESP DISTRESS NOTED. WILL CONT TO MONITOR.
--- NOTE | 2019-03-28 17:53 | Hematology/Onc Progress Note ---
Assessment/Plan Assessment/Plan # Anemia of chronic disease due to underlying chronic medical issues, multifactorial v Gi bleed --> evaluated by gi already --> Anemia workup has been reviewed and cw acd, ferritin >500, inflammatory process --> No evidence of hemolysis is noted, peripheral smear has been reviewed. --> Hgb goal >7. Transfuse prn. 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 --> US abd to evaluate for cirrhosis and hsm ordered --> HSM is noted --> Peripheral smear ordered to evaluate for blasts /schistocytes --> abx and other meds have been reviewed --> ok for ppx if plt >50k w/ either heparin or lovenox # Hypernatremia # UTI as per id is on abx --> on yuliana and zyvox, broad spectrum abx/meds # RI # Cirrhosis # h/o gastric bypass # Sepsis as per id # Pressure ucleration of sacrum # STEVE (acute kidney injury) # HIV (human immunodeficiency virus infection) # Encephalopathy acute -- uremia/hepatic related # DNR -- poor prognosis Appreciate consultation and dw Rn Subjective Allergies: Coded Allergies: No Known Allergies (Unverified , 12/04/18) Objective Objective Current Medications Medications (Trade) Dose Ordered Sig/Lala Route PRN Reason Start Time Stop Time Status Last Admin Dose Admin Acetaminophen (Tylenol) 650 mg Q4H PRN RECTAL Mild Pain (Pain Scale 1-3) 03/28/19 08:00 04/27/19 07:59 03/28/19 08:15 Dextrose 1,000 ml @ 125 mls/hr Q8H IV 03/28/19 08:15 04/27/19 08:14 03/28/19 17:01 Docusate Sodium (Colace) 100 mg THREE TIMES A DAY ORAL 03/23/19 18:00 04/22/19 17:59 03/26/19 12:14 Folic Acid (Folate) 1 mg DAILY ORAL 03/27/19 09:00 04/26/19 08:59 Hydromorphone HCl (Dilaudid) 0.5 mg Q6H PRN IVP PAIN 4-6 03/27/19 21:00 04/02/19 11:14 Hydromorphone HCl (Dilaudid) 1 mg Q4H PRN SUBQ Pain 7-10 03/27/19 20:56 04/03/19 20:55 Lactulose (Cephulac) 20 gm THREE TIMES A DAY ORAL 03/26/19 13:00 04/25/19 12:59 03/26/19 12:14 Linezolid 300 ml @ 300 mls/hr Q12H IVPB 03/28/19 17:00 04/04/19 16:59 03/28/19 17:03 Meropenem 1 gm/ Sodium Chloride 55 ml @ 110 mls/hr Q12H IVPB 03/28/19 16:00 04/02/19 15:59 03/28/19 16:03 Pantoprazole (Protonix) 40 mg EVERY 12 HOURS IVP 03/26/19 21:00 04/25/19 20:59 03/28/19 08:33 Rifaximin (Xifaxan) 550 mg Q12H ORAL 03/22/19 09:00 03/29/19 08:59 03/25/19 20:57 Tamsulosin HCl (Flomax) 0.4 mg DAILY ORAL 03/22/19 09:00 04/21/19 08:59 03/25/19 08:50 Ursodiol (Actigall) 300 mg TWICE A DAY ORAL 03/26/19 18:00 04/25/19 17:59 Last 24 Hour Vital Signs Date Time Temp Pulse Resp B/P (MAP) Pulse Ox O2 Delivery O2 Flow Rate FiO2 03/28/19 16:00 99.0 84 28 75/44 (54) 97 03/28/19 12:00 100.4 98 32 75/48 (57) 96 03/28/19 09:37 98.8 03/28/19 09:00 Room Air 03/28/19 08:45 102.9 03/28/19 08:00 102.9 105 38 80/54 (63) 98 03/28/19 04:00 99.5 98 35 82/48 (59) 99 03/28/19 00:00 98.2 98 34 112/45 (67) 98 03/27/19 21:00 Room Air 03/27/19 20:24 61 18 97 Room Air 21 03/27/19 20:00 98.0 91 28 103/66 (78) 99 03/27/19 16:00 98.3 59 22 95/59 (71) 99 03/27/19 12:00 99.0 54 20 89/56 (67) 98 03/27/19 09:00 Room Air 03/27/19 08:22 80 18 97 Room Air 21 03/27/19 08:00 99.0 96 18 91/61 (71) 98 03/27/19 04:00 98.7 98 36 92/52 (65) 98 03/27/19 00:00 98.0 113 39 83/55 (64) 99 03/26/19 21:00 Room Air 03/26/19 20:00 96.9 104 32 98/64 (75) 90 03/26/19 19:43 71 17 96 Room Air 21 Intake and Output 03/27/19 03/28/19 19:00 07:00 Intake Total 75 ml 750 ml Output Total 1000 ml 1000 ml Balance -925 ml -250 ml IV Total 75 ml 750 ml Output Urine Total 1000 ml 1000 ml # Bowel Movements 1 1 Labs Test 03/26/19 06:26 03/27/19 05:50 03/28/19 05:45 White Blood Count 20.5 K/UL (4.8-10.8) 24.9 K/UL (4.8-10.8) 16.7 K/UL (4.8-10.8) Red Blood Count 2.54 M/UL (4.70-6.10) 2.27 M/UL (4.70-6.10) 2.16 M/UL (4.70-6.10) Hemoglobin 9.1 G/DL (14.2-18.0) 8.3 G/DL (14.2-18.0) 7.8 G/DL (14.2-18.0) Hematocrit 26.7 % (42.0-52.0) 24.2 % (42.0-52.0) 23.2 % (42.0-52.0) Mean Corpuscular Volume 105 FL (80-99) 107 FL (80-99) 108 FL (80-99) Mean Corpuscular Hemoglobin 35.7 PG (27.0-31.0) 36.5 PG (27.0-31.0) 36.0 PG (27.0-31.0) Mean Corpuscular Hemoglobin Concent 33.9 G/DL (32.0-36.0) 34.2 G/DL (32.0-36.0) 33.5 G/DL (32.0-36.0) Red Cell Distribution Width 14.5 % (11.6-14.8) 14.8 % (11.6-14.8) 15.2 % (11.6-14.8) Platelet Count 167 K/UL (150-450) 161 K/UL (150-450) 145 K/UL (150-450) Mean Platelet Volume 6.0 FL (6.5-10.1) 6.0 FL (6.5-10.1) 7.1 FL (6.5-10.1) Neutrophils (%) (Auto) % (45.0-75.0) % (45.0-75.0) % (45.0-75.0) Lymphocytes (%) (Auto) % (20.0-45.0) % (20.0-45.0) % (20.0-45.0) Monocytes (%) (Auto) % (1.0-10.0) % (1.0-10.0) % (1.0-10.0) Eosinophils (%) (Auto) % (0.0-3.0) % (0.0-3.0) % (0.0-3.0) Basophils (%) (Auto) % (0.0-2.0) % (0.0-2.0) % (0.0-2.0) Differential Total Cells Counted 100 100 100 Neutrophils % (Manual) 86 % (45-75) 85 % (45-75) 89 % (45-75) Lymphocytes % (Manual) 10 % (20-45) 9 % (20-45) 8 % (20-45) Monocytes % (Manual) 4 % (1-10) 6 % (1-10) 3 % (1-10) Eosinophils % (Manual) 0 % (0-3) 0 % (0-3) 0 % (0-3) Basophils % (Manual) 0 % (0-2) 0 % (0-2) 0 % (0-2) Band Neutrophils 0 % (0-8) 0 % (0-8) 0 % (0-8) Platelet Estimate Adequate Adequate Decreased Platelet Morphology Normal Normal Normal Hypochromasia 1+ 1+ Anisocytosis 1+ 1+ Macrocytosis 1+ 1+ 1+ Sodium Level 159 MMOL/L (136-145) 161 MMOL/L (136-145) 162 MMOL/L (136-145) Potassium Level 3.3 MMOL/L (3.5-5.1) 3.4 MMOL/L (3.5-5.1) 3.7 MMOL/L (3.5-5.1) Chloride Level 124 MMOL/L (98-107) 127 MMOL/L (98-107) 128 MMOL/L (98-107) Carbon Dioxide Level 23 MMOL/L (21-32) 20 MMOL/L (21-32) 20 MMOL/L (21-32) Anion Gap 12 mmol/L (5-15) 14 mmol/L (5-15) 14 mmol/L (5-15) Blood Urea Nitrogen 82 mg/dL (7-18) 85 mg/dL (7-18) 96 mg/dL (7-18) Creatinine 1.8 MG/DL (0.55-1.30) 2.1 MG/DL (0.55-1.30) 2.5 MG/DL (0.55-1.30) Estimat Glomerular Filtration Rate 47.8 mL/min (>60) 40.0 mL/min (>60) 32.6 mL/min (>60) Glucose Level 125 MG/DL (74-106) 96 MG/DL (74-106) 92 MG/DL (74-106) Uric Acid 8.0 MG/DL (2.6-7.2) 9.6 MG/DL (2.6-7.2) Calcium Level 9.2 MG/DL (8.5-10.1) 8.8 MG/DL (8.5-10.1) 8.6 MG/DL (8.5-10.1) Phosphorus Level 3.5 MG/DL (2.5-4.9) 3.9 MG/DL (2.5-4.9) Magnesium Level 2.4 MG/DL (1.8-2.4) 2.2 MG/DL (1.8-2.4) Total Bilirubin 18.4 MG/DL (0.2-1.0) 18.9 MG/DL (0.2-1.0) 19.9 MG/DL (0.2-1.0) Direct Bilirubin 15.2 MG/DL (0.0-0.3) 15.5 MG/DL (0.0-0.3) 16.0 MG/DL (0.0-0.3) Aspartate Amino Transf (AST/SGOT) 341 U/L (15-37) 399 U/L (15-37) 373 U/L (15-37) Alanine Aminotransferase (ALT/SGPT) 136 U/L (12-78) 147 U/L (12-78) 135 U/L (12-78) Alkaline Phosphatase 1394 U/L (46-116) 1729 U/L (46-116) 1568 U/L (46-116) Ammonia 36 umol/L (11-32) C-Reactive Protein, Quantitative 11.4 mg/dL (0.00-0.90) Pro-B-Type Natriuretic Peptide 1589 pg/mL (0-125) Total Protein 8.3 G/DL (6.4-8.2) 7.7 G/DL (6.4-8.2) 7.3 G/DL (6.4-8.2) Albumin 1.5 G/DL (3.4-5.0) 1.4 G/DL (3.4-5.0) 1.3 G/DL (3.4-5.0) Globulin 6.8 g/dL 6.3 g/dL 6.0 g/dL Albumin/Globulin Ratio 0.2 (1.0-2.7) 0.2 (1.0-2.7) 0.2 (1.0-2.7) Lactate Dehydrogenase 325 U/L (81-234) Polychromasia 1+ Height (Feet): 5 Height (Inches): 9.00 Weight (Pounds): 129 Gustavo Ghosh MD Mar 28, 2019 17:53
--- NOTE | 2019-03-28 18:31 | NUR ---
NURSE NOTES: made dr lemus aware of the HIV result. no new order obtained.
--- NOTE | 2019-03-28 19:04 | NUR ---
HAND-OFF: Report given to TIMOTHY.
--- NOTE | 2019-03-28 19:23 | NUR ---
NURSE NOTES: Received report from PADDY Berumen. Pt sleeping in bed, on room air. Pt has Foote and secured to the leg. IV site intact and running IVF. Wound dressings intact. Aspiration and fall precaution maintained. HOB elevated. Bed locked, lowest position, alarm on, side rails up, call light within reach. Will continue to monitor.
[2019-03-28 19:51] VITALS: BP 75/48
--- NOTE | 2019-03-28 20:25 | NUR ---
NURSE NOTES: Pt unable to swallow po meds. Non administered po meds.
--- NOTE | 2019-03-28 20:53 | General Progress Note ---
Assessment/Plan Status: deteriorating Assessment/Plan: S: deliriuos O: limited eval. seems comfortable, Foote with pigmentosus colored urine collection HYSICAL EXAMINATION:HEAD AND NECK: HEART: S1, S2. Regular rate and rhythm. ABDOMEN: Positive for fullness, ascitis cannot be excluded.MUSCULOSKELETAL: Positive for 2+ pitting edema in the lower extremities. NEUROLOGIC: The patient is Lethargic LABORATORY and Medication DATA: reviewed in the chart ASSESSMENT AND PLAN: 1. Acute Metabolic encephalopathy 2. Gram negative Sepsis: likely UTI 3. Anasarca. 2. Primary Billiary Cirrhosis. 3. Chronic pain. 4. HIV. 5. Hypertension. 6. Acute Anemia. 7. Hematuria . 8. GI and DVT prophylaxis. 9. DNR Plan; Notes from ID, Nephro, Critical care and Surgery services are reviewed [facility] to Facility placement per family Worsening hepatitis. Worsening Sodium, as anticipated. Family would like NO Alternative feeding routes Proceed with placement with Hospice Subjective Allergies: Coded Allergies: No Known Allergies (Unverified , 12/04/18) Objective Last 24 Hour Vital Signs Date Time Temp Pulse Resp B/P (MAP) Pulse Ox O2 Delivery O2 Flow Rate FiO2 03/28/19 19:51 99.1 74 32 75/48 (57) 89 03/28/19 19:31 Room Air 03/28/19 16:00 99.0 84 28 75/44 (54) 97 03/28/19 12:00 100.4 98 32 75/48 (57) 96 03/28/19 09:37 98.8 03/28/19 09:00 Room Air 03/28/19 08:45 102.9 03/28/19 08:00 102.9 105 38 80/54 (63) 98 03/28/19 04:00 99.5 98 35 82/48 (59) 99 03/28/19 00:00 98.2 98 34 112/45 (67) 98 03/27/19 21:00 Room Air Intake and Output 03/27/19 03/28/19 19:00 07:00 Intake Total 75 ml 750 ml Output Total 1000 ml 1000 ml Balance -925 ml -250 ml IV Total 75 ml 750 ml Output Urine Total 1000 ml 1000 ml # Bowel Movements 1 1 Laboratory Tests 03/28/19 05:45: White Blood Count 16.7H, Red Blood Count 2.16L, Hemoglobin 7.8L, Hematocrit 23.2L, Mean Corpuscular Volume 108H, Mean Corpuscular Hemoglobin 36.0H, Mean Corpuscular Hemoglobin Concent 33.5, Red Cell Distribution Width 15.2H, Platelet Count 145L, Mean Platelet Volume 7.1, Neutrophils (%) (Auto) , Lymphocytes (%) (Auto) , Monocytes (%) (Auto) , Eosinophils (%) (Auto) , Basophils (%) (Auto) , Differential Total Cells Counted 100, Neutrophils % ( Manual) 89H, Lymphocytes % (Manual) 8L, Monocytes % (Manual) 3, Eosinophils % ( Manual) 0, Basophils % (Manual) 0, Band Neutrophils 0, Platelet Estimate DecreasedL, Platelet Morphology Normal, Polychromasia 1+, Hypochromasia 1+, Macrocytosis 1+, Sodium Level 162*H, Potassium Level 3.7, Chloride Level 128H, Carbon Dioxide Level 20L, Anion Gap 14, Blood Urea Nitrogen 96H, Creatinine 2.5H , Estimat Glomerular Filtration Rate 32.6, Glucose Level 92, Uric Acid 9.6H, Calcium Level 8.6, Phosphorus Level 3.9, Magnesium Level 2.2, Total Bilirubin 19.9H, Direct Bilirubin 16.0H, Aspartate Amino Transf (AST/SGOT) 373H, Alanine Aminotransferase (ALT/SGPT) 135H, Alkaline Phosphatase 1568H, Total Protein 7.3 , Albumin 1.3L, Globulin 6.0, Albumin/Globulin Ratio 0.2L, HIV (1&2) Antibody Rapid Preliminary positiveH 03/28/19 18:45: HIV-1 Antibody [Pending], HIV-2 Antibody [Pending] Height (Feet): 5 Height (Inches): 9.00 Weight (Pounds): 129 Nupur Juan MD Mar 28, 2019 20:53
--- NOTE | 2019-03-28 22:02 | Pulmonology Progress Note ---
Assessment/Plan Assessment/Plan Problems: (1) Sepsis (2) UTI (urinary tract infection) (3) Cellulitis of leg (4) STEVE (acute kidney injury) (5) Abnormal LFTs (6) HIV (human immunodeficiency virus infection) (7) Jaundice (8) Pressure ulcer of sacrum (9) Encephalopathy acute Assessment/Plan Abx per ID, F/U Cx's Monitor volumes, mIVF, replete free water PO for pleasure when alert, TF"s not within GOC Supportive care Dispo planning back to facility ? on hospice, consider ethics eval Subjective ROS Limited/Unobtainable: Yes Allergies: Coded Allergies: No Known Allergies (Unverified , 12/04/18) Subjective weak and obtunded, somewhat agonalt at times unable to communicate on o2 not toelrating po Objective Last 24 Hour Vital Signs Date Time Temp Pulse Resp B/P (MAP) Pulse Ox O2 Delivery O2 Flow Rate FiO2 03/28/19 19:51 99.1 74 32 75/48 (57) 89 03/28/19 19:31 Room Air 03/28/19 16:00 99.0 84 28 75/44 (54) 97 03/28/19 12:00 100.4 98 32 75/48 (57) 96 03/28/19 09:37 98.8 03/28/19 09:00 Room Air 03/28/19 08:45 102.9 03/28/19 08:00 102.9 105 38 80/54 (63) 98 03/28/19 04:00 99.5 98 35 82/48 (59) 99 03/28/19 00:00 98.2 98 34 112/45 (67) 98 Intake and Output 03/27/19 03/28/19 19:00 07:00 Intake Total 75 ml 750 ml Output Total 1000 ml 1000 ml Balance -925 ml -250 ml IV Total 75 ml 750 ml Output Urine Total 1000 ml 1000 ml # Bowel Movements 1 1 General Appearance: cachetic Respiratory/Chest: accessory muscle use Cardiovascular: normal rate, edema Neurologic/Psychiatric: disoriented, aphasia Microbiology Date/Time Source Procedure Growth Status 03/26/19 15:30 Blood Blood Culture - Preliminary NO GROWTH AFTER 24 HOURS Resulted 03/26/19 15:15 Blood Blood Culture - Preliminary NO GROWTH AFTER 24 HOURS Resulted Laboratory Tests 03/28/19 05:45: White Blood Count 16.7H, Red Blood Count 2.16L, Hemoglobin 7.8L, Hematocrit 23.2L, Mean Corpuscular Volume 108H, Mean Corpuscular Hemoglobin 36.0H, Mean Corpuscular Hemoglobin Concent 33.5, Red Cell Distribution Width 15.2H, Platelet Count 145L, Mean Platelet Volume 7.1, Neutrophils (%) (Auto) , Lymphocytes (%) (Auto) , Monocytes (%) (Auto) , Eosinophils (%) (Auto) , Basophils (%) (Auto) , Differential Total Cells Counted 100, Neutrophils % ( Manual) 89H, Lymphocytes % (Manual) 8L, Monocytes % (Manual) 3, Eosinophils % ( Manual) 0, Basophils % (Manual) 0, Band Neutrophils 0, Platelet Estimate DecreasedL, Platelet Morphology Normal, Polychromasia 1+, Hypochromasia 1+, Macrocytosis 1+, Sodium Level 162*H, Potassium Level 3.7, Chloride Level 128H, Carbon Dioxide Level 20L, Anion Gap 14, Blood Urea Nitrogen 96H, Creatinine 2.5H , Estimat Glomerular Filtration Rate 32.6, Glucose Level 92, Uric Acid 9.6H, Calcium Level 8.6, Phosphorus Level 3.9, Magnesium Level 2.2, Total Bilirubin 19.9H, Direct Bilirubin 16.0H, Aspartate Amino Transf (AST/SGOT) 373H, Alanine Aminotransferase (ALT/SGPT) 135H, Alkaline Phosphatase 1568H, Total Protein 7.3 , Albumin 1.3L, Globulin 6.0, Albumin/Globulin Ratio 0.2L, HIV (1&2) Antibody Rapid Preliminary positiveH 03/28/19 18:45: HIV-1 Antibody [Pending], HIV-2 Antibody [Pending] Current Medications Medications (Trade) Dose Ordered Sig/Lala Route PRN Reason Start Time Stop Time Status Last Admin Dose Admin Acetaminophen (Tylenol) 650 mg Q4H PRN RECTAL Mild Pain (Pain Scale 1-3) 03/28/19 08:00 04/27/19 07:59 03/28/19 08:15 Dextrose 1,000 ml @ 125 mls/hr Q8H IV 03/28/19 08:15 04/27/19 08:14 03/28/19 17:01 Docusate Sodium (Colace) 100 mg THREE TIMES A DAY ORAL 03/23/19 18:00 3/5/20 17:59 03/26/19 12:14 Folic Acid (Folate) 1 mg DAILY ORAL 03/27/19 09:00 04/26/19 08:59 Hydromorphone HCl (Dilaudid) 0.5 mg Q6H PRN IVP PAIN 4-6 03/27/19 21:00 04/02/19 11:14 Hydromorphone HCl (Dilaudid) 1 mg Q4H PRN SUBQ Pain 7-10 03/27/19 20:56 04/03/19 20:55 Lactulose (Cephulac) 20 gm THREE TIMES A DAY ORAL 03/26/19 13:00 04/25/19 12:59 03/26/19 12:14 Linezolid 300 ml @ 300 mls/hr Q12H IVPB 03/28/19 17:00 04/04/19 16:59 03/28/19 17:03 Meropenem 1 gm/ Sodium Chloride 55 ml @ 110 mls/hr Q12H IVPB 03/28/19 16:00 04/02/19 15:59 03/28/19 16:03 Pantoprazole (Protonix) 40 mg EVERY 12 HOURS IVP 03/26/19 21:00 04/25/19 20:59 03/28/19 20:12 Rifaximin (Xifaxan) 550 mg Q12H ORAL 03/22/19 09:00 03/29/19 08:59 03/25/19 20:57 Tamsulosin HCl (Flomax) 0.4 mg DAILY ORAL 03/22/19 09:00 04/21/19 08:59 03/25/19 08:50 Ursodiol (Actigall) 300 mg TWICE A DAY ORAL 03/26/19 18:00 04/25/19 17:59 Patsy Julian DO Mar 28, 2019 22:02
[2019-03-29] VITALS: BP 77/48
[2019-03-29] MEDS: Meropenem 1 GM in NS 55 ML IVPB SCH ×2 (03:12→16:00)
[2019-03-29 04:00] VITALS: BP 81/51
--- NOTE | 2019-03-29 07:19 | NUR ---
HAND-OFF: Report given to PADDY Ro.
--- NOTE | 2019-03-29 07:54 | NUR ---
NURSE NOTES: received patient in bed, no sign of pain or discomfort, maintains baseline tachypnea in room air sat high 90s. Receives IVF through LFA IV access, no sign of infiltration noted. Bed locked at the lowest position possible, call light within easy reach, siderails up x3. Will continue to monitor patient and follow up with the plan of care.
[2019-03-29 08:00] VITALS: BP 108/72
--- NOTE | 2019-03-29 08:55 | Nephrology Progress Note ---
Assessment/Plan Problem List: (1) STEVE (acute kidney injury) (2) Anasarca (3) Pressure ulcer of sacrum (4) Jaundice Assessment Renal failure- Acute mainly Prerenal Sepsis Jaundice Infected decubitus ulcer Plan no labs today IV D5W Adjust meds add lactulose per order poor prognosis DC Lasix DC HCTZ DC Aldactone Vit K SQ DNR MRI Abd IMPRESSION: Minimal ascites. Surgical absence of the gallbladder. No significant intrahepatic or extrahepatic ductal dilatation. No focal hepatic mass pancreatic mass or splenic mass identified. Subjective ROS Limited/Unobtainable: No Constitutional: Reports: malaise, weakness Objective Objective Last 24 Hour Vital Signs Date Time Temp Pulse Resp B/P (MAP) Pulse Ox O2 Delivery O2 Flow Rate FiO2 03/29/19 08:00 98.0 80 16 108/72 (84) 96 03/29/19 04:00 99.1 94 33 81/51 (61) 82 03/29/19 00:00 98.1 75 34 77/48 (58) 98 03/28/19 20:02 70 18 98 Room Air 21 03/28/19 19:51 99.1 74 32 75/48 (57) 89 03/28/19 19:31 Room Air 03/28/19 16:00 99.0 84 28 75/44 (54) 97 03/28/19 12:00 100.4 98 32 75/48 (57) 96 03/28/19 09:37 98.8 03/28/19 09:00 Room Air Intake and Output 03/28/19 03/29/19 19:00 07:00 Intake Total 410 ml 1500 ml Output Total 400 ml 700 ml Balance 10 ml 800 ml IV Total 410 ml 1500 ml Output Urine Total 400 ml 700 ml # Bowel Movements 1 1 Current Medications Medications (Trade) Dose Ordered Sig/Lala Route PRN Reason Start Time Stop Time Status Last Admin Dose Admin Acetaminophen (Tylenol) 650 mg Q4H PRN RECTAL Mild Pain (Pain Scale 1-3) 03/28/19 08:00 04/27/19 07:59 03/28/19 08:15 Dextrose 1,000 ml @ 125 mls/hr Q8H IV 03/28/19 08:15 04/27/19 08:14 03/29/19 00:10 Docusate Sodium (Colace) 100 mg THREE TIMES A DAY ORAL 03/23/19 18:00 04/22/19 17:59 03/26/19 12:14 Folic Acid (Folate) 1 mg DAILY ORAL 03/27/19 09:00 04/26/19 08:59 Hydromorphone HCl (Dilaudid) 0.5 mg Q6H PRN IVP PAIN 4-6 03/27/19 21:00 04/02/19 11:14 Hydromorphone HCl (Dilaudid) 1 mg Q4H PRN SUBQ Pain 7-10 03/27/19 20:56 04/03/19 20:55 Lactulose (Cephulac) 20 gm THREE TIMES A DAY ORAL 03/26/19 13:00 04/25/19 12:59 03/26/19 12:14 Linezolid 300 ml @ 300 mls/hr Q12H IVPB 03/28/19 17:00 04/04/19 16:59 03/29/19 04:34 Meropenem 1 gm/ Sodium Chloride 55 ml @ 110 mls/hr Q12H IVPB 03/28/19 16:00 04/02/19 15:59 03/29/19 03:12 Pantoprazole (Protonix) 40 mg EVERY 12 HOURS IVP 03/26/19 21:00 04/25/19 20:59 03/28/19 20:12 Rifaximin (Xifaxan) 550 mg Q12H ORAL 03/22/19 09:00 03/29/19 08:59 03/25/19 20:57 Tamsulosin HCl (Flomax) 0.4 mg DAILY ORAL 03/22/19 09:00 04/21/19 08:59 03/25/19 08:50 Ursodiol (Actigall) 300 mg TWICE A DAY ORAL 03/26/19 18:00 04/25/19 17:59 Laboratory Tests 03/28/19 18:45: HIV-1 Antibody [Pending], HIV-2 Antibody [Pending] Height (Feet): 5 Height (Inches): 9.00 Weight (Pounds): 129 General Appearance: no apparent distress, lethargic Cardiovascular: tachycardia Respiratory/Chest: decreased breath sounds Abdomen: distended Objective no other change José Miguel Nava MD Mar 29, 2019 08:55
[2019-03-29] MEDS: Docusate 100mg cap ORAL SCH ×3 (09:00→17:51)
[2019-03-29] MEDS: Tamsulosin 0.4mg cap ORAL SCH (09:00)
[2019-03-29] MEDS: Ursodiol 300mg cap ORAL SCH ×2 (09:00→17:51)
[2019-03-29] MEDS: Lactulose 20gm/30ml UDC ORAL SCH ×3 (09:00→17:51)
[2019-03-29] MEDS ORDERED: D5W 550ml IV ONE (09:40)
[2019-03-29] MEDS: Pantoprazole Inj IVP SCH ×2 (10:01→20:32)
--- NOTE | 2019-03-29 10:04 | NUR ---
RADIOLOGY: PCXR COMPLETED 0900HRS. NF
--- NOTE | 2019-03-29 10:22 | General Progress Note ---
Assessment/Plan Status: deteriorating Assessment/Plan: S: deliriuos O: limited eval. seems comfortable, Foote with pigmentosus colored urine collection HYSICAL EXAMINATION:HEAD AND NECK: HEART: S1, S2. Regular rate and rhythm. ABDOMEN: Positive for fullness, ascitis cannot be excluded.MUSCULOSKELETAL: Positive for 2+ pitting edema in the lower extremities. NEUROLOGIC: The patient is Lethargic LABORATORY and Medication DATA: reviewed in the chart ASSESSMENT AND PLAN: 1. Acute Metabolic encephalopathy 2. Gram negative Sepsis: likely UTI 3. Anasarca. 2. Primary Billiary Cirrhosis. 3. Chronic pain. 4. HIV. 5. Hypertension. 6. Acute Anemia. 7. Hematuria . 8. GI and DVT prophylaxis. 9. DNR Plan; Notes from ID, Nephro, Critical care and Surgery services are reviewed [facility] to Facility placement per family Worsening hepatitis. Worsening Sodium, as anticipated. Family would like NO Alternative feeding routes Proceed with placement with Hospice Subjective Allergies: Coded Allergies: No Known Allergies (Unverified , 12/04/18) Objective Last 24 Hour Vital Signs Date Time Temp Pulse Resp B/P (MAP) Pulse Ox O2 Delivery O2 Flow Rate FiO2 03/29/19 08:00 98.0 80 32 108/72 (84) 96 03/29/19 04:00 99.1 94 33 81/51 (61) 82 03/29/19 00:00 98.1 75 34 77/48 (58) 98 03/28/19 20:02 70 18 98 Room Air 21 03/28/19 19:51 99.1 74 32 75/48 (57) 89 03/28/19 19:31 Room Air 03/28/19 16:00 99.0 84 28 75/44 (54) 97 03/28/19 12:00 100.4 98 32 75/48 (57) 96 Intake and Output 03/28/19 03/29/19 19:00 07:00 Intake Total 410 ml 1500 ml Output Total 400 ml 700 ml Balance 10 ml 800 ml IV Total 410 ml 1500 ml Output Urine Total 400 ml 700 ml # Bowel Movements 1 1 Laboratory Tests 03/28/19 18:45: HIV-1 Antibody [Pending], HIV-2 Antibody [Pending] Height (Feet): 5 Height (Inches): 9.00 Weight (Pounds): 129 Nupur Juan MD Mar 29, 2019 10:22
--- NOTE | 2019-03-29 10:40 | General Progress Note ---
Assessment/Plan Problem List: (1) Jaundice ICD Codes: R17 - Unspecified jaundice SNOMED: 74503142 (2) Pressure ulcer of sacrum ICD Codes: L89.159 - Pressure ulcer of sacral region, unspecified stage SNOMED: 057472699 (3) Sepsis ICD Codes: A41.9 - Sepsis, unspecified organism SNOMED: 73311561, 9519874 Qualifiers: Qualified Codes: A41.9 - Sepsis, unspecified organism (4) Abnormal LFTs ICD Codes: R94.5 - Abnormal results of liver function studies SNOMED: 833625563 (5) HIV (human immunodeficiency virus infection) ICD Codes: B20 - Human immunodeficiency virus [HIV] disease SNOMED: 05479147 (6) Cellulitis of leg ICD Codes: L03.119 - Cellulitis of unspecified part of limb SNOMED: 772421423 (7) Hepatomegaly ICD Codes: R16.0 - Hepatomegaly, not elsewhere classified SNOMED: 59231690 Status: deteriorating Assessment/Plan: h/o gastric bypass anemia hypernatremia leukocytosis RI cirrhosis HIV replace folate actigal 300 BID LDH MRI of the liver reviewed hypotensive DNR poor prognosis Subjective ROS Limited/Unobtainable: No Allergies: Coded Allergies: No Known Allergies (Unverified , 12/04/18) Objective Last 24 Hour Vital Signs Date Time Temp Pulse Resp B/P (MAP) Pulse Ox O2 Delivery O2 Flow Rate FiO2 03/29/19 08:00 98.0 80 32 108/72 (84) 96 03/29/19 04:00 99.1 94 33 81/51 (61) 82 03/29/19 00:00 98.1 75 34 77/48 (58) 98 03/28/19 20:02 70 18 98 Room Air 21 03/28/19 19:51 99.1 74 32 75/48 (57) 89 03/28/19 19:31 Room Air 03/28/19 16:00 99.0 84 28 75/44 (54) 97 03/28/19 12:00 100.4 98 32 75/48 (57) 96 Intake and Output 03/28/19 03/29/19 19:00 07:00 Intake Total 410 ml 1500 ml Output Total 400 ml 700 ml Balance 10 ml 800 ml IV Total 410 ml 1500 ml Output Urine Total 400 ml 700 ml # Bowel Movements 1 1 Laboratory Tests 03/28/19 18:45: HIV-1 Antibody [Pending], HIV-2 Antibody [Pending] Height (Feet): 5 Height (Inches): 9.00 Weight (Pounds): 129 General Appearance: lethargic EENT: normal ENT inspection Neck: supple Cardiovascular: normal rate Respiratory/Chest: lungs clear Abdomen: normal bowel sounds, non tender, soft Extremities: non-tender Amauri Lopez MD Mar 29, 2019 10:40
[2019-03-29] MEDS ORDERED: Phytonadione 1 MG in D5W 55 ML IVPB ONE (11:00)
--- NOTE | 2019-03-29 11:49 | NUR ---
DISCHARGE PLANNING NOTE ALL CLINICALS FAXED TO [facility] P: F: Addendum: 03/29/19 at 1335 by CLAUDINE BECERRA LVN LVN COMMUNICATED WITH PATIENT BROTHER/PAULA DUBOSE, PATIENT REFERRED TO [facility]. PAULA STATES THEY HAVE [facility]OSEN [facility] AND WILL MEET WITH THEM THIS AFTERNOON. DR. MYERS INFORMED OF FAMILIES CHOICE FOR HOSPICE.
[2019-03-29 12:00] VITALS: BP 80/46
--- NOTE | 2019-03-29 13:48 | Pulmonology Progress Note ---
Assessment/Plan Problems: (1) Sepsis (2) UTI (urinary tract infection) (3) Cellulitis of leg (4) STEVE (acute kidney injury) (5) Abnormal LFTs (6) HIV (human immunodeficiency virus infection) (7) Jaundice (8) Pressure ulcer of sacrum (9) Encephalopathy acute Assessment/Plan Pulmonary hygiene/mobilize Agree with plan to D/C back to SNF on hospice Patient stable from a respiratory standpoint, will sign off and follow peripherally. Please call with any questions or change in condition. Subjective Allergies: Coded Allergies: No Known Allergies (Unverified , 12/04/18) Subjective NAEO obtunded on RA BP borderline Plan to return to SNF on hospice No cough no SOB no respiratory Sx's or distress Objective Last 24 Hour Vital Signs Date Time Temp Pulse Resp B/P (MAP) Pulse Ox O2 Delivery O2 Flow Rate FiO2 03/29/19 12:00 98.5 106 28 80/46 (57) 97 03/29/19 08:00 98.0 80 32 108/72 (84) 96 03/29/19 04:00 99.1 94 33 81/51 (61) 82 03/29/19 00:00 98.1 75 34 77/48 (58) 98 03/28/19 20:02 70 18 98 Room Air 21 03/28/19 19:51 99.1 74 32 75/48 (57) 89 03/28/19 19:31 Room Air 03/28/19 16:00 99.0 84 28 75/44 (54) 97 Intake and Output 03/28/19 03/29/19 19:00 07:00 Intake Total 410 ml 1500 ml Output Total 400 ml 700 ml Balance 10 ml 800 ml IV Total 410 ml 1500 ml Output Urine Total 400 ml 700 ml # Bowel Movements 1 1 General Appearance: cachetic - frail HEENT: normocephalic, atraumatic, anicteric, mucous membranes moist Respiratory/Chest: chest wall non-tender, lungs clear, normal breath sounds, no respiratory distress, no accessory muscle use Cardiovascular: normal peripheral pulses, normal rate, regular rhythm Abdomen: normal bowel sounds, soft, non tender, no organomegaly, non distended , no mass Extremities: no cyanosis, no clubbing, no edema Microbiology Date/Time Source Procedure Growth Status 03/26/19 15:30 Blood Blood Culture - Preliminary NO GROWTH AFTER 48 HOURS Resulted 03/26/19 15:15 Blood Blood Culture - Preliminary NO GROWTH AFTER 48 HOURS Resulted Laboratory Tests 03/28/19 18:45: HIV-1 Antibody [Pending], HIV-2 Antibody [Pending] Current Medications Medications (Trade) Dose Ordered Sig/Lala Route PRN Reason Start Time Stop Time Status Last Admin Dose Admin Acetaminophen (Tylenol) 650 mg Q4H PRN RECTAL Mild Pain (Pain Scale 1-3) 03/28/19 08:00 04/27/19 07:59 03/28/19 08:15 Dextrose 1,000 ml @ 125 mls/hr Q8H IV 03/28/19 08:15 04/27/19 08:14 03/29/19 10:09 Docusate Sodium (Colace) 100 mg THREE TIMES A DAY ORAL 03/23/19 18:00 04/22/19 17:59 03/26/19 12:14 Folic Acid (Folate) 1 mg DAILY ORAL 03/27/19 09:00 04/26/19 08:59 Hydromorphone HCl (Dilaudid) 0.5 mg Q6H PRN IVP PAIN 4-6 03/27/19 21:00 04/02/19 11:14 Hydromorphone HCl (Dilaudid) 1 mg Q4H PRN SUBQ Pain 7-10 03/27/19 20:56 04/03/19 20:55 Lactulose (Cephulac) 20 gm THREE TIMES A DAY ORAL 03/26/19 13:00 04/25/19 12:59 03/26/19 12:14 Linezolid 300 ml @ 300 mls/hr Q12H IVPB 03/28/19 17:00 04/04/19 16:59 03/29/19 04:34 Meropenem 1 gm/ Sodium Chloride 55 ml @ 110 mls/hr Q12H IVPB 03/28/19 16:00 04/02/19 15:59 03/29/19 03:12 Pantoprazole (Protonix) 40 mg EVERY 12 HOURS IVP 03/26/19 21:00 04/25/19 20:59 03/29/19 10:01 Tamsulosin HCl (Flomax) 0.4 mg DAILY ORAL 03/22/19 09:00 04/21/19 08:59 03/25/19 08:50 Ursodiol (Actigall) 300 mg TWICE A DAY ORAL 03/26/19 18:00 04/25/19 17:59 Jarrell Lemos MD Mar 29, 2019 13:48
--- NOTE | 2019-03-29 14:56 | Infectious Diseases Prog Note ---
Assessment/Plan Problems: (1) Fever Assessment & Plan: resolved on meropenem and zyvox, repeated Blood culture x2 is pending , CXR is pending . (2) UTI (urinary tract infection) Assessment & Plan: with E coli pansensitive , now on meropenem and zyvox to cover for sepsis too due to E coli for two weeks total. repeated blood culture on 03/24 is positive , source possible sacral osteomyelitis ? no aggressive measures , since he is on hospice care (3) Sepsis Assessment & Plan: due to E coli , with persistent leukocytosis , source most likely is his UTI and possibly sacral osteomyelitis and he is immunocompromised with HIV . continue antibiotics for two weeks course of treatment . repeated blood culture on 03/26 is NTD (4) Pressure ulcer of sacrum Assessment & Plan: with minimal sloughing and draining of bloody fluids, continue off loading and local wound care as per hospital protocol (5) STEVE (acute kidney injury) Assessment & Plan: advanced with uremia , suspect dehydration, needs aggressive hydration, renal is following (6) HIV (human immunodeficiency virus infection) Assessment & Plan: unclear whether he is taking any meds now since he is on hospice care (7) Encephalopathy acute Assessment & Plan: suspect metabolic due to uremia and hepatic related , renal is following (8) Cellulitis of sacral region Assessment & Plan: now on wide spectrum antibiotics , continue local wound care and off loading as per hospital protocol, wound care team is following (9) Poor prognosis Assessment & Plan: going back on hospice care Subjective ROS Limited/Unobtainable: Yes Allergies: Coded Allergies: No Known Allergies (Unverified , 12/04/18) Subjective He was still altered, and lethargic, not responsive to verbal commands , lying in bed, with no oral intake, urine dark and dense , no fever today , no cough or SOB, no diarrhea . Objective Vital Signs Last 24 Hour Vital Signs Date Time Temp Pulse Resp B/P (MAP) Pulse Ox O2 Delivery O2 Flow Rate FiO2 03/29/19 12:00 98.5 106 28 80/46 (57) 97 03/29/19 08:00 98.0 80 32 108/72 (84) 96 03/29/19 04:00 99.1 94 33 81/51 (61) 82 03/29/19 00:00 98.1 75 34 77/48 (58) 98 03/28/19 20:02 70 18 98 Room Air 21 03/28/19 19:51 99.1 74 32 75/48 (57) 89 03/28/19 19:31 Room Air 03/28/19 16:00 99.0 84 28 75/44 (54) 97 Height (Feet): 5 Height (Inches): 9.00 Weight (Pounds): 129 General Appearance: no acute distress, cachetic, other - unresponsive HEENT: normocephalic, atraumatic, anicteric, mucous membranes moist, PERRL Respiratory/Chest: chest wall non-tender, no respiratory distress, no accessory muscle use, decreased breath sounds, crackles/rales Cardiovascular: normal peripheral pulses, normal rate, regular rhythm, no gallop/murmur, no JVD Abdomen: normal bowel sounds, soft, non tender, no organomegaly, non distended , no mass, no scars Genitourinary: normal external genitalia Extremities: no cyanosis, no clubbing Skin: no rash, no lesions, no ulcers Neurologic/Psychiatric: unresponsiveness Lymphatic: no neck adenopathy, no groin adenopathy Musculoskeletal: normal muscle bulk, no effusion Microbiology Date/Time Source Procedure Growth Status 03/26/19 15:30 Blood Blood Culture - Preliminary NO GROWTH AFTER 48 HOURS Resulted 03/26/19 15:15 Blood Blood Culture - Preliminary NO GROWTH AFTER 48 HOURS Resulted Laboratory Tests Test 03/28/19 18:45 HIV-1 Antibody Pending HIV-2 Antibody Pending Current Medications Medications (Trade) Dose Ordered Sig/Lala Route PRN Reason Start Time Stop Time Status Last Admin Dose Admin Acetaminophen (Tylenol) 650 mg Q4H PRN RECTAL Mild Pain (Pain Scale 1-3) 03/28/19 08:00 04/27/19 07:59 03/28/19 08:15 Dextrose 1,000 ml @ 125 mls/hr Q8H IV 03/28/19 08:15 04/27/19 08:14 03/29/19 10:09 Docusate Sodium (Colace) 100 mg THREE TIMES A DAY ORAL 03/23/19 18:00 04/22/19 17:59 03/26/19 12:14 Folic Acid (Folate) 1 mg DAILY ORAL 03/27/19 09:00 04/26/19 08:59 Hydromorphone HCl (Dilaudid) 0.5 mg Q6H PRN IVP PAIN 4-6 03/27/19 21:00 04/02/19 11:14 Hydromorphone HCl (Dilaudid) 1 mg Q4H PRN SUBQ Pain 7-10 03/27/19 20:56 04/03/19 20:55 Lactulose (Cephulac) 20 gm THREE TIMES A DAY ORAL 03/26/19 13:00 04/25/19 12:59 03/26/19 12:14 Linezolid 300 ml @ 300 mls/hr Q12H IVPB 03/28/19 17:00 04/04/19 16:59 03/29/19 04:34 Meropenem 1 gm/ Sodium Chloride 55 ml @ 110 mls/hr Q12H IVPB 03/28/19 16:00 04/02/19 15:59 03/29/19 03:12 Pantoprazole (Protonix) 40 mg EVERY 12 HOURS IVP 03/26/19 21:00 04/25/19 20:59 03/29/19 10:01 Tamsulosin HCl (Flomax) 0.4 mg DAILY ORAL 03/22/19 09:00 04/21/19 08:59 03/25/19 08:50 Ursodiol (Actigall) 300 mg TWICE A DAY ORAL 03/26/19 18:00 04/25/19 17:59 Cedrick Vu M.D. Mar 29, 2019 14:56
--- NOTE | 2019-03-29 15:32 | Diagnostic Imaging Report ---
Indication: Dyspnea Comparison: 03/21/2019 A single view chest radiograph was obtained. Findings: Lung volumes are low. No infiltrate identified. Pulmonary vascularity is normal. Heart size is normal. IMPRESSION: No acute findings
[2019-03-29 16:00] VITALS: BP 75/44
--- NOTE | 2019-03-29 16:27 | Surgery Progress Note ---
Surgery Progress Note Subjective Additional Comments ill appearing MRI noted wbc trending down lft's up Objective Last 24 Hour Vital Signs Date Time Temp Pulse Resp B/P (MAP) Pulse Ox O2 Delivery O2 Flow Rate FiO2 03/29/19 12:00 98.5 106 28 80/46 (57) 97 03/29/19 08:00 98.0 80 32 108/72 (84) 96 03/29/19 04:00 99.1 94 33 81/51 (61) 82 03/29/19 00:00 98.1 75 34 77/48 (58) 98 03/28/19 20:02 70 18 98 Room Air 21 03/28/19 19:51 99.1 74 32 75/48 (57) 89 03/28/19 19:31 Room Air I&O Intake and Output 03/28/19 03/29/19 19:00 07:00 Intake Total 410 ml 1500 ml Output Total 400 ml 700 ml Balance 10 ml 800 ml IV Total 410 ml 1500 ml Output Urine Total 400 ml 700 ml # Bowel Movements 1 1 Dressing: other Wound: other Drains: other Cardiovascular: RSR Respiratory: decreased breath sounds Abdomen: soft, other, non-distended Extremities: no cyanosis, other Laboratory Tests Test 03/28/19 18:45 HIV-1 Antibody Pending HIV-2 Antibody Pending Plan Problems: (1) Infected decubitus ulcer Assessment & Plan: Pt presented on admission with multiple pressure injuries. Full thickness stage 4 Sacral pressure injury. Base of wound beefy red with scattered slough. (L)5cm x (W)4.5cm.Bone is palpable at base of wound . Borders are black and fluctuant.Periwound is erythematous. Small amt haemopurulent exudate noted. In addition pt noted to have a second small wound L buttocks , but within close proximity to sacrum. Base of wound has 100% slough (L)0.5cm x ( W)0.6cm. Reabsorbing DTPI L trochanter (L)9cmx (W)2cm.Wound is elongated. Base of wound is purple with black striations and is indurated.Periwound is erythematous without elevation in skin temp. Second DTPI noted to L hip . Base of wound is maroon with red borders.(L)1.6cm x (W)2cm. Partially opened DTPI medial L tibia. Proximally,base of wound is pink with small amt slough with small amt brown exudate. Distally base of of wound is necrotic but soft. (L)12.6cm x (W)3cm. Partially opened DTPI medial R tibia. Base of wound with small amt slough, surrounding base of wound beefy red with loose black skin flap. Small amt serous exudate noted. No odor noted.(L)7cm x (W)2cm. DTPI noted top lateral R malleolus. Base of wound is maroon and indurated with marginal erythema(L)1.5cm x (W)2.5cm. L heel is necrotic but dry.Periwound is firm without further evidence of skin breakdown(L)6cm x (W)7.5cm. Unstageable pressure injury R heel. Base of wound necrotic and fluctuant in center with surrounding dry necrotic borders(L)5cm x (W)8.5cm. Tx.Plan: Apply Betadine to both heels and R lateral malleolus. Cover with Optifoam drsg. Change every 3 days and prn. Cleanse Sacral and L buttocks wounds with Saline. Apply TheraHoney to each wound. Apply Moisture Barrier Paste periwound. Cover with Optifoam drsg. Change every 3 days and prn. Apply Cavilon Skin Barrier to L trochanter/L hip. Cover with Optifoam drsgs. Changee very 7 days and prn. Reposition at least every 2hours or as tolerated. Off-load heels with pillow. APM/BO Mattress overlay. Patient presented with an infected sacral decubitus ulcer purulent drainage noted. Significant tissue loss. Will continue with local wound care at this time. Will need to discuss goals of care and care plan prior to any invasive surgical treatment Thank you for let me participate in patient's care (2) Abnormal LFTs Assessment & Plan: Patient with known history of liver cirrhosis. Currently on hospice care. LFT significantly elevated Coagulopathy Abnormal labs We will need to address goals of care with patient's DURABLE POWER OF UNDERWRITING CONSULTANT and medical teams Repeat labs IV fluids Need to consider alternative nutritional intake if part of care plan We will follow with recommendations No acute surgical intervention planned The liver is enlarged measuring about 19 cm. The spleen is enlarged measuring about 13 to 14 cm. Doppler interrogation of the main portal vein shows patency with hepatopedal, monophasic flow. There is no biliary ductal dilatation identified. Gallbladder is absent. CBD is 4 mm. There is a cystic lesion measuring 3.6 cm near the inferior pole of the spleen. Part of the pancreas is obscured by bowel gas. There is trace ascites. Both kidneys appear unremarkable. There is no hydronephrosis. IMPRESSION: Hepatosplenomegaly. Trace ascites. Splenic cyst. Status post cholecystectomy Thank you for let me participate in patient's care FINDINGS: Lung bases: Appears to be some atelectasis in the lung bases bilaterally. Liver: There is hepatomegaly. There appears to be some areas of fatty infiltration. There is no focal enhancing mass noted. Gallbladder and bile ducts: Gallbladder surgically absent. Surgical clips are noted in the gallbladder fossa small areas of magnetic susceptibility artifact. There is motion degradation of the MRCP is a portion of the study but no persistent filling defects demonstrated to suggest common duct stone Pancreas: Unremarkable. No ductal dilation. No mass. Spleen: Unremarkable. No splenomegaly. No evidence for a splenic cyst or mass Adrenals: Unremarkable. No mass. Kidneys and ureters: Unremarkable. No hydronephrosis. No solid mass. Stomach and bowel: Unremarkable as some colonic distention noted. Intraperitoneal space: Minimal ascites Soft tissues: Unremarkable. Vasculature: Unremarkable. No abdominal aortic aneurysm. Lymph nodes: Unremarkable. No enlarged lymph nodes. IMPRESSION: Minimal ascites. Surgical absence of the gallbladder. No significant intrahepatic or extrahepatic ductal dilatation. No focal hepatic mass pancreatic mass or splenic mass identified. Jamey Mazariegos Mar 29, 2019 16:27
--- NOTE | 2019-03-29 17:09 | NUR ---
CASE MANAGEMENT:REVIEW 03/27/2019 SI;AC METABOLIC ENCEPHALOPATHY. CIRRHOSIS. HIV. ANASARCA. 99.0 54 36 89/56 97% ON RA WBC 24.9 H/H 8.3/24.2 NA 162 BUN 96 CREAT 2.5 AST/ALT 373/135 IS;ROCEPHIN IV Q24 HRS IVF DEXTROSE @ 125 ML/HR LACTULOSE PO TID DUO NEB HHN Q6 HRS MED SURG STATUS CASE MANAGEMENT:REVIEW 03/28/2019 SI;AC METABOLIC ENCEPHALOPATHY. CIRRHOSIS. HIV. ANASARCA. 102.9 98 32 75/48 96% ON RA WBC 16.7 H/H 7.8/23.2 NA 162 BUN 96 CREAT 2.5 T-BILI 19.9 IS;DUO NEB HHN Q6 HRS MEROPENEM IV Q12 HRS IVF DEXTROSE @ 125 ML/HR LACTULOSE PO TID MED SURG STATUS CASE MANAGEMENT:REVIEW 03/29/2019 SI;AC METABOLIC ENCEPHALOPATHY. CIRRHOSIS. HIV. ANASARCA. 99.1 106 34 75/48 82% ON RA IS;LINEZOLID IV Q12 HRS MEROPENEM IV Q12 HRS IVF DEXTROSE @ 125 ML/HR LACTULOSE PO TID MED SURG STATUS DCP;HOME WITH HOSPICE
--- NOTE | 2019-03-29 19:11 | Hematology/Onc Progress Note ---
Assessment/Plan Assessment/Plan # Anemia of chronic disease due to underlying chronic medical issues, multifactorial v Gi bleed --> evaluated by gi already --> Anemia workup has been reviewed and cw acd, ferritin >500, inflammatory process --> No evidence of hemolysis is noted, peripheral smear has been reviewed. --> Hgb goal >7. Transfuse prn. 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 --> US abd to evaluate for cirrhosis and hsm ordered --> HSM is noted --> Peripheral smear ordered to evaluate for blasts /schistocytes --> abx and other meds have been reviewed --> ok for ppx if plt >50k w/ either heparin or lovenox # Hypernatremia # UTI as per id is on abx --> on yuliana and zyvox, broad spectrum abx/meds # RI # Cirrhosis # h/o gastric bypass # Sepsis as per id # Pressure ucleration of sacrum # STEVE (acute kidney injury) # HIV (human immunodeficiency virus infection) # Encephalopathy acute -- uremia/hepatic related # DNR -- poor prognosis Appreciate consultation and dw Rn Subjective Allergies: Coded Allergies: No Known Allergies (Unverified , 12/04/18) Subjective 03/29: lethargic, no acute distress, low bp this am, cxr today negative Objective Objective Current Medications Medications (Trade) Dose Ordered Sig/Lala Route PRN Reason Start Time Stop Time Status Last Admin Dose Admin Acetaminophen (Tylenol) 650 mg Q4H PRN RECTAL Mild Pain (Pain Scale 1-3) 03/28/19 08:00 04/27/19 07:59 03/28/19 08:15 Dextrose 1,000 ml @ 125 mls/hr Q8H IV 03/28/19 08:15 04/27/19 08:14 03/29/19 10:09 Docusate Sodium (Colace) 100 mg THREE TIMES A DAY ORAL 03/23/19 18:00 04/22/19 17:59 03/26/19 12:14 Folic Acid (Folate) 1 mg DAILY ORAL 03/27/19 09:00 04/26/19 08:59 Hydromorphone HCl (Dilaudid) 0.5 mg Q6H PRN IVP PAIN 4-6 03/27/19 21:00 04/02/19 11:14 Hydromorphone HCl (Dilaudid) 1 mg Q4H PRN SUBQ Pain 7-10 03/27/19 20:56 04/03/19 20:55 Lactulose (Cephulac) 20 gm THREE TIMES A DAY ORAL 03/26/19 13:00 04/25/19 12:59 03/26/19 12:14 Linezolid 300 ml @ 300 mls/hr Q12H IVPB 03/28/19 17:00 04/04/19 16:59 03/29/19 17:50 Meropenem 1 gm/ Sodium Chloride 55 ml @ 110 mls/hr Q12H IVPB 03/28/19 16:00 04/02/19 15:59 03/29/19 16:00 Pantoprazole (Protonix) 40 mg EVERY 12 HOURS IVP 03/26/19 21:00 04/25/19 20:59 03/29/19 10:01 Tamsulosin HCl (Flomax) 0.4 mg DAILY ORAL 03/22/19 09:00 04/21/19 08:59 03/25/19 08:50 Ursodiol (Actigall) 300 mg TWICE A DAY ORAL 03/26/19 18:00 04/25/19 17:59 Last 24 Hour Vital Signs Date Time Temp Pulse Resp B/P (MAP) Pulse Ox O2 Delivery O2 Flow Rate FiO2 03/29/19 16:00 98.1 68 28 75/44 (54) 99 03/29/19 12:00 98.5 106 28 80/46 (57) 97 03/29/19 09:00 Room Air 03/29/19 08:00 98.0 80 32 108/72 (84) 96 03/29/19 04:00 99.1 94 33 81/51 (61) 82 03/29/19 00:00 98.1 75 34 77/48 (58) 98 03/28/19 20:02 70 18 98 Room Air 21 03/28/19 19:51 99.1 74 32 75/48 (57) 89 03/28/19 19:31 Room Air 03/28/19 16:00 99.0 84 28 75/44 (54) 97 03/28/19 12:00 100.4 98 32 75/48 (57) 96 03/28/19 09:37 98.8 03/28/19 09:00 Room Air 03/28/19 08:45 102.9 03/28/19 08:00 102.9 105 38 80/54 (63) 98 03/28/19 04:00 99.5 98 35 82/48 (59) 99 03/28/19 00:00 98.2 98 34 112/45 (67) 98 03/27/19 21:00 Room Air 03/27/19 20:24 61 18 97 Room Air 21 03/27/19 20:00 98.0 91 28 103/66 (78) 99 Intake and Output 03/28/19 03/29/19 19:00 07:00 Intake Total 410 ml 1500 ml Output Total 400 ml 700 ml Balance 10 ml 800 ml IV Total 410 ml 1500 ml Output Urine Total 400 ml 700 ml # Bowel Movements 1 1 Labs Test 03/27/19 05:50 03/27/19 18:45 03/28/19 05:45 03/28/19 18:45 White Blood Count 24.9 K/UL (4.8-10.8) 16.7 K/UL (4.8-10.8) Red Blood Count 2.27 M/UL (4.70-6.10) 2.16 M/UL (4.70-6.10) Hemoglobin 8.3 G/DL (14.2-18.0) 7.8 G/DL (14.2-18.0) Hematocrit 24.2 % (42.0-52.0) 23.2 % (42.0-52.0) Mean Corpuscular Volume 107 FL (80-99) 108 FL (80-99) Mean Corpuscular Hemoglobin 36.5 PG (27.0-31.0) 36.0 PG (27.0-31.0) Mean Corpuscular Hemoglobin Concent 34.2 G/DL (32.0-36.0) 33.5 G/DL (32.0-36.0) Red Cell Distribution Width 14.8 % (11.6-14.8) 15.2 % (11.6-14.8) Platelet Count 161 K/UL (150-450) 145 K/UL (150-450) Mean Platelet Volume 6.0 FL (6.5-10.1) 7.1 FL (6.5-10.1) Neutrophils (%) (Auto) % (45.0-75.0) % (45.0-75.0) Lymphocytes (%) (Auto) % (20.0-45.0) % (20.0-45.0) Monocytes (%) (Auto) % (1.0-10.0) % (1.0-10.0) Eosinophils (%) (Auto) % (0.0-3.0) % (0.0-3.0) Basophils (%) (Auto) % (0.0-2.0) % (0.0-2.0) Differential Total Cells Counted 100 100 Neutrophils % (Manual) 85 % (45-75) 89 % (45-75) Lymphocytes % (Manual) 9 % (20-45) 8 % (20-45) Monocytes % (Manual) 6 % (1-10) 3 % (1-10) Eosinophils % (Manual) 0 % (0-3) 0 % (0-3) Basophils % (Manual) 0 % (0-2) 0 % (0-2) Band Neutrophils 0 % (0-8) 0 % (0-8) Platelet Estimate Adequate Decreased Platelet Morphology Normal Normal Anisocytosis 1+ Macrocytosis 1+ 1+ Sodium Level 161 MMOL/L (136-145) 162 MMOL/L (136-145) Potassium Level 3.4 MMOL/L (3.5-5.1) 3.7 MMOL/L (3.5-5.1) Chloride Level 127 MMOL/L (98-107) 128 MMOL/L (98-107) Carbon Dioxide Level 20 MMOL/L (21-32) 20 MMOL/L (21-32) Anion Gap 14 mmol/L (5-15) 14 mmol/L (5-15) Blood Urea Nitrogen 85 mg/dL (7-18) 96 mg/dL (7-18) Creatinine 2.1 MG/DL (0.55-1.30) 2.5 MG/DL (0.55-1.30) Estimat Glomerular Filtration Rate 40.0 mL/min (>60) 32.6 mL/min (>60) Glucose Level 96 MG/DL (74-106) 92 MG/DL (74-106) Calcium Level 8.8 MG/DL (8.5-10.1) 8.6 MG/DL (8.5-10.1) Total Bilirubin 18.9 MG/DL (0.2-1.0) 19.9 MG/DL (0.2-1.0) Direct Bilirubin 15.5 MG/DL (0.0-0.3) 16.0 MG/DL (0.0-0.3) Aspartate Amino Transf (AST/SGOT) 399 U/L (15-37) 373 U/L (15-37) Alanine Aminotransferase (ALT/SGPT) 147 U/L (12-78) 135 U/L (12-78) Alkaline Phosphatase 1729 U/L (46-116) 1568 U/L (46-116) Lactate Dehydrogenase 325 U/L (81-234) Total Protein 7.7 G/DL (6.4-8.2) 7.3 G/DL (6.4-8.2) Albumin 1.4 G/DL (3.4-5.0) 1.3 G/DL (3.4-5.0) Globulin 6.3 g/dL 6.0 g/dL Albumin/Globulin Ratio 0.2 (1.0-2.7) 0.2 (1.0-2.7) Polychromasia 1+ Hypochromasia 1+ Uric Acid 9.6 MG/DL (2.6-7.2) Phosphorus Level 3.9 MG/DL (2.5-4.9) Magnesium Level 2.2 MG/DL (1.8-2.4) HIV (1&2) Antibody Rapid Preliminary positive Height (Feet): 5 Height (Inches): 9.00 Weight (Pounds): 129 Gustavo Ghosh MD Mar 29, 2019 19:11
--- NOTE | 2019-03-29 19:26 | NUR ---
NURSE NOTES: Received report from PADDY Ro. Pt sleeping in bed, on room air. Pt has tachypnea. Pt has Foote and secured to the leg. IV site intact and running IVF. Wound dressings intact. Aspiration and fall precaution maintained. HOB elevated. Bed locked, lowest position, alarm on, side rails up, call light within reach. Will continue to monitor.
--- NOTE | 2019-03-29 19:30 | NUR ---
HAND-OFF: Report given to PADDY Portillo.
[2019-03-29 20:00] VITALS: BP 105/85
--- NOTE | 2019-03-29 23:19 | NUR ---
NURSE NOTES: Provided wound care and changed wound dressings as ordered.
[2019-03-30] VITALS: BP 88/41
[2019-03-30] MEDS: Meropenem 1 GM in NS 55 ML IVPB SCH ×2 (03:45→16:16)
[2019-03-30 04:00] VITALS: BP 80/48
--- NOTE | 2019-03-30 06:23 | Hematology/Onc Progress Note ---
Assessment/Plan Assessment/Plan # Anemia of chronic disease due to underlying chronic medical issues, multifactorial v Gi bleed --> evaluated by gi already --> Anemia workup has been reviewed and cw acd, ferritin >500, inflammatory process --> No evidence of hemolysis is noted, peripheral smear has been reviewed. --> Hgb goal >7. Transfuse prn. --> Epogen or iron at this time is not particularly indicated --> Medications have been reviewed --> hgb trend 8.3-->7.8 --> low threshold for gi evaluation in case has occult + # Thrombocytopenia - potential likely cause is due to sepsis in addition to cirrhosis of the liver, in addition to consumption/DIC --> HIV++ also likely contributor --> US abd to evaluate for cirrhosis and hsm ordered --> HSM is noted --> Peripheral smear ordered to evaluate for blasts /schistocytes --> abx and other meds have been reviewed --> ok for ppx if plt >50k w/ either heparin or lovenox --> plt 161-->145k # Hypernatremia --> as per renal recs # UTI as per id is on abx --> on yuliana and zyvox, broad spectrum abx/meds # RI # Cirrhosis # h/o gastric bypass # Sepsis as per id # Pressure ucleration of sacrum # STEVE (acute kidney injury) # HIV (human immunodeficiency virus infection) # Encephalopathy acute -- uremia/hepatic related # DNR -- poor prognosis/HOSPICE care to return Appreciate consultation and dw Rn Subjective Constitutional: Denies: no symptoms, chills, fever, malaise, weakness, other Cardiovascular: Denies: no symptoms, chest pain, edema, irregular heart rate, lightheadedness, palpitations, syncope, other Respiratory: Denies: no symptoms, cough, shortness of breath, SOB with excertion, SOB at rest, sputum, wheezing, other Gastrointestinal/Abdominal: Denies: no symptoms, abdomen distended, abdominal pain, black stools, tarry stools, blood in stool, constipated, diarrhea, difficulty swallowing, nausea, poor appetite, poor fluid intake, rectal bleeding , vomiting, other Genitourinary: Denies: no symptoms, burning, discharge, frequency, flank pain, hematuria, incontinence, pain, urgency, other Neurologic/Psychiatric: Denies: no symptoms, anxiety, depressed, emotional problems, headache, numbness, paresthesia, pre-existing deficit, seizure, tingling, tremors, weakness, other Hematologic/Lymphatic: Denies: no symptoms, anemia, easy bleeding, easy bruising, adenopathy, other Allergies: Coded Allergies: No Known Allergies (Unverified , 12/04/18) Subjective 03/29: lethargic, no acute distress, low bp this am, cxr today negative 03/30: remains lethargic, no events, labs noted, wbc better, still altered Objective Objective Current Medications Medications (Trade) Dose Ordered Sig/Lala Route PRN Reason Start Time Stop Time Status Last Admin Dose Admin Acetaminophen (Tylenol) 650 mg Q4H PRN RECTAL Mild Pain (Pain Scale 1-3) 03/28/19 08:00 04/27/19 07:59 03/28/19 08:15 Dextrose 1,000 ml @ 125 mls/hr Q8H IV 03/28/19 08:15 04/27/19 08:14 03/29/19 23:17 Docusate Sodium (Colace) 100 mg THREE TIMES A DAY ORAL 03/23/19 18:00 04/22/19 17:59 03/26/19 12:14 Folic Acid (Folate) 1 mg DAILY ORAL 03/27/19 09:00 04/26/19 08:59 Hydromorphone HCl (Dilaudid) 0.5 mg Q6H PRN IVP PAIN 4-6 03/27/19 21:00 04/02/19 11:14 Hydromorphone HCl (Dilaudid) 1 mg Q4H PRN SUBQ Pain 7-10 03/27/19 20:56 04/03/19 20:55 Lactulose (Cephulac) 20 gm THREE TIMES A DAY ORAL 03/26/19 13:00 04/25/19 12:59 03/26/19 12:14 Linezolid 300 ml @ 300 mls/hr Q12H IVPB 03/28/19 17:00 04/04/19 16:59 03/30/19 04:29 Meropenem 1 gm/ Sodium Chloride 55 ml @ 110 mls/hr Q12H IVPB 03/28/19 16:00 04/02/19 15:59 03/30/19 03:45 Pantoprazole (Protonix) 40 mg EVERY 12 HOURS IVP 03/26/19 21:00 04/25/19 20:59 03/29/19 20:32 Tamsulosin HCl (Flomax) 0.4 mg DAILY ORAL 03/22/19 09:00 04/21/19 08:59 03/25/19 08:50 Ursodiol (Actigall) 300 mg TWICE A DAY ORAL 03/26/19 18:00 04/25/19 17:59 Last 24 Hour Vital Signs Date Time Temp Pulse Resp B/P (MAP) Pulse Ox O2 Delivery O2 Flow Rate FiO2 03/30/19 04:00 99.2 84 30 80/48 (59) 95 03/30/19 02:20 83 18 96 Room Air 21 03/30/19 00:00 99.1 81 22 88/41 (57) 95 03/29/19 20:00 98.0 84 22 105/85 (92) 94 03/29/19 19:54 Room Air 03/29/19 16:00 98.1 68 28 75/44 (54) 99 03/29/19 12:00 98.5 106 28 80/46 (57) 97 03/29/19 09:00 Room Air 03/29/19 08:00 98.0 80 32 108/72 (84) 96 03/29/19 04:00 99.1 94 33 81/51 (61) 82 03/29/19 00:00 98.1 75 34 77/48 (58) 98 03/28/19 20:02 70 18 98 Room Air 21 03/28/19 19:51 99.1 74 32 75/48 (57) 89 03/28/19 19:31 Room Air 03/28/19 16:00 99.0 84 28 75/44 (54) 97 03/28/19 12:00 100.4 98 32 75/48 (57) 96 03/28/19 09:37 98.8 03/28/19 09:00 Room Air 03/28/19 08:45 102.9 03/28/19 08:00 102.9 105 38 80/54 (63) 98 Intake and Output 03/29/19 03/30/19 19:00 07:00 Intake Total 125 ml 1730 ml Output Total 900 ml Balance -775 ml 1730 ml IV Total 125 ml 1730 ml Output Urine Total 900 ml Labs Test 03/27/19 18:45 03/28/19 05:45 03/28/19 18:45 Hepatitis A IgM Antibody Negative (Negative) Hepatitis B Surface Antigen Negative (Negative) Hepatitis B Core IgM Antibody Negative (Negative) Hepatitis C Antibody 0.2 s/co ratio (0.0-0.9) White Blood Count 16.7 K/UL (4.8-10.8) Red Blood Count 2.16 M/UL (4.70-6.10) Hemoglobin 7.8 G/DL (14.2-18.0) Hematocrit 23.2 % (42.0-52.0) Mean Corpuscular Volume 108 FL (80-99) Mean Corpuscular Hemoglobin 36.0 PG (27.0-31.0) Mean Corpuscular Hemoglobin Concent 33.5 G/DL (32.0-36.0) Red Cell Distribution Width 15.2 % (11.6-14.8) Platelet Count 145 K/UL (150-450) Mean Platelet Volume 7.1 FL (6.5-10.1) Neutrophils (%) (Auto) % (45.0-75.0) Lymphocytes (%) (Auto) % (20.0-45.0) Monocytes (%) (Auto) % (1.0-10.0) Eosinophils (%) (Auto) % (0.0-3.0) Basophils (%) (Auto) % (0.0-2.0) Differential Total Cells Counted 100 Neutrophils % (Manual) 89 % (45-75) Lymphocytes % (Manual) 8 % (20-45) Monocytes % (Manual) 3 % (1-10) Eosinophils % (Manual) 0 % (0-3) Basophils % (Manual) 0 % (0-2) Band Neutrophils 0 % (0-8) Platelet Estimate Decreased Platelet Morphology Normal Polychromasia 1+ Hypochromasia 1+ Macrocytosis 1+ Sodium Level 162 MMOL/L (136-145) Potassium Level 3.7 MMOL/L (3.5-5.1) Chloride Level 128 MMOL/L (98-107) Carbon Dioxide Level 20 MMOL/L (21-32) Anion Gap 14 mmol/L (5-15) Blood Urea Nitrogen 96 mg/dL (7-18) Creatinine 2.5 MG/DL (0.55-1.30) Estimat Glomerular Filtration Rate 32.6 mL/min (>60) Glucose Level 92 MG/DL (74-106) Uric Acid 9.6 MG/DL (2.6-7.2) Calcium Level 8.6 MG/DL (8.5-10.1) Phosphorus Level 3.9 MG/DL (2.5-4.9) Magnesium Level 2.2 MG/DL (1.8-2.4) Total Bilirubin 19.9 MG/DL (0.2-1.0) Direct Bilirubin 16.0 MG/DL (0.0-0.3) Aspartate Amino Transf (AST/SGOT) 373 U/L (15-37) Alanine Aminotransferase (ALT/SGPT) 135 U/L (12-78) Alkaline Phosphatase 1568 U/L (46-116) Total Protein 7.3 G/DL (6.4-8.2) Albumin 1.3 G/DL (3.4-5.0) Globulin 6.0 g/dL Albumin/Globulin Ratio 0.2 (1.0-2.7) HIV (1&2) Antibody Rapid Preliminary positive Height (Feet): 5 Height (Inches): 9.00 Weight (Pounds): 129 Objective General Appearance: no acute distress, cachetic, other - unresponsive HEENT: normocephalic, atraumatic, anicteric, mucous membranes moist, PERRL Respiratory/Chest: chest wall non-tender, no respiratory distress, no accessory muscle use, decreased breath sounds, crackles/rales Cardiovascular: normal peripheral pulses, normal rate, regular rhythm, no gallop/murmur, no JVD Abdomen: normal bowel sounds, soft, non tender, no organomegaly, non distended , no mass, no scars Genitourinary: normal external genitalia Extremities: no cyanosis, no clubbing Skin: no rash, no lesions, no ulcers Neurologic/Psychiatric: unresponsiveness Lymphatic: no neck adenopathy, no groin adenopathy Musculoskeletal: normal muscle bulk, no effusion Gustavo Ghosh MD Mar 30, 2019 06:23
[2019-03-30 07:15] LABS: ALANINE AMINOTRANSFERASE 107 U/L (12-78); ALBUMIN 1.1 G/DL (3.4-5.0); ALBUMIN/GLOBULIN RATIO 0.2 (1.0-2.7); ALKALINE PHOSPHATASE 1073 U/L (46-116); ANION GAP 16 mmol/L (5-15); ASPARTATE AMINO TRANSFERASE 292 U/L (15-37); BILIRUBIN,TOTAL 20.3 MG/DL (0.2-1.0); BLOOD UREA NITROGEN 126 mg/dL (7-18); CALCIUM 7.6 MG/DL (8.5-10.1); CARBON DIOXIDE 17 MMOL/L (21-32); CHLORIDE 122 MMOL/L (98-107); CREATININE 4.3 MG/DL (0.55-1.30); POTASSIUM 4.4 MMOL/L (3.5-5.1); SODIUM 155 MMOL/L (136-145)
[2019-03-30 07:20] LABS: HEMATOCRIT 19.9 % (42.0-52.0); MEAN CORPUSCULAR VOLUME 109 FL (80-99); PLATELET COUNT 141 K/UL (150-450); RED BLOOD COUNT 1.83 M/UL (4.70-6.10); RED CELL DISTRIBUTION WIDTH 15.4 % (11.6-14.8); WHITE BLOOD COUNT 12.9 K/UL (4.8-10.8)
[2019-03-30 07:24] LABS: BILIRUBIN,DIRECT 15.1 MG/DL (0.0-0.3)
--- NOTE | 2019-03-30 07:38 | NUR ---
HAND-OFF: Report given to PADDY Collazo.
--- NOTE | 2019-03-30 07:41 | General Progress Note ---
Assessment/Plan Problem List: (1) Jaundice ICD Codes: R17 - Unspecified jaundice SNOMED: 13896370 (2) Pressure ulcer of sacrum ICD Codes: L89.159 - Pressure ulcer of sacral region, unspecified stage SNOMED: 307938186 (3) Sepsis ICD Codes: A41.9 - Sepsis, unspecified organism SNOMED: 50214572, 7849034 Qualifiers: Qualified Codes: A41.9 - Sepsis, unspecified organism (4) Abnormal LFTs ICD Codes: R94.5 - Abnormal results of liver function studies SNOMED: 988609170 (5) HIV (human immunodeficiency virus infection) ICD Codes: B20 - Human immunodeficiency virus [HIV] disease SNOMED: 81117209 (6) Cellulitis of leg ICD Codes: L03.119 - Cellulitis of unspecified part of limb SNOMED: 027187196 (7) Hepatomegaly ICD Codes: R16.0 - Hepatomegaly, not elsewhere classified SNOMED: 87450481 Status: deteriorating Assessment/Plan: h/o gastric bypass anemia hypernatremia leukocytosis RI cirrhosis HIV replace folate actigal 300 BID LDH MRI of the liver reviewed hypotensive DNR poor prognosis going for Hospice care Subjective ROS Limited/Unobtainable: No Allergies: Coded Allergies: No Known Allergies (Unverified , 12/04/18) Objective Last 24 Hour Vital Signs Date Time Temp Pulse Resp B/P (MAP) Pulse Ox O2 Delivery O2 Flow Rate FiO2 03/30/19 04:00 99.2 84 30 80/48 (59) 95 03/30/19 02:20 83 18 96 Room Air 21 03/30/19 00:00 99.1 81 22 88/41 (57) 95 03/29/19 20:00 98.0 84 22 105/85 (92) 94 03/29/19 19:54 Room Air 03/29/19 16:00 98.1 68 28 75/44 (54) 99 03/29/19 12:00 98.5 106 28 80/46 (57) 97 03/29/19 09:00 Room Air 03/29/19 08:00 98.0 80 32 108/72 (84) 96 Intake and Output 03/29/19 03/30/19 19:00 07:00 Intake Total 125 ml 1730 ml Output Total 900 ml Balance -775 ml 1730 ml IV Total 125 ml 1730 ml Output Urine Total 900 ml # Voids 1 Laboratory Tests 03/30/19 05:15: White Blood Count [Pending], Red Blood Count [Pending], Hemoglobin [Pending], Hematocrit [Pending], Mean Corpuscular Volume [Pending], Mean Corpuscular Hemoglobin [Pending], Mean Corpuscular Hemoglobin Concent [Pending], Red Cell Distribution Width [Pending], Platelet Count [Pending], Mean Platelet Volume [ Pending], Neutrophils (%) (Auto) [Pending], Lymphocytes (%) (Auto) [Pending], Monocytes (%) (Auto) [Pending], Eosinophils (%) (Auto) [Pending], Basophils (%) (Auto) [Pending], Sodium Level 155H, Potassium Level 4.4, Chloride Level 122H, Carbon Dioxide Level 17L, Anion Gap 16H, Blood Urea Nitrogen 126H, Creatinine 4.3H, Estimat Glomerular Filtration Rate 17.5, Glucose Level 103, Uric Acid 12.2H, Calcium Level 7.6L, Phosphorus Level 6.0H, Magnesium Level 2.2, Total Bilirubin 20.3H, Direct Bilirubin 15.1H, Aspartate Amino Transf (AST/SGOT) 292H , Alanine Aminotransferase (ALT/SGPT) 107H, Alkaline Phosphatase 1073H, C- Reactive Protein, Quantitative 11.8H, Pro-B-Type Natriuretic Peptide 1420H, Total Protein 7.0, Albumin 1.1L, Globulin 5.9, Albumin/Globulin Ratio 0.2L Height (Feet): 5 Height (Inches): 9.00 Weight (Pounds): 129 General Appearance: no apparent distress EENT: normal ENT inspection Neck: supple Cardiovascular: normal rate Respiratory/Chest: decreased breath sounds Abdomen: normal bowel sounds, non tender, soft Extremities: non-tender Amauri Lopez MD Mar 30, 2019 07:41
[2019-03-30 07:57] LABS: HEMOGLOBIN 6.7 G/DL (14.2-18.0)
[2019-03-30 08:00] VITALS: BP 79/49
[2019-03-30] MEDS: Ursodiol 300mg cap ORAL SCH ×2 (08:09→17:58)
[2019-03-30] MEDS: Docusate 100mg cap ORAL SCH ×2 (08:10→13:00)
[2019-03-30] MEDS: Tamsulosin 0.4mg cap ORAL SCH (08:10)
[2019-03-30] MEDS: Lactulose 20gm/30ml UDC ORAL SCH ×2 (08:10→13:00)
[2019-03-30] MEDS: Pantoprazole Inj IVP SCH (09:18)
--- NOTE | 2019-03-30 09:55 | CDS Physician Query ---
Clarification is required for compliance, coding accuracy, and to reflect severity of illness for this patient Dear Dr. Nupur Juan Date: 03/30/2019 [employer] Supervisor/CDS Name: Ebonie Johns Clinical Documentation states: HNP - 53-year-old male with end stge liver failure, who presented with worsening of the swelling on the legs and abdominal pain for the last couple of weeks...1. Acute Metabolic encephalopathy 2. Sepsis: likely peritonitis...4. HIV. Hem/onc progress note: # Thrombocytopenia - potential likely cause is due to sepsis in addition to cirrhosis of the liver, in addition to consumption/DIC -- > HIV++ also likely contributor... HIV (human immunodeficiency virus infection) 03/28 Serology labs: HIV 1&2 Antibody Rapid - preliminary positive Please respond to the following question: Is there a diagnosis specific to these symptoms or values? If so please state below. PHYSICIAN RESPONSE: [] AIDS [] Asymptomatic HIV infection [] Other: [X] Unknown Present on Admission: [X] Yes [] No [] Clinically Undetermined Dr Juan Physician signature Date Please also document in your Progress Notes and/or Discharge Summary and indicate if the condition was present on admission. MTDD
--- NOTE | 2019-03-30 10:20 | General Progress Note ---
Assessment/Plan Status: deteriorating Assessment/Plan: S: deliriuos O: limited eval. seems comfortable, Foote with pigmentosus colored urine collection HYSICAL EXAMINATION:HEAD AND NECK: HEART: S1, S2. Regular rate and rhythm. ABDOMEN: Positive for fullness, ascitis cannot be excluded.MUSCULOSKELETAL: Positive for 2+ pitting edema in the lower extremities. NEUROLOGIC: The patient is Lethargic LABORATORY and Medication DATA: reviewed in the chart ASSESSMENT AND PLAN: 1. Acute Metabolic encephalopathy 2. Gram negative Sepsis: likely UTI 3. Anasarca. 2. Primary Billiary Cirrhosis. 3. Chronic pain. 4. HIV. 5. Hypertension. 6. Acute Anemia. 7. Hematuria . 8. GI and DVT prophylaxis. 9. DNR 10. Hypercoagulation Plan; Notes from ID, Nephro, Critical care and Surgery services are reviewed ST eval Ok to Facility placement per family Worsening hepatitis. Worsening Sodium, as anticipated. Family would like NO Alternative feeding routes Proceed with placement with Hospice Ok to admin Vit K Benefits of Blood transfusion in this patient, with comfort care is questionable. Given the fact that none of this patient symptoms/discomfort are not related to low Hgb, will monitor with no plan for transfusion at this time. Subjective Allergies: Coded Allergies: No Known Allergies (Unverified , 12/04/18) Objective Last 24 Hour Vital Signs Date Time Temp Pulse Resp B/P (MAP) Pulse Ox O2 Delivery O2 Flow Rate FiO2 03/30/19 09:00 Room Air 03/30/19 08:00 98.6 81 28 79/49 (59) 94 03/30/19 04:00 99.2 84 30 80/48 (59) 95 03/30/19 02:20 83 18 96 Room Air 21 03/30/19 00:00 99.1 81 22 88/41 (57) 95 03/29/19 20:00 98.0 84 22 105/85 (92) 94 03/29/19 19:54 Room Air 03/29/19 16:00 98.1 68 28 75/44 (54) 99 03/29/19 12:00 98.5 106 28 80/46 (57) 97 Intake and Output 03/29/19 03/30/19 19:00 07:00 Intake Total 125 ml 1730 ml Output Total 900 ml Balance -775 ml 1730 ml IV Total 125 ml 1730 ml Output Urine Total 900 ml # Voids 1 Laboratory Tests 03/30/19 05:15: White Blood Count 12.9H, Red Blood Count 1.83L, Hemoglobin 6.7*L, Hematocrit 19.9L, Mean Corpuscular Volume 109H, Mean Corpuscular Hemoglobin 36.7H, Mean Corpuscular Hemoglobin Concent 33.8, Red Cell Distribution Width 15.4H, Platelet Count 141L, Mean Platelet Volume 6.4L, Neutrophils (%) (Auto) , Lymphocytes (%) (Auto) , Monocytes (%) (Auto) , Eosinophils (%) (Auto) , Basophils (%) (Auto) , Differential Total Cells Counted 100, Neutrophils % ( Manual) 85H, Lymphocytes % (Manual) 12L, Monocytes % (Manual) 2, Eosinophils % ( Manual) 0, Basophils % (Manual) 1, Band Neutrophils 0, Platelet Estimate DecreasedL, Platelet Morphology Normal, Hypochromasia 4+, Anisocytosis 1+, Macrocytosis 1+, Spherocytes 1+, Sodium Level 155H, Potassium Level 4.4, Chloride Level 122H, Carbon Dioxide Level 17L, Anion Gap 16H, Blood Urea Nitrogen 126H, Creatinine 4.3H, Estimat Glomerular Filtration Rate 17.5, Glucose Level 103, Uric Acid 12.2H, Calcium Level 7.6L, Phosphorus Level 6.0H, Magnesium Level 2.2, Total Bilirubin 20.3H, Direct Bilirubin 15.1H, Aspartate Amino Transf (AST/SGOT) 292H, Alanine Aminotransferase (ALT/SGPT) 107H, Alkaline Phosphatase 1073H, C-Reactive Protein, Quantitative 11.8H, Pro-B-Type Natriuretic Peptide 1420H, Total Protein 7.0, Albumin 1.1L, Globulin 5.9, Albumin/Globulin Ratio 0.2L Height (Feet): 5 Height (Inches): 9.00 Weight (Pounds): 129 Nupur Juan MD Mar 30, 2019 10:20
--- NOTE | 2019-03-30 10:36 | NUR ---
NURSE NOTES: RN received comfort measure order from Dr. Juan.
[2019-03-30 12:00] VITALS: BP 71/40
[2019-03-30] MEDS ORDERED: Phytonadione 1 MG in D5W 55 ML IVPB ONE (12:00)
--- NOTE | 2019-03-30 12:16 | NUR ---
RD ASSESSMENT & RECOMMENDATIONS SEE CARE ACTIVITY FOR COMPLETE ASSESSMENT DAILY ESTIMATED NEEDS: Needs based on Liver, wasting, wound, 69kg 30-40 kcals/kg 2130-2636 total kcals 1.25-2 g protein/kg 86-138 g total protein 25-35 mL/kg 7528-4093 total fluid mLs NUTRITION DIAGNOSIS: Increased kcal and pro needs r/t wound healing as evidenced by infected sacral wound, moderate to severe wasting, h/o liver cirrhosis. PO DIET RECOMMENDATIONS: Liberalized regular diet. Texture per CRINKLING MACHINE OPERATOR ENTERAL NUTRITION RECOMMENDATIONS: * CONSULT RD IF NON ORAL FEEDS ARE PART OF POC * ADDITIONAL RECOMMENDATIONS: 1) CRINKLING MACHINE OPERATOR eval for oral diet - now on puree w/ poor intake 2) NEPRO TID w/ meals 3) Wound care: w/ diet order add ANI BID + MVI x1 qd + Vit C 500mg BID 4) RE-calibrate bed scale w/ added P200 mattress. 5) Rec non oral feeds if part of POC as needed Per family, no other means of nutrition at this time
--- NOTE | 2019-03-30 14:07 | Infectious Diseases Prog Note ---
Assessment/Plan Problems: (1) Fever Assessment & Plan: resolved on meropenem and zyvox, repeated Blood culture x2 is negative , CXR is negative . (2) UTI (urinary tract infection) Assessment & Plan: with E coli pansensitive , now on meropenem to cover for sepsis too due to E coli for two weeks total. repeated blood culture on 03/24 is positive , source possible sacral osteomyelitis ? no aggressive measures , since he is on hospice care (3) Sepsis Assessment & Plan: due to E coli , now with improvement of his leukocytosis , source most likely is his UTI and possibly sacral osteomyelitis and he is immunocompromised with HIV . continue antibiotics for two weeks course of treatment . repeated blood culture on 03/26 is NTD (4) Pressure ulcer of sacrum Assessment & Plan: with minimal sloughing and draining of bloody fluids, continue off loading and local wound care as per hospital protocol (5) STEVE (acute kidney injury) Assessment & Plan: advanced with uremia , suspect dehydration, needs aggressive hydration, renal is following (6) HIV (human immunodeficiency virus infection) Assessment & Plan: unclear whether he is taking any meds now since he is on hospice care (7) Encephalopathy acute Assessment & Plan: suspect metabolic due to uremia and hepatic related , renal is following (8) Cellulitis of sacral region Assessment & Plan: now on wide spectrum antibiotics , continue local wound care and off loading as per hospital protocol, wound care team is following (9) Poor prognosis Assessment & Plan: going back on hospice care Subjective ROS Limited/Unobtainable: Yes Allergies: Coded Allergies: No Known Allergies (Unverified , 12/04/18) Subjective He was still altered, and lethargic, not responsive to verbal commands , lying in bed, with no oral intake, urine dark and dense , no fever today , no cough or SOB, no diarrhea . Objective Vital Signs Last 24 Hour Vital Signs Date Time Temp Pulse Resp B/P (MAP) Pulse Ox O2 Delivery O2 Flow Rate FiO2 03/30/19 09:00 Room Air 03/30/19 08:00 98.6 81 28 79/49 (59) 94 03/30/19 04:00 99.2 84 30 80/48 (59) 95 03/30/19 02:20 83 18 96 Room Air 21 03/30/19 00:00 99.1 81 22 88/41 (57) 95 03/29/19 20:00 98.0 84 22 105/85 (92) 94 03/29/19 19:54 Room Air 03/29/19 16:00 98.1 68 28 75/44 (54) 99 Height (Feet): 5 Height (Inches): 9.00 Weight (Pounds): 129 General Appearance: no acute distress, cachetic HEENT: normocephalic, atraumatic, no JVD, other - dry oral mucosa with jaundice Respiratory/Chest: chest wall non-tender, no respiratory distress, no accessory muscle use, decreased breath sounds Cardiovascular: normal peripheral pulses, normal rate, regular rhythm, no gallop/murmur, no JVD Abdomen: normal bowel sounds, soft, non tender, no organomegaly, non distended , no mass, no scars Genitourinary: normal external genitalia Extremities: no cyanosis, no clubbing Skin: no rash, no lesions, ulcers Neurologic/Psychiatric: unresponsiveness Lymphatic: no neck adenopathy, no groin adenopathy Musculoskeletal: normal muscle bulk, no effusion Microbiology Date/Time Source Procedure Growth Status 03/28/19 16:00 Blood Blood Culture - Preliminary NO GROWTH AFTER 24 HOURS Resulted 03/28/19 15:45 Blood Blood Culture - Preliminary NO GROWTH AFTER 24 HOURS Resulted Laboratory Tests Test 03/30/19 05:15 White Blood Count 12.9 K/UL (4.8-10.8) H Red Blood Count 1.83 M/UL (4.70-6.10) L Hemoglobin 6.7 G/DL (14.2-18.0) *L Hematocrit 19.9 % (42.0-52.0) L Mean Corpuscular Volume 109 FL (80-99) H Mean Corpuscular Hemoglobin 36.7 PG (27.0-31.0) H Mean Corpuscular Hemoglobin Concent 33.8 G/DL (32.0-36.0) Red Cell Distribution Width 15.4 % (11.6-14.8) H Platelet Count 141 K/UL (150-450) L Mean Platelet Volume 6.4 FL (6.5-10.1) L Neutrophils (%) (Auto) % (45.0-75.0) Lymphocytes (%) (Auto) % (20.0-45.0) Monocytes (%) (Auto) % (1.0-10.0) Eosinophils (%) (Auto) % (0.0-3.0) Basophils (%) (Auto) % (0.0-2.0) Differential Total Cells Counted 100 Neutrophils % (Manual) 85 % (45-75) H Lymphocytes % (Manual) 12 % (20-45) L Monocytes % (Manual) 2 % (1-10) Eosinophils % (Manual) 0 % (0-3) Basophils % (Manual) 1 % (0-2) Band Neutrophils 0 % (0-8) Platelet Estimate Decreased L Platelet Morphology Normal Hypochromasia 4+ Anisocytosis 1+ Macrocytosis 1+ Spherocytes 1+ Sodium Level 155 MMOL/L (136-145) H Potassium Level 4.4 MMOL/L (3.5-5.1) Chloride Level 122 MMOL/L (98-107) H Carbon Dioxide Level 17 MMOL/L (21-32) L Anion Gap 16 mmol/L (5-15) H Blood Urea Nitrogen 126 mg/dL (7-18) H Creatinine 4.3 MG/DL (0.55-1.30) H Estimat Glomerular Filtration Rate 17.5 mL/min (>60) Glucose Level 103 MG/DL (74-106) Uric Acid 12.2 MG/DL (2.6-7.2) H Calcium Level 7.6 MG/DL (8.5-10.1) L Phosphorus Level 6.0 MG/DL (2.5-4.9) H Magnesium Level 2.2 MG/DL (1.8-2.4) Total Bilirubin 20.3 MG/DL (0.2-1.0) H Direct Bilirubin 15.1 MG/DL (0.0-0.3) H Aspartate Amino Transf (AST/SGOT) 292 U/L (15-37) H Alanine Aminotransferase (ALT/SGPT) 107 U/L (12-78) H Alkaline Phosphatase 1073 U/L (46-116) H C-Reactive Protein, Quantitative 11.8 mg/dL (0.00-0.90) H Pro-B-Type Natriuretic Peptide 1420 pg/mL (0-125) H Total Protein 7.0 G/DL (6.4-8.2) Albumin 1.1 G/DL (3.4-5.0) L Globulin 5.9 g/dL Albumin/Globulin Ratio 0.2 (1.0-2.7) L Current Medications Medications (Trade) Dose Ordered Sig/Lala Route PRN Reason Start Time Stop Time Status Last Admin Dose Admin Acetaminophen (Tylenol) 650 mg Q4H PRN RECTAL Mild Pain (Pain Scale 1-3) 03/28/19 08:00 04/27/19 07:59 03/28/19 08:15 Dextrose 1,000 ml @ 125 mls/hr Q8H IV 03/28/19 08:15 04/27/19 08:14 03/30/19 06:29 Docusate Sodium (Colace) 100 mg THREE TIMES A DAY ORAL 03/23/19 18:00 04/22/19 17:59 03/26/19 12:14 Folic Acid (Folate) 1 mg DAILY ORAL 03/27/19 09:00 04/26/19 08:59 Hydromorphone HCl (Dilaudid) 0.5 mg Q6H PRN IVP PAIN 4-6 03/27/19 21:00 04/02/19 11:14 Hydromorphone HCl (Dilaudid) 1 mg Q4H PRN SUBQ Pain 7-10 03/27/19 20:56 04/03/19 20:55 Lactulose (Cephulac) 20 gm THREE TIMES A DAY ORAL 03/26/19 13:00 04/25/19 12:59 03/26/19 12:14 Linezolid 300 ml @ 300 mls/hr Q12H IVPB 03/28/19 17:00 04/04/19 16:59 03/30/19 04:29 Meropenem 1 gm/ Sodium Chloride 55 ml @ 110 mls/hr Q12H IVPB 03/28/19 16:00 04/02/19 15:59 03/30/19 03:45 Pantoprazole (Protonix) 40 mg EVERY 12 HOURS IVP 03/26/19 21:00 04/25/19 20:59 03/30/19 09:18 Tamsulosin HCl (Flomax) 0.4 mg DAILY ORAL 03/22/19 09:00 04/21/19 08:59 03/25/19 08:50 Ursodiol (Actigall) 300 mg TWICE A DAY ORAL 03/26/19 18:00 04/25/19 17:59 Cedrick Vu M.D. Mar 30, 2019 14:07
--- NOTE | 2019-03-30 14:12 | Surgery Progress Note ---
Surgery Progress Note Subjective Additional Comments anemia wbc trending down lft's worsening Objective Last 24 Hour Vital Signs Date Time Temp Pulse Resp B/P (MAP) Pulse Ox O2 Delivery O2 Flow Rate FiO2 03/30/19 09:00 Room Air 03/30/19 08:00 98.6 81 28 79/49 (59) 94 03/30/19 04:00 99.2 84 30 80/48 (59) 95 03/30/19 02:20 83 18 96 Room Air 21 03/30/19 00:00 99.1 81 22 88/41 (57) 95 03/29/19 20:00 98.0 84 22 105/85 (92) 94 03/29/19 19:54 Room Air 03/29/19 16:00 98.1 68 28 75/44 (54) 99 I&O Intake and Output 03/29/19 03/30/19 19:00 07:00 Intake Total 125 ml 1730 ml Output Total 900 ml Balance -775 ml 1730 ml IV Total 125 ml 1730 ml Output Urine Total 900 ml # Voids 1 Dressing: other Wound: other Drains: other Cardiovascular: RSR Respiratory: decreased breath sounds Abdomen: soft, present bowel sounds Extremities: no cyanosis Laboratory Tests Test 03/30/19 05:15 White Blood Count 12.9 K/UL (4.8-10.8) H Red Blood Count 1.83 M/UL (4.70-6.10) L Hemoglobin 6.7 G/DL (14.2-18.0) *L Hematocrit 19.9 % (42.0-52.0) L Mean Corpuscular Volume 109 FL (80-99) H Mean Corpuscular Hemoglobin 36.7 PG (27.0-31.0) H Mean Corpuscular Hemoglobin Concent 33.8 G/DL (32.0-36.0) Red Cell Distribution Width 15.4 % (11.6-14.8) H Platelet Count 141 K/UL (150-450) L Mean Platelet Volume 6.4 FL (6.5-10.1) L Neutrophils (%) (Auto) % (45.0-75.0) Lymphocytes (%) (Auto) % (20.0-45.0) Monocytes (%) (Auto) % (1.0-10.0) Eosinophils (%) (Auto) % (0.0-3.0) Basophils (%) (Auto) % (0.0-2.0) Differential Total Cells Counted 100 Neutrophils % (Manual) 85 % (45-75) H Lymphocytes % (Manual) 12 % (20-45) L Monocytes % (Manual) 2 % (1-10) Eosinophils % (Manual) 0 % (0-3) Basophils % (Manual) 1 % (0-2) Band Neutrophils 0 % (0-8) Platelet Estimate Decreased L Platelet Morphology Normal Hypochromasia 4+ Anisocytosis 1+ Macrocytosis 1+ Spherocytes 1+ Sodium Level 155 MMOL/L (136-145) H Potassium Level 4.4 MMOL/L (3.5-5.1) Chloride Level 122 MMOL/L (98-107) H Carbon Dioxide Level 17 MMOL/L (21-32) L Anion Gap 16 mmol/L (5-15) H Blood Urea Nitrogen 126 mg/dL (7-18) H Creatinine 4.3 MG/DL (0.55-1.30) H Estimat Glomerular Filtration Rate 17.5 mL/min (>60) Glucose Level 103 MG/DL (74-106) Uric Acid 12.2 MG/DL (2.6-7.2) H Calcium Level 7.6 MG/DL (8.5-10.1) L Phosphorus Level 6.0 MG/DL (2.5-4.9) H Magnesium Level 2.2 MG/DL (1.8-2.4) Total Bilirubin 20.3 MG/DL (0.2-1.0) H Direct Bilirubin 15.1 MG/DL (0.0-0.3) H Aspartate Amino Transf (AST/SGOT) 292 U/L (15-37) H Alanine Aminotransferase (ALT/SGPT) 107 U/L (12-78) H Alkaline Phosphatase 1073 U/L (46-116) H C-Reactive Protein, Quantitative 11.8 mg/dL (0.00-0.90) H Pro-B-Type Natriuretic Peptide 1420 pg/mL (0-125) H Total Protein 7.0 G/DL (6.4-8.2) Albumin 1.1 G/DL (3.4-5.0) L Globulin 5.9 g/dL Albumin/Globulin Ratio 0.2 (1.0-2.7) L Plan Problems: (1) Infected decubitus ulcer Assessment & Plan: Pt presented on admission with multiple pressure injuries. Full thickness stage 4 Sacral pressure injury. Base of wound beefy red with scattered slough. (L)5cm x (W)4.5cm.Bone is palpable at base of wound . Borders are black and fluctuant.Periwound is erythematous. Small amt haemopurulent exudate noted. In addition pt noted to have a second small wound L buttocks , but within close proximity to sacrum. Base of wound has 100% slough (L)0.5cm x ( W)0.6cm. Reabsorbing DTPI L trochanter (L)9cmx (W)2cm.Wound is elongated. Base of wound is purple with black striations and is indurated.Periwound is erythematous without elevation in skin temp. Second DTPI noted to L hip . Base of wound is maroon with red borders.(L)1.6cm x (W)2cm. Partially opened DTPI medial L tibia. Proximally,base of wound is pink with small amt slough with small amt brown exudate. Distally base of of wound is necrotic but soft. (L)12.6cm x (W)3cm. Partially opened DTPI medial R tibia. Base of wound with small amt slough, surrounding base of wound beefy red with loose black skin flap. Small amt serous exudate noted. No odor noted.(L)7cm x (W)2cm. DTPI noted top lateral R malleolus. Base of wound is maroon and indurated with marginal erythema(L)1.5cm x (W)2.5cm. L heel is necrotic but dry.Periwound is firm without further evidence of skin breakdown(L)6cm x (W)7.5cm. Unstageable pressure injury R heel. Base of wound necrotic and fluctuant in center with surrounding dry necrotic borders(L)5cm x (W)8.5cm. Tx.Plan: Apply Betadine to both heels and R lateral malleolus. Cover with Optifoam drsg. Change every 3 days and prn. Cleanse Sacral and L buttocks wounds with Saline. Apply TheraHoney to each wound. Apply Moisture Barrier Paste periwound. Cover with Optifoam drsg. Change every 3 days and prn. Apply Cavilon Skin Barrier to L trochanter/L hip. Cover with Optifoam drsgs. Changee very 7 days and prn. Reposition at least every 2hours or as tolerated. Off-load heels with pillow. APM/BO Mattress overlay. Patient presented with an infected sacral decubitus ulcer purulent drainage noted. Significant tissue loss. Will continue with local wound care at this time. Will need to discuss goals of care and care plan prior to any invasive surgical treatment Thank you for let me participate in patient's care (2) Abnormal LFTs Assessment & Plan: Patient with known history of liver cirrhosis. Currently on hospice care. LFT significantly elevated Coagulopathy Abnormal labs We will need to address goals of care with patient's DURABLE POWER OF INFORMATION ASSURANCE and medical teams Repeat labs IV fluids Need to consider alternative nutritional intake if part of care plan We will follow with recommendations No acute surgical intervention planned The liver is enlarged measuring about 19 cm. The spleen is enlarged measuring about 13 to 14 cm. Doppler interrogation of the main portal vein shows patency with hepatopedal, monophasic flow. There is no biliary ductal dilatation identified. Gallbladder is absent. CBD is 4 mm. There is a cystic lesion measuring 3.6 cm near the inferior pole of the spleen. Part of the pancreas is obscured by bowel gas. There is trace ascites. Both kidneys appear unremarkable. There is no hydronephrosis. IMPRESSION: Hepatosplenomegaly. Trace ascites. Splenic cyst. Status post cholecystectomy Thank you for let me participate in patient's care FINDINGS: Lung bases: Appears to be some atelectasis in the lung bases bilaterally. Liver: There is hepatomegaly. There appears to be some areas of fatty infiltration. There is no focal enhancing mass noted. Gallbladder and bile ducts: Gallbladder surgically absent. Surgical clips are noted in the gallbladder fossa small areas of magnetic susceptibility artifact. There is motion degradation of the MRCP is a portion of the study but no persistent filling defects demonstrated to suggest common duct stone Pancreas: Unremarkable. No ductal dilation. No mass. Spleen: Unremarkable. No splenomegaly. No evidence for a splenic cyst or mass Adrenals: Unremarkable. No mass. Kidneys and ureters: Unremarkable. No hydronephrosis. No solid mass. Stomach and bowel: Unremarkable as some colonic distention noted. Intraperitoneal space: Minimal ascites Soft tissues: Unremarkable. Vasculature: Unremarkable. No abdominal aortic aneurysm. Lymph nodes: Unremarkable. No enlarged lymph nodes. IMPRESSION: Minimal ascites. Surgical absence of the gallbladder. No significant intrahepatic or extrahepatic ductal dilatation. No focal hepatic mass pancreatic mass or splenic mass identified. Jamey Mazariegos Mar 30, 2019 14:12
--- NOTE | 2019-03-30 14:26 | NUR ---
CASE MANAGEMENT: REVIEW SI;AC METABOLIC ENCEPHALOPATHY. ANASARCA. CIRRHOSIS. HYPERCOAGULATION. HIV. 99.2 84 30 76/49 94% ON RA WBC 12.9 H/H 6.7/19.9 NA 155 CL 122 BUN 126 CREAT 4.3 URIC AC 12.2 T-BILI 20.3 AST 292 ALT 104 ALK PHOS 1073 ALB 1.1 IS;LINEZOLID IV Q12 HRS MEROPENEM IV Q12 HRS IVF D5 @ 125 ML/HR LACTULOSE PO TID MED SURG STATUS DCP;HOME WITH HOSPICE
[2019-03-30] MEDS ORDERED: Tubing IV Secondary IV ONE ×2 (15:05→20:24)
[2019-03-30 16:00] VITALS: BP 116/95
--- NOTE | 2019-03-30 17:07 | Nephrology Progress Note ---
Assessment/Plan Problem List: (1) STEVE (acute kidney injury) (2) Anasarca (3) Pressure ulcer of sacrum (4) Jaundice Assessment Renal failure- Acute mainly Prerenal Sepsis Jaundice Infected decubitus ulcer Plan IV D5W Adjust meds per order poor prognosis- preterminal agree with comfort care DC Lasix DC HCTZ DC Aldactone Vit K SQ DNR MRI Abd IMPRESSION: Minimal ascites. Surgical absence of the gallbladder. No significant intrahepatic or extrahepatic ductal dilatation. No focal hepatic mass pancreatic mass or splenic mass identified. Subjective ROS Limited/Unobtainable: Yes Objective Objective Last 24 Hour Vital Signs Date Time Temp Pulse Resp B/P (MAP) Pulse Ox O2 Delivery O2 Flow Rate FiO2 03/30/19 16:00 98.3 96 21 116/95 (102) 97 03/30/19 12:00 98.9 78 24 71/40 (50) 94 03/30/19 09:00 Room Air 03/30/19 08:00 98.6 81 28 79/49 (59) 94 03/30/19 04:00 99.2 84 30 80/48 (59) 95 03/30/19 02:20 83 18 96 Room Air 21 03/30/19 00:00 99.1 81 22 88/41 (57) 95 03/29/19 20:00 98.0 84 22 105/85 (92) 94 03/29/19 19:54 Room Air Intake and Output 03/29/19 03/30/19 19:00 07:00 Intake Total 125 ml 1730 ml Output Total 900 ml Balance -775 ml 1730 ml IV Total 125 ml 1730 ml Output Urine Total 900 ml # Voids 1 Laboratory Tests 03/30/19 05:15: White Blood Count 12.9H, Red Blood Count 1.83L, Hemoglobin 6.7*L, Hematocrit 19.9L, Mean Corpuscular Volume 109H, Mean Corpuscular Hemoglobin 36.7H, Mean Corpuscular Hemoglobin Concent 33.8, Red Cell Distribution Width 15.4H, Platelet Count 141L, Mean Platelet Volume 6.4L, Neutrophils (%) (Auto) , Lymphocytes (%) (Auto) , Monocytes (%) (Auto) , Eosinophils (%) (Auto) , Basophils (%) (Auto) , Differential Total Cells Counted 100, Neutrophils % ( Manual) 85H, Lymphocytes % (Manual) 12L, Monocytes % (Manual) 2, Eosinophils % ( Manual) 0, Basophils % (Manual) 1, Band Neutrophils 0, Platelet Estimate DecreasedL, Platelet Morphology Normal, Hypochromasia 4+, Anisocytosis 1+, Macrocytosis 1+, Spherocytes 1+, Sodium Level 155H, Potassium Level 4.4, Chloride Level 122H, Carbon Dioxide Level 17L, Anion Gap 16H, Blood Urea Nitrogen 126H, Creatinine 4.3H, Estimat Glomerular Filtration Rate 17.5, Glucose Level 103, Uric Acid 12.2H, Calcium Level 7.6L, Phosphorus Level 6.0H, Magnesium Level 2.2, Total Bilirubin 20.3H, Direct Bilirubin 15.1H, Aspartate Amino Transf (AST/SGOT) 292H, Alanine Aminotransferase (ALT/SGPT) 107H, Alkaline Phosphatase 1073H, C-Reactive Protein, Quantitative 11.8H, Pro-B-Type Natriuretic Peptide 1420H, Total Protein 7.0, Albumin 1.1L, Globulin 5.9, Albumin/Globulin Ratio 0.2L Height (Feet): 5 Height (Inches): 9.00 Weight (Pounds): 129 General Appearance: no apparent distress, lethargic Cardiovascular: tachycardia Respiratory/Chest: decreased breath sounds Abdomen: distended Objective no other change José Miguel Nava MD Mar 30, 2019 17:07
--- NOTE | 2019-03-30 18:00 | NUR ---
NURSE NOTES: rasheeda rose from [facility]. Ambulance is running late.will be here around 19:00pm. Placed a call to family and left message.
--- NOTE | 2019-03-30 19:05 | NUR ---
HAND-OFF: Report given to Kimmie nickerson endorsed to d/c patient. Addendum: 03/30/19 at 1905 by UNIQUE BAXTER RN and
--- NOTE | 2019-03-30 19:06 | NUR ---
NURSE NOTES: Endorsed to Kimmie to call family member prior discharge patient.Wound picture obtained and changed all the dressings.
--- NOTE | 2019-03-30 19:30 | NUR ---
NURSE NOTES: RECEIVED PATIENT FROM [facility]. PT IS ASLEEP, ON P200 MATTRESS. NO ACUTE DISTRESS NOTED. IV IS INTACT AND PATENT. WOUND DRESSINGS INTACT AND DRY. TAPIA WITH TAPIA ANCHOR IN PLACE, DRAINING WELL. CALLED PATIENT'S BROTHER TO FOLLOW UP WITH DISCHARGE AND WAS INFORMED THAT [facility] N[facility]SE ARE HOME WAITING FOR PATIENT TO ARRIVE. GAVE REPORT TO NURSE CHAVEZ. AWAITING FOR AMBULANCE.
--- NOTE | 2019-03-30 20:30 | NUR ---
NURSE NOTES: D/C IV
--- NOTE | 2019-03-30 22:00 | NUR ---
NURSE NOTES: PATIENT WAS SAFELY DISCHARGE WITH EMS WITH BELONGINGS.
--- NOTE | 2019-03-31 08:55 | NUR ---
*-* INSURANCE *-* ALL CLINICALS AND REVIEWS HAVE BEEN FAXED TO: [facility] ref# [id number] # [phone] fax# [phone]
--- NOTE | 2019-04-01 09:40 | Discharge Summary ---
Discharge Summary Discharge Summary _ DATE OF ADMISSION: 03/22/2019 DATE OF DISCHARGE: 03/30/2019 DISCHARGED BY: REASON FOR ADMISSION: 53 years old male with past medical history of liver cirrhosis , on hospice services with DNR/DNI status, presented for evaluation. Patient had fever and chills for 1 day and had a purulent drainage from the sacral decubitus ulcer. Patient became progressively altered as per his brother, and paramedics were called. Upon evaluation patient initially was afebrile ,vital signs were stable. Physical examination revealed infected decubitus ulcer in sacral area. Laboratory work-up revealed no leukocytosis ,hemoglobin 10.3,hematocrit 29.6, platelet count 232. Potassium 5.4. BUN 96, creatinine 3.5. Lactic acid 1.8. Glucose 97. Total bilirubin 13.3, direct bilirubin 11.7, AST 159 ALT 84. pro BNP 868 , lipase 88 . EKG reveals sinus rhythm, no acute ischemic changes . Chest x-ray revealed no acute cardiopulmonary pathology . Patient admitted with infected decubitus ulcer , possible sepsis and acute kidney injury . CONSULTANTS: pulmonary Dr. Lemos ID specialist Dr. Vu GI specialist Dr. Lopez flat spring assembler Dr. Nava executive vp/oncologist [facility] COURSE: Patient admitted to medical surgical floor. Patient was on IV fluids and antibiotic as per ID specialist recommendation. Initial blood culture revealed E. coli . Urine culture revealed E. coli. Repeated blood culture on also revealed E. coli , then blood culture repeated on and were negative. Per ID specialist patient had sepsis with E. coli bacteremia due to UTI with E. coli and possibly also sacral osteomyelitis , given the patient had infected decubitus ulcer , was immunocompromised with HIV status. No aggressive measures for sacral decubitus ulcer management , given that patient was on hospice care. ID specialist recommended continue antibiotic treatment for additional 2 weeks to complete the course. Surgeon seen and evaluated patient. Patient presented on admission with multiple pressure injuries ,including full- thickness stage IV sacral pressure injury. Wound care provided as per surgeon recommendation. Surgeon recommended local wound care at this time and complete antibiotic course. Further plan of care in regards to invasive surgical treatment was discussed with the family member. Family desired to proceed with hospice care. No acute surgical intervention at this time. Initially no leukocytosis , then patient had leukocytosis which trended down to 12.9 upon discharge. Intermittent fevers resolved. Abdominal ultrasound demonstrated hepatosplenomegaly ,trace ascites, history of cholecystectomy. No hydronephrosis. MRI of the abdomen revealed minimal ascites. Surgically absent gallbladder. No significant intrahepatic or extrahepatic ductal dilatation. No focal hepatic, pancreatic or splenic masses were identified. Bilirubin and LFT were closely monitored. Total and direct bilirubin trending up. Ammonia level initially 19 and then 36. AST and ALT also showed trend up. Per GI specialist , patient had a poor prognosis . Per flat spring assembler acute renal failure was mainly prerenal. Patient was hydrated . Creatinine worsened, up to 4.3 upon discharge. Medications were optimized as per flat spring assembler. Lasix , hydrochlorothiazide and Aldactone were all discontinued. Patient received vitamin K x1. Supplemental oxygen provided and titrated to keep oximetry above 90%. Nebulizing treatment with bronchodilator provided as needed. Patient was mobilized as tolerated. Hemoglobin and hematocrit were closely monitored with goal to keep hemoglobin above 7. Anemia work-up was consistent with anemia of chronic disease; ferritin 825. Patient clinically stabilized and was ready for discharge home with hospice services. Overall prognosis remains poor. FINAL DIAGNOSES: Acute metabolic encephalopathy Sepsis with E. coli bacteremia due to UTI and possibly sacral osteomyelitis as patient immunocompromised with HIV E. coli UTI Infected sacral decubitus ulcer st 4, present on admission Acute encephalopathy Cellulitis of sacral region Acute kidney injury HIV status Abnormal LFT Jaundice Primary biliary cirrhosis Anemia History of gastric bypass Chronic back pain DISCHARGE MEDICATIONS: List of medication was sent with patient. DISCHARGE INSTRUCTIONS: Patient was discharged home with hospice services. I have been assigned to dictate discharge summary for this account. I was not involved in the patient's management. Karishma López NP Apr 01, 2019 09:40
== END 2019-03-30 20:25 | disposition hospice, home (50) | DRG 974 ==
LOC: EDBD 22:51 → EMR 23:30 → 4E 03-22 00:40 → EDBEDREQ 03-22 03:15
DX: A41.51 Sepsis due to Escherichia coli [E. coli] (principal); L89.154 Pressure ulcer of sacral region, stage 4; B20 Human immunodeficiency virus [HIV] disease; G93.41 Metabolic encephalopathy; K65.9 Peritonitis, unspecified; N17.9 Acute kidney failure, unspecified; L03.312 Cellulitis of back [any part except buttock and flank]; L03.119 Cellulitis of unspecified part of limb; M46.28 Osteomyelitis of vertebra, sacral and sacrococcygeal region; N39.0 Urinary tract infection, site not specified; L89.226 Pressure-induced deep tissue damage of left hip; L89.896 Pressure-induced deep tissue damage of other site; K74.3 Primary biliary cirrhosis; I12.9 Hypertensive chronic kidney disease with stage 1 through stage 4 chronic kidney disease, or unspecified chronic kidney disease; N18.9 Chronic kidney disease, unspecified; G89.29 Other chronic pain; Z66 Do not resuscitate; K74.60 Unspecified cirrhosis of liver; D63.8 Anemia in other chronic diseases classified elsewhere; D69.6 Thrombocytopenia, unspecified; Z90.49 Acquired absence of other specified parts of digestive tract; Z98.84 Bariatric surgery status
CPT/HCPCS: 36415; 71045; 74183; 76700; 80048; 80053; 80061; 80076; 80307; 81003; 82140; 82248; 82533; 82550; 82553; 82607; 82728; 82746; 82977; 83540; 83550; 83605; 83615; 83690; 83735; 83880; 84100; 84443; 84550; 85007; 85025; 85610; 85730; 86140; 86689; 86703; 86705; 86709; 86803; 86850; 86900; 86901; 86920; 87040; 87086; 87181; 87340; 93005; 94664; 96361; 96365; 96366; 96375; 99291; A9585; J3430; J7030; J8499